=== PATIENT | female | born 1940 | race Caucasian/White ===

== ENCOUNTER → 2016-04-28 | Outpatient (CLI) | payer MEDICARE, OTHER ==
[~2016-04-28] MED LIST: ALBU17IN INH; FISH1000 PO; MECL-86 PO; OMEP20CA3 PO; PRESCAP PO; SIMV40TA2 PO; VITA100037 PO
[2016-04-28 11:41] LABS: MEAN CORPUSCULAR HEMOGLOBIN 30.2 pg (27.0-33.0); MEAN CORPUSCULAR HGB CONC 32.3 g/dl (32.0-36.5); MEAN CORPUSCULAR VOLUME 93.5 fl (80.0-96.0); RED CELL DISTRIBUTION WIDTH 12.8 % (11.5-14.5); WHITE BLOOD COUNT 6.6 K/mm3 (4.0-10.0)
[2016-04-28 11:44] LABS: INR 0.89
[2016-04-28 12:19] LABS: ALBUMIN/GLOBULIN RATIO 0.93 (1.00-1.93); BILIRUBIN,TOTAL 0.8 MG/DL (0.2-1.0); CALCIUM LEVEL 9.7 MG/DL (8.8-10.2); CREATININE FOR GFR 1.02 MG/DL (0.55-1.02); GLOMERULAR FILTRATION RATE 56.6 (>39); TOTAL PROTEIN 8.3 GM/DL (6.4-8.2)
--- NOTE | 2016-04-28 12:24 | REP ---
Chest two views HISTORY: COPD Comparison: 09/29/2011 The lungs are clear. The heart is normal in size. The pulmonary vasculature is normal in appearance. A large hiatal hernia is present. The bony structure is intact. IMPRESSION: No acute disease. Signed by Freddie Ramsey MD 04/28/2016 12:16 P
--- NOTE | 2016-04-28 12:47 | ECGEPIP ---
Stationary ECG Study [facility] Test Date: 2016-04-28 Pat Name: LOLIS LEON Department: Room: - Gender: F Incident Coordinator: NIKOLAY : 1940 Requested By: Andrew Green Order Number: [id number] Reading MD: Sandra Mares Measurements Intervals [place] Rate: 68 P: 64 HI: 176 QRS: -46 QRSD: 93 T: 34 QT: 392 QTc: 418 Interpretive Statements SINUS RHYTHM LEFT ANTERIOR FASCICULAR BLOCK MILD ST DEPRESSION NO PRIOR Electronically Signed On 04-28-2016 12:47:38 EST by Sandra Mares
== END ==
LOC: M ADMPAT 09:57
PROVIDERS: ATTEND Orthopaedic Surgery
DX: M17.12 Unilateral primary osteoarthritis, left knee (principal); Z79.01 Long term (current) use of anticoagulants

== ENCOUNTER 2016-06-13 09:04 | Inpatient (IN) | payer MEDICARE, OTHER ==
--- NOTE | 2016-06-08 14:21 | HPE ---
DATE OF ADMISSION: 06/13/2016 CHIEF COMPLAINT: Left knee pain. HISTORY OF PRESENT ILLNESS: This is a pleasant 75-year-old female who was supposed to have surgery last month but unfortunately had some issues with cardiac clearance. She ended up having an echo and an EKG and has been cleared now and is ready to go ahead and progress with her surgery. She has progressively worsening left knee pain and stiffness. She has failed to improve with conservative treatment. She has elected for surgery for her continued symptoms. She has pain with weightbearing activities and her activities of daily living. X-rays of her knee are notable for advanced osteoarthritis of the left knee joint. She has consented for a left total knee arthroplasty by Dr. Peter Hall. Medical optimization was performed by Violeta Cotter. ALLERGIES: None. CURRENT MEDICATIONS: Simvastatin, fish oil and vitamin D. PAST MEDICAL HISTORY: Includes COPD, macular degeneration, high cholesterol. PAST SURGICAL HISTORY: Includes tubal ligation and D C and colonoscopy. SOCIAL HISTORY: This patient is retired. She quit smoking 10 years ago. She does not drink alcohol. FAMILY HISTORY: Noncontributory. REVIEW OF SYSTEMS: This patient denies chest pain, heart palpitations, cough, wheezing, difficulty breathing or shortness of breath. She denies abdominal pain, nausea, vomiting, diarrhea or constipation. She does complain of persistent pain in her left knee and pain with weightbearing activities in her left knee. She denies recent upper respiratory infection or urinary tract infection symptoms. PHYSICAL EXAMINATION: GENERAL: She is well-nourished, well-developed in no acute distress, adult female. She walks with a moderate limp favoring the left lower extremity. She is not using assistive devices. VITAL SIGNS: She is 63 inches tall, weighs 184 pounds with a temperature of 97.4, blood pressure 119/83, pulse 71, respirations 16. HEENT: Neck was supple without adenopathy or jugular venous distension. There were no carotid bruits appreciated upon auscultation. LUNGS: Lungs were clear to auscultation without rales or wheeze. HEART: Regular rate and rhythm. ABDOMEN: Bowel sounds were present. EXTREMITIES: Examination of the knee revealed intact skin without erythema, edema or ecchymosis. She had decreased range of motion secondary to pain and stiffness. The leg is neurovascularly intact. LABORATORY DATA: Chest x-ray showed a large hiatal hernia but otherwise no acute cardiopulmonary disease processes. EKG showed sinus rhythm at 68 beats per minute. UA showed 3+ leukocyte esterase, otherwise within normal limits with a specific gravity of 1.024. ProTime 12.2, INR 0.89 glucose 87, BUN 18, creatinine 1.02 for a GFR 56.6, sodium 144, potassium 5.0. CBC was within normal limits. Sed rate was 35. Urine culture showed no growth. Nasal and sinus culture showed normal paulette. IMPRESSION: Symptomatic osteoarthritis of the left knee joint. PLAN: Consented for a left total knee arthroplasty by Dr. Peter Hall.
[~2016-06-13] VITALS: Ht 162.6 cm; Wt 85.0 kg
[~2016-06-13 09:04] MED LIST changes: +BUPIVACAINE HCL 0.5% 10 ML VIAL As Ordered ONE; +EPINEPHrine INJ 1 MG/ML 1ML VIAL/AMP As Ordered ONE; +ROPIvacaine 0.5% 30 ML INJECTION (J2795) As Ordered ONE; +SIMVASTATIN 20 MG TAB PO SCH; +TRANEXAMIC ACID 100 MG/ML 10ML VIAL As Ordered ONE; +ceFAZolin 1GM INJ (J0690) As Ordered ONE
[2016-06-13] MEDS ORDERED: ACETAMINOPHEN 500 MG TAB PO ONE (09:15)
[2016-06-13] MEDS ORDERED: LR 1,000 ML IV SCH ×3 (09:15→13:15)
[2016-06-13] MEDS ORDERED: COUM1TAB17 PO (09:27)
[2016-06-13] MEDS ORDERED: LIDOCAINE 2% INJ 100 MG/5 ML SDV (FOR ANES.) As Ordered ONE (10:00)
[2016-06-13] MEDS ORDERED: MIDAZOLAM INJ 2 MG/2 ML VIAL (J2250) As Ordered ONE ×2 (10:00→10:23)
[2016-06-13] MEDS ORDERED: PROPOFOL 200 MG/20 ML VIAL As Ordered ONE (10:00)
[2016-06-13] MEDS ORDERED: fentaNYL 100 MCG/2 ML INJECTION (J3010) As Ordered ONE ×3 (10:00→11:33)
[2016-06-13] MEDS ORDERED: fentaNYL 100 MCG/2 ML INJECTION (J3010) IV ONE (11:15)
[2016-06-13] MEDS ORDERED: MIDAZOLAM INJ 2 MG/2 ML VIAL (J2250) IV ONE (11:15)
[2016-06-13] MEDS ORDERED: ONDANSETRON 4MG/2ML VIAL (J2405) As Ordered ONE (11:47)
[2016-06-13] MEDS ORDERED: dexameTHASONE 10 MG/1 ML VIAL PRES.FREE (J1100) ONE (11:52)
[2016-06-13] MEDS ORDERED: LIDOCAINE 1% MDV 20ML VIAL ONE (11:52)
[2016-06-13] MEDS ORDERED: ROPIvacaine 0.5% 30 ML INJECTION (J2795) ONE (11:52)
[2016-06-13] MEDS ORDERED: PHENYLephrine HCL 500 MCG/5 ML (100MCG/ML) SYRINGE (J2370) As Ordered ONE (11:56)
[2016-06-13] MEDS ORDERED: ePHEDrine SULFATE 25 MG/5 ML(5MG/ML) SYRINGE As Ordered ONE (11:56)
[2016-06-13] MEDS ORDERED: MORPHINE PCA 1MG/ML 100ML CADD As Ordered ONE (12:41)
[2016-06-13] MEDS ORDERED: NALOXONE INJ 0.4 MG/1 ML VIAL (J2310) IV PRN (13:15)
[2016-06-13] MEDS ORDERED: fentaNYL 100 MCG/2 ML INJECTION (J3010) IV PRN (13:15)
[2016-06-13] MEDS ORDERED: MEPERIDINE INJ 25 MG/ML VIAL (J2175) IV PRN (13:15)
[2016-06-13] MEDS ORDERED: PERCOCET 5MG/325MG TAB PO PRN (13:15)
[2016-06-13] MEDS ORDERED: diphenhydrAMINE INJ 50MG/ML VIAL (J1200) IV PRN (13:15)
[2016-06-13] MEDS ORDERED: EPIDURAL/PCA KEYS XX PRN (13:15)
[2016-06-13] MEDS ORDERED: FLEET ENEMA PR PRN (13:15)
[2016-06-13] MEDS ORDERED: NALBUPHINE HCL 10 MG/ML AMP (J2300) IV PRN (13:15)
[2016-06-13] MEDS ORDERED: METOCLOPRAMIDE INJ 10MG/2ML VIAL (J2765) IV PRN (13:15)
[2016-06-13] MEDS ORDERED: ACETAMINOPHEN TAB 650MG DOSE (2X325MG) PO PRN (13:15)
[2016-06-13] MEDS ORDERED: PATIENT IS CURRENTLY ON AN ON-Q PAIN BUSTER PAIN RELIEF SYSTEM XX SCH (13:15)
[2016-06-13] MEDS ORDERED: ONDANSETRON 4MG/2ML VIAL (J2405) IV PRN ×2 (13:15)
[2016-06-13] MEDS ORDERED: MORPHINE PCA 1MG/ML 100ML CADD IV PRN (13:15)
--- NOTE | 2016-06-13 15:33 | RO ---
DATE OF PROCEDURE: 06/13/2016 PREPROCEDURE DIAGNOSIS: Left knee degenerative arthritis. POSTPROCEDURE DIAGNOSIS: Left knee degenerative arthritis. OPERATIVE PROCEDURE: Left total knee arthroplasty using a size 4 narrow cruciate retaining femoral component with a size 3 tibial tray and a 10 mm rotating platform polyethylene insert and a 35 mm polyethylene button. All components were cemented. Prosthesis made by [employer], a PFC knee. SURGEON: Andrew Hall MD SUPERVISOR [employer]: Benja Zavala ANESTHESIA: Left spinal nerve block with spinal. COMPLICATIONS: None. SPECIMENS: Joint surface. ESTIMATED BLOOD LOSS: Less than 30 mL. DESCRIPTION OF PROCEDURE: Antibiotics were given intravenously preoperatively and a successful left femoral nerve block and spinal anesthetic was placed. A tourniquet was placed in the left upper thigh and not inflated. The left lower extremity was prepped and draped in the usual sterile fashion. Leg elevated and after an appropriate time out, the tourniquet was inflated and then longitudinal incision was made for a medial parapatellar approach to the knee. Bovie cautery was used to coagulate crossing vessels. Subperiosteal dissection of the proximal medial portion of the tibia was performed as well as proximally and laterally and then we everted the patella and flexed the knee. Anterior cruciate ligament (ACL ) was debrided. Drill placed down the center of the femoral canal followed by an intramedullary oziel and a distal femoral cutting jig set at 5 degrees valgus cut for a left knee at 10 mm resection level. A distal femoral block was pinned into position. Distal femoral cut performed. AP sizing jig measures for a size 4 prosthesis and then the 3 degree external rotation block was placed, followed by the four-in-one block and anterior-posterior chamfer cuts performed taking great care to protect the surrounding soft tissues. We then performed the anterior posterior chamfer cuts. We then exposed the proximal tibia and then the extramedullary oziel was used to make sure we were parallel to the mechanical axis of the tibia referencing off the medial tibial condyle measuring 4 mm from that position, then we placed the cutting jig and then secondary check with extramedullary oziel confirmed that we appeared to be parallel to the mechanical axis. The proximal tibial osteotomy was then performed. We then placed the laminar dry clipper tender laterally and performed a completion medial meniscectomy with debridement of posterior medial osteophytes, then placed the laminar dry clipper tender medially and performed a completion lateral meniscectomy with debridement of the posterior lateral osteophytes. The spacer blocks were then used and the 10 mm insert felt the best. She had just about full extension with a 10 mm, thus I did not think a bigger one was needed. She has good stability at varus valgus stress test both in flexion and extension. We then exposed the proximal tibia, sized for a #3 tray and then it was pinned in positioned followed by the reamer and broach and then the trial polyethylene placed, followed by the trial femoral component, brought the knee to extension, everted the patella and performed patellar osteotomy and then the lug holes were drilled sizing for a 35 button. The trial polyethylene was placed and flexion and extension showed that patellofemoral tracking was anatomic. We then drilled the lug holes for the femur, removed the trial components and my sales and marketing assistant Mr. Benja Zavala mixed the cement on the back table as I prepared the bony surfaces for cementing with a copious amount of pulsatile lavage irrigant solution. Once all the surface were thoroughly dried, I cemented the tibial tray , removed excess cement, placed the polyethylene then cemented the femoral component, removed exam excess cement, brought the knee to extension, then cemented the patellar button, and removed cement. Held this in position until the cement had hardened and then copiously pulsatile lavage irrigated out the knee joint as we were waiting for the cement to harden. Tranexamic acid was placed in the knee and then we closed the apex of the wound with two interrupted #1 PDS sutures, the parapatellar areas was closed with #1 PDS suture, then a running #1 Stratafix was used, double armed to close the capsule. At this point the tourniquet was released. The PainBuster placed. Then we irrigated the subdermal tissues with pulsatile lavage irrigant solution and closed the subdermal sutures with interrupted #2-0 PDS sutures and the skin was closed with ladonna, covered by Adaptic dry sterile bulky dressing. She was then transferred to the recovery room in stable condition. There were no intraoperative complications. PEDRO PABLO
[2016-06-13] MEDS ORDERED: WARFARIN SOD 5 MG TAB PO SCH (17:00)
[2016-06-13 20:00] VITALS: BP 113/54
[2016-06-13 21:00] VITALS: BP 118/51
[2016-06-13 22:00] VITALS: BP 112/50
--- NOTE | 2016-06-13 22:11 | CR ---
DATE OF CONSULTATION: 06/13/2016 PRIMARY CARE PROVIDER: Violeta Cotter, [facility]. REQUESTING PHYSICIAN: Dr. Hall REASON FOR CONSULTATION: Assistance with medical management. HISTORY OF PRESENT ILLNESS: Ms. Briscoe is a pleasant 75-year-old female with past medical history of gastroesophageal reflux disease (GERD), hyperlipidemia, chronic obstructive pulmonary disease (COPD), who presented today for an elective left total knee arthroplasty with Dr. Hall secondary to left knee arthritis. Patient himself reports that she has had a problem with arthritis ongoing for at least 7 to 8 years. Her symptoms have progressively worsened to the point that she intermittently had to use a walker. Previously, her treatment was pursued conservatively; however, despite her medical management, her pain worsened. Therefore, the decision was for the patient to electively pursue surgery. There is also plan for right knee surgery in the future. Patient is now seen in the postoperatively in the postanesthesia care unit (PACU ). Feels well after surgery. Denies any chest pain, shortness of breath, palpitations, nausea, vomiting, fevers, chills. Underwent surgery well without complications. She has very good appetite. PAST MEDICAL HISTORY: 1. Hyperlipidemia. 2. Chronic obstructive pulmonary disease (COPD), but has not been on medications for years; reportedly is very well controlled. 3. Vitamin D deficiency. 4. Gastroesophageal reflux disease (GERD). 5. Vertigo. 6. Macular degeneration. 7. Bilateral knee degenerative arthritis. 8. Diverticulosis. PAST SURGICAL HISTORY: 1. Left total knee arthroplasty, 06/13/2016. 2. Tubal ligation. 3. Dilatation and curettage (D C). 4. Colonoscopy. 5. Tonsillectomy. 6. Appendectomy. ALLERGIES: None. HOME MEDICATIONS: - fish oil 1000 mg by mouth daily - meclizine 25 mg by mouth daily as needed - omeprazole 20 mg by mouth daily as needed - PreserVision 1 capsule by mouth daily - Zocor 40 mg by mouth daily - vitamin D 1000 units by mouth daily SOCIAL HISTORY: The patient is an ex-smoker of 10 years, used to smoke for greater than 40 years, up to two packs a day. No alcohol or drug use. Lifetime travel includes [employer]. 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 Currently lives at home with her and five dogs. No history of asbestos, tuberculosis. FAMILY HISTORY: Noncontributory due to advanced age. REVIEW OF SYSTEMS: CONSTITUTIONAL: Denies fevers, chills, rigors, weight changes. HEENT: Denies headaches, lightheadedness, dizziness, difficulty with speech and swallow. EYES: Positive for macular degeneration. CARDIOVASCULAR: Denies chest pain, paroxysmal nocturnal dyspnea, pillow orthopnea, lower extremity edema. PULMONARY: Denies shortness of breath, productive cough, hemoptysis. GASTROINTESTINAL: Denies hematochezia, melena, or hematemesis, nausea, vomiting , diarrhea, constipation. GENITOURINARY: No dysuria, frequency or hematuria. MUSCULOSKELETAL: Positive for arthritis bilateral knees. NEUROLOGICAL: No paralysis, paresthesia, headaches. ENDOCRINE: Negative for diabetes, or thyroid disease. LYMPHATICS: No lumps, bumps, or swelling anywhere in neck, axilla, or groin. HEMATOLOGY: No abnormal bleeding or bruising. PSYCHIATRIC: No anxiety or depression. PHYSICAL EXAMINATION: VITAL SIGNS: Blood pressure 137/65, heart rate 75, respiration rate 18, pulse oximetry 97% on 2 liters nasal cannula. GENERAL: Patient is lying in bed in the postanesthesia care unit (PACU), comfortable, no acute distress. Appears stated age. Alert, awake, oriented times three. Pleasant, cooperative. HEENT: Normocephalic, atraumatic. Moist oral mucosa. Good dentition. No thrush or lesions appreciated. NECK: Supple. Trachea midline. No jugular venous distention (JVD). CHEST: Symmetric chest rise. No accessory muscle use. Breath sounds were clear to auscultation bilaterally. HEART: Regular rate and rhythm. Normal S1, S2. ABDOMEN: Obese, but nontender, nondistended. Bowel sounds present. No guarding. No rebound. No peritoneal signs. EXTREMITIES: No pedal edema. Pedal pulses present bilaterally. Left lower extremity is currently being wrapped with PainBuster in place. NEUROLOGIC: She is able to move all her extremities. Sensory intact. No focal deficits appreciated. PSYCHIATRIC: Normal affect. Pleasant. SKIN: No obvious rashes or lesions. LABORATORY DATA: None currently. IMPRESSION AND PLAN: Ms. Briscoe is a pleasant 75-year-old female with past medical history of left knee arthritis status post left total knee arthroplasty postoperative day zero. Medical consult is requested to help assist with her other medical conditions. 1. Left knee arthritis status post surgery. Pain management and anticoagulation is per primary team. Physical therapy per primary team. 2. Hyperlipidemia. Continue home dose of Zocor. 3. Vitamin D deficiency. Continue vitamin D supplementation. 4. Gastroesophageal reflux disease (GERD). She only needs omeprazole as needed. Not an active concern at this time. 5. Chronic obstructive pulmonary disease (COPD). Reportedly, does not require nebulizer treatment outpatient. Symptoms have been under control for many years despite not being on treatment. 6. Deep venous thrombosis (DVT) prophylaxis. Sequential compression devices (SCDs), thromboembolitic deterrents (TEDs), pharmacological intervention per primary team. Thank you for allowing us to participate in Ms. Briscoe's care. We will continue to follow her with you. My preceptor for this patient encounter was Dr. Demond Bae. The preceptor was physically present in the building during the encounter and was fully available as needed. All aspects of the patient interview, examination, medical decision-making process, and medical care plan development were reviewed and approved by the preceptor. The preceptor is aware and concurs with the plan as stated in the body of this note and will attest to such by his/her co-signature. PEDRO PABLO
[2016-06-13 23:00] VITALS: BP 122/63
[2016-06-14 02:00] VITALS: BP 131/70
[2016-06-14 06:00] VITALS: BP 127/67
[2016-06-14] MEDS ORDERED: PERCOCET 5MG/325MG TAB PO PRN (06:30)
[2016-06-14 07:15] LABS: MEAN CORPUSCULAR HEMOGLOBIN 29.9 pg (27.0-33.0); MEAN CORPUSCULAR HGB CONC 31.6 g/dl (32.0-36.5); MEAN CORPUSCULAR VOLUME 94.9 fl (80.0-96.0); RED CELL DISTRIBUTION WIDTH 12.6 % (11.5-14.5); WHITE BLOOD COUNT 13.1 K/mm3 (4.0-10.0)
[2016-06-14 07:27] LABS: CALCIUM LEVEL 8.4 MG/DL (8.8-10.2); CREATININE FOR GFR 1.11 MG/DL (0.55-1.02); GLOMERULAR FILTRATION RATE 51.3 (>39); POTASSIUM SERUM 4.9 MEQ/L (3.5-5.1)
[2016-06-14] MEDS: MIRALAX *UNIT DOSE* 17GM PACKET PO SCH (09:02)
[2016-06-14] MEDS: MOM 30ML SUSPENSION UDC PO SCH (09:02)
[2016-06-14] MEDS: VITAMIN D 1,000 INTERNATIONAL UNITS TABLET PO SCH (09:03)
[2016-06-14] MEDS: PERCOCET 5MG/325MG TAB PO PRN ×3 (09:03→23:33)
[2016-06-14] MEDS: SENOKOT S TAB PO SCH ×2 (09:03→20:18)
[2016-06-14] MEDS: ONDANSETRON 4 MG TAB (S0181) PO PRN ×2 (09:03→15:05)
[2016-06-14] MEDS: SIMVASTATIN 40 MG TAB PO SCH (09:03)
[2016-06-14 09:05] LABS: INR 1.56
--- NOTE | 2016-06-14 12:44 | REP ---
Left knee two views postoperative study: There is a total knee arthroplasty. The components are tightly applied and in satisfactory positions alignment on both views. Skin ladonna are incidentally noted. Signed by Vin Reardon MD 06/14/2016 12:36 P
[2016-06-14 14:00] VITALS: BP 123/56
[2016-06-14] MEDS ORDERED: MECLIZINE 25 MG TABLET PO PRN (15:30)
[2016-06-14] MEDS ORDERED: WARFARIN SOD 5 MG TAB PO ONE (17:00)
[2016-06-14 22:00] VITALS: BP 117/60
[2016-06-15 06:00] VITALS: BP 140/83
[2016-06-15] MEDS: PERCOCET 5MG/325MG TAB PO PRN ×4 (06:04→23:13)
[2016-06-15 06:45] LABS: MEAN CORPUSCULAR HEMOGLOBIN 30.3 pg (27.0-33.0); MEAN CORPUSCULAR HGB CONC 31.7 g/dl (32.0-36.5); MEAN CORPUSCULAR VOLUME 95.4 fl (80.0-96.0); RED CELL DISTRIBUTION WIDTH 12.8 % (11.5-14.5); WHITE BLOOD COUNT 12.2 K/mm3 (4.0-10.0)
[2016-06-15 06:51] LABS: INR 2.56
[2016-06-15 07:04] LABS: ANION GAP 7 MEQ/L (8-16); BLOOD UREA NITROGEN 16 MG/DL (7-18); CALCIUM LEVEL 8.6 MG/DL (8.8-10.2); CARBON DIOXIDE LEVEL 31 MEQ/L (21-32); CHLORIDE LEVEL 103 MEQ/L (98-107); GLOMERULAR FILTRATION RATE > 60.0 (>39); GLUCOSE, FASTING 109 MG/DL (83-110); POTASSIUM SERUM 4.4 MEQ/L (3.5-5.1); SODIUM LEVEL 141 MEQ/L (136-145)
[2016-06-15] MEDS: SENOKOT S TAB PO SCH ×2 (10:03→21:00)
[2016-06-15] MEDS: MOM 30ML SUSPENSION UDC PO SCH (10:03)
[2016-06-15] MEDS: PANTOPRAZOLE 20 MG TAB PO SCH (10:03)
[2016-06-15] MEDS: MIRALAX *UNIT DOSE* 17GM PACKET PO SCH (10:03)
[2016-06-15] MEDS: OMEGA-3 1050MG CAPSULE PO SCH (10:03)
[2016-06-15] MEDS: SIMVASTATIN 40 MG TAB PO SCH (10:03)
[2016-06-15] MEDS: VITAMIN D 1,000 INTERNATIONAL UNITS TABLET PO SCH (10:03)
[2016-06-15] MEDS: ONDANSETRON 4 MG TAB (S0181) PO PRN ×3 (10:04→23:15)
[2016-06-15 22:00] VITALS: BP 130/73
[2016-06-16] MEDS: ONDANSETRON 4 MG TAB (S0181) PO PRN ×2 (05:58→10:07)
[2016-06-16] MEDS: PERCOCET 5MG/325MG TAB PO PRN (05:58)
[2016-06-16 06:00] VITALS: BP 121/63
[2016-06-16 06:38] LABS: MEAN CORPUSCULAR HEMOGLOBIN 30.3 pg (27.0-33.0); MEAN CORPUSCULAR HGB CONC 32.3 g/dl (32.0-36.5); MEAN CORPUSCULAR VOLUME 93.9 fl (80.0-96.0); RED CELL DISTRIBUTION WIDTH 12.5 % (11.5-14.5); WHITE BLOOD COUNT 10.4 K/mm3 (4.0-10.0)
[2016-06-16 06:44] LABS: INR 2.18
[2016-06-16 06:57] LABS: ANION GAP 8 MEQ/L (8-16); BLOOD UREA NITROGEN 13 MG/DL (7-18); CARBON DIOXIDE LEVEL 28 MEQ/L (21-32); CHLORIDE LEVEL 103 MEQ/L (98-107); CREATININE FOR GFR 0.81 MG/DL (0.55-1.02); GLOMERULAR FILTRATION RATE > 60.0 (>39); GLUCOSE, FASTING 99 MG/DL (83-110); POTASSIUM SERUM 4.3 MEQ/L (3.5-5.1); SODIUM LEVEL 139 MEQ/L (136-145)
--- NOTE | 2016-06-16 07:44 | IPNPDOC ---
Subjective Date Seen The patient was seen on 06/16/16. Subjective Chief Complaint/HPI The patient is a 75-year-old female admitted with a reason for visit of Arthritis Left Knee. Events since last encounter pt seen and examined, doing well, walked with physical therapy yesterday, pain is controlled Objective Physical Examination General Exam: Positive: No Acute Distress Eye Exam: Positive: PERRLA, Conjunctiva & lids normal Neck Exam: Positive: Supple Heart Exam: Positive: Rate Normal, Regular Rhythm, Normal S1, Normal S2, Negative: Murmurs, Rubs Abdomen Exam: Positive: Normal bowel sounds, Soft, Negative: Tenderness, Hepatospenomegaly Extremity Exam: Positive: Normal pulses, Negative: Clubbing, Cyanosis, Edema Assessment /Plan Problems (1) Arthritis of left knee Problem Text: * s/p left knee arthroplasty POD #3 * pain in controlled, continues to work with PT * INR therapeutic (2) Vertigo Status: Chronic Response to Treatment: Stable Problem Text: * meclizine as needed (3) Gastric reflux Status: Chronic Response to Treatment: Stable Problem Text: Protonix daily (4) Hyperlipidemia Status: Chronic Response to Treatment: Stable Problem Text: simvastatin daily Plan/VTE VTE Prophylaxis Ordered?: Yes VS, I&O, 24H, Fishbone Vital Signs/I&O Vital Signs Date Time Temp Pulse Resp B/P (MAP) Pulse Ox O2 Delivery O2 Flow Rate FiO2 06/16/16 06:28 18 06/16/16 06:00 98.4 77 121/63 (82) 92 Room Air 06/14/16 06:00 2.0 I&O- Last 24 Hours up to 6 AM 06/16/16 06:00 Intake Total 260 ml Output Total 200 ml Balance 60 ml Laboratory Data 24H LABS Laboratory Tests 2 06/16/16 06:24: Prothrombin Time 24.3H, Prothromb Time International Ratio 2.18, Anion Gap 8, Glomerular Filtration Rate > 60.0, Blood Urea Nitrogen 13, Creatinine 0.81, Sodium Level 139, Potassium Level 4.3, Chloride Level 103, Carbon Dioxide Level 28, Calcium Level 8.0L CBC/BMP Laboratory Tests 06/16/16 06:24 Red Blood Count 4.05, Mean Corpuscular Volume 93.9, Mean Corpuscular Hemoglobin 30.3, Mean Corpuscular Hemoglobin Concent 32.3, Red Cell Distribution Width 12.5 , Calcium Level 8.0 L YVETTE MOON DO Jun 16, 2016 07:44
[2016-06-16] MEDS ORDERED: COUM2.5T11 PO (08:32)
[2016-06-16] MEDS ORDERED: PERC5TAB6 PO (08:32)
[2016-06-16] MEDS: MOM 30ML SUSPENSION UDC PO SCH (08:51)
[2016-06-16] MEDS: MIRALAX *UNIT DOSE* 17GM PACKET PO SCH (08:51)
[2016-06-16] MEDS: VITAMIN D 1,000 INTERNATIONAL UNITS TABLET PO SCH (08:51)
[2016-06-16] MEDS: SIMVASTATIN 40 MG TAB PO SCH (08:51)
[2016-06-16] MEDS: SENOKOT S TAB PO SCH (08:51)
[2016-06-16] MEDS: PANTOPRAZOLE 20 MG TAB PO SCH (08:51)
[2016-06-16] MEDS: OMEGA-3 1050MG CAPSULE PO SCH (08:51)
[2016-06-16] MEDS ORDERED: ZOFR20TA PO (14:15)
[2016-06-16] MEDS ORDERED: MAGNESIUM CITRATE 300 ML BTL PO ONE (14:30)
== END 2016-06-16 14:55 | disposition home health service (06) | DRG 470 ==
LOC: M OR 09:04 → M MS5PR 19:00
PROVIDERS: ADMIT Orthopaedic Surgery; ATTEND Orthopaedic Surgery
PROC: 0SRD0J9 Replacement of Left Knee Joint with Synthetic Substitute, Cemented, Open Approach (ICD-10-PCS; principal; 2016-06-13 12:40)
DX: M17.12 Unilateral primary osteoarthritis, left knee (principal); E55.9 Vitamin D deficiency, unspecified; J44.9 Chronic obstructive pulmonary disease, unspecified; H35.30 Unspecified macular degeneration; K21.9 Gastro-esophageal reflux disease without esophagitis; R42 Dizziness and giddiness; E78.5 Hyperlipidemia, unspecified; Z79.899 Other long term (current) drug therapy; Z87.891 Personal history of nicotine dependence; Z98.51 Tubal ligation status

== ENCOUNTER → 2016-06-22 | Outpatient (REF) | payer MEDICARE, OTHER ==
[~2016-06-22] MED LIST changes: -BUPIVACAINE HCL 0.5% 10 ML VIAL As Ordered ONE; +COUM1TAB17 PO; +COUM2.5T11 PO; -EPINEPHrine INJ 1 MG/ML 1ML VIAL/AMP As Ordered ONE; +PERC5TAB6 PO; -ROPIvacaine 0.5% 30 ML INJECTION (J2795) As Ordered ONE; -SIMVASTATIN 20 MG TAB PO SCH; -TRANEXAMIC ACID 100 MG/ML 10ML VIAL As Ordered ONE; +ZOFR20TA PO; -ceFAZolin 1GM INJ (J0690) As Ordered ONE
[2016-06-22 11:19] LABS: INR 4.19
== END ==
LOC: M SHH 10:33
PROVIDERS: ATTEND Nurse Practitioner Family
DX: Z51.81 Encounter for therapeutic drug level monitoring (principal); Z79.01 Long term (current) use of anticoagulants

== ENCOUNTER → 2016-06-23 | Outpatient (REF) | payer MEDICARE, OTHER ==
[2016-06-23 12:42] LABS: INR 3.73
== END ==
LOC: M SHH 12:02
PROVIDERS: ATTEND Nurse Practitioner Family
DX: Z51.81 Encounter for therapeutic drug level monitoring (principal); Z79.01 Long term (current) use of anticoagulants

== ENCOUNTER → 2016-06-27 | Outpatient (REF) | payer MEDICARE, OTHER ==
[2016-06-27 14:44] LABS: INR 1.53
== END ==
LOC: M SHH 14:18
PROVIDERS: ATTEND Nurse Practitioner Family
DX: Z51.81 Encounter for therapeutic drug level monitoring (principal); Z79.01 Long term (current) use of anticoagulants

== ENCOUNTER → 2016-06-30 | Outpatient (REF) | payer MEDICARE, OTHER ==
[2016-06-30 13:46] LABS: INR 1.53
== END ==
LOC: M SHH 12:35
PROVIDERS: ATTEND Nurse Practitioner Family
DX: Z51.81 Encounter for therapeutic drug level monitoring (principal); Z79.01 Long term (current) use of anticoagulants

== ENCOUNTER → 2016-07-04 | Outpatient (REF) | payer MEDICARE, OTHER ==
[2016-07-04 12:26] LABS: INR 2.68
== END ==
LOC: M SHH 11:35
PROVIDERS: ATTEND Nurse Practitioner Family
DX: Z51.81 Encounter for therapeutic drug level monitoring (principal); Z79.01 Long term (current) use of anticoagulants

== ENCOUNTER → 2016-07-07 | Outpatient (REF) | payer MEDICARE, OTHER ==
[2016-07-07 15:59] LABS: INR 1.68
== END ==
LOC: M SHH 14:47
PROVIDERS: ATTEND Nurse Practitioner Family
DX: Z51.81 Encounter for therapeutic drug level monitoring (principal); Z79.01 Long term (current) use of anticoagulants

== ENCOUNTER → 2016-07-11 | Outpatient (REF) | payer MEDICARE, OTHER ==
[2016-07-11 13:35] LABS: INR 1.4
== END ==
LOC: M SHH 13:20
PROVIDERS: ATTEND Nurse Practitioner Family
DX: Z51.81 Encounter for therapeutic drug level monitoring (principal); Z79.01 Long term (current) use of anticoagulants

== ENCOUNTER 2016-12-27 11:22 | Inpatient (IN) | payer MEDICARE, OTHER ==
[2016-12-15 10:53] VITALS: BP 124/70
--- NOTE | 2016-12-23 14:38 | HPE ---
DATE OF ADMISSION: 12/27/2016 ATTENDING PHYSICIAN: Andrew Hall MD CHIEF COMPLAINT: Right knee pain and stiffness. HISTORY: Patient is a 76-year-old female with progressively worsening right knee pain and stiffness. She has failed to improve with conservative measures. She continues to have pain with weightbearing activities and activities of daily living. Patient has consented for an elective right total knee arthroplasty with Dr. Hall. Medical optimization received from her primary care, Violeta Cotter PA-C and also her acid polymerization operator, Dr. Benja Garland at the [facility]. CURRENT MEDICATIONS: - meclizine 25 mg 1/2 to 1 tablet three times daily - omeprazole 20 mg daily - PreserVision/lutein oral capsule once daily - simvastatin 40 mg daily - albuterol 2 puffs every 4-6 hours as needed for wheeze/cough - vitamin D3 1000 units daily ALLERGIES: No known drug allergies. PAST MEDICAL HISTORY: Hyperlipidemia. Type 2 diabetes. Gastroesophageal reflux. Macular degeneration. Reactive airway disease. Urinary incontinence with use of pessary. Vaginitis. Currently using triamcinolone cream as needed. Vertigo. Vitamin D deficiency. PAST SURGICAL HISTORY: Left total knee arthroplasty. Tubal ligation. SOCIAL HISTORY: Patient is a former smoker and does not consume alcohol. No recreational drug use. REVIEW OF SYSTEMS: Patient denies fevers, chills, nausea, vomiting, or diarrhea. She denies chest pain or shortness of breath, lightheadedness, headaches, coughs or abdominal pain. She continues to have right knee pain with weightbearing activities and activities of daily living (ADL). PHYSICAL EXAMINATION: VITAL SIGNS: Blood pressure 126/72, heart rate 72, respirations 18, height 5 feet 4-1/4 inches, weight 179 pounds, temperature 98.7. HEAD: Normocephalic. NECK: Supple without lymphadenopathy. HEART: Regular rate and rhythm. LUNGS: Clear to auscultation bilaterally. ABDOMEN: Soft, nontender to palpation. MUSCULOSKELETAL: Inspection of the right knee revealed no gross abnormalities. Patient's skin is intact. She is walking with a limp favoring the right lower extremity. Patient can extend knee to 0 degrees and flex to 100 degrees. Right lower extremity strength is normal. No hip irritability was elicited with range of motion. Her calf is soft, nontender to palpation with no palpable cords noted. Distally, she is neurovascularly intact. LABORATORY DATA: EKG sinus rhythm with a left anterior fascicular block. Poor R wave progression related to conduction disturbance. Marginal ST/T wave abnormalities. Chest x-ray large fixed hiatal hernia, otherwise negative chest. No interval change. Comprehensive metabolic profile fasting glucose 92, blood urea nitrogen 14, creatinine for GFR 0.75, glomerular filtration rate greater than 60, sodium 141, potassium 4.7, chloride 104, carbon dioxide 31, anion gap decreased at 6, calcium 9.4, AST 14, ALT 19, alkaline phosphatase 98, total bilirubin 0.5, total protein 8.0, albumin 3.8, albumin globulin ratio decreased at 0.90, prothrombin time 13.6, INR 1.03. Urinalysis revealed positive leukocyte esterase and WBCs. Urine culture reveals no growth. Nasal and sinus cultures normal paulette present. Complete blood count WBC 6.5, RBC 4.81, hemoglobin 14.5, hematocrit 44.7, platelets 360, erythrocyte sedimentation rate elevated at 33. IMPRESSION: Right knee osteoarthritis (OA) with x-rays notable for end stage degenerative changes. PLAN: Patient has consented for an elective right total knee arthroplasty with Dr. Hall. Medical optimization received from her primary pediatric acute care unit nurse DAMASO Cotter and her acid polymerization operator Dr. Benja Garland. [facility]ITAL[facility]
[~2016-12-27] VITALS: Ht 165.1 cm; Wt 90.4 kg
[~2016-12-27 11:22] MED LIST changes: -COUM2.5T11 PO; +COUM2.5T17 PO; +PERC5TAB12 PO; -PERC5TAB6 PO; -VITA100037 PO; +VITA100067 PO
[2016-12-27] MEDS ORDERED: ACETAMINOPHEN 500 MG TAB PO ONE (11:30)
[2016-12-27] MEDS ORDERED: LR 1,000 ML IV ONE (11:30)
[2016-12-27] MEDS ORDERED: COUM1TAB17 PO (12:38)
[2016-12-27] MEDS ORDERED: fentaNYL 100 MCG/2 ML INJECTION (J3010) As Ordered ONE ×2 (13:35→13:59)
[2016-12-27] MEDS ORDERED: MIDAZOLAM INJ 2 MG/2 ML VIAL (J2250) As Ordered ONE ×2 (13:35→13:59)
[2016-12-27] MEDS ORDERED: ceFAZolin 1GM INJ (J0690) As Ordered ONE (13:49)
[2016-12-27] MEDS ORDERED: TRANEXAMIC ACID 100 MG/ML 10ML VIAL As Ordered ONE (13:49)
[2016-12-27] MEDS ORDERED: EPINEPHrine INJ 1 MG/ML 1ML AMP As Ordered ONE (13:49)
[2016-12-27] MEDS: MIDAZOLAM INJ 2 MG/2 ML VIAL (J2250) IV SCH ×2 (13:57→14:00)
[2016-12-27] MEDS ORDERED: BUPIVACAINE HCL 0.25% 30 ML VIAL As Ordered ONE (14:21)
[2016-12-27] MEDS: BUPIVACAINE LIPOSOME/PF 1.3% 20 ML VIAL (13.3MG/ML)(EXPAREL) INJ ONE ×2 (14:22→15:50)
[2016-12-27] MEDS ORDERED: fentaNYL 100 MCG/2 ML INJECTION (J3010) IV SCH (14:30)
[2016-12-27] MEDS ORDERED: KETAMINE HCL 200 MG/20 ML VIAL As Ordered ONE (14:45)
[2016-12-27] MEDS ORDERED: dexameTHASONE 4 MG/ML 1ML VIAL (J1100) As Ordered ONE (15:34)
[2016-12-27] MEDS ORDERED: LIDOCAINE 2% INJ 100 MG/5 ML SDV (FOR ANES.) As Ordered ONE (15:34)
[2016-12-27] MEDS ORDERED: ONDANSETRON 4MG/2ML VIAL (J2405) As Ordered ONE (15:34)
[2016-12-27] MEDS ORDERED: PROPOFOL 200 MG/20 ML VIAL As Ordered ONE (15:34)
[2016-12-27] MEDS ORDERED: HYDROmorphone HCL 2 MG/ML 1ML VIAL (J1170) As Ordered ONE (15:40)
[2016-12-27] MEDS ORDERED: ePHEDrine SULFATE 25 MG/5 ML(5MG/ML) SYRINGE As Ordered ONE (15:50)
[2016-12-27] MEDS ORDERED: MEPERIDINE INJ 25 MG/ML VIAL (J2175) IV PRN (17:00)
[2016-12-27] MEDS ORDERED: NALBUPHINE HCL 10 MG/ML AMP (J2300) IV PRN (17:00)
[2016-12-27] MEDS ORDERED: FLEET ENEMA PR PRN (17:00)
[2016-12-27] MEDS ORDERED: PERCOCET 5MG/325MG TAB PO PRN (17:00)
[2016-12-27] MEDS ORDERED: fentaNYL 100 MCG/2 ML INJECTION (J3010) IV PRN (17:00)
[2016-12-27] MEDS ORDERED: EPIDURAL/PCA KEYS XX PRN (17:00)
[2016-12-27] MEDS ORDERED: METOCLOPRAMIDE INJ 10MG/2ML VIAL (J2765) IV PRN (17:00)
[2016-12-27] MEDS ORDERED: diphenhydrAMINE INJ 50MG/ML VIAL (J1200) IV PRN (17:00)
[2016-12-27] MEDS ORDERED: MORPHINE 1MG/ML IN 0.9% NACL 100ML IV BAG IV PRN (17:00)
[2016-12-27] MEDS ORDERED: ONDANSETRON 4MG/2ML VIAL (J2405) IV PRN ×2 (17:00)
[2016-12-27] MEDS ORDERED: NALOXONE INJ 0.4 MG/1 ML VIAL (J2310) IV PRN (17:00)
[2016-12-27] MEDS ORDERED: LR 1,000 ML IV SCH (17:00)
[2016-12-27] MEDS ORDERED: ACETAMINOPHEN TAB 650MG DOSE (2X325MG) PO PRN (17:00)
[2016-12-27] MEDS: LR 1,000 ML IV SCH (17:32)
[2016-12-27 18:30] VITALS: BP 173/88
[2016-12-27 19:00] VITALS: BP 130/75
[2016-12-27 20:00] VITALS: BP 142/60
[2016-12-27 21:00] VITALS: BP 157/78; O2SAT 98
[2016-12-27] MEDS ORDERED: WARFARIN SOD 5 MG TAB PO ONE (21:00)
--- NOTE | 2016-12-27 21:34 | IPN ---
DATE: 12/27/2016 Ms. Briscoe is seen in the immediate postoperative period. She is still recovering from a relatively uneventful procedure, although she did require general anesthesia as pain control was inadequate in spinal. Temperature 96.2, pulse 75, respiratory rate 16, blood pressure 175/79, 96% on 2 liters nasal cannula. She is localizing to pain. Breathing is symmetrical, rested. I:E ratio is 1:3. Heart: Regular rate and rhythm and is not tachycardic. Abdomen: Soft, hypoactive bowel sounds. There are no recent labs for me to review from today. ASSESSMENT: This is a 76-year-old postoperative from right knee arthroplasty. PLAN: 1. Orthopedic. Pain management, deep vein thrombosis (DVT) prophylaxis, gastrointestinal (GI) regimen, activity and discharge per Dr. Hall. 2. Patient has an abnormal EKG, was seen in preoperative evaluation at the [facility], Dr. Garland. Echocardiogram shows preserved LV function. EKG continues to show left anterior fascicular block. The patient does have hyperlipidemia. Will continue on a statin in the postoperative setting. 3. Will review home medications and reconcile.
[2016-12-27 22:00] VITALS: BP 138/74
[2016-12-28 02:00] VITALS: BP 142/65
[2016-12-28] MEDS: LR 1,000 ML IV SCH (05:20)
[2016-12-28 06:00] VITALS: BP 120/56
[2016-12-28] MEDS ORDERED: ONDANSETRON 4 MG TAB (S0181) PO SCH (06:00)
[2016-12-28] MEDS ORDERED: PERCOCET 5MG/325MG TAB PO PRN (06:30)
[2016-12-28 06:42] LABS: MEAN CORPUSCULAR HGB CONC 32.6 g/dl (32.0-36.5); MEAN CORPUSCULAR VOLUME 92.1 fl (80.0-96.0); PLATELET COUNT, AUTOMATED 292 10^3/uL (150-450); RED CELL DISTRIBUTION WIDTH 13.8 % (11.5-14.5); WHITE BLOOD COUNT 10.4 10^3/uL (4.0-10.0)
[2016-12-28 06:53] LABS: INR 1.2
[2016-12-28] MEDS ORDERED: ACETAMINOPHEN TAB 650MG DOSE (2X325MG) PO PRN (07:00)
[2016-12-28 07:05] LABS: ANION GAP 8 MEQ/L (8-16); BLOOD UREA NITROGEN 11 MG/DL (7-18); CARBON DIOXIDE LEVEL 27 MEQ/L (21-32); CHLORIDE LEVEL 104 MEQ/L (98-107); CREATININE FOR GFR 0.96 MG/DL (0.55-1.02); GLOMERULAR FILTRATION RATE > 60.0 (>39); GLUCOSE, FASTING 124 MG/DL (83-110); POTASSIUM SERUM 4.1 MEQ/L (3.5-5.1); SODIUM LEVEL 139 MEQ/L (136-145)
[2016-12-28] MEDS ORDERED: ROPIvacaine 0.5% 30 ML INJECTION (J2795) ONE (07:33)
[2016-12-28] MEDS: MOM 30ML SUSPENSION UDC PO SCH (08:16)
[2016-12-28] MEDS: SENOKOT S TAB PO SCH ×2 (08:16→21:26)
[2016-12-28] MEDS: MIRALAX *UNIT DOSE* 17GM PACKET PO SCH (08:17)
[2016-12-28] MEDS: PERCOCET 5MG/325MG TAB PO PRN ×4 (08:17→21:26)
[2016-12-28 10:00] VITALS: BP 120/57
[2016-12-28] MEDS: ONDANSETRON 4 MG TAB (S0181) PO PRN ×3 (11:37→18:34)
--- NOTE | 2016-12-28 12:43 | REP ---
Right hip two views: There is a total hip arthroplasty with the components tightly applied and in satisfactory positions alignment. There are skin ladonna. Signed by Vin Reardon MD 12/28/2016 12:35 P
[2016-12-28 14:00] VITALS: BP 117/60
--- NOTE | 2016-12-28 14:29 | RO ---
DATE OF PROCEDURE: 12/27/2016 PREPROCEDURE DIAGNOSIS: Right knee varus degenerative arthritis. POSTPROCEDURE DIAGNOSIS: Right knee varus degenerative arthritis. PROCEDURE: Right total knee arthroplasty using a size 4 narrow cemented femoral component, cruciate retaining with a size 3 tibial tray and a 15 mm rotating platform polyethylene insert and a 35 mm polyethylene button. Prosthesis was made by [employer], it was a PFC knee. SURGEON: Dr. Andrew Hall SEARCH MARKETING COORDINATOR: DAMASO Fuentes ANESTHESIA: Spinal with right femoral nerve block and then general laryngeal mask anesthetic. COMPLICATIONS: None. SPECIMENS: Joint surface. ESTIMATED BLOOD LOSS: Less than 20 mL. DESCRIPTION OF PROCEDURE: Antibiotics were given intravenously, preoperatively successfully, then a right femoral nerve block and then a spinal anesthetic was induced successfully. Tourniquet was placed on the right upper thigh and not inflated. Right lower extremity was then carefully prepped and draped in the usual sterile fashion. The leg was elevated. Then, after appropriate time-out, the tourniquet was inflated. A longitudinal incision was made for a medial parapatellar approach to the knee. The spinal was a bit slow to set up and so anesthesiologist did laryngeal mask anesthetic. Bovie cautery was used to coagulate crossing vessels. Arthrotomy was then performed. Subperiosteal dissection was performed along the proximal, medial, and lateral tibial plateaus performed. The patella was everted. The knee was flexed. Anterior cruciate ligament (ACL) was debrided. Drill was placed down the center of the femoral canal, followed by the intramedullary oziel, the distal femoral cutting jig set at 5 degree valgus cut for a right knee at 10 mm resection level. The jig was pinned into position. Distal femoral cut performed. AP sizing jig measured between a 3 and a 4. Difficult decision made. She had a 4 narrow on the other side and if I went to a 3 I would be taking too much off posteriorly. Thus, I set the block at the 3.5 zac and then used the 3 degree external rotation jig to pin it in position and then used the 4-in-1 block. I tried the size 3 and size 4, the size 3 appeared to be taking excessive posterior bone, thus I used the size 4 and moved it up 2 mm. It was pinned in position. The anterior and posterior chamfer cuts were then performed. I then exposed the proximal tibia, used the extramedullary tibial guide to estimate being parallel to the mechanical axis of the tibia, referencing off the medial tibial condyle at 4 mm resection level. The block was pinned in that position, secondary check with the extramedullary oziel confirmed that we appeared to be parallel to the mechanical axis. Proximal tibial osteotomy was then performed. Lamina medical supervisor was placed medially and we performed a completion medial meniscectomy, debridement of the posteromedial osteophytes. Spacer block showed that up to a size 15 actually fit the best with, because otherwise I went to a 12.5 and she hyperextended significantly and had a bit of varus valgus and laxity in extension. The flexion and extension spaces appeared relatively symmetric otherwise. We then exposed the proximal tibia, sized for a #3 tray, pinned into position, followed by the reamer and broach. Then the trial polyethylene then the trial femoral component, which fit actually quite well but she was a bit springy and tight in flexion. I did ensure that there was a posterior cruciate ligament (PCL) release and then I did feel that it was a bit snug in flexion, but this was a fairly extreme flexion, but I elected to go back and place the 4-in-1 block and put it back into the standard box hole, so I took 2 more millimeters off posteriorly by replacing the 4-in-1 block and then sliding it 2 mm and then performed posterior chamfer cuts. Trial was then placed once again and her stability was good, both in flexion and extension. Thus, I drilled the lug holes for the femur and then removed the trial components and placed the Exparel in the periosteum of the femur and the tibia and the arthrotomy edges and handle on the posterior capsule. It was noteworthy that when the trial components were in, I did have the knee into extension, everted the patella and did a patellar osteotomy and sized for a 35 button. The lug holes were drilled, and patellofemoral tracking was anatomic. At this point, Julianne Summers mixed the cement on the back table, as I prepared the bony surfaces for cementing with a copious amount of pulsatile lavage irrigant solution. She was also critical to the success of the operation by helping to manipulate the knee, help with appropriate soft tissue retraction, helped to close the wound and prepare the patient, otherwise allowing me to perform the operation smoothly and efficiently. We then cemented the tibial trial, removed excess cement, placed the polyethylene, then cemented the femoral component, removed all the excess cement, then brought the knee into extension, everted the patella, cemented the patellar button and removed excess cement, held the knee into extension with the patellar clamp until the cement had hardened. As we were awaiting, we copiously pulsatile lavage irrigated out the knee joint . I then applied tranexamic acid into the joint and then began closing the arthrotomy apex with two #1 PDS sutures, one medially, and then we closed the capsule with a running #1 double arm Stratafix. The tourniquet was then released at this point. We copiously irrigated and closed the deep subdermal tissues with interrupted #2-0 PDS sutures, skin was closed with ladonna, covered by Adaptic dry sterile bulky dressing. She was then transferred to the recovery room in stable condition. There were no intraoperative complications.
[2016-12-28] MEDS ORDERED: ALBUTEROL SULFATE 2.5 MG/0.5 ML INH NEB SOLN NEB PRN (16:15)
--- NOTE | 2016-12-28 16:20 | IPN ---
DATE: 12/28/2016 SUBJECTIVE: Patient seen and examined in the room today. Patient is still experiencing some discomfort at the surgical site, but the pain is tolerable. Patient has been doing physical therapy without any complaints. Denied any overnight events reported. OBJECTIVE: VITAL SIGNS: Temperature is 98.8, pulse 80, respirations 14, blood pressure 120/56, pulse oximetry is 97% with 2 liters nasal cannula. Later, patient's oxygen is able to wean to room air. GENERAL: No sign of acute distress, alert and oriented times three. HEENT: Normocephalic, atraumatic. Extraocular motor grossly intact. CARDIOVASCULAR: Positive S1, S2, regular rate. LUNGS: Clear to auscultation bilaterally. ABDOMEN: Soft, nontender, nondistended. Bowel sounds present. EXTREMITIES: Compression stockings in place. No extremity edema. LABORATORY DATA: WBC 10.4, hemoglobin 12.9, hematocrit 39.6, platelet count 292. Sodium is 139, potassium 4.1, chloride 104, carbon dioxide 27, BUN 11, creatinine 0.96, GFR greater than 60, fasting glucose 124, calcium is 9, PT is 15.4, INR is 1.2. ASSESSMENT AND PLAN: 1. Right total knee arthroplasty. Refer activity level, diet, pain control, and anticoagulation to the orthopedic team. 2. Hyperlipidemia. 3. Chronic obstructive pulmonary disease (COPD). 4. Vitamin D deficiency. 5. Gastroesophageal reflux disease. 6. History of diverticulosis. 7. Deep vein thrombosis (DVT) prophylaxis per orthopedic team recommendations.
[2016-12-28] MEDS ORDERED: WARFARIN SOD 5 MG TAB PO ONE (17:00)
[2016-12-28] MEDS: SIMVASTATIN 40 MG TAB PO SCH (21:26)
[2016-12-28 22:00] VITALS: BP 117/61
[2016-12-29] MEDS: PERCOCET 5MG/325MG TAB PO PRN ×4 (05:28→21:49)
[2016-12-29] MEDS: ONDANSETRON 4 MG TAB (S0181) PO PRN (05:31)
[2016-12-29 06:00] VITALS: BP 129/61
[2016-12-29 07:02] LABS: MEAN CORPUSCULAR HEMOGLOBIN 30.2 pg (27.0-33.0); MEAN CORPUSCULAR HGB CONC 32.4 g/dl (32.0-36.5); MEAN CORPUSCULAR VOLUME 93.3 fl (80.0-96.0); PLATELET COUNT, AUTOMATED 259 10^3/uL (150-450); RED CELL DISTRIBUTION WIDTH 14.1 % (11.5-14.5)
[2016-12-29 07:14] LABS: INR 2.69
[2016-12-29 07:31] LABS: CALCIUM LEVEL 8.5 MG/DL (8.8-10.2); CREATININE FOR GFR 1.1 MG/DL (0.55-1.02); GLOMERULAR FILTRATION RATE 51.7 (>39); POTASSIUM SERUM 4.2 MEQ/L (3.5-5.1)
[2016-12-29] MEDS ORDERED: COUM2.5T17 PO (08:23)
[2016-12-29] MEDS ORDERED: PERC5TAB12 PO (08:23)
[2016-12-29] MEDS: MIRALAX *UNIT DOSE* 17GM PACKET PO SCH (08:42)
[2016-12-29] MEDS: SENOKOT S TAB PO SCH ×2 (08:42→21:00)
[2016-12-29] MEDS: MOM 30ML SUSPENSION UDC PO SCH (08:42)
[2016-12-29 12:00] VITALS: O2SAT 96
[2016-12-29 14:00] VITALS: BP 116/63
--- NOTE | 2016-12-29 18:00 | IPNPDOC ---
Text Note Date of Service The patient was seen on 12/29/16. NOTE SUBJECTIVE: Patient seen and examined in the room today. Patient states she is feeling fatigue. Patient has been doing physical therapy without any complaints. OBJECTIVE: VITAL SIGNS: Listed below GENERAL: No sign of acute distress, alert and oriented times three. HEENT: Normocephalic, atraumatic. Extraocular motor grossly intact. CARDIOVASCULAR: Positive S1, S2, regular rate. LUNGS: Clear to auscultation bilaterally. ABDOMEN: Soft, nontender, nondistended. Bowel sounds present. EXTREMITIES: Compression stockings in place. No extremity edema. LABORATORY DATA: Listed below ASSESSMENT AND PLAN: 1. Hypoxia: Today in the afternoon. Patient has multiple episodes of O2 sat dropping to low 80s during rest. No significant lung finding during the physical exam. Patient has history of COPD and not on home O2. Encourage frequent use of spirometry. Will continue monitoring vitals on tele. 2. Right total knee arthroplasty. Refer activity level, diet, pain control, and anticoagulation to the orthopedic team. 3. Hyperlipidemia. 4. Chronic obstructive pulmonary disease (COPD). 5. Vitamin D deficiency. 6. Gastroesophageal reflux disease. 7. History of diverticulosis. 8. Deep vein thrombosis (DVT) prophylaxis per orthopedic team recommendations. VS,Fishbone, I+O VS, Fishbone, I+O Laboratory Tests 12/29/16 06:15 Red Blood Count 4.04, Mean Corpuscular Volume 93.3, Mean Corpuscular Hemoglobin 30.2, Mean Corpuscular Hemoglobin Concent 32.4, Red Cell Distribution Width 14.1 , Calcium Level 8.5 L Vital Signs Date Time Temp Pulse Resp B/P (MAP) Pulse Ox O2 Delivery O2 Flow Rate FiO2 12/29/16 17:40 18 12/29/16 14:00 98.8 81 116/63 (80) 89 Room Air 12/29/16 06:00 2.0 I&O- Last 24 Hours up to 6 AM 12/30/16 06:00 Intake Total 840 ml Output Total 250 ml Balance 590 ml ROHIT RODRÍGUEZ DO Dec 29, 2016 18:00
[2016-12-29] MEDS: SIMVASTATIN 40 MG TAB PO SCH (21:48)
[2016-12-29 22:00] VITALS: BP 120/70
[2016-12-30 06:00] VITALS: BP 124/69
[2016-12-30] MEDS: PERCOCET 5MG/325MG TAB PO PRN (06:57)
[2016-12-30 07:21] LABS: MEAN CORPUSCULAR HEMOGLOBIN 30.3 pg (27.0-33.0); MEAN CORPUSCULAR HGB CONC 32.3 g/dl (32.0-36.5); PLATELET COUNT, AUTOMATED 257 10^3/uL (150-450); WHITE BLOOD COUNT 11.3 10^3/uL (4.0-10.0)
[2016-12-30 07:31] LABS: INR 2.44
[2016-12-30 07:56] LABS: ANION GAP 6 MEQ/L (8-16); BLOOD UREA NITROGEN 15 MG/DL (7-18); CALCIUM LEVEL 8.1 MG/DL (8.8-10.2); CARBON DIOXIDE LEVEL 30 MEQ/L (21-32); CHLORIDE LEVEL 101 MEQ/L (98-107); CREATININE FOR GFR 0.85 MG/DL (0.55-1.02); GLOMERULAR FILTRATION RATE > 60.0 (>39); GLUCOSE, FASTING 104 MG/DL (83-110); POTASSIUM SERUM 4.3 MEQ/L (3.5-5.1); SODIUM LEVEL 137 MEQ/L (136-145)
[2016-12-30] MEDS: MOM 30ML SUSPENSION UDC PO SCH (09:00)
[2016-12-30] MEDS: MIRALAX *UNIT DOSE* 17GM PACKET PO SCH (09:00)
[2016-12-30] MEDS: ONDANSETRON 4 MG TAB (S0181) PO PRN (09:18)
[2016-12-30] MEDS: SENOKOT S TAB PO SCH (09:19)
--- NOTE | 2016-12-30 17:02 | IPNPDOC ---
Text Note Date of Service The patient was seen on 12/30/16. NOTE SUBJECTIVE: Patient is seen and examined in the room today. Patient states she is feeling fatigue. No more O2 desaturation is detected on telemetry. OBJECTIVE: VITAL SIGNS: Listed below GENERAL: No sign of acute distress, alert and oriented times three. HEENT: Normocephalic, atraumatic. Extraocular motor grossly intact. CARDIOVASCULAR: Positive S1, S2, regular rate. LUNGS: Clear to auscultation bilaterally. ABDOMEN: Soft, nontender, nondistended. Bowel sounds present. EXTREMITIES: Compression stockings in place. No extremity edema. LABORATORY DATA: Listed below ASSESSMENT AND PLAN: 1. Hypoxia: Yesterday afternoon patient had multiple episodes of O2 sat dropping to low 80s during rest. No significant lung finding during the physical exam. Patient has history of COPD and not on home O2. Encouraged frequent use of spirometry. No more acute desaturation has been noted since. Patient is being discharged. 2. Right total knee arthroplasty. Refer activity level, diet, pain control, and anticoagulation to the orthopedic team. 3. Hyperlipidemia. 4. Chronic obstructive pulmonary disease (COPD). 5. Vitamin D deficiency. 6. Gastroesophageal reflux disease. 7. History of diverticulosis. 8. Deep vein thrombosis (DVT) prophylaxis per orthopedic team recommendations. VS,Fishbone, I+O VS, Fishbone, I+O Laboratory Tests 12/30/16 07:12 Red Blood Count 4.02, Mean Corpuscular Volume 94.0, Mean Corpuscular Hemoglobin 30.3, Mean Corpuscular Hemoglobin Concent 32.3, Red Cell Distribution Width 14.0 , Calcium Level 8.1 L Vital Signs Date Time Temp Pulse Resp B/P (MAP) Pulse Ox O2 Delivery O2 Flow Rate FiO2 12/30/16 07:54 Room Air 12/30/16 07:27 17 12/30/16 06:00 97.2 79 124/69 (87) 94 12/29/16 21:00 2.0 I&O- Last 24 Hours up to 6 AM 12/31/16 06:00 Intake Total 420 ml Output Total 0 ml Balance 420 ml ROHIT RODRÍGUEZ DO Dec 30, 2016 17:02
--- NOTE | 2017-01-03 10:15 | DSES ---
DATE OF ADMISSION: 12/27/2016 DATE OF DISCHARGE: 12/30/2016 ATTENDING PHYSICIAN: Dr. Andrew Hall ADMISSION DIAGNOSIS: Osteoarthritis right knee. OTHER DIAGNOSES: Hyperlipidemia, type 2 diabetes, gastric reflux disease, macular degeneration, reactive airways disease, chronic urinary incontinence, vaginitis, vertigo, vitamin D deficiency. DISCHARGE DIAGNOSIS: Osteoarthritis right knee, status post right total knee arthroplasty. OPERATION PERFORMED: Right total knee arthroplasty. HISTORY: This is a pleasant 76-year-old female patient with progressively worsening right knee pain and stiffness. She failed to improve with conservative management. She was admitted for elective knee replacement on the right side. HOSPITAL COURSE: The patient was admitted on day of surgery underwent a right total knee arthroplasty, which was uneventful. She did well in the postoperative period and hospital course was without complication. She was up with physical therapy per their protocol, and her pain was controlled. On the day of discharge, she was doing well. Weightbearing as tolerated on her right lower extremity. She will move her right knee to prevent stiffness. She will use adjusted dose Coumadin and LAUREN stockings for 30 days postoperative for deep vein thrombosis (DVT) prophylaxis. She will resume her preoperative medications and diet. She was given instructions to include, but not limited to wound monitoring and activity limitations. Please refer the medical record for further detail. She will use oral pain medications for pain control. She will follow up in our office in 10-14 days.
== END 2016-12-30 12:20 | disposition home health service (06) | DRG 470 ==
LOC: M OR 11:22 → M MS5PR 18:00
PROVIDERS: ADMIT Orthopaedic Surgery; ATTEND Orthopaedic Surgery
PROC: 0SRC0J9 Replacement of Right Knee Joint with Synthetic Substitute, Cemented, Open Approach (ICD-10-PCS; principal; 2016-12-27 14:45)
DX: M17.11 Unilateral primary osteoarthritis, right knee (principal); R09.02 Hypoxemia; E78.5 Hyperlipidemia, unspecified; K21.9 Gastro-esophageal reflux disease without esophagitis; J44.9 Chronic obstructive pulmonary disease, unspecified; I44.4 Left anterior fascicular block; R42 Dizziness and giddiness; Z98.51 Tubal ligation status; Z87.891 Personal history of nicotine dependence; Z79.899 Other long term (current) drug therapy

== ENCOUNTER → 2017-01-03 | Outpatient (REF) | payer MEDICARE, OTHER ==
[2017-01-03 12:33] LABS: INR 3.57
== END ==
LOC: M LAB REF 12:17
PROVIDERS: ATTEND Nurse Practitioner Family
DX: Z51.81 Encounter for therapeutic drug level monitoring (principal); Z79.01 Long term (current) use of anticoagulants

== ENCOUNTER → 2017-01-11 | Outpatient (CLI) | payer MEDICARE, OTHER ==
[2017-01-11 11:46] LABS: INR 1.38
== END ==
LOC: M LABDRAW1 10:56
PROVIDERS: ATTEND Nurse Practitioner Family
DX: Z79.01 Long term (current) use of anticoagulants (principal)

== ENCOUNTER → 2017-01-23 | Outpatient (REF) | payer MEDICARE, OTHER ==
[2017-01-23 15:29] LABS: INR 1.44
== END ==
LOC: M SHH 15:07
PROVIDERS: ATTEND Nurse Practitioner Family
DX: Z51.81 Encounter for therapeutic drug level monitoring (principal); Z79.01 Long term (current) use of anticoagulants

== ENCOUNTER → 2018-01-24 | Outpatient (CLI) | payer MEDICARE, OTHER | LOC: M EKG 13:03 | DX: J44.9 Chronic obstructive pulmonary disease, unspecified (principal) | CPT/HCPCS: 93005 ==

== ENCOUNTER 2018-02-01 09:38 | Day surgery (SDC) | payer MEDICARE, OTHER ==
[~2018-02-01 09:38] MED LIST changes: -ALBU17IN INH; -COUM1TAB17 PO; -COUM2.5T17 PO; -FISH1000 PO; +GLYCOPYRROLATE INJ 0.2 MG/ML 2 ML VIAL As Ordered; +LIDOCAINE 2% INJ 100 MG/5 ML SDV (FOR ANES.) As Ordered; -MECL-86 PO; +MIDAZOLAM INJ 2 MG/2 ML VIAL (J2250) As Ordered; +NEOSTIGMINE 10 MG/10 ML VIAL (J2710) As Ordered; -OMEP20CA3 PO; +ONDANSETRON 4MG/2ML VIAL (J2405) As Ordered; -PERC5TAB12 PO; -PRESCAP PO; +PROPOFOL 200 MG/20 ML VIAL As Ordered; +ROCURONIUM BROMIDE 50 MG/5 ML VIAL As Ordered; -SIMV40TA2 PO; -VITA100067 PO; -ZOFR20TA PO; +dexameTHASONE 4 MG/ML 1ML VIAL (J1100) As Ordered; +fentaNYL 100 MCG/2 ML INJECTION (J3010) As Ordered
[2018-02-01] MEDS ORDERED: LR 1,000 ML IV ×3 (10:00→14:00)
[2018-02-01] MEDS: VASOPRESSIN INJ 20 UNITS/ML VIAL As Ordered ×2 (11:57→13:10)
[2018-02-01] MEDS ORDERED: fentaNYL 100 MCG/2 ML INJECTION (J3010) As Ordered (12:42)
[2018-02-01] MEDS ORDERED: ONDANSETRON 4MG/2ML VIAL (J2405) IV (14:00)
[2018-02-01] MEDS ORDERED: fentaNYL 100 MCG/2 ML INJECTION (J3010) IV (14:00)
[2018-02-01] MEDS ORDERED: NORCO, ANEXSIA 5/325MG TABLET (HYDROcodone/ACETAMINOPHEN) PO ×2 (14:00)
[2018-02-01] MEDS ORDERED: IBUPROFEN 600 MG TAB PO (14:00)
== END 2018-02-01 16:40 | disposition home or self-care (01) ==
LOC: M SDC 09:38
DX: N81.9 Female genital prolapse, unspecified (principal); R32 Unspecified urinary incontinence; E78.5 Hyperlipidemia, unspecified; K21.9 Gastro-esophageal reflux disease without esophagitis; J44.9 Chronic obstructive pulmonary disease, unspecified; Z87.891 Personal history of nicotine dependence; Z79.899 Other long term (current) drug therapy
CPT/HCPCS: 57120

== ENCOUNTER 2019-07-17 16:18 | Emergency (ER) | payer MEDICARE, OTHER ==
[~2019-07-17] VITALS: Ht 165.1 cm; Wt 84.1 kg
[~2019-07-17 16:18] MED LIST changes: +ALBU17IN INH; +COUM1TAB17 PO; +COUM2.5T17 PO; +FISH1000 PO; +FISH7.5C PO; -GLYCOPYRROLATE INJ 0.2 MG/ML 2 ML VIAL As Ordered; -LIDOCAINE 2% INJ 100 MG/5 ML SDV (FOR ANES.) As Ordered; +MECL-86 PO; -MIDAZOLAM INJ 2 MG/2 ML VIAL (J2250) As Ordered; -NEOSTIGMINE 10 MG/10 ML VIAL (J2710) As Ordered; +OMEP1CAP73 PO; -ONDANSETRON 4MG/2ML VIAL (J2405) As Ordered; +PERC5TAB12 PO; +PRESCAP PO; -PROPOFOL 200 MG/20 ML VIAL As Ordered; -ROCURONIUM BROMIDE 50 MG/5 ML VIAL As Ordered; +SIMV40TA20 PO; +VITA100067 PO; +ZOFR4TAB16 PO; -dexameTHASONE 4 MG/ML 1ML VIAL (J1100) As Ordered; -fentaNYL 100 MCG/2 ML INJECTION (J3010) As Ordered
[2019-07-17 17:26] LABS: BASO % 0.4 % (0.0-1.0); HEMATOCRIT 47.1 % (36.0-47.0); HEMOGLOBIN 15.3 g/dl (12.0-15.5); LYMPH # 0.6 10^3/uL (1.5-5.0); LYMPH % 11.8 % (24.0-44.0); MEAN CORPUSCULAR HEMOGLOBIN 29.9 pg (27.0-33.0); MEAN CORPUSCULAR HGB CONC 32.5 g/dl (32.0-36.5); MONO # 0.3 10^3/uL (0.0-0.8); MONO % 6.4 % (0.0-5.0); NEUTROPHILS # 3.8 10^3/uL (1.5-8.5); PLATELET COUNT, AUTOMATED 124 10^3/uL (150-450); RED BLOOD COUNT 5.12 10^6/uL (4.00-5.40); WHITE BLOOD COUNT 4.7 10^3/uL (4.0-10.0)
[2019-07-17 17:47] LABS: ALBUMIN 3.6 GM/DL (3.2-5.2); BILIRUBIN,DIRECT 0.3 MG/DL (0.0-0.2); BILIRUBIN,TOTAL 0.9 MG/DL (0.2-1.0); CALCIUM LEVEL 8.6 MG/DL (8.8-10.2); CREATININE FOR GFR 1.31 MG/DL (0.55-1.30); POTASSIUM SERUM 3.5 MEQ/L (3.5-5.1); TOTAL PROTEIN 7.6 GM/DL (6.4-8.2)
--- NOTE | 2019-07-17 19:29 | REPVR ---
PROCEDURE INFORMATION: Exam: CT Chest Without Contrast Exam date and time: 07/17/2019 7:17 PM Age: 78 years old Clinical indication: Cough TECHNIQUE: Imaging protocol: Computed tomography of the chest without contrast. 3D rendering: MIP and/or 3D reconstructed images were created by the technologist. Radiation optimization: All CT scans at this facility use at least one of these dose optimization techniques: automated exposure control; mA and/or kV adjustment per patient size (includes targeted exams where dose is matched to clinical indication); or iterative reconstruction. COMPARISON: CR PORTABLE CHEST X-RAY 07/17/2019 5:58 PM FINDINGS: Lungs: Atelectasis at both lung bases, left greater than right. Small calcified granulomas right upper lobe. Pleural space: Unremarkable. No pneumothorax. No pleural effusion. Heart: Unremarkable. No cardiomegaly. No pericardial effusion. Aorta: There is fusiform dilatation of the ascending thoracic aorta which measures 3.7 cm. maximally. There is no saccular component. The aorta demonstrates mild atherosclerotic calcification. Lymph nodes: Numerous small mediastinal lymph nodes likely postinflammatory. Calcified left hilar lymph nodes. Stomach and bowel: A large hiatal hernia is present with essentially most of the stomach located in the thorax. Bones/joints: Unremarkable for age. No acute fracture. Soft tissues: Unremarkable. IMPRESSION: 1. A large hiatal hernia is present with essentially most of the stomach located in the thorax. 2. There is fusiform dilatation of the ascending thoracic aorta which measures 3.7 cm. maximally. There is no saccular component. 3. No acute pulmonary parenchymal infiltrates. 4. Findings consistent with remote intrathoracic granulomatous infection. Electronically signed by: Alec Colón On 07/17/2019 19:29:26 PM
[2019-07-17 20:30] VITALS: BP 188/82
--- NOTE | 2019-07-17 22:47 | REP ---
REASON: Fever. COMPARISON: 12/15/2016 The technique utilized in obtaining the radiograph has magnified the cardiac silhouette and accentuated the interstitial markings. There is cardiomegaly accentuated by technique. The interstitial markings are increased, consistent with fibrotic change status quo accentuated by technique. There is a patchy opacity in the left lower lobe. The pleural angles are sharp. The osseous structures are unchanged. IMPRESSION: 1. Patchy opacity in the left lower lobe. Pneumonia versus subsegmental atelectatic change. 2. There is an unchanged hiatal hernia. Electronically Signed by Hugo Rogers DO 07/18/2019 11:57 A
== END 2019-07-17 21:38 | disposition home or self-care (01) ==
LOC: M ED 16:18
DX: B34.9 Viral infection, unspecified (principal); K44.9 Diaphragmatic hernia without obstruction or gangrene; E11.9 Type 2 diabetes mellitus without complications; R42 Dizziness and giddiness; E78.5 Hyperlipidemia, unspecified; K21.9 Gastro-esophageal reflux disease without esophagitis; J45.909 Unspecified asthma, uncomplicated; Z87.891 Personal history of nicotine dependence; Z96.653 Presence of artificial knee joint, bilateral
CPT/HCPCS: 36415; 71045; 71250; 80048; 80076; 83690; 85025; 87486; 87581; 87633; 87798; 99284; U0003

== ENCOUNTER 2019-07-22 12:37 | Inpatient (IN) | payer MEDICARE, OTHER ==
[~2019-07-22] VITALS: Ht 165.1 cm; Wt 87.5 kg
[2019-07-22] VITALS (10 sets, daily range): BP systolic 98–120; BP diastolic 52–73
[2019-07-22] MEDS ORDERED: NS 2,780 ML in IV 1 EA IV ONE (13:15)
[2019-07-22] MEDS ORDERED: cefTRIAXone SOD 2 GM in D5W MINI-BAG PLUS 50 ML IV ONE (13:15)
[2019-07-22 13:16] LABS: HEMATOCRIT 42.8 % (36.0-47.0); HEMOGLOBIN 15.5 g/dl (12.0-15.5); MEAN CORPUSCULAR HEMOGLOBIN 29.8 pg (27.0-33.0); MEAN CORPUSCULAR HGB CONC 36.2 g/dl (32.0-36.5); MEAN CORPUSCULAR VOLUME 82.3 fl (80.0-96.0); WHITE BLOOD COUNT 3.3 10^3/uL (4.0-10.0)
--- NOTE | 2019-07-22 13:24 | REPVR ---
PROCEDURE INFORMATION: Exam: CT Head Without Contrast Exam date and time: 07/22/2019 1:13 PM Age: 78 years old Clinical indication: Altered mental status/memory loss; Additional info: Altreed TECHNIQUE: Imaging protocol: Computed tomography of the head without contrast. Radiation optimization: All CT scans at this facility use at least one of these dose optimization techniques: automated exposure control; mA and/or kV adjustment per patient size (includes targeted exams where dose is matched to clinical indication); or iterative reconstruction. COMPARISON: No relevant prior studies available. FINDINGS: Brain: There is low attenuation abnormality in the periventricular white matter, likely reflecting chronic microvascular ischemic disease. There are chronic lacunar infarcts. Ventricles: Normal. No ventriculomegaly. Bones/joints: Unremarkable. No acute fracture. Sinuses: There is an air-fluid level in the sphenoid sinus. Mastoid air cells: Visualized mastoid air cells are well aerated. Soft tissues: Unremarkable. IMPRESSION: 1. There is low attenuation abnormality in the periventricular white matter, likely reflecting chronic microvascular ischemic disease. If an acute infarct is clinically suspected, consider MRI with diffusion imaging. 2. There are chronic lacunar infarcts. 3. There is an air-fluid level in the sphenoid sinus. Electronically signed by: Garrett Claire On 07/22/2019 13:24:35 PM
[2019-07-22 13:26] LABS: INR 1.19; PROTHROMBIN TIME 14.8 SECONDS (11.8-14.0)
[2019-07-22 13:27] LABS: PARTIAL THROMBOPLASTIN TIME 41.7 SECONDS (25.0-38.4)
[2019-07-22 13:36] LABS: PLATELET COUNT, AUTOMATED 22 10^3/uL (150-450)
[2019-07-22 13:39] LABS: MAGNESIUM LEVEL 2.8 MG/DL (1.8-2.4); PHOSPHORUS LEVEL 1.2 MG/DL (2.5-4.9)
[2019-07-22 13:44] LABS: APPEARANCE, URINE TURBID (CLEAR); BACTERIA, URINE AUTO 3+ (NEGATIVE); BILIRUBIN, URINE AUTO NEGATIVE (NEGATIVE); BLOOD, URINE BLOOD 3+ (NEGATIVE); COLOR, URINE AMBER (YELLOW); GLUCOSE, URINE (UA) AUTO NEGATIVE (NEGATIVE); KETONE, URINE AUTO NEGATIVE (NEGATIVE); LEUKOCYTE ESTERASE, URINE AUTO 2+ (NEGATIVE); MUCUS, URINE MODERATE (NEGATIVE); NITRITE, URINE AUTO NEGATIVE (NEGATIVE); PROTEIN, URINE AUTO 2+ mg/dL (NEGATIVE); RBC, URINE AUTO 49 /HPF (0-3); SPECIFIC GRAVITY URINE AUTO 1.014 (1.002-1.035); SQUAMOUS EPITHELIAL CELL UR AU 7 /HPF (0-6); UROBILINOGEN, URINE AUTO 0.2 mg/dL (0.0-2.0); WBC, URINE AUTO TNTC /HPF (0-3)
[2019-07-22 13:45] LABS: LYMPHOCYTES 30 % (16-44); NEUTROPHILS 61 % (28-66)
[2019-07-22 13:46] LABS: PLATELET ESTIMATE MARKED DECREASE (NORMAL); TOXIC VACUOLATION 2+
[2019-07-22 14:16] LABS: ALBUMIN 2.6 GM/DL (3.2-5.2); ALT/SGPT 74 U/L (12-78); AMYLASE 53 U/L (25-115); BILIRUBIN,DIRECT 0.6 MG/DL (0.0-0.2); BILIRUBIN,TOTAL 1.5 MG/DL (0.2-1.0); BLOOD UREA NITROGEN 89 MG/DL (7-18); CALCIUM LEVEL 8.2 MG/DL (8.8-10.2); CARBON DIOXIDE LEVEL 16 MEQ/L (21-32); CHLORIDE LEVEL 105 MEQ/L (98-107); CK-MB VALUE MASS 1.5 NG/ML (<3.6); CPK CREATINE PHOSPHOKINASE 1374 U/L (26-192); GLOMERULAR FILTRATION RATE 9.6 (>39); GLUCOSE, FASTING 111 MG/DL (70-100); MB/CK RELATIVE INDEX 0.11 (< OR =4); POTASSIUM SERUM 3.8 MEQ/L (3.5-5.1); SALICYLATE LEVEL < 1.7 MG/DL (5.0-30.0); SODIUM LEVEL 136 MEQ/L (136-145); TOTAL PROTEIN 7.1 GM/DL (6.4-8.2); TROPONIN I 0.41 NG/ML (< 0.10)
[2019-07-22] MEDS ORDERED: ACETAMINOPHEN 650 MG SUPP As Ordered ONE (14:16)
[2019-07-22] MEDS ORDERED: ACETAMINOPHEN 650 MG SUPP PR ONE (14:30)
[2019-07-22] MEDS ORDERED: VITAD1000T PO (14:42)
[2019-07-22] MEDS ORDERED: IBUP-1022 PO (14:42)
[2019-07-22] MEDS ORDERED: FLUTISP (14:42)
[2019-07-22] MEDS ORDERED: NS 1,000 ML IV SCH (14:45)
[2019-07-22 14:55] LABS: POTASSIUM RANDOM URINE 36.8 MEQ/L; TOTAL PROTEIN,RANDOM URINE 264.9 MG/DL (0.0-12.0)
[2019-07-22] MEDS ORDERED: GLUCAGON INJ 1MG VIAL SC PRN (15:00)
[2019-07-22] MEDS ORDERED: DEXTROSE 50% 50 ML SYRINGE IV PRN (15:00)
[2019-07-22] MEDS ORDERED: GLUCOSE 4GM CHEW TABLET PO PRN (15:00)
--- NOTE | 2019-07-22 15:01 | REP ---
REASON FOR EXAM: Septic shock. COMPARISON: Multiple, the latest 07/17/2019. The technique utilized in obtaining the radiograph has magnified the cardiac silhouette and accentuated the interstitial markings. There is cardiomegaly accentuated by technique status quo. There is a discoid opacity in the left lung field, status quo. There are no new abnormal opacities. The interstitial markings are chronically increased accentuated by technique. This is likely secondary to chronic fibrotic changes. There are no new abnormal opacities. There is no change in the osseous structures. IMPRESSION: Relatively stable chronic appearing changes as described above, however, correlate clinically to rule out the possibility of acute disease superimposed on chronic change. Electronically Signed by Hugo Rogers DO 07/22/2019 05:13 P
--- NOTE | 2019-07-22 15:07 | REP ---
CT ABDOMEN AND PELVIS WITHOUT CONTRAST: CT abdomen and pelvis performed without oral or IV contrast. Sagittal and coronal reconstruction images are performed. Infiltrate is seen in the visualized left lower lobe. There is a large hiatal hernia. The liver is grossly unremarkable. There appear to be tiny gallstones in the dependent portion of the gallbladder. The spleen, adrenals and pancreas are grossly unremarkable. No renal calculus is seen and there is no evidence of hydroureteronephrosis. There is moderate atherosclerotic calcification of the abdominal aorta without aneurysm. I see no adenopathy. I see no free air or free fluid. There is no bowel wall thickening. The urinary bladder appears unremarkable. There is a small calcified fibroid in the uterus. No pelvic mass is seen. There are degenerative changes of the spine. IMPRESSION: Left lower lobe infiltrate. Large hiatal hernia. Small gallstones are seen in the dependent portion of the gallbladder. No free air or free fluid. Small calcified fibroid in the uterus. Electronically Signed by Vin Dodd MD 07/23/2019 01:16 P
--- NOTE | 2019-07-22 15:54 | HPEPDOC ---
[facility] Medical History & Physical Date of Admission Jul 22, 2019 Date of Service: Jul 22, 2019 History and Physical CHIEF COMPLAINT: altered mental status HISTORY OF PRESENT ILLNESS: 78 yo female presents to ED for altered mental status. Patient was seen in ED few days ago for upper respiratory complaints. Workup revealed no acute findings and patient was discharged home. She returns brought in by family for acute changes in mental status. On discussion with ED staff on presentation she was responsive only to painful stimuli, with a GCS around 9. Workup revealed UTI, REINA and pneumonia. She was started on IV fluids and Ceftriaxone. Her mentation did improve, with her GCS rising to 13. She was also noted to be in respiratory distress, originally on a non-rebreather, and weaned to 4L . On evaluation she is able to respond to simple commands including wiggling fingers, open/close eyes. PAST MEDICAL HISTORY (from review of available records): #COPD #DLP #GERD ALLERGIES: Please see below. REVIEW OF SYSTEMS: Unable to obtain HOME MEDICATIONS: Please see below. PHYSICAL EXAMINATION: VITAL SIGNS: See below General: chronically ill appearing, lying comfortably in bed, elderly HEENT: NC/AT, nasal cannula in place Lungs: scattered rhonchi Abd: obese, +BS, soft LABORATORY DATA: See below. MICROBIOLOGY: Please see below. ASSESSMENT: 78 yo female brought in to ED for AMS, admitted to ICU for sepsis/UTI/PNA/REINA/respiratory distress #UTI/sepsis - fever, leukopenia, tachycardia - continue zosyn - renal dosing, IV fluids - UCx pending #PNA - sputum culture gram stain pending - respiratory panel pending - zosyn as above #lactic acidosis - as per sepsis - IV fluids/IV antibiotics #respiratory distress - supplemental O2 - secondary to PNA #REINA - secondary to UTI/hypovolemia - IV fluids - UTI as above - nephrology c/s pending - no obstruction on CT A/P #troponinemia - continue to trend - likely demand ischemia - no acute ECG changes #thrombocytopenia - peripheral smear pending - avoid heparin products - likely reactive #DVT prophylaxis - mechanical #GI prophylaxis - protonix Vital Signs Vital Signs Date Time Temp Pulse Resp B/P (MAP) Pulse Ox O2 Delivery O2 Flow Rate FiO2 07/22/19 15:30 93 20 116/55 (75) 92 07/22/19 14:13 103.3 07/22/19 14:00 Nasal Cannula 4.0 07/22/19 12:59 100 Laboratory Data Labs 24H Laboratory Tests 2 07/22/19 12:54: POC Glucose (Misc Panel) 118H, POC Sodium (Misc Panel) 138, POC Potassium (Misc Panel) 3.8, POC Chloride (Misc Panel) 107, POC Total CO2 (Misc Panel) 14.0L, POC Blood Urea Nitrogen (Misc Panel 71H, POC Ionized Calcium (Misc Panel) 4.1L, POC Lactate (Misc Panel) 3.76*H, POC Creatinine (Misc Panel) 5.0H, POC Hematocrit (Misc Panel) 49.0 07/22/19 12:55: Neutrophils (%) (Auto) , Nucleated Red Blood Cells % (auto) 0.0, Neutrophils 61, Band Neutrophils 9, Lymphocytes (Manual) 30, Toxic Vacuolation 2+, Platelet Estimate MARKED DECREASE, Immature Platelet Fraction 21.8H, Prothrombin Time 14.8H, Prothromb Time International Ratio 1.19, Activated Partial Thromboplast Time 41.7H, Fibrinogen 601H, Anion Gap 15, Glomerular Filtration Rate 9.6L, Lactic Acid Level 3.9*H, Uric Acid 11.0H, Calcium Level 8.2L, Total Bilirubin 1.5H, Direct Bilirubin 0.6H, Aspartate Amino Transf (AST/SGOT) 296H, Alanine Am inotransferase (ALT/SGPT) 74, Alkaline Phosphatase 120H, Total Creatine Kinase 1374H, Creatine Kinase MB 1.5, Creatine Kinase MB Relative Index 0.11, Troponin I 0.41H, C-Reactive Protein, Quantitative 42.50H, Total Protein 7.1, Albumin 2.6L, Albumin/Globulin Ratio 0.6L, Amylase Level 53, Salicylates Level < 1.7L 07/22/19 12:58: Phosphorus Level 1.2L, Magnesium Level 2.8H 07/22/19 13:01: POC Total CO2 (Misc Panel) 13.0L, POC pH (Misc Panel) 7.502H, POC Base Excess (Misc Panel) -11.0L, POC Saturated Percent O2 (Misc) 100H, POC pO2 (Misc Panel) 153.0H, POC pCO2 (Misc Panel) 15.8*L, POC HCO3 (Misc Panel) 12.4L 07/22/19 13:30: Urine Random Creatinine 184.0, Urine Random Total Protein 264.9H, Urine Random Sodium 44, Urine Random Potassium 36.8 07/22/19 13:31: Urine Color TERENCE, Urine Appearance TURBIDH, Urine pH 5.0, Urine Specific [place] 1.014, Urine Protein 2+H, Urine Glucose (Auto)(UA) NEGATIVE, Urine Ketones (Auto) NEGATIVE, Urine Blood 3+H, Urine Nitrite NEGATIVE, Urine Bilirubin NEGATIVE, Urine Urobilinogen 0.2, Urine Leukocyte Esterase (Auto) 2+H, Urine WBC (Auto) TNTCH, Urine RBC (Auto) 49H, Urine Hyaline Casts (Auto) 0, Urine Bacteria (Auto) 3+H, Urine Squamous Epithelial Cells 7, Urine Mucus (Auto) MODERATE, Urine Sperm (Auto) 07/22/19 14:49: Whole Blood Ionized Calcium 4.0L CBC/BMP Laboratory Tests 07/22/19 12:55 Microbiology Microbiology 07/22/19 Respiratory Virus Panel (PCR) ([facility]), Received Pending 07/22/19 Blood Culture, Received Pending 07/22/19 Urine Culture, Received Pending 07/22/19 Blood Culture, Received Pending Home Medications Scheduled Cholecalciferol (Vitamin D3) (Vitamin D3) 1,000 Unit Tablet, 1,000 UNITS PO DAILY [place]-3/Dha/Epa/Fish Oil (Fish Oil EC 1,000 mg Softgel) 1 Cap Cap, 1,000 MG PO DAILY Omeprazole (Omeprazole) 20 Mg Cap, 20 MG PO DAILY Simvastatin (Simvastatin) 40 Mg Tab, 40 MG PO DAILY Vit A/Vit C/Vit E/Zinc/Copper (Preservision Areds Softgel) 1 Cap Cap, 1 CAP PO DAILY Scheduled PRN Fluticasone Propionate (Fluticasone Propionate) 16 Gm [place].susp, 2 SPRAY NA DAILY PRN for ALLERGIES Ibuprofen (Ibuprofen) 600 Mg Tablet, 600 MG PO BID PRN for PAIN Meclizine HCl (Meclizine HCl) 25 Mg Tab, 25 MG PO BID PRN for VERTIGO/DIZZINESS Allergies Coded Allergies: No Known Allergies (Unverified , 07/22/19) A-FIB/CHADSVASC A-FIB History Current/History of A-Fib/PAF?: No CHARLEY PADGETT MD Jul 22, 2019 15:54
[2019-07-22] MEDS ORDERED: ACETAMINOPHEN 650 MG SUPP PR PRN (16:30)
[2019-07-22] MEDS: HumaLOG INSULIN (NovoLOG) PER UNIT SC SCH (17:30)
[2019-07-22 20:32] LABS: CK-MB VALUE MASS 3.2 NG/ML (<3.6); MB/CK RELATIVE INDEX 0.23 (< OR =4); TROPONIN I 0.33 NG/ML (< 0.10)
--- NOTE | 2019-07-22 20:43 | ECGEPIP ---
[facility] - ED Test Date: 2019-07-22 Pat Name: LOLIS LEON Department: Room: [place] [address] Gender: Female [employer] L[employer]: liz : 1940 Requested By: Jessie Inman Order Number: [id number] Reading MD: Jordan Espino Measurements Intervals [place] Rate: 107 P: 59 [place]: 145 QRS: -50 QRSD: 94 T: 89 QT: 348 QTc: 466 Interpretive Statements SINUS TACHYCARDIA WITH FREQUENT SUPRAVENTRICULAR PREMATURE COMPLEXES Left anterior fascicular block LEFT VENTRICULAR HYPERTROPHY AND ST-T CHANGE PATTERN CONSISTENT WITH PULMONARY DISEASE new from tracing done 01-24-18 Electronically Signed on 07-22-2019 20:43:34 EDT by Jordan Espino
[2019-07-22] MEDS ORDERED: HEPARIN SOD (PORCINE) 5000UNITS/ML VIAL (J1644 PER 1000UNITS) SC SCH (21:00)
[2019-07-22] MEDS ORDERED: HumaLOG INSULIN (NovoLOG) PER UNIT SC SCH (21:00)
--- NOTE | 2019-07-22 21:44 | REPVR ---
PROCEDURE INFORMATION: Exam: MR Head Without Contrast Exam date and time: 07/22/2019 9:32 PM Age: 78 years old Clinical indication: Altered mental status/memory loss and speech disturbance; Other: Not acting herself; Unspecified; Additional info: AMS TECHNIQUE: Imaging protocol: MR of the head without contrast. COMPARISON: CT Head without contrast 07/22/2019 1:00 PM FINDINGS: Limitations: The exam is degraded by patient motion artifact. Brain: A few small T2 hyperintense white matter foci typical of chronic white matter microvascular disease. Mild cerebral volume loss. No evidence of a recent infarction. No mass or midline shift. Ventricles: Normal. No ventriculomegaly. Bones/joints: Unremarkable. Sinuses: Mild mucosal thickening in the sinuses. No layering sinus fluid. Mastoid air cells: Normal as visualized. No mastoid effusion. Orbits: Unremarkable. Soft tissues: Unremarkable. IMPRESSION: 1. Motion limited exam. 2. No acute findings. 3. Mild age related changes. Electronically signed by: Michael Silver On 07/22/2019 21:44:15 PM
--- NOTE | 2019-07-22 21:48 | REPVR ---
PROCEDURE INFORMATION: Exam: MR Angiogram Head Without Contrast, Arteries Exam date and time: 07/22/2019 9:32 PM Age: 78 years old Clinical indication: Cognitive deficit and speech disturbance; Altered mental status; Type not specified; Additional info: AMS TECHNIQUE: Imaging protocol: MR angiogram head without contrast. Exam focused on the arteries. 3D rendering: MIP and/or 3D reconstructed images were created by the technologist. COMPARISON: CT Head without contrast 07/22/2019 1:00 PM FINDINGS: Anterior cerebral arteries: Intracranial segment is patent with no significant stenosis. No aneurysm. Right internal carotid artery: Intracranial segment is patent with no significant stenosis. No aneurysm. Right middle cerebral artery: No occlusion or significant stenosis. No aneurysm. Right posterior cerebral artery: origin of the right WAXER TENDER without significant stenosis or occlusion. Right vertebral artery: No occlusion or significant stenosis. No aneurysm. Left internal carotid artery: Intracranial segment is patent with no significant stenosis. No aneurysm. Left middle cerebral artery: No occlusion or significant stenosis. No aneurysm. Left posterior cerebral artery: No occlusion or significant stenosis. No aneurysm. Left vertebral artery: No occlusion or significant stenosis. No aneurysm. Basilar artery: No occlusion or significant stenosis. No aneurysm. Other findings: The exam is degraded by patient motion artifact. IMPRESSION: 1. Motion limited exam. 2. Unremarkable MRA. No significant stenosis, aneurysm, or vascular occlusion. Electronically signed by: Michael Silver On 07/22/2019 21:48:40 PM
[2019-07-22 21:49] LABS: VENOUS BASE EXCESS -7.8 (-2.0-2.0); VENOUS O2 SATURATION 91.2 % (60.0-80.0); VENOUS PARTIAL PRESSURE CO2 24.9 mmHg (38.0-50.0); VENOUS PH 7.399 UNITS (7.330-7.430); VENOUS STANDARD HCO3 18.1 MEQ/L; VENOUS TOTAL CO2 15.8 MEQ/L (24.0-28.0)
[2019-07-22] MEDS: PIPERACILLIN/TAZOBACTAM SOD 4.5 GM in D5W MINI-BAG PLUS 100 ML IV SCH (22:03)
[2019-07-22 22:12] LABS: ALBUMIN 2.1 GM/DL (3.2-5.2); CALCIUM LEVEL 7.5 MG/DL (8.8-10.2); CREATININE FOR GFR 4.72 MG/DL (0.55-1.30); GLOMERULAR FILTRATION RATE 9.6 (>39); PHOSPHORUS LEVEL 2.8 MG/DL (2.5-4.9); POTASSIUM SERUM 3.5 MEQ/L (3.5-5.1)
[2019-07-22] MEDS ORDERED: SODIUM BICARBONATE 75 MEQ in NS 0.45% 1,000 ML IV SCH (22:30)
[2019-07-22] MEDS ORDERED: KCL 10MEQ/100ML SWI (KRUN) 10 MEQ in IV 1 EA IV ONE (23:15)
[2019-07-23] VITALS (42 sets, daily range): BP systolic 92–136; BP diastolic 51–73
[2019-07-23 04:44] LABS: HEMATOCRIT 36.5 % (36.0-47.0); MEAN CORPUSCULAR HEMOGLOBIN 29.7 pg (27.0-33.0); MEAN CORPUSCULAR HGB CONC 35.9 g/dl (32.0-36.5); MEAN CORPUSCULAR VOLUME 82.8 fl (80.0-96.0); RED BLOOD COUNT 4.41 10^6/uL (4.00-5.40); WHITE BLOOD COUNT 2.8 10^3/uL (4.0-10.0)
[2019-07-23 04:47] LABS: HEMOGLOBIN 13.1 g/dl (12.0-15.5); PLATELET COUNT, AUTOMATED 25 10^3/uL (150-450)
[2019-07-23 05:14] LABS: ATYPICAL LYMPH 5 % (0-5); LYMPHOCYTES 22 % (16-44); METAMYELOCYTES 1 % (0-0); MONOCYTES 3 % (0-5); NEUTROPHILS 65 % (28-66)
[2019-07-23 05:15] LABS: PLATELET ESTIMATE MARKED DECREASE (NORMAL); TOXIC VACUOLATION 1+
[2019-07-23 05:21] LABS: BILIRUBIN,TOTAL 0.8 MG/DL (0.2-1.0); CALCIUM LEVEL 7.2 MG/DL (8.8-10.2); CK-MB VALUE MASS 3.5 NG/ML (<3.6); CREATININE FOR GFR 4.72 MG/DL (0.55-1.30); FREE THYROXINE INDEX 2.9 % (1.3-4.8); GLOMERULAR FILTRATION RATE 9.6 (>39); MAGNESIUM LEVEL 2.6 MG/DL (1.8-2.4); MB/CK RELATIVE INDEX 0.29 (< OR =4); PHOSPHORUS LEVEL 2.2 MG/DL (2.5-4.9); POTASSIUM SERUM 3.5 MEQ/L (3.5-5.1); THYROID STIMULATING HORMONE 0.27 uIU/ML (0.358-3.740); TOTAL PROTEIN 5.9 GM/DL (6.4-8.2); TROPONIN I 0.22 NG/ML (< 0.10)
[2019-07-23] MEDS ORDERED: IPRATROPIUM 0.5MG/ALBUTEROL 2.5MG INH SOL UD 3ML (DUONEB) NEB PRN (06:45)
[2019-07-23] MEDS: HumaLOG INSULIN (NovoLOG) PER UNIT SC SCH ×3 (07:30→17:30)
[2019-07-23] MEDS ORDERED: VANCOMYCIN INTERMITTENT/PULSE DOSING BY CLINICAL PHARMACIST PER DOSING PROTOCOL XX SCH (08:00)
[2019-07-23] MEDS ORDERED: FUROSEMIDE 40MG/4ML VIAL (J1940) IV ONE (08:30)
--- NOTE | 2019-07-23 08:31 | REP ---
REASON: Dyspnea. COMPARISON: Multiple the latest 07/22/2019 at 1:31 pm. The technique utilized in obtaining the radiograph has magnified the cardiac silhouette and accentuated the interstitial markings. The discoid opacity seen in the left lung field is unchanged. Increased left basilar opacity has developed with complete silhouetting out of the left hemidiaphragm. Once again, interstitial markings are diffusely increased status quo. There is no significant change in the appearance of the osseous structures. The heart is enlarged accentuated by technique. IMPRESSION: New developing left lower lobe opacity as described above suspicious for pneumonia/atelectasis correlate clinically with appropriate followup. Chronically increased interstitial markings. Electronically Signed by Hugo Rogers DO 07/23/2019 09:45 A
[2019-07-23] MEDS ORDERED: KCL 10MEQ/100ML SWI (KRUN) 10 MEQ in IV 1 EA IV ONE (08:45)
[2019-07-23] MEDS ORDERED: VANCOMYCIN HCL 1,000 MG, VIAL MATE ADAPTER 1 EACH in D5W 250 ML IV ONE (09:00)
[2019-07-23] MEDS: PANTOPRAZOLE 40MG VIAL (C9113 PER 1) IV SCH (09:25)
[2019-07-23] MEDS: PIPERACILLIN/TAZOBACTAM SOD 4.5 GM in D5W MINI-BAG PLUS 100 ML IV SCH ×2 (09:26→20:13)
[2019-07-23] MEDS: SODIUM BICARBONATE 150 MEQ in STERILE WATER LITER BAG 1,000 ML IV SCH (10:01)
--- NOTE | 2019-07-23 10:22 | IPNPDOC ---
Text Note Date of Service The patient was seen on 07/23/19. NOTE Subjective: Patient seen and examined at bedside. No acute overnight events reported. Possibly some improvement with her mentation. Patient voices no medical complaints, but still with poor mentation during examination this morning. She was able to nod her head yes or no to questioning. Objective: VITAL SIGNS: See below General: NAD, lying comfortably in bed, elderly HEENT: NC/AT, nasal cannula in place Lungs: scattered rhonchi Abd: obese, +BS, soft CHIEF COMPLAINT: altered mental status A/P: 78 yo female presents to ED for altered mental status. Patient was seen in ED few days ago for upper respiratory complaints. Workup revealed no acute findings and patient was discharged home. She returns brought in by family for acute changes in mental status. On discussion with ED staff on presentation she was responsive only to painful stimuli, with a GCS around 9. Workup revealed UTI, REINA and pneumonia. She was started on IV fluids and Ceftriaxone. Her mentation did improve, with her GCS rising to 13. She was also noted to be in respiratory distress, originally on a non-rebreather, and weaned to 4L. On evaluation she was able to respond to simple commands including wiggling fingers, open/close eyes. Hospitalist service called, admitted for AMS secondary to sepsis/UTI/REINA possibly PNA. #pyelo?/UTI/sepsis - fever, leukopenia, tachycardia - continue zosyn - renal dosing, IV fluids - UCx pending #bacteremia - added renal dosing of vancomycin - repeat cultures pending #PNA - sputum culture gram stain pending - respiratory panel pending - vanc/zosyn as above #AMS - likely metabolic encephalopathy - brain imaging with no acute findings #lactic acidosis - as per sepsis - IV fluids/IV antibiotics #respiratory distress - supplemental O2 - secondary to PNA #REINA - secondary to UTI/hypovolemia - IV fluids - UTI as above - nephrology c/s pending - no obstruction on CT A/P - perhaps some perinephric stranding #troponinemia - trending down - likely demand ischemia - no acute ECG changes #thrombocytopenia - peripheral smear pending - avoid heparin products - likely reactive #DM #DLP #DVT prophylaxis - mechanical #GI prophylaxis - protonix ADDENDUM: Later in day patient went into afib/rvr, no response to diltiazem. Discussed with cardiology, trial of digoxin IV x 1 dose, pending consultation. Also d/w breaker oiler regarding her pessary, consultation is pending. VS,Fishbone, I+O VS, Fishbone, I+O Laboratory Tests 07/22/19 12:55 07/22/19 21:42 07/23/19 04:20 Vital Signs Date Time Temp Pulse Resp B/P (MAP) Pulse Ox O2 Delivery O2 Flow Rate FiO2 07/23/19 08:00 97.8 104 38 135/66 (89) 94 Nasal Cannula 4.0 07/22/19 12:59 100 I&O- Last 24 Hours up to 6 AM 07/23/19 06:00 Intake Total 4210 ml Output Total 709 ml Balance 3501 ml CHARLEY PADGETT MD Jul 23, 2019 10:22
--- NOTE | 2019-07-23 14:05 | CR ---
DATE OF CONSULTATION: 07/22/2019 NEPHROLOGY CONSULTATION FOR: Freddie Donovan MD REASON FOR CONSULTATION: Acute renal failure and sepsis in this lady with multiple chronic medical problems. HISTORY OF PRESENT ILLNESS: Mrs. Briscoe is a 78-year-old female who is admitted to [facility] intensive care unit today due to altered mentation and hypotension. She is felt to be septic. She has known history of hyperlipidemia, type 2 diabetes, gastroesophageal reflux disease and chronic obstructive pulmonary disease (COPD). She was in the emergency room on 07/17/2019 and was discharged to home with possible diagnosis of viral illness. Her blood pressure was 160s to 180s at that time. On that day her creatinine was 1.3 and blood urea nitrogen (BUN) was 16. A chest x-ray was done on 07/17/2019, which showed patchy opacity in the left lower lobe. The patient was discharged to home and was brought back to the emergency room today. It is important to note that the chest CT scan was also done on 07/17/2019, which showed a large hiatal hernia and fusiform dilatation of the ascending aorta up to 3.7 cm maximally. No acute pulmonary parenchymal infiltrate. Today, patient is found to have pyuria and severe thrombocytopenia with platelet count 22,000. Her BUN is 89 and creatinine is 4.7 today. Carbon dioxide 16 and potassium 3.6. A lactic acid level was 3.9. Troponin was slightly elevated at 0.41 and creatinine phosphokinase (CPK) 1374. A nephrology consultation was requested due to acute renal failure and patient is seen this evening in intensive care unit. PAST MEDICAL AND SURGICAL HISTORY: Significant for: 1. Type 2 diabetes. 2. Reactive airways disease. 3. Gastroesophageal reflux disease. 4. History of chronic kidney disease. 5. History of hyperlipidemia. 6. Vitamin D deficiency. MEDICATIONS: Her home medications include: - vitamin D 1000 units daily - fish oil capsule 1000 mg daily - omeprazole 20 mg daily - simvastatin 40 mg daily - PreserVision AREDS capsule one daily - ibuprofen 600 mg twice a day as needed for pain - meclizine 25 mg as needed for vertigo - Flonase nasal spray as needed ALLERGIES: She has NO KNOWN DRUG ALLERGIES. PERSONAL AND SOCIAL HISTORY: Patient herself is not able to provide much information at present as she is minimally communicative. FAMILY HISTORY: Noncontributory. REVIEW OF SYSTEMS: Patient is in significant discomfort. She is complaining of pain in her abdomen. Apparently, she was quite altered when she was brought to the emergency room and did improve after getting IV fluids and antibiotics. She has been diagnosed with pneumonia and sepsis with urinary tract infection. She is quite short of breath and restless in the bed. No high-grade fever reported at home. At present, there is no other pertinent information available and patient is not able to provide any useful information herself. Her family is not present at this time. PHYSICAL EXAMINATION: Elderly lady restless in the bed. Temperature is 98.8 degrees Fahrenheit, heart rate 88 per minute and respiratory rate 32 per minute. Blood pressure 110/60 mmHg and oxygen saturation 93% on 4 liters of oxygen via nasal cannula. Her head is atraumatic. Neck is supple and jugular venous distention (JVD) difficult to be assessed. She is quite tachypneic. Oral mucosa is dry. Heart sounds are regular and without a pericardial friction rub. Lungs with slightly diminished breath sounds and basilar rales. Abdomen is quite tender both flanks. Bowel sounds are hypoactive. Extremities have no cyanosis or clubbing. Neurologically, she is moving all limbs and able to answer simple questions. Skin has no rash or ulcers. LABORATORY DATA: Her sodium is 136 and potassium 3.8. CO2 16, BUN 89 and creatinine 4.7. Glucose 111 and lactic acid 3.9 on admission. Uric acid 11.0 and calcium 8.2. Total bilirubin 1.5, AST 296, ALT 74, alkaline phosphatase 120, total CPK 1374, total protein 7.1 and albumin 2.6. Amylase was 53. Urinalysis showed too numerous to count WBCs and 49 RBCs with 3+ bacteria and moderate mucus. She had a chest x-ray done, which showed no evidence of effusion or a significant consolidation. She had a CAT scan of abdomen and pelvis in the emergency room, which showed left lower lobe infiltrate, large hiatal hernia, small gallstones and no free air or fluid. There was no hydronephrosis noticed. PROBLEMS: 1. Sepsis. Most likely she has urosepsis as she has bilateral flank area tenderness and pyuria with 3+ bacteria in the urine. Urine culture and blood cultures are pending. She has been started on broad-spectrum antibiotics with Zosyn and also received one dose of ceftriaxone in the emergency room. She has received about 3 liters of IV fluid so far since admission. We will determine what kind of IV fluids she needs after her repeat labs come back. I have ordered a renal profile and a venous blood gas as she has significant evidence for metabolic acidosis and she also has mild lactic acidosis. 2. Acute renal failure most likely related to sepsis. I am concerned about the possibility of pyelonephritis. Her urine looks very cloudy and she has tenderness in her flank area bilaterally. Urine culture is pending and we will continue with IV fluids and antibiotics. Depending upon her repeat labs, we will adjust her IV fluids. There is likelihood that she might require acute dialysis if her kidney function does not improve. At present, she has only minimal urine output. Thank you for involving me in the care of Mrs. Briscoe. I will follow her along with you.
[2019-07-23] MEDS ORDERED: DIGOXIN INJ 0.5 MG/2 ML AMP (J1160) IV STA (15:01)
[2019-07-23] MEDS ORDERED: AMIODARONE HCL 150 MG in IV 1 EA IV ONE (16:45)
[2019-07-23] MEDS ORDERED: AMIODARONE HCL 360 MG in IV 1 EA IV SCH (16:45)
--- NOTE | 2019-07-23 21:52 | ECHO ---
DATE OF PROCEDURE: 07/23/2019 REFERRING PHYSICIAN: Dr. Donovan INDICATION: Atrial fibrillation with rapid ventricular response. Height 165 cm, weight 90 kg. DIMENSIONS: IVS: 1.4 LV: 1.9 LVPW: 1.4 LA: 3.4 Aorta: 3.1 IVC: 1.3 FINDINGS: The study is of rather limited technical quality due to underlying body habitus and difficulty positioning. The patient is in atrial fibrillation with ventricular rate ranging from about 130-155 beats per minute. Left ventricle has normal size. There is moderate left ventricular hypertrophy and overall hyperdynamic left ventricular LV) systolic function. I estimate left ventricular ejection fraction (LVEF) around 65-70%. Right ventricle does not appear grossly dilated but it was poorly seen. Both atria appear grossly normal. Aortic valve appears sclerotic, but it has three cusps and overall preserved mobility. Mitral, tricuspid and pulmonic valves appear grossly normal. Prominent pericardial fat pad is noted but no visualized effusion. Inferior vena cava is relatively small caliber and almost completely collapses with inspiration indicative of likely low central venous pressure. Aortic root is normal. Aortic arch and abdominal aorta were not seen. Doppler interrogation reveals no significant aortic insufficiency. There is trivial stenosis with mean gradient around 10 mmHg. There is a functionally competent mitral valve. Trace tricuspid insufficiency is noted. Calculated pulmonary artery pressure is around 40 mmHg corresponding to moderate pulmonary hypertension. Pulmonic valve is functionally competent. Evaluation of diastolic function is inconclusive due to underlying atrial fibrillation. CONCLUSIONS: 1. Study is of fair technical quality, the patient is a atrial fibrillation with rapid ventricular response. 2. Normal LV size with mild LVH, hyperdynamic LV systolic function. 3. Aortic sclerosis with trivial stenosis and no insufficiency. 4. No additional significant valvular disease. 5. Suggestive of low central venous pressure and probably mild or moderate pulmonary hypertension. 6. Prominent pericardial fat pad. COMMENT: Subacute bacterial endocarditis (SBE) prophylaxis is not recommended.
--- NOTE | 2019-07-23 22:22 | CR ---
DATE OF CONSULTATION: 07/23/2019 REFERRING PHYSICIAN: Dr. Donovan I was asked by Dr. Donovan to see the patient because of atrial fibrillation with rapid ventricular response. Mrs. Briscoe is previously unknown to me. She is a 78-year-old female who was admitted to [facility] on July 22, 2019 with altered mental status. Apparently she was seen in our emergency room June for principally respiratory complaints and after evaluation was discharged home but then family brought her back a few days later because she was soporous. The working diagnosis at this point is urosepsis. She received numerous IV doses of antibiotics as well as IV hydration. Her mental status has slightly improved apparently since yesterday to today, but earlier today, she developed atrial fibrillation with rapid ventricular response. She received several doses of Cardizem, which had virtually no affect on her heart rate that was consistently around 150 beats per minute. She subsequently received single dose of 0.25 mg of digoxin and eventually was started on IV amiodarone with initial bolus 150 mg and continuous IV load according to standard protocol. At the time of my evaluation, her heart rate is between 120 and 130 beats per minute so she is starting to slow down. Unfortunately, the patient is not oriented and her mental status is marginal, so she cannot provide any reasonable history. PAST MEDICAL HISTORY: 1. Macular degeneration. 2. Chronic obstructive pulmonary disease (COPD). 3. Gastroesophageal reflux disease (GERD). 4. Obesity. 5. Dyslipidemia. 6. Type 2 diabetes. 7. Chronic renal insufficiency. SURGICAL HISTORY: Positive for bilateral knee replacement and tubal ligation. She also has a pessary for urinary incontinence. SOCIAL HISTORY: Unfortunately unable to obtain due to the patient's condition. FAMILY HISTORY: Also unable to obtain REVIEW OF SYSTEMS: As per history of the present illness, otherwise negative. The admission note does not state whether she was febrile prior to the admission or not. She has been febrile since she has been here. Unable to obtain due to her condition. PHYSICAL EXAMINATION: The patient is an elderly obese female who lays in intensive care unit (ICU) bed. She does not appear to be in distress but her mental status is certainly altered. She is able to nod that she feels that she is in the hospital and denies any chest pain, but I was not able to get more than that. The last set of vital signs revealed blood pressure 105/51, heart rate around 125. She is afebrile currently. Saturation 93% on 4 liters of oxygen. Her urine output today was already about 1900 mL, weight is recorded as 89.6 kg. Her fluid balance today is about 600 positive. She was about 3 liters positive yesterday. Her jugular venous pressure (JVP) is low. Lungs are diminished over both bases, occasional crackle and wheeze above. Heart Exam: Reveals somewhat muffled heart sounds, but she has irregular tachycardia. I do not appreciate distinct murmur, gallop or rub by physical exam. Abdomen is soft. There seemed to be some grimacing on firmer palpation rather diffusely, but I do not appreciate any distinct guarding. Extremities: Have trace edema. Peripheral pulses are detectable. I do not appreciate any trophic defects. Neurologic status: As per history of the present illness. Her neck is supple. She opens her eyes, and she moves all four extremities. LABORATORY DATA: Basic metabolic panel reveals sodium 145, potassium 3.5, BUN 96, creatinine 4.7 and glucose 109. CBC: WBC count 2.8, hemoglobin 13.1, hematocrit 36, and platelet count 25,000. Her SUSAN and anticardiolipin antibodies are pending. Urinalysis was 2+ protein, 3+ blood and too numerous to count white blood cells. INR was 1.1. Chest x-ray Is consistent with possibly mild congestive heart failure and opacity over left base, somewhat under penetrated film. She had MRI and MRA of her brain today that was relatively normal for her age. Admission ECG reveals sinus rhythm with frequent premature atrial contractions (PACs), left anterior fascicular hemiblock and nonspecific repolarization abnormalities, and was suggestive of left ventricular hypertrophy (LVH). An echocardiogram that I interpreted revealed preserved left ventricular systolic function, mild LVH and no hemodynamically significant valvular disease. Inferior vena cava (IVC) was small in caliber suggestive of probably low central venous pressure, approximately moderate pulmonary hypertension is noted. ASSESSMENT/PLAN: Mrs. Briscoe is a 78-year-old female who is likely having urosepsis with significantly altered mental status, acute renal failure and severe thrombocytopenia. She went into atrial fibrillation with RVR, which is probably not overly surprising in her current condition. I do believe that the amiodarone is the appropriate action. She did not respond to Cardizem and administration of digoxin would be associated with increased risk due to her renal failure. I am hoping that with additional amiodarone dosing her heart rate will slow gradually slow down and eventually she will convert. Her prognosis is certainly determined principally due to underlying sepsis and is at best guarded. Management of that issue remains with primary team and nephrology. As far as anticoagulation is concerned, it is certainly not an option in the setting of severe thrombocytopenia. MTDD
[2019-07-24] VITALS (15 sets, daily range): BP systolic 105–136; BP diastolic 52–86
[2019-07-24] MEDS: SODIUM BICARBONATE 150 MEQ in STERILE WATER LITER BAG 1,000 ML IV SCH (02:03)
[2019-07-24] MEDS: HumaLOG INSULIN (NovoLOG) PER UNIT SC SCH ×4 (02:08→18:00)
--- NOTE | 2019-07-24 02:53 | IPN ---
DATE: 07/23/2019 Mrs. Briscoe is seen this morning on her bedside in intensive care unit. She was seen last evening for initial consultation. She is felt to have urosepsis and has been on antibiotics. She also had acute renal failure and has received intravenous (IV) fluid. She seems to be hemodynamically improved this morning. She is still very weak but able to answer simple questions. She was able to tell her name. On physical exam, temperature 99.4 degrees Fahrenheit, heart rate 104 per minute, and respiratory rate 34 per minute. Blood pressure 135/66 mmHg and oxygen saturation 94% on 4 liters oxygen. Her face is slightly flushed. Neck veins are quite prominent. Oral mucosa is somewhat dry. Heart sounds are tachycardiac, and lungs with basilar rales and slightly diminished breath sounds. Abdomen is soft, and tenderness in right flank area is still present. Bowel sounds are present. Extremities have no cyanosis or clubbing. Neurologically, she is awake and able to answer simple questions. She is moving all four limbs. Today's labs show WBC count 2.8, hemoglobin 13.1, and hematocrit 36.5. Platelets 25,000. This morning, chemistry showed sodium 145, potassium 3.5, chloride 113, CO2 of 18, BUN 96, and creatinine 4.72. Glucose 109 and calcium 7.2. AST is 259, ALT 62, and CPK is 1210. Blood and urine cultures are still pending. PROBLEMS: 1. Acute renal failure, most likely related to urosepsis. She has been hydrated aggressively with IV fluids, and her volume status seems to be much improved. She does have some urine output, which is very encouraging. We will hold off on any plans for dialysis as her kidney function is likely to improve if she remains hemodynamically stable. 2. Sepsis. Most likely she has urosepsis. Broad spectrum antibiotics are already being used, and cultures are still pending. At this point, we will also continue with IV fluid and monitor her urine output closely. 3. Metabolic acidosis. She has mild metabolic acidosis related to her acute renal failure and sepsis. Sodium bicarbonate drip was started last evening, and I am going to change it to 150 mEq of sodium bicarbonate in each liter at 70 mL/h. 4. Hypokalemia. Potassium level is 3.5, and patient was given one run of potassium chloride intravenously. Another run will be given this afternoon. 5. Respiratory insufficiency. She is quite tachypneic related to sepsis and metabolic acidosis. She is also getting positive in fluid balance with more than 3 liters given so far since admission. One dose of Lasix 40 mg intravenously is being ordered.
[2019-07-24 05:00] LABS: HEMATOCRIT 37.9 % (36.0-47.0); HEMOGLOBIN 13.7 g/dl (12.0-15.5); MEAN CORPUSCULAR HEMOGLOBIN 29.5 pg (27.0-33.0); MEAN CORPUSCULAR HGB CONC 36.1 g/dl (32.0-36.5); MEAN CORPUSCULAR VOLUME 81.5 fl (80.0-96.0); RED BLOOD COUNT 4.65 10^6/uL (4.00-5.40); WHITE BLOOD COUNT 4.1 10^3/uL (4.0-10.0)
[2019-07-24 05:02] LABS: PLATELET COUNT, AUTOMATED 18 10^3/uL (150-450)
[2019-07-24 05:30] LABS: ALBUMIN 1.9 GM/DL (3.2-5.2); BILIRUBIN,TOTAL 0.9 MG/DL (0.2-1.0); CREATININE FOR GFR 4.43 MG/DL (0.55-1.30); GLOMERULAR FILTRATION RATE 10.3 (>39); MAGNESIUM LEVEL 2.6 MG/DL (1.8-2.4); POTASSIUM SERUM 2.8 MEQ/L (3.5-5.1); VANCOMYCIN RANDOM 12.9 UG/ML
[2019-07-24] MEDS ORDERED: VANCOMYCIN HCL 1,000 MG, VIAL MATE ADAPTER 1 EACH in D5W 250 ML IV ONE (06:00)
[2019-07-24] MEDS: KCL 10MEQ/100ML SWI (KRUN) 10 MEQ in IV 1 EA IV SCH ×2 (06:23→07:33)
--- NOTE | 2019-07-24 07:04 | CR ---
DATE OF CONSULTATION: 07/23/2019 REASON FOR CONSULT: Atrial fibrillation with rapid ventricular rate. HISTORY OF PRESENT ILLNESS: Mira Briscoe is a 78-year-old female with past medical history of chronic obstructive pulmonary disease (unknown stage and whether on home oxygen), hyperlipidemia, and gastroesophageal reflux disease (GERD) who presented first to the emergency room on 07/17/2019 presenting with a viral upper respiratory illness. Full work up on that emergency department (ED) visit was found to be negative and she was told to followup in the outpatient setting. She did undergo a chest CT at that time which found a large hiatal hernia and fusiform dilatation of the ascending thoracic aorta which measured maximally at 3.7 cm. The full history is obtained through the chart as the patient is currently nonresponsive. The patient then reported to the ED on 07/22/2019, brought in by family as she was found to be nonresponsive at home. She was brought in by her who reports this is very much different than her baseline. At that time, she was only responsive to painful stimuli with a Jordy Coma Scale (GCS) score of about 9. She was found to have a urinary tract infection and acute kidney injury (REINA) with questionable pneumonia. She was started on IV fluids and given a one time of ceftriaxone by the emergency room and her mental status acutely worsened. She was then admitted to the intensive care unit (ICU) with respiratory distress, originally requiring a nonrebreather mask, but now weaned down to 4 liters of oxygen. Today, the patient only grunts when asked any questions. She denies any chest pain or shortness of breath. Cardiology consult was called as the patient around noon was being turned in her bed and went into atrial fibrillation with rapid ventricular rate. Her blood pressure remained stable around the 120s over 80s, but her heart rate sustained in the 140s to 150s. Her hospitalist physician gave her two doses of Cardizem 15 mg IV and 10 mg IV with no reversion back to normal sinus rhythm. Dr. Richard was called and recommended digoxin for which she was given 0.25 mg around 3:00 p.m. this afternoon and she is still in the 150s in atrial fibrillation. Of note, she did have some short bursts of atrial fibrillation overnight. In addition, on admission the patient's troponins were checked and were found to be slightly elevated at 0.4, which trended down to 0.33 and then to 0.22. Of note, the patient also had an REINA with current creatinine of 4.72. Nephrology was consulted for this reason. PAST MEDICAL HISTORY: Per chart review, the patient has chronic obstructive pulmonary disease (COPD), hyperlipidemia, GERD, type 2 diabetes, history of chronic kidney disease unknown stage, and she has a history of vitamin D deficiency. MEDICATIONS (home medications include): - vitamin D 1000 units daily - fish oil capsule 1000 mg daily - omeprazole 20 mg daily - simvastatin 40 mg daily - ibuprofen 600 mg twice a day as needed for pain - meclizine 25 mg as needed for vertigo - Flonase nasal spray as needed for congestion ALLERGIES: The patient has no known drug allergies. SOCIAL HISTORY: The patient lives alone with her at home. She is a former smoker. No other history can be ascertained at this time. FAMILY HISTORY: Noncontributory. REVIEW OF SYSTEMS: Unable to be performed as the patient is somewhat nonresponsive. She only grunts when asked questions. PHYSICAL EXAMINATION: Her temperature is currently 99.4, pulse 148, respiratory rate 42, blood pressure 92/51, pulse oximetry 93% on 4 liters nasal cannula. The patient is laying flat in bed. She is very tachypneic. She is unresponsive, but she appears alert. HEENT: Her extraocular movements are intact. She tracks light and follows light. Her pupils are equally round and reactive to light. Her mucous membranes are moist. She has no lymphadenopathy in her neck nor any thyromegaly. Respiratory: She has crackles appreciated at the bases bilaterally. No other adventitious breath sounds are appreciated. Cardiovascular: She is very irregularly irregular, tachycardic. Unable to determine whether there are any murmurs, rubs or gallops. Abdomen: Soft. Nontender to palpation. The patient does not grimace with deep palpation of her abdomen. Lower Extremities: Have no cyanosis or clubbing and no edema. Neurologically, she is moving all her upper and lower extremities without any issue. She does answer simple questions and grunts as response to questions. Skin: She has no rashes or ulcers. Lymphatics: She has no lymphadenopathy appreciated anywhere. LABS: Currently, her white blood cell count is 2.8, her hemoglobin is 13.1, hematocrit is 36.5 and her platelet count is 25. Her chemistries demonstrate a sodium of 145, potassium of 3.5, chloride 113, carbon dioxide 18, BUN 96, and creatinine of 4.72 with a GFR estimated at 9%. Her calcium is 7.2. Her phosphorus is low at 2.2 and her magnesium is high at 2.6. Her liver enzymes were last measured at 259 for AST and 62 for ALT. Her CK was found to be 1210. Her last troponin was 0.22, which trended down from 0.33. Her TSH was found to be low at 0.270. Her PT was 14.8 and PTT 41.7. Fibrinogen found to be 601. Her urine study demonstrated too many white blood cells to count, 2+ leukocyte esterase, and 49 red blood cells. She has 2+ protein and 3+ blood. Methicillin-resistant Staphylococcus aureus (MRSA) screen was negative. On microbiology, she has no positive testing here. Her urine culture is pending. Blood culture is pending. IMAGING: She had a brain MRI when she came in which demonstrated no acute findings and mild age related changes. She also underwent an abdomen and pelvis CT which demonstrated left lower lobe infiltrate, large hiatal hernia, small gallstones seen in the dependent portion of the gallbladder. No free air or free fluid. Small calcified fibroid in the uterus. Her chest x-ray that was done this morning was reviewed by myself and demonstrates a new developing left lower lobe opacity suspicious for pneumonia versus atelectasis and chronically increased interstitial markings. ASSESSMENT: 1. This is a 78-year-old female with history of COPD and GERD who presented with altered mental status found to have fever and urinary tract infection concerning for pyelonephritis as well as acute kidney injury. At this time, the patient was also found to be in atrial fibrillation with rapid ventricular rate, most likely etiology is her current infection. 2. Sepsis secondary to possible pyelonephritis with acute kidney injury. PLAN: For now, I have written for the patient to have amiodarone 150 mg given slowly over the next hour. In addition, after that, the step two protocol for amiodarone, I will have her on IV drip of amiodarone. Hopefully, by then the patient will possibly revert back to sinus rhythm. I have also ordered an EKG at this time. It has come to my attention that the patient also just had a bloody stool, so stool was sent for occult testing to the lab. Therefore, I will hold off on anticoagulation at this time. The patient also had an echocardiogram performed today and this will be interpreted to further delineate her atrial fibrillation. I presume with treatment of her infection and her REINA, given that she has no known history of atrial fibrillation, she will most likely revert to normal sinus rhythm. Agree with the current antibiotic choice of Zosyn as broad spectrum for treatment of her infection. We will continue to follow along with this patient with you. Feel free to contact the cardiology service with any questions. PEDRO PABLO
[2019-07-24] MEDS: PIPERACILLIN/TAZOBACTAM SOD 4.5 GM in D5W MINI-BAG PLUS 100 ML IV SCH (07:33)
[2019-07-24] MEDS: KCL 20MEQ IN 0.45NS 1000ML 1,000 ML IV SCH ×2 (07:33→21:40)
--- NOTE | 2019-07-24 07:54 | ECGEPIP ---
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
--- NOTE | 2019-07-24 08:12 | IPNPDOC ---
Text Note Date of Service The patient was seen on 07/24/19. NOTE Subjective: Patient seen and examined at bedside. No acute overnight events reported. Yesterday she had issues with afib/rvr. This morning her mentation does seem improved, but still far from baseline. She does not indicate she has any pain anywhere. Denies headaches, neck pain, chest pain, abdominal pain. Objective: VITAL SIGNS: See below General: NAD, lying comfortably in bed, elderly HEENT: NC/AT, nasal cannula in place Lungs: CTA B/L Heart: +S1S2, RRR Abd: obese, +BS, soft, NT A/P: 78 yo female presents to ED for altered mental status. Patient was seen in ED few days ago for upper respiratory complaints. Workup revealed no acute findings and patient was discharged home. She returns brought in by family for acute changes in mental status. On discussion with ED staff on presentation she was responsive only to painful stimuli, with a GCS around 9. Workup revealed UTI, REINA and pneumonia. She was started on IV fluids and Ceftriaxone. Her mentation did improve, with her GCS rising to 13. She was also noted to be in respiratory distress, originally on a non-rebreather, and weaned to 4L. On evaluation she was able to respond to simple commands including wiggling fingers, open/close eyes. Hospitalist service called, admitted for AMS secondary to sepsis/UTI/REINA possibly PNA. #pyelo?/UTI/sepsis - fever, leukopenia, tachycardia on admission - UA prelim +ESBL - continue zosyn - renal dosing, IV fluids - UCx sensitivities pending #Afib/RVR - cardiology c/s appreciated - rate controlled s/p diltiazem,dig, amiodarone #thrombocytopenia - peripheral smear pending - avoid heparin products - likely secondary to sepsis - further w/u in progress #leukopenia - likely secondary to sepsis - resolved #bacteremia - added renal dosing of vancomycin - suspect contaminant - repeat cultures pending #PNA - sputum culture gram stain pending - respiratory panel pending - vanc/zosyn as above #AMS - likely metabolic encephalopathy - brain imaging with no acute findings - ?HUS - treating underlying infection #lactic acidosis - as per sepsis - IV fluids/IV antibiotics #respiratory distress - supplemental O2 - secondary to PNA #REINA - secondary to UTI/hypovolemia - IV fluids - UTI as above - nephrology c/s appreciated - no obstruction on CT A/P - perhaps some perinephric stranding #troponinemia - trending down - likely demand ischemia - no acute ECG changes #DM #DLP #DVT prophylaxis - mechanical #GI prophylaxis - protonix Dispo: UA returns +ESBL - transitioned to meropenem; to d/w hematology regarding acute thrombocytopenia VS,Fishbone, I+O VS, Fishbone, I+O Laboratory Tests 07/24/19 04:39 Vital Signs Date Time Temp Pulse Resp B/P (MAP) Pulse Ox O2 Delivery O2 Flow Rate FiO2 07/24/19 06:00 80 30 117/59 (78) 92 Nasal Cannula 4.0 07/24/19 04:00 97.6 07/22/19 12:59 100 I&O- Last 24 Hours up to 6 AM 07/24/19 06:00 Intake Total 2750 ml Output Total 2250 ml Balance 500 ml CHARLEY PADGETT MD Jul 24, 2019 08:12
[2019-07-24] MEDS ORDERED: MEROPENEM INJ 1 GM in IV 1 EA IV SCH (08:30)
[2019-07-24] MEDS ORDERED: KCL 10MEQ/100ML SWI (KRUN) 10 MEQ in IV 1 EA IV ONE ×2 (09:00→17:00)
--- NOTE | 2019-07-24 09:23 | CR ---
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 HISTORY OF PRESENT ILLNESS: 78-year-old female with multiple medical problems, hospital day #3, who presents to the emergency room (ER) with mental status changes. She was confused and responds only to painful stimuli. She had been in the emergency room several days before with upper respiratory complaints and had normal mental status at that time. Workup reveals urinary tract infection with possible urosepsis as well as pneumonia and renal failure. She was noted in the past to use a pessary for pelvic organ prolapse. It is unclear whether the pessary was still in place, or if the pessary had been changed recently. There was some concern whether the pessary could be contributing to her urosepsis. MEDICAL HISTORY: 1. Chronic obstructive pulmonary disease (COPD). 2. Type 2 diabetes. 3. Gastroesophageal reflux. 4. Osteoarthritis. 5. Hiatal hernia. 6. Pelvic organ prolapse. 7. History of diverticulosis. SURGICAL HISTORY: 1. Bilateral knee replacements. 2. 2007 colonoscopy. 3. 02/01/2018, she had a colpocleisis with sling procedure by Dr. Trejo. MEDICATIONS: - vitamin D3 - omega 3 - omeprazole - simvastatin - vitamins ALLERGIES: No known drug allergies. SOCIAL HISTORY: Noncontributory. FAMILY HISTORY: Noncontributory. PHYSICAL EXAMINATION: Blood pressure 116/55, pulse 93, temperature 103.3 on admission. She is in no apparent distress. She is able to respond to simple commands. Lungs: There are scattered rhonchi. Heart: Regular rate and rhythm. Abdomen: Soft. Nontender. Sterile Vaginal Exam: Reveals no pessary in place. She has evidence of prior colpocleisis procedure with post surgical change in the vagina. No prolapse present. No fistula appreciated. ASSESSMENT: 78-year-old female with multiple medical problems who presents with urosepsis, pneumonia and kidney failure. She has no pessary in place currently. She has no pelvic prolapse problems after vaginal surgery and repair of this in 2018. 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 No further action needed from our standpoint. Will continue to follow during hospitalization.
[2019-07-24] MEDS: MEROPENEM INJ 500 MG in IV 1 EA IV SCH ×2 (09:35→21:40)
[2019-07-24] MEDS: PANTOPRAZOLE 40MG VIAL (C9113 PER 1) IV SCH (09:35)
--- NOTE | 2019-07-24 11:53 | REP ---
PORTABLE CHEST: AP portable view of the chest is performed and compared to a prior study of 07/23/2019. Left lower lung consolidation has mildly increased. No infiltrate is seen on the right. Cardiomegaly is noted with pulmonary venous hypertension. Mediastinal silhouette is unchanged. IMPRESSION: Mild increase in left lower lung consolidation. Electronically Signed by Vin Dodd MD 07/24/2019 12:59 P
[2019-07-24 13:17] LABS: ABG BASE EXCESS 3.1 (-2.0-2.0); ABG HCO3 24.5 MEQ/L (22.0-26.0); ABG O2 SATURATION 92.5 % (95.0-99.0); ABG PARTIAL PRESSURE CO2 28.8 mmHg (35.0-45.0); ABG PARTIAL PRESSURE O2 64.6 mmHg (75.0-100.0); ABG STANDARD HCO3 27.1 MEQ/L (22.0-26.0); ABG TOTAL CO2 25.3 MEQ/L (23.0-31.0); ABG pH (ARTERIAL) 7.547 UNITS (7.350-7.450)
[2019-07-24] MEDS: SALIVA SUBSTITUTE(MOUTHKOTE) BTL MT PRN ×2 (15:58→18:07)
[2019-07-24 16:33] LABS: CALCIUM LEVEL 7.1 MG/DL (8.8-10.2); CREATININE FOR GFR 4.07 MG/DL (0.55-1.30); GLOMERULAR FILTRATION RATE 11.4 (>39); MAGNESIUM LEVEL 2.7 MG/DL (1.8-2.4); POTASSIUM SERUM 3.1 MEQ/L (3.5-5.1)
--- NOTE | 2019-07-24 17:14 | IPN ---
DATE: 07/24/2019 SUBJECTIVE: The patient seems to be doing better this morning. She is more responsive to questions and can answer and knows where she is, who she is, and roughly the year. I witnessed as she spoke on the phone with her [id number] this morning. She only speaks in slurred speech and grumbles but she seems to understand what is going on. According to nursing, she reverted back to sinus rhythm around 1800 yesterday evening. Since then, she has had short bursts of atrial fibrillation but has not had rapid ventricular response. She did complete the amiodarone step one and step two drip yesterday evening. In addition, she was seen by obstetrics and gynecology ([employer]) as we were told that she had a pessary in but it turns out she did not have a pessary in. This morning, her urine culture shows the growth of extended-spectrum beta-lactamase (ESBL) Escherichia (E) coli in her urine, so her antibiotics were changed. OBJECTIVE: Her vital signs are temperature 97.5, pulse of 80, respiratory rate of 32, blood pressure of 127/86. She is saturating 93% on four liters nasal cannula. PHYSICAL EXAMINATION: GENERAL: She is laying flat in bed. She is calm and cooperative. She does not appear in any acute distress and she is minimally conversive and answers questions. HEENT: Her extraocular movements are intact. Her pupils are equally round and reactive to light. Her mucous membranes are moist. She has no scleral icterus. NECK: Soft, supple. No lymphadenopathy. No thyromegaly. RESPIRATORY: She is clear to auscultation bilaterally with no adventitious breath sounds appreciated. CARDIOVASCULAR: She appears to be regular rate and rhythm with a 3/6 systolic ejection murmur best appreciated in the right upper sternal border, radiating to the apex. ABDOMEN: Soft and nontender to palpation. Positive bowel sounds. No masses or organomegaly. No lymphadenopathy. EXTREMITIES: She still has trace pitting edema in the lower extremities bilaterally. She is wearing decompression socks and the sequential devices. SKIN: She has no new rashes. LYMPHATIC: She has no enlarged lymph nodes. LABORATORY DATA: This morning, her CBC demonstrates a white blood cell count of 4.1, a platelet count of 18 which is lower from 25 yesterday, hemoglobin of 13.7, and a hematocrit of 37.9. On chemistries, she has a sodium of 144, potassium of 2.8, chloride of 106, carbon dioxide 26, a BUN of 107 which is up from 96 yesterday and a creatinine of 4.43 with a GFR estimated at 10%. Her calcium today is 7.0, magnesium is 2.6. Her AST went down from 259-208 and I have ordered an [id number] laboratory which is pending and compliment laboratories are normal. C3 is 129, C4 is 33. Her random vancomycin trough today was 12.9. On microbiology, she was found to have two negative stool occult tests and a urine culture that was drawn on 07/22/2019 at 1331 has grown ESBL E. coli that is sensitive to meropenem. Otherwise, she has not had any new imaging done. ASSESSMENT AND PLAN: This is a 78-year-old female who presented with altered mental status, likely secondary to urosepsis, now growing extended-spectrum beta-lactamase (ESBL) in her urine with acute renal failure and severe thrombocytopenia. At this point in time, her heart rate is back in normal sinus rhythm which responded to the amiodarone. Her blood pressure is within normal limits. I suspect that with the treatment of her urosepsis that these bursts of atrial fibrillation with rapid ventricular response (RVR) should not recur. On the other hand, her thrombocytopenia is worsening. I have discussed with Dr. Donovan today regarding her diagnosis and the possibility for hemolytic uremic syndrome given her neurologic deficits and her decreased renal function. I have ordered a compliment C3 and C4 which were found to be normal but an [id number] laboratory is still pending. In addition, I have ordered a peripheral smear at this time. In regards to her anticoagulation, this will still be held due to her thrombocytopenia. We will continue to monitor this patient and we are happy to answer any questions should they arise.
[2019-07-24 20:00] LABS: CLOSTRIDIUM DIFFICILE PCR NEGATIVE (NEGATIVE)
[2019-07-25] VITALS (16 sets, daily range): BP systolic 112–162; BP diastolic 56–89; O2SAT 88–91
[2019-07-25] MEDS: HumaLOG INSULIN (NovoLOG) PER UNIT SC SCH ×5 (05:47→23:44)
[2019-07-25 06:14] LABS: HEMATOCRIT 39.8 % (36.0-47.0); HEMOGLOBIN 14.2 g/dl (12.0-15.5); MEAN CORPUSCULAR HEMOGLOBIN 29.7 pg (27.0-33.0); MEAN CORPUSCULAR HGB CONC 35.7 g/dl (32.0-36.5); MEAN CORPUSCULAR VOLUME 83.3 fl (80.0-96.0); RED BLOOD COUNT 4.78 10^6/uL (4.00-5.40); WHITE BLOOD COUNT 4.8 10^3/uL (4.0-10.0)
[2019-07-25 06:16] LABS: PLATELET COUNT, AUTOMATED 31 10^3/uL (150-450)
[2019-07-25 06:35] LABS: ALBUMIN 1.8 GM/DL (3.2-5.2); CREATININE FOR GFR 3.58 MG/DL (0.55-1.30); GLOMERULAR FILTRATION RATE 13.2 (>39); POTASSIUM SERUM 3.4 MEQ/L (3.5-5.1); TOTAL PROTEIN 6.1 GM/DL (6.4-8.2); VANCOMYCIN RANDOM 8.1 UG/ML
[2019-07-25] MEDS ORDERED: VANCOMYCIN HCL 1,000 MG, VIAL MATE ADAPTER 1 EACH in D5W 250 ML IV ONE (06:45)
[2019-07-25 06:47] LABS: ATYPICAL LYMPH 2 % (0-5); LYMPHOCYTES 22 % (16-44); MONOCYTES 1 % (0-5); NEUTROPHILS 75 % (28-66)
[2019-07-25 06:48] LABS: PLATELET ESTIMATE MARKED DECREASE (NORMAL)
[2019-07-25] MEDS: PANTOPRAZOLE 40MG VIAL (C9113 PER 1) IV SCH (08:12)
[2019-07-25] MEDS ORDERED: KCL 10MEQ/100ML SWI (KRUN) 10 MEQ in IV 1 EA IV ONE (09:15)
--- NOTE | 2019-07-25 09:29 | IPN ---
DATE: 07/24/2019 Ms. Briscoe is seen this morning on her bedside. Yesterday she had rapid atrial fibrillation and was treated with intravenous Cardizem, digoxin and beta gavi but no effect due to which she was finally given amiodarone. Her heart rate is now back in 70s and 80s and in fact she has converted into sinus rhythm. She is still very weak and slightly confused but able to answer simple questions. She remains quite tachypneic. She did have decent urine output and has been afebrile. PHYSICAL EXAMINATION: Temperature 97.6 degrees Fahrenheit, heart rate 80 per minute and respiratory rate 32 per minute. Blood pressure 117/59 mmHg and oxygen saturation 94% on 4 liters oxygen. Her face is slightly flushed. Neck veins are slightly prominent but oral mucosa is dry. Heart sounds are regular and lungs with slightly diminished breath sounds at bases. Abdomen soft and nontender and bowel sounds are present. Extremities: Without any cyanosis or clubbing. Neurologically she is moving all her limbs and has no focal deficit. She is quite weak and somewhat confused at times. Today's labs show WBC count 4.1, hemoglobin 13.7 and hematocrit 37.9. Platelets 18,000. Blood gas showed a pH of 7.54, pCO2 of 28.8 and pO2 64.6. Bicarbonate is 27. This morning sodium 144, potassium 2.8, CO2 26, BUN 107 and creatinine 4.43. Glucose 121 and calcium 7.0. AST 208, ALT 53 and alkaline phosphatase 108. Total protein 6.0 and albumin 1.9. Urine culture has come back positive for E. coli with ESBL. PROBLEMS: 1. Acute renal failure. The patient is nonoliguric and remains hemodynamically stable. She has slight decrease in serum creatinine today which is very encouraging. At this point, I do not see any emergent indication for dialysis and I am very optimistic that her kidney function is likely to improve over the next 48-72 hours. 2. Hypokalemia. This is related to correction of metabolic acidosis and improving urine output. She has no oral intake. Potassium will be replaced with intravenous potassium runs and will also add 20 mEq potassium chloride in the IV fluid. Electrolytes should be repeated again. 3. Urosepsis. Urine culture has come back positive for E. coli with ESBL. She is receiving high-dose Zosyn and I would recommend to cut down the doses of Zosyn or switch her antibiotic. 4. Metabolic acidosis. Her acidosis has corrected and sodium bicarbonate infusion is being stopped. Switching her IV fluid to half-normal saline with potassium chloride 20 mEq in each liter.
[2019-07-25] MEDS: KCL 20MEQ IN D5W 1000ML 1,000 ML IV SCH ×2 (09:44→17:34)
[2019-07-25] MEDS: MEROPENEM INJ 500 MG in IV 1 EA IV SCH ×2 (09:44→22:16)
--- NOTE | 2019-07-25 09:44 | IPNPDOC ---
Text Note Date of Service The patient was seen on 07/25/19. NOTE Subjective: Patient seen and examined at bedside. No acute overnight events reported. Patient marginallly improved from yesterday, but still with gross changes in her mentation compared to baseline. Discussed at length with her yesterday who stated she was active, mobile and conversive prior to hospital admission. She denies any medical complaints this morning. Objective: VITAL SIGNS: See below General: NAD, lying comfortably in bed, elderly HEENT: NC/AT, nasal cannula in place Lungs: CTA B/L Heart: +S1S2, RRR Abd: obese, +BS, soft, NT Neuro: no obvious gross focal deficits A/P: 78 yo female presents to ED for altered mental status. Patient was seen in ED few days prior to this admission for upper respiratory complaints. Workup revealed no acute findings and patient was discharged home. She returned, brought in by family for acute changes in mental status. On discussion with ED staff on presentation she was responsive only to painful stimuli, with a GCS around 9. Workup revealed UTI, REINA and pneumonia. She was started on IV fluids and Ceftriaxone. Her mentation did improve, with her GCS rising to 13. She was also noted to be in respiratory distress, originally on a non-rebreather, and weaned to 4L. On evaluation she was able to respond to simple commands including wiggling fingers, open/close eyes. Hospitalist service called, admitted for AMS secondary to sepsis/UTI/REINA possibly PNA. #pyelo?/UTI/sepsis - fever, leukopenia, tachycardia on admission - UA +ESBL - continue meropenem - renal dosing, IV fluids #Afib/RVR - cardiology c/s appreciated - rate controlled s/p diltiazem,dig, amiodarone #thrombocytopenia - peripheral smear pending - avoid heparin products - likely secondary to sepsis - further w/u in progress #leukopenia - likely secondary to sepsis - resolved #bacteremia - contaminant - dc vanco #PNA - sputum culture gram stain pending - respiratory panel pending - meropenem as above #AMS - likely metabolic encephalopathy - brain imaging with no acute findings #lactic acidosis - as per sepsis - IV fluids/IV antibiotics - metabolic acidosis - resolved #respiratory distress - supplemental O2 - secondary to PNA #REINA - secondary to UTI/hypovolemia - IV fluids - UTI as above - nephrology c/s appreciated - no obstruction on CT A/P - perhaps some perinephric stranding #troponinemia - trending down - likely demand ischemia - no acute ECG changes #DM #DLP #DVT prophylaxis - mechanical #GI prophylaxis - protonix Dispo: continue meropenem, transfer to pcu, swallow eval/PT/OT VS,Fishbone, I+O VS, Fishbone, I+O Laboratory Tests 07/24/19 15:53 07/25/19 05:57 Vital Signs Date Time Temp Pulse Resp B/P (MAP) Pulse Ox O2 Delivery O2 Flow Rate FiO2 07/25/19 08:30 87 91 Nasal Cannula 2.0 07/25/19 08:00 97.3 28 162/69 (100) 07/22/19 12:59 100 I&O- Last 24 Hours up to 6 AM 07/25/19 06:00 Intake Total 2270 ml Output Total 1645 ml Balance 625 ml CHARLEY PADGETT MD Jul 25, 2019 09:44
[2019-07-25] MEDS ORDERED: VARIBAR PUDDING 40% w/v 230ML TUBE As Ordered ONE (13:20)
[2019-07-25] MEDS ORDERED: BARIUM SULFATE 700 MG TABLET (E-Z-DISK) As Ordered ONE (13:21)
[2019-07-25] MEDS ORDERED: E-Z-PAQUE 96% w/w SUSP 176GM BTL As Ordered ONE (13:21)
[2019-07-25] MEDS ORDERED: VARIBAR NECTAR 40% w/v 240ML SUSP BTL As Ordered ONE (13:21)
--- NOTE | 2019-07-25 16:35 | IPN ---
DATE: Ms. Briscoe was seen and examined at the bedside this morning. Her mental status seems to have improved somewhat, but she is still difficult to understand as she is grunting and having trouble pronouncing her words. Her fluids have been changed to D5 with potassium, and she is still not eating. Speech therapy saw her yesterday and reported that her mouth is so dry that she is unable to properly swallow. She is no longer tachypneic and her rate is better controlled this morning. She denies any chest pain or shortness of breath. She is currently being treated for extended-spectrum beta-lactamase (ESBL) in her urine and Bacillus species in her blood culture that grew out of one blood culture only. Otherwise no changes reported from nursing overnight. The patient has remained stable. Blood pressure has been stable. Objectively, her vital signs are as follows: Temperature 97.0, pulse 84, respiratory rate of 30, blood pressure 132/62, pulse oximetry is 91% on 3 liters nasal cannula. Generally she is lying flat in bed. She is calm and cooperative. She does not appear in any acute distress. She is minimally conversive and answers questions, although difficult to understand. HEENT: Her extraocular movements are intact. Her pupils are equally round and reactive to light. Her mucous membranes are dry. She has no scleral icterus. Neck: Soft, supple. No lymphadenopathy. No thyromegaly. Difficult to determine her jugular venous distention (JVD). Respiratory: She is clear to auscultation bilaterally with some decreased breath sounds in the left lower lobe, possibly demonstrating atelectasis. Cardiovascular: She appears to be regular rate and rhythm with a 3/6 systolic ejection murmur best appreciated in the right upper sternal border radiating to the apex. Abdomen: Soft and nontender to palpation. Positive bowel sounds. No masses or organomegaly and no lymphadenopathy. Extremities: She has some trace pitting edema in the lower extremities bilaterally. Skin: She has no new rashes. Lymphatics: She has no enlarged lymph nodes. Labs today: Her white blood cell count is 4.8, hemoglobin is 14.2, hematocrit is 39.8, platelet count of 31. Her chemistries demonstrate a sodium of 150, potassium 3.4, chloride 113, BUN of 99 and her creatinine is 3.58, down from 4.07 yesterday with an estimated GFR of 13%. Her AST has come down to 172 from 208. She had a blood gas drawn yesterday - pH 7.547, pCO2 of 28, pO2 of 64. Her complement levels were drawn yesterday: C3 of 129, C4 of 33. Clostridium difficile (C diff) test was performed and is presumptive negative. She is methicillin-resistant Staphylococcus aureus (MRSA) PCR negative. Microbiology: She has grown ESBL, Escherichia (E) coli in her urine and Bacillus species not Anthracis in one of her blood cultures. She did have a chest x-ray drawn yesterday, which showed mild increase in left lower lobe consolidation. ASSESSMENT: This is a 78-year-old female who presented with altered mental status, likely secondary to urosepsis, now growing E coli, ESBL in her urine with acute renal failure and severe thrombocytopenia. At this point in time, her heart rate is back to normal sinus rhythm. Her rates have been anywhere between the 80s to 90s, which is acceptable at this time. Her renal function seems to be improving and her thrombocytopenia has also improved. We will continue to monitor from here on out, but at this time, we still do not recommend any sort of anticoagulation until her thrombocytopenia improves.
--- NOTE | 2019-07-25 16:46 | IPN ---
DATE: 07/25/2019 Mrs. Briscoe is seen this morning in intensive care unit on her bedside. She remains confused and very weak. She is trying to talk but it is incomprehensible. She has been short of breath and is still nothing by mouth. She there is no vomiting or diarrhea reported. PHYSICAL EXAMINATION: Temperature 97.3 degrees Fahrenheit, heart rate 92 per minute and respiratory rate 28 per minute. Blood pressure 162/70 mmHg and oxygen saturation 92%. She is still on 3-4 liters of oxygen. Intake and output records from yesterday showed total intake 2270 and output 1600 mL. The patient is not able to provide much reliable information and she remains hemodynamically stable. PHYSICAL EXAMINATION: She is awake, somewhat confused but moving all her limbs. Her head is atraumatic. Neck supple and JVD does not seem to be abnormally elevated. Heart sounds are regular and lungs with slightly diminished breath sounds at bases. Abdomen soft and nontender and bowel sounds are normal. Extremities without any cyanosis or clubbing. There is no peripheral edema. Neurologically she does not have a focal deficit but seems to be confused and disoriented. Today's labs show WBC count 4.8, hemoglobin 14.2 and hematocrit 39.8. Platelets 31,000. Sodium 150, potassium 3.4, CO2 24, BUN 99 and creatinine 3.58. Glucose 110 and calcium 7.0. Albumin is 1.8. PROBLEMS: 1. Acute kidney injury superimposed on chronic kidney disease. She is nonoliguric and kidney function has started to improve, which is very encouraging. No emergent need for dialysis at present and we will continue with IV fluid hydration and monitoring of kidney function on a daily basis. 2. Hypernatremia. Sodium level increased to 150 today despite changing the IV fluid to half-normal saline yesterday. She is nothing by mouth and also received some diuretic. I am going to change her IV fluid to D5W with potassium chloride. Electrolytes will be checked again tomorrow morning. 3. Hypokalemia. Potassium level is improving with intravenous supplement. We will continue adding 20 mEq of potassium chloride in each liter of IV fluid and in addition will also give her a potassium run for 10 mEq. 4. Sepsis. Urosepsis is gradually improving and she is hemodynamically stable. 5. Thrombocytopenia. Most likely related to sepsis and has started to gradually improve. There is no evidence of acute bleeding.
--- NOTE | 2019-07-25 19:11 | REP ---
COOKIE SWALLOW The procedure was performed under the direct supervision of Dr. Dodd. Procedure was performed with Ayah Goodwin from speech pathology present. 5 ml aliquots of honey, nectar, thin and pudding consistency barium was administered. With honey and thin consistency barium there is laryngeal penetration. A detailed report of this examination will be provided by speech pathology. 1.8 minutes of fluoroscopy time was utilized for this procedure. Electronically Signed by STEPHANI Sequeira 07/25/2019 04:22 P Electronically Signed by Vin Dodd MD 07/25/2019 07:02 P
[2019-07-26] VITALS (22 sets, daily range): BP systolic 112–154; BP diastolic 59–80; O2SAT 89–97
[2019-07-26] MEDS: HumaLOG INSULIN (NovoLOG) PER UNIT SC SCH ×3 (05:06→17:17)
[2019-07-26] MEDS: KCL 20MEQ IN D5W 1000ML 1,000 ML IV SCH ×3 (05:06→17:19)
[2019-07-26 05:58] LABS: HEMATOCRIT 36.4 % (36.0-47.0); HEMOGLOBIN 13.3 g/dl (12.0-15.5); MEAN CORPUSCULAR HEMOGLOBIN 30.3 pg (27.0-33.0); MEAN CORPUSCULAR HGB CONC 36.5 g/dl (32.0-36.5); MEAN CORPUSCULAR VOLUME 82.9 fl (80.0-96.0); RED BLOOD COUNT 4.39 10^6/uL (4.00-5.40)
[2019-07-26 06:01] LABS: PLATELET COUNT, AUTOMATED 41 10^3/uL (150-450)
[2019-07-26 06:34] LABS: ALBUMIN 1.8 GM/DL (3.2-5.2); BILIRUBIN,TOTAL 0.8 MG/DL (0.2-1.0); CALCIUM LEVEL 6.9 MG/DL (8.8-10.2); CREATININE FOR GFR 2.79 MG/DL (0.55-1.30); GLOMERULAR FILTRATION RATE 17.6 (>39); MAGNESIUM LEVEL 2.7 MG/DL (1.8-2.4); POTASSIUM SERUM 3.5 MEQ/L (3.5-5.1); TOTAL PROTEIN 6.1 GM/DL (6.4-8.2); VANCOMYCIN RANDOM 14.1 UG/ML
[2019-07-26] MEDS ORDERED: VANCOMYCIN HCL 1,000 MG, VIAL MATE ADAPTER 1 EACH in D5W 250 ML IV ONE (07:00)
[2019-07-26] MEDS: PANTOPRAZOLE 40MG VIAL (C9113 PER 1) IV SCH (09:15)
[2019-07-26] MEDS: MEROPENEM INJ 500 MG in IV 1 EA IV SCH ×2 (09:15→21:47)
[2019-07-26] MEDS ORDERED: FUROSEMIDE 40MG/4ML VIAL (J1940) IV ONE (09:30)
--- NOTE | 2019-07-26 10:55 | IPN ---
DATE OF SERVICE: 07/26/2019 Ms. Briscoe was seen and examined this morning at the bedside while she was performing a speech evaluation. Speech therapy is reporting that they are trying different methods for her swallowing and thus far they have not observed her coughing or seeming to choke on any of her food, but will address dietary needs as necessary. The patient continues to improve with her mental status and her heart rate has been regular and within normal limits overnight. Overall, she seems to be improving quite well and there are no reports of any adverse events since she was transferred out of the intensive care unit (ICU). PHYSICAL EXAMINATION: Vital are temperature 97.3, pulse 94 and regular, respiratory rate 22, blood pressure 154/76, pulse oximetry 92% on 2 liters nasal cannula. The patient is seated upright in bed undergoing speech therapy evaluation. She is calm, cooperative, and in no acute distress. HEENT: Her pupils are equally round and reactive to light. Extraocular movements are intact. She has moist mucous membranes. Neck is supple with no thyromegaly. No lymphadenopathy. Chest: She has some fine basilar crackles at the bases bilaterally with no other adventitious breath sounds appreciated. Cardiovascular: Regular rate and rhythm. She has a 3/6 systolic ejection murmur at the right upper sternal border. Jugular venous distention (JVD) difficult to determine at this time. Abdomen: Soft. Nontender to palpation. Positive bowel sounds. No masses or organomegaly. No lymphadenopathy. Extremities: No clubbing, cyanosis or edema. Skin: She has no new rashes. Lymphatics: She has no enlarged lymph nodes. LABS: Today, white blood cell count improved to 5.0, hemoglobin improved to 13.3, hematocrit 36.4, and platelet count is up to 41 from 31 yesterday. Chemistries: Sodium 149, potassium 3.5, chloride 115, BUN 87, creatinine 2.79 down from 3.58 yesterday. She has a magnesium of 2.7. AST is down to 123. Total protein is 6.1. Albumin is 1.8. No new growth on any of her microbiology. ASSESSMENT: This is a 78-year-old female who presented with altered mental status likely secondary to urosepsis, now growing E. Coli ESBL in her urine with acute renal failure that is improving, thrombocytopenia also improving. At this point in time, her heart rate has been acceptable in the 80s to 90s and she has been in normal sinus rhythm. Her atrial fibrillation was most likely secondary to her infection which is now being treated. We have no further concerns about this patient and we are very pleased with the fact that she has improved.
--- NOTE | 2019-07-26 13:40 | IPNPDOC ---
Text Note Date of Service The patient was seen on 07/26/19. NOTE Subjective: Patient seen and examined at bedside. No acute overnight events reported. Patient improved from yesterday, but still with difficulty with speech. She voices no clear medical complaints, but is anxious to drink some Jocelyne angela. Objective: VITAL SIGNS: See below General: NAD, lying comfortably in bed, elderly HEENT: NC/AT, nasal cannula in place Lungs: CTA B/L Heart: +S1S2, RRR Abd: obese, +BS, soft, NT Neuro: no obvious gross focal deficits A/P: 78 yo female presents to ED for altered mental status. Patient was seen in ED few days prior to this admission for upper respiratory complaints. Workup revealed no acute findings and patient was discharged home. She returned, brought in by family for acute changes in mental status. On discussion with ED staff on presentation she was responsive only to painful stimuli, with a GCS around 9. Workup revealed UTI, REINA and pneumonia. She was started on IV fluids and Ceftriaxone. Her mentation did improve, with her GCS rising to 13. She was also noted to be in respiratory distress, originally on a non-rebreather, and weaned to 4L. On evaluation she was able to respond to simple commands including wiggling fingers, open/close eyes. Hospitalist service called, admitted for AMS secondary to sepsis/UTI/REINA possib ly PNA. #pyelo?/UTI/sepsis - fever, leukopenia, tachycardia on admission - UA +ESBL EColie - continue meropenem - renal dosing #Afib/RVR - cardiology c/s appreciated - rate controlled - s/p diltiazem,dig, amiodarone - echo shows hyperdynamic LV systolic function - no a/c given thrombocytopenia #thrombocytopenia - peripheral smear noted - avoid heparin products - likely secondary to sepsis - improving #leukopenia - likely secondary to sepsis - resolved #bacteremia - contaminant - dc vanco - repeat cultures NTD #PNA - sputum culture gram stain pending - respiratory panel negative - meropenem as above #AMS - likely metabolic encephalopathy - brain imaging with no acute findings #lactic acidosis - resolved - as per sepsis - s/p IV fluids, continue IV antibiotics - metabolic acidosis - resolved #dysphagia - repeat swallow eval pending - perhaps will improve given improved mentation #respiratory distress - supplemental O2 - secondary to PNA #REINA - secondary to sepsis/UTI/hypovolemia - continues to improve - nephrology c/s appreciated - no obstruction on CT A/P - perhaps some perinephric stranding #troponinemia - trending down - likely demand ischemia - no acute ECG changes #DM #DLP #DVT prophylaxis - mechanical #GI prophylaxis - protonix Dispo: continue meropenem, repeat swallow eval, pending clinical improvement, PT/OT/ST VS,Fishbone, I+O VS, Fishbone, I+O Laboratory Tests 07/26/19 05:47 Vital Signs Date Time Temp Pulse Resp B/P (MAP) Pulse Ox O2 Delivery O2 Flow Rate FiO2 07/26/19 12:09 2.0 07/26/19 12:00 97.4 87 21 112/80 (91) 94 Nasal Cannula 07/22/19 12:59 100 I&O- Last 24 Hours up to 6 AM 07/26/19 06:00 Intake Total 2470 ml Output Total 1775 ml Balance 695 ml CHARLEY PADGETT MD Jul 26, 2019 13:40
--- NOTE | 2019-07-26 15:38 | IPN ---
DATE: 07/26/2019 Ms. Briscoe was seen and examined this morning during rounds. She was resting comfortably in the progressive care unit (PCU). She was downgraded yesterday. Her urine cultures came back positive for extended-spectrum beta lactamase (ESBL), and one blood culture came back contaminant, possible Bacillus species but not Anthrax. The remaining repeat blood cultures after that for 72 hours times two were negative for growth. She was started on meropenem on July 23, which she is tolerating very well. She continues to be on vancomycin as well for antibiotic coverage. No other overnight events were reported by nursing. Mentation has slightly improved. Has not worsened. She continues to slow her speech a little bit but is able to tell me slightly that she is in the "house of good," and that is it. Cannot complete the sentence. She believes it is 2002, but at least she is coming toward 1999. Mentation is slowly slight improving, but I do not know her baseline so will continue to monitor . PHYSICAL EXAMINATION: VITAL SIGNS: Temperature 97.3, pulse 94, respirations 22, blood pressure 154/76 (102), pulse oximetry 92% on 2 liters nasal cannula. Intake total 2293 mL, output total 1445 mL with a balance of 848 mL. Weight this morning was 86.1 kg. GENERAL: This is a 78-year-old female who still is somewhat confused, but mentation is slightly improving. HEENT: Atraumatic. [place], flushed face. Neck is supple with no jugular venous distention (JVD). HEART: Regular rate and rhythm. No audible murmurs, rubs, or gallops. LUNGS: Clear to auscultate in the right lung. Left lung, can hear faint expiratory wheezing, especially at the bases. No audible crackles can be heard. ABDOMEN: Soft, nontender, possibly slightly some fluid in the abdomen but very trace, I believe. LOWER EXTREMITIES: Faint lower extremity edema. NEUROLOGIC: There is no obvious focal deficit, but she continues to be disoriented and confused. Disorientation is slightly improving but still present. PSYCHIATRIC: Not appropriate. Does not understand the gravity of her situation at this current time. LABORATORY DATA: Hematology: WBC 5.0, hemoglobin 13.3, hematocrit 36.4, platelets 41. Chemistry: Sodium 149, potassium 3.5, chloride 115, carbon dioxide 27, anion gap 7, BUN 87, creatinine 2.79, fasting glucose 142, calcium 6.9, magnesium 2.7. AST 123, ALT 40, alkaline phosphatase 95. Cookie swallow, modified barium swallow: Report currently pending. ASSESSMENT AND PLAN: 1. Acute kidney injury on chronic kidney disease. Oliguric, and kidney function has continued to improve, so this indicates that no urgent need for dialysis. Her electrolytes and BUN and creatinine are stable and improving, respectively, so we will continue to monitor. We will continue with her potassium chloride, D5W fluid, for she does not have good oral intake. Because she is slightly fluid overloaded, we will just give her a slight dose of furosemide 40 mg intravenous (IV) times one right now and monitor. 2. Hypernatremia. Sodium level continues to be elevated, so we will continue with the potassium chloride, D5 at 100 mL an hour and monitor her electrolytes to make sure improvement of the hypernatremia. 3. Hypokalemia, resolved with the intravenous supplementation with D5. We will continue to monitor. 4. Sepsis secondary to urinary tract infection (UTI). Urine culture grew for extended-spectrum beta lactamase (ESBL). She is currently on meropenem. Will continue such. 5. Thrombocytopenia. Continues to improve. She has no active bleeding, possibly secondary to her sepsis, so no urgent platelets needed unless she is under 10 or under 25 and actively bleeding.
[2019-07-26] MEDS: ACETAMINOPHEN TAB 650MG DOSE (2X325MG) PO PRN (21:48)
[2019-07-27] VITALS: BP 130/67; O2SAT 91
[2019-07-27] MEDS: HumaLOG INSULIN (NovoLOG) PER UNIT SC SCH ×4 (00:38→18:44)
[2019-07-27 04:00] VITALS: BP 140/74; O2SAT 91
[2019-07-27] MEDS: KCL 20MEQ IN D5W 1000ML 1,000 ML IV SCH ×2 (04:12→15:04)
[2019-07-27] MEDS: ACETAMINOPHEN TAB 650MG DOSE (2X325MG) PO PRN (07:04)
--- NOTE | 2019-07-27 07:12 | IPNPDOC ---
Text Note Date of Service The patient was seen on 07/27/19. NOTE TIME OF SERVICE: 815AM Subjective: No acute overnight events. The patient denied having any pain. Objective: GEN: NAD HEENT: NCAT CVS: RRR/NMRG LUNGS: CTAB PSYCH: initially asleep but arousable w verbal stimuli Vitals and labs: see below Assessment: Ms. Briscoe is a 78 yr old F w a PMH of COPD, Dyslipidemia & GERD who presented with AMS, was admitted for management of Sepsis 2/2 UTI, PNA and REINA; her course was complicated by new Afib w RVR, and thrombocytopenia. Plan: 1. Sepsis 2/2 ESBL UTI and PNA with Bacillus bacteremia improving. Lactic acidosis has resolved. She initially received zosyn and was switched to meropenum on the - c/w meropenum day #3 / f/u final blood cx results 2. Metabolic Encephalopathy. Resolving. CT & MRI/MRA of head are negative - continue to monitor / f/u ammonia 3. New onset Afib w RVR likely 2/2 sepsis. Resolved. EF 65%. Not currently on meds for this. - Despite her CHADSVASC2 Score of atleast 4 I suspect she is not AC bc of thrombocytopenia 4. Thrombocytopenia 2/ 2 sepsis. Resolving- f/u CBC 5. Dysphagia.- on puree diet /f/u repeat swallow eval on Monday 6. REINA likely prerenal on CKD . Resolving. Baseline Cr 1.31. - c/w IVF / f/u Nephrology 7. Hypernatremia likely 2/2 infection and poor PO intake - c/w D5W 8. Elevated trops 2/2 demand ischemia and reduced renal clearance of troponins. 9. Pre-DM/DM ? f/u FSBS & A1C / SSI w hypoglycemia protocol DVT prophylaxis w SCDs VS,Fishbone, I+O VS, Fishbone, I+O Vital Signs Date Time Temp Pulse Resp B/P (MAP) Pulse Ox O2 Delivery O2 Flow Rate FiO2 07/27/19 04:00 91 Nasal Cannula 2.0 07/27/19 04:00 96.2 76 20 140/74 (96) 07/22/19 12:59 100 I&O- Last 24 Hours up to 6 AM 07/27/19 06:00 Intake Total 1835 ml Output Total 2725 ml Balance -890 ml LAURA HUMPHRIES MD Jul 27, 2019 07:12
[2019-07-27 08:00] VITALS: BP 150/72
[2019-07-27 09:19] LABS: HEMATOCRIT 37.3 % (36.0-47.0); HEMOGLOBIN 12.9 g/dl (12.0-15.5); MEAN CORPUSCULAR HEMOGLOBIN 29.7 pg (27.0-33.0); MEAN CORPUSCULAR HGB CONC 34.6 g/dl (32.0-36.5); MEAN CORPUSCULAR VOLUME 85.9 fl (80.0-96.0); RED BLOOD COUNT 4.34 10^6/uL (4.00-5.40); WHITE BLOOD COUNT 7.3 10^3/uL (4.0-10.0)
[2019-07-27 09:22] LABS: PLATELET COUNT, AUTOMATED 59 10^3/uL (150-450)
[2019-07-27] MEDS: MEROPENEM INJ 500 MG in IV 1 EA IV SCH ×2 (09:34→22:00)
[2019-07-27] MEDS: PANTOPRAZOLE 40MG VIAL (C9113 PER 1) IV SCH (09:34)
[2019-07-27 09:46] LABS: ALBUMIN 1.9 GM/DL (3.2-5.2); CALCIUM LEVEL 7.2 MG/DL (8.8-10.2); CREATININE FOR GFR 2.28 MG/DL (0.55-1.30); GLOMERULAR FILTRATION RATE 22.2 (>39); PHOSPHORUS LEVEL 2.9 MG/DL (2.5-4.9); POTASSIUM SERUM 3.9 MEQ/L (3.5-5.1)
[2019-07-27 12:00] VITALS: BP 140/82
--- NOTE | 2019-07-27 13:42 | IPN ---
DATE OF VISIT: 07/27/2019 Mrs. Briscoe is seen this morning on her bedside. She remains very weak and somewhat confused. She is still not talking very well. She is resting comfortably at present and no distress noted. On physical exam, temperature 97.2 degrees Fahrenheit, heart rate 76 per minute and respiratory rate 18 per minute. Blood pressure 150/72 mmHg and oxygen saturation of 92% on 2 liters oxygen. Intake and output records from last 24 hours showed total intake 1835 and output 2825. Her head is atraumatic. Neck is supple and jugular venous distention (JVD) is not abnormally elevated. Heart sounds are regular and lungs have diminished breath sounds with poor inspiratory effort. Abdomen soft and bowel sounds are normal. Extremities without any cyanosis or clubbing. Today's labs show WBC count 7.3, hemoglobin 12.9 and hematocrit 37.3. Platelets are up to 59,000. Sodium 148, potassium 3.9, CO2 28, chloride 114, BUN down to 67 and creatinine 2.28. PROBLEMS: 1. Acute kidney injury. Kidney function is improving nicely. No emergent need for dialysis. At this point, we will continue to monitor her closely. 2. Hypernatremia. Sodium level is also improving with current IV fluids. Her oral intake is poor and we will continue with D5W for now. 3. Hypokalemia. Potassium level is improving nicely with current potassium supplement and IV fluid. 4. Sepsis. She is currently afebrile and hemodynamically she is stable. Her urine culture did grow Escherichia (E) coli with extended spectrum beta-lactamase (ESBL). Most of her other cultures are negative so far. She is currently on meropenem. 5. Altered mentation. No significant change noticed in her mentation over last 72 hours. She did have CAT scan and MRI which did not show any acute infarct. This is probably related to sepsis.
[2019-07-27 15:01] LABS: HEMOGLOBIN A1c 6.7 %
[2019-07-27 16:00] VITALS: BP 140/78
[2019-07-27 20:00] VITALS: BP 147/70
[2019-07-28] VITALS (11 sets, daily range): BP systolic 135–178; BP diastolic 72–90; O2SAT 89–94
[2019-07-28] MEDS: HumaLOG INSULIN (NovoLOG) PER UNIT SC SCH ×4 (00:09→18:41)
[2019-07-28] MEDS: KCL 20MEQ IN D5W 1000ML 1,000 ML IV SCH ×2 (02:17→15:04)
[2019-07-28 04:53] LABS: HEMATOCRIT 37.1 % (36.0-47.0); HEMOGLOBIN 12.6 g/dl (12.0-15.5); MEAN CORPUSCULAR HEMOGLOBIN 29.5 pg (27.0-33.0); MEAN CORPUSCULAR VOLUME 86.9 fl (80.0-96.0); RED BLOOD COUNT 4.27 10^6/uL (4.00-5.40)
[2019-07-28 04:54] LABS: PLATELET COUNT, AUTOMATED 82 10^3/uL (150-450)
[2019-07-28 05:13] LABS: CALCIUM LEVEL 7.4 MG/DL (8.8-10.2); CREATININE FOR GFR 1.83 MG/DL (0.55-1.30); GLOMERULAR FILTRATION RATE 28.6 (>39); POTASSIUM SERUM 4.1 MEQ/L (3.5-5.1)
[2019-07-28 05:26] LABS: EOSINOPHILS 2 % (0-3); LYMPHOCYTES 40 % (16-44); MONOCYTES 3 % (0-5); NEUTROPHILS 53 % (28-66)
[2019-07-28 05:27] LABS: PLATELET ESTIMATE DECREASED (NORMAL)
[2019-07-28 05:30] LABS: TARGET CELLS 1+
[2019-07-28] MEDS: SALIVA SUBSTITUTE(MOUTHKOTE) BTL MT PRN (08:03)
[2019-07-28] MEDS: MEROPENEM INJ 500 MG in IV 1 EA IV SCH ×2 (09:53→21:17)
[2019-07-28] MEDS: PANTOPRAZOLE 40MG VIAL (C9113 PER 1) IV SCH (09:53)
[2019-07-28] MEDS: LACTULOSE 20 GM/30 ML SYRUP UD PO SCH ×3 (09:55→21:18)
--- NOTE | 2019-07-28 11:32 | IPNPDOC ---
Text Note Date of Service The patient was seen on 07/28/19. NOTE TIME OF SERVICE: 815AM Subjective: Per discussion with the patient's RN, she was more alert yesterday as the day went on and had 2 bowel movements yesterday. On my assessment this morning the patient is more alert compared to yesterday. She denied having pain or any acute complaints and requested help with eating. Objective: GEN: NAD HEENT: NCAT CVS: RRR/NMRG LUNGS: CTAB NEURO: Speech dysarthric PSYCH: Alert and oriented Vitals and labs: see below Assessment: Ms. Briscoe is a 78 yr old F w a PMH of COPD, Dyslipidemia & GERD who presented with AMS, was admitted for management of Sepsis 2/2 UTI, PNA and REINA; her course was complicated by new onset Afib, and thrombocytopenia. Plan: 1. ESBL UTI. She initially received zosyn and was switched to meropenem on the 4th - meropenem antibiotic day #4 2. Left lower lobe PNA. Respiratory panel negative - meropenem antibiotic day #4 3. Metabolic Encephalopathy. Possibly secondary to hyperammonemia is resolving. CT & MRI/MRA of head are negative - start lactulose 4. REINA likely prerenal on CKD . Resolving. - Management per Dr. Lopez 5. Hypernatremia likely 2/2 infection and poor PO intake - c/w D5W per Dr. Lopez 6. Thrombocytopenia 2/2 sepsis. Resolving- f/u CBC 7. Dysphagia - on puree diet /f/u repeat swallow eval on Monday 8. Uncontrolled HTN - start amlodipine 2.5mg daily 9. New onset Afib. Was likely 2/2 sepsis has resolved. EF was 65%. She is not currently on meds for this. 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 Elevated trops 2/2 demand ischemia and reduced renal clearance of troponins. 11. Sepsis and lactic acidosis have resolved. 12. Benign Bacillus bacteremia. Based on final blood culture report to the majority of bacillus have little or no pathogenic potential and a really associated with disease in humans 13 NIDDM (A1C of 6.7%) - f/u FSBS / SSI w hypoglycemia protocol DVT prophylaxis w SCDs DISPO: will f/u w PT to see if she needs placement on tomorrow VS,Fishbone, I+O VS, Fishbone, I+O Laboratory Tests 07/28/19 04:15 Vital Signs Date Time Temp Pulse Resp B/P (MAP) Pulse Ox O2 Delivery O2 Flow Rate FiO2 07/28/19 09:54 88 178/88 07/28/19 08:00 97.8 95 Nasal Cannula 2.0 07/28/19 04:00 20 07/22/19 12:59 100 I&O- Last 24 Hours up to 6 AM 07/28/19 05:59 Intake Total 1620 ml Output Total 1250 ml Balance 370 ml LAURA HUMPHRIES MD Jul 28, 2019 11:32
--- NOTE | 2019-07-28 13:52 | IPN ---
DATE OF VISIT: 07/28/2019 Mrs. Briscoe is seen this afternoon on her bedside. She remains confused though she is able to follow command. She is moving all limbs. She is able to talk and answers simple questions but her speech is still garbled. On physical exam, temperature 97.4 degrees Fahrenheit, heart rate 80 per minute and respiratory rate 18 per minute. Blood pressure 168/90 mmHg and oxygen saturation 97% on 2 liters oxygen. Intake and output records from yesterday showed total intake 1620 and output 1175. Her head is atraumatic. Neck is supple and jugular venous distention (JVD) is not elevated. Oral mucosa is dry. Heart sounds are regular and lungs sound clear to auscultation. Abdomen soft and nontender and bowel sounds are present. Extremities without any cyanosis or clubbing. She does not have any peripheral edema. Today's labs show WBC count 7.0, hemoglobin 12.6 and hematocrit 37.1. Platelets are up to 82,000. Sodium 148, potassium 4.1, CO2 29, chloride 113, BUN 51 and creatinine 1.83. PROBLEMS: 1. Acute renal failure. Kidney function is improving nicely and will continue with IV fluid. She does not have any oral intake at present. 2. Hypernatremia. Sodium level remains unchanged. She should continue with intravenous fluid of D5W and monitor her electrolytes on daily basis. 3. Nutrition. Patient is not eating much. She has been on IV fluids since admission. At some point, we will have to make a decision about total parenteral nutrition (TPN) or tube feeding. 4. Sepsis. She remains afebrile. Her leukocytosis has improved. Thrombocytopenia is also improving and she remains on antibiotics. Most recent blood cultures have been negative.
[2019-07-29] VITALS: BP 125/51; O2SAT 95
[2019-07-29] MEDS: KCL 20MEQ IN D5W 1000ML 1,000 ML IV SCH ×3 (00:57→14:02)
[2019-07-29 04:00] VITALS: BP 140/71; O2SAT 94
[2019-07-29 05:26] LABS: HEMATOCRIT 36.4 % (36.0-47.0); HEMOGLOBIN 12.3 g/dl (12.0-15.5); MEAN CORPUSCULAR HEMOGLOBIN 29.4 pg (27.0-33.0); MEAN CORPUSCULAR HGB CONC 33.8 g/dl (32.0-36.5); MEAN CORPUSCULAR VOLUME 87.1 fl (80.0-96.0); PLATELET COUNT, AUTOMATED 105 10^3/uL (150-450); RED BLOOD COUNT 4.18 10^6/uL (4.00-5.40); WHITE BLOOD COUNT 6.7 10^3/uL (4.0-10.0)
[2019-07-29 05:43] LABS: CALCIUM LEVEL 7.7 MG/DL (8.8-10.2); CREATININE FOR GFR 1.54 MG/DL (0.55-1.30); GLOMERULAR FILTRATION RATE 34.9 (>39); POTASSIUM SERUM 4.7 MEQ/L (3.5-5.1)
[2019-07-29 05:48] LABS: ATYPICAL LYMPH 5 % (0-5); EOSINOPHILS 2 % (0-3); LYMPHOCYTES 30 % (16-44); MONOCYTES 3 % (0-5); NEUTROPHILS 59 % (28-66)
[2019-07-29 05:49] LABS: ANISOCYTOSIS 1+; PLATELET ESTIMATE NORMAL (NORMAL); TARGET CELLS 1+
[2019-07-29] MEDS: HumaLOG INSULIN (NovoLOG) PER UNIT SC SCH ×5 (06:00→20:54)
[2019-07-29 08:00] VITALS: BP 168/70
[2019-07-29] MEDS: LACTULOSE 20 GM/30 ML SYRUP UD PO SCH ×3 (08:20→20:53)
[2019-07-29] MEDS: PANTOPRAZOLE 40MG VIAL (C9113 PER 1) IV SCH (08:21)
[2019-07-29] MEDS: MEROPENEM INJ 500 MG in IV 1 EA IV SCH ×2 (10:24→21:25)
[2019-07-29] MEDS ORDERED: GLUCOSE 4GM CHEW TABLET PO PRN (10:30)
[2019-07-29] MEDS ORDERED: DEXTROSE 50% 50 ML SYRINGE IV PRN (10:30)
[2019-07-29] MEDS ORDERED: GLUCAGON INJ 1MG VIAL SC PRN (10:30)
[2019-07-29 12:00] VITALS: BP 126/88
--- NOTE | 2019-07-29 13:20 | IPNPDOC ---
Text Note Date of Service The patient was seen on 07/29/19. NOTE TIME OF SERVICE: 10:40 AM Subjective: The patient denied having any acute pain or complaints today. During case management rounds it was s noted that the patient is fairly weak and will likely need temporary placement. Objective: GEN: NAD HEENT: NCAT CVS: RRR/NMRG LUNGS: CTAB NEURO: Speech dysarthric PSYCH: Asleep but arousable with vocal stimuli Vitals and labs: see below Assessment: Ms. Briscoe is a 78 yr old F w a PMH of COPD, Dyslipidemia & GERD who presented with encephalopathy was admitted for management of Sepsis 2/2 UTI, PNA and REINA all of which are resolving. Plan: 1. ESBL UTI. She initially received zosyn and was switched to meropenem on July 24 - meropenem antibiotic day #5 2. Left lower lobe PNA. Respiratory panel negative - meropenem antibiotic day #5 3. Sepsis and lactic acidosis have resolved. 4. Benign Bacillus bacteremia. Based on final blood culture report to the majority of bacillus have little or no pathogenic potential and a really as sociated with disease in humans 5. REINA likely prerenal on CKD. Resolving. - Management per Dr. Lopez 6. Hypernatremia likely 2/2 infection and poor PO intake has resolved - Management per Dr. Lopez 7. Metabolic Encephalopathy. Possibly secondary to hyperammonemia is resolving. CT & MRI/MRA of head are negative. She has been having about 2 bowel movements per day - continue with lactulose 15ml 3 times a day 8. Dysphagia. The cause is currently unclear. - c/w puree diet /f/u results of repeat swallow evaluation scheduled for today 9. Newly diagnosed HTN - c/w amlodipine 2.5mg daily 10. New onset A fib. It was likely 2/2 sepsis & has resolved. EF was 65%. She is not currently on meds for this. 11. Elevated trops 2/2 demand ischemia and possibly reduced renal clearance of troponins. 12. Thrombocytopenia likely 2/2 reduced thrombopoetin production due to shock liver / sepsis is resolving - f/u CBC and repeat LFTs 13. NIDDM (A1C of 6.7%) - f/u FSBS / SSI w hypoglycemia protocol 14. Debility/Deconditioning - PT 15. Obesity with BMI of 32.1 kg complicates care. DVT prophylaxis w SCDs DISPO: anticipate she will likely need to be transferred to a SNF for temporary placement. I attempted to call the patient's to give him an update and discuss SNF placement but he didn't turkey picker the phone VSHubert, I+O VSHubert, I+O Laboratory Tests 07/29/19 04:47 Vital Signs Date Time Temp Pulse Resp B/P (MAP) Pulse Ox O2 Delivery O2 Flow Rate FiO2 07/29/19 12:00 97.1 85 18 126/88 (101) 95 Nasal Cannula 2.0 I&O- Last 24 Hours up to 6 AM 07/29/19 06:00 Intake Total 1800 ml Output Total 1100 ml Balance 700 ml LAURA HUMPHRIES MD Jul 29, 2019 13:20
[2019-07-29 15:55] VITALS: BP 121/79
[2019-07-29] MEDS ORDERED: PERCOCET 5MG/325MG TAB PO PRN (16:15)
--- NOTE | 2019-07-29 18:59 | IPN ---
DATE: 07/29/2019 Mrs. Briscoe is seen this morning on her bedside. She is currently in the recliner chair. She is very weak, and physical therapy had to use an assistive device to get her out of bed. She is still with garbled speech, however, able to follow command. She is also able to answer questions though sometimes difficult to understand what is she is saying. She has no fever, chills, nausea, or vomiting. She is not eating much. PHYSICAL EXAMINATION: Temperature 97.7 degrees Fahrenheit, heart rate 108 per minute, respiratory rate 17 per minute, blood pressure 168/70 mm of mercury, and oxygen saturation 97% on 2 liters oxygen. Head is atraumatic. Neck supple and without jugular venous distention (JVD) or thyroid enlargement. Heart sounds are somewhat tachycardiac. Lungs with diminished breath sounds are poor inspiratory effort. Abdomen soft, and bowel sounds are normal. Extremities without any cyanosis or clubbing. She has no peripheral edema. Neurologically, she is moving all limbs and able to follow commands. Her speech is still somewhat difficult to understand. Today's labs show WBC count 6.7, hemoglobin 12.3, and hematocrit 36.4. Sodium 143, potassium 4.3, chloride 112, CO2 of 25, BUN 40, and creatinine 1.54. Glucose 116 and calcium 7.7. PROBLEMS: 1. Acute renal failure superimposed on chronic kidney disease. Kidney function is improving nicely, and she remains on intravenous (IV) fluid at 100 mL per hour. Now she is taking some fluids by mouth also, and I am going to cut down her IV fluid to 60 mL per hour. 2. Hypernatremia. Sodium level has also improved, and she remains on D5W. Nursing staff is being advised to continue encouraging oral intake. 3. Nutrition. The patient has not been eating well; however, she has started to get some nutrition by mouth. Will continue with the same and try to cut down and wean off her intravenous (IV) fluid. 4. Sepsis. The patient remains on antibiotic and has been afebrile. She is still on meropenem 500 mg every 12 hours. 5. Generalized weakness and deconditioning. The patient is very weak and unable to get up. She is going to require rehabilitation.
--- NOTE | 2019-07-29 19:06 | IPN ---
DATE: 07/29/2019 SUBJECTIVE: The patient was seen and examined at the bedside this morning. She seems to still be somewhat confused and difficult to understand. Her pronunciation is off. She is still requiring 2 liters of oxygen, but she is working well with physical therapy and speech therapy and nursing reports that she is doing somewhat better in terms of her mental status. When asked how she is feeling, she says "I would like to go home." She was encouraged to keep trying to work with physical therapy and I told her it was very good that all of her numbness seem to be improving at this time. OBJECTIVE: Her vitals are temperature 97.7, pulse of 108, respiratory rate of 17, blood pressure of 168/70, pulse oximetry is 97% on 2 liters nasal canula. She is normal sinus rhythm. Input and output: She is a net positive 400. Yesterday, she urinated almost 1200 mL. General: She is sitting up in the chair, she is calm, cooperative, in no acute distress, very pleasant. HEENT EXAM: Her pupils are equally round and reactive to light. Extraocular movements are intact. She has moist mucous membranes. Neck is supple with no thyromegaly. No lymphadenopathy. Chest is clear to auscultation bilaterally with no adventitious breath sounds appreciated. Cardiovascular: She is regular rate and rhythm, 3/6 systolic ejection murmur at the right upper sternal border. Jugular venous distension is difficult to determine at this time. Abdomen is soft and nontender to palpation. Positive bowel sounds. No masses or organomegaly. No lymphadenopathy. Extremities: No clubbing, cyanosis or edema. Skin: She has no new rashes. Lymphatics: She has no enlarged lymph nodes. LABORATORY DATA: Today, her white blood cell count is 6.7, hematocrit is 12.3, hematocrit is 36.4, platelet count is up to 105 from 82 yesterday. On chemistry, her sodium is 143, potassium is 4.7, chloride is 112, BUN is 40 and creatinine is 1.54. Her calcium is measured at 7.7. There is no new imaging or microbiology at this time. ASSESSMENT: This is a 78-year-old female who presented with altered mental status likely secondary to urosepsis now growing Escherichia coli ESBL in her urine with acute renal failure that is improving. Thrombocytopenia also improving. At this point, she has been normal sinus rhythm for several days at an acceptable rate. Her atrial fibrillation was most likely secondary to her infection that is now being treated. At this point in time, we will sign off on this patient, as we have no further concerns about her. Should you have any questions, please feel free to call us.
[2019-07-29 22:00] VITALS: BP 124/86
[2019-07-30 06:00] VITALS: BP 135/82
[2019-07-30] MEDS: HumaLOG INSULIN (NovoLOG) PER UNIT SC SCH ×4 (07:30→20:47)
[2019-07-30 07:35] LABS: HEMATOCRIT 34.6 % (36.0-47.0); HEMOGLOBIN 11.5 g/dl (12.0-15.5); MEAN CORPUSCULAR HEMOGLOBIN 29.1 pg (27.0-33.0); MEAN CORPUSCULAR HGB CONC 33.2 g/dl (32.0-36.5); MEAN CORPUSCULAR VOLUME 87.6 fl (80.0-96.0); PLATELET COUNT, AUTOMATED 133 10^3/uL (150-450); RED BLOOD COUNT 3.95 10^6/uL (4.00-5.40); WHITE BLOOD COUNT 6.3 10^3/uL (4.0-10.0)
[2019-07-30 07:54] LABS: ALBUMIN 1.9 GM/DL (3.2-5.2); BILIRUBIN,TOTAL 1.1 MG/DL (0.2-1.0); CALCIUM LEVEL 7.7 MG/DL (8.8-10.2); CREATININE FOR GFR 1.37 MG/DL (0.55-1.30); GLOMERULAR FILTRATION RATE 39.9 (>39); TOTAL PROTEIN 6.5 GM/DL (6.4-8.2)
[2019-07-30 08:08] LABS: LYMPHOCYTES 36 % (16-44); MONOCYTES 1 % (0-5); NEUTROPHILS 63 % (28-66); PLATELET ESTIMATE NORMAL (NORMAL)
[2019-07-30] MEDS ORDERED: APIXABAN 5 MG TAB (ELIQUIS) PO SCH (09:00)
[2019-07-30] MEDS: LACTULOSE 20 GM/30 ML SYRUP UD PO SCH ×3 (09:26→20:42)
[2019-07-30] MEDS: PANTOPRAZOLE 40MG VIAL (C9113 PER 1) IV SCH (09:26)
[2019-07-30] MEDS: MEROPENEM INJ 500 MG in IV 1 EA IV SCH ×2 (10:35→21:07)
--- NOTE | 2019-07-30 12:47 | REP ---
CT BRAIN: 07/30/2019 INDICATION: Aphagia, stroke. TECHNIQUE: Unenhanced axial CT images of the brain were obtained from the skull base to the vertex with coronal reconstructions provided. COMPARISON: 07/22/2019 FINDINGS: There is no acute intracranial hemorrhage, acute cortical infarction, mass effect or hydrocephalus. Diffuse volume loss is present. Patchy areas of white matter hypo attenuation are noted most consistent with sequelae of chronic microangiopathic ischemic disease. The visualized paranasal sinuses and mastoid air cells are essentially clear. Venous ley is noted within the occipital calvarium. IMPRESSION: No acute intracranial process. Volume loss and sequelae of microangiopathic ischemic disease. MTDD
[2019-07-30 14:00] VITALS: BP 168/89
--- NOTE | 2019-07-30 17:01 | IPN ---
DATE OF VISIT: 07/30/2019 Mrs. Briscoe is seen this morning on her bedside. She is sitting in the chair at the time of my visit. She is still very weak. She does have some oral intake. She is able to answer simple questions but her speech is still not very clear. On physical exam, temperature 98.7 degrees Fahrenheit, heart rate 100 per minute and respiratory rate 16 per minute. Blood pressure 124/79 mmHg and oxygen saturation 95% on 1 liter oxygen. Head is atraumatic. Neck is supple and jugular venous distention (JVD) not abnormally elevated. Lungs have few basilar rales. Heart sounds are tachycardiac. Abdomen soft, nontender and bowel sounds are normal. Extremities without any cyanosis or clubbing. She has no peripheral edema. Today's labs show WBC count 6.3, hemoglobin 11.5 and hematocrit 34.6. Platelets 133. Sodium 141, potassium 5.0, CO2 25, BUN 34 and creatinine 1.37. Glucose 96 and calcium 7.7. PROBLEMS: 1. Acute kidney injury superimposed on chronic kidney disease. Kidney function continues to improve nicely and seems to be doing well now. Her oral intake is improving and we can stop the IV fluid now and see how she does. 2. Urinary tract infection (UTI) with sepsis. She is currently afebrile and has been doing well on meropenem. I feel that we should complete 2 weeks of antibiotic therapy. 3. Anemia. At present, her anemia is stable and does not need any intervention. 4. Hyperkalemia. She has been receiving potassium chloride in the IV fluid and her potassium is gradually increasing. I am going to stop the IV fluid with potassium chloride. 5. Nutrition. Nursing staff needs to assist and help the patient with oral intake. I think we can push more fluids and she can tolerate it orally.
--- NOTE | 2019-07-30 17:23 | IPNPDOC ---
Date Seen The patient was seen on 07/30/19. Progress Note Acute Encephalopathy due to UTI, acute renal failure, elevated ammonia level -with dysphagia and delayed speech. -CT head negative -awaiting repeat MRI brain. -abx x 14 day course, bacid achs to prevent cdiff. -called at [phone] -no answer VS, I&O, 24H, Fishbone Vital Signs/I&O Vital Signs Date Time Temp Pulse Resp B/P (MAP) Pulse Ox O2 Delivery O2 Flow Rate FiO2 07/30/19 14:00 98.4 88 17 168/89 (115) 94 Room Air 07/30/19 06:00 1.0 I&O- Last 24 Hours up to 6 AM 07/30/19 05:59 Intake Total 1910 ml Output Total 950 ml Balance 960 ml Laboratory Data 24H LABS Laboratory Tests 2 07/29/19 20:44: Bedside Glucose (Misc Panel) 102 07/30/19 06:40: Neutrophils (%) (Auto) , Nucleated Red Blood Cells % (auto) 0.0, Neutrophils 63, Lymphocytes (Manual) 36, Monocytes (Manual) 1, Red Blood Cell Morphology NORMAL, Platelet Estimate NORMAL, Anion Gap 5L, Glomerular Filtration Rate 39.9, Calcium Level 7.7L, Total Bilirubin 1.1H, Aspartate Amino Transf (AST/SGOT) 45H, Alanine Aminotransferase (ALT/SGPT) 29, Alkaline Phosphatase 86, Total Protein 6.5, Albumin 1.9L, Albumin/Globulin Ratio 0.4L 07/30/19 11:19: Bedside Glucose (Misc Panel) 99 07/30/19 11:57: Ammonia 42H 07/30/19 16:42: Bedside Glucose (Misc Panel) 108 CBC/BMP Laboratory Tests 07/30/19 06:40 Microbiology Microbiology 07/24/19 Stool Lactoferrin - Final, Complete 07/23/19 Stool Occult Blood ([facility]) - Final, Complete 07/23/19 Stool Occult Blood ([facility]) - Final, Complete 07/23/19 Blood Culture - Final, Complete NO GROWTH AFTER 5 DAYS 07/23/19 Blood Culture - Final, Complete NO GROWTH AFTER 5 DAYS 07/22/19 Respiratory Virus Panel (PCR) ([facility]) - Final, Complete 07/22/19 Blood Culture - Final, Complete Bacillus Sp., Not Anthracis 07/22/19 Urine Culture - Final, Complete E.coli Esbl 07/22/19 Blood Culture - Final, Complete NO GROWTH AFTER 5 DAYS FESTUS ALVA MD Jul 30, 2019 17:23
[2019-07-30] MEDS: LACTOBACILLUS ACIDOPHILUS CAP (BACID) PO SCH ×3 (17:39→20:54)
--- NOTE | 2019-07-30 18:42 | REPVR ---
PROCEDURE INFORMATION: Exam: MR Head Without Contrast Exam date and time: 07/30/2019 6:34 PM Age: 78 years old Clinical indication: Condition or disease; Other: Expressive aphasia paroxysmal afib not on ac TECHNIQUE: Imaging protocol: MR of the head without contrast. COMPARISON: MRI-Brain without Contrast 07/22/2019 8:30 PM FINDINGS: Brain: Multiple foci of T2 lengthening are demonstrated in the subcortical and centrum semiovale white matter consistent with mild age-related small vessel gliosis. Mild age related diffuse global hemispheric parenchymal atrophy. Ventricles: The degree of ventricular dilatation is normal for age and/or degree of atrophy present. Bones/joints: Unremarkable. Sinuses: Normal as visualized. No acute sinusitis. Mastoid air cells: Normal as visualized. No mastoid effusion. Orbits: Unremarkable. Soft tissues: Unremarkable. IMPRESSION: 1. Multiple foci of T2 lengthening are demonstrated in the subcortical and centrum semiovale white matter consistent with mild age-related small vessel gliosis. 2. Mild age related diffuse global hemispheric parenchymal atrophy. 3. The degree of ventricular dilatation is normal for age and/or degree of atrophy present. Electronically signed by: Alec Colón On 07/30/2019 18:42:21 PM
--- NOTE | 2019-07-30 19:21 | IPN ---
DATE: 07/30/2019 Patient has no new complaints. Denies dysuria, urgency, frequency. She is very slow to speak but face is symmetric, tongue is midline. Patient has had some dysphagia and is currently on a puree diet. MRI of the brain on 07/22/2019 shows no acute CVA. Per nursing, patient is unchanged from yesterday but remains with some very slow speech. Temperature 98.7, pulse 79, respiratory rate 16, blood pressure 135/82, 95% on one liter nasal cannula. Generally, patient is awake, alert, oriented to herself. No conversational dyspnea. No jugular venous distention (JVD) or thyromegaly. Lungs are clear to auscultation. No wheezing, rales or rhonchi. Heart: S1, S2, sinus rhythm. Abdomen is soft, nontender, nondistended. Positive bowel sounds. Extremities: No cyanosis or clubbing. Positive trace edema. LABORATORY DATA: White count 6.3, hemoglobin 11, hematocrit 34, platelet count 133. Sodium 141, potassium 5, chloride 111, bicarbonate 25, BUN 35, creatinine 1.37, glucose of 96. Admission creatinine was 4.7. Escherichia (E) coli with extended-spectrum beta-lactamase (ESBL) positive, currently on IV meropenem. ASSESSMENT AND PLAN: This is a 78-year-old female admitted on 07/22/2019, history of chronic obstructive pulmonary disease (COPD), dyslipidemia, and reflux, had GCS of 9, workup revealed a urinary tract infection, positive for ESBL. Patient had acute kidney injury with a presenting creatinine of 4 and pneumonia. She was started on IV fluids and ceftriaxone with GCS rising to 13. Ammonia level was slightly elevated at 47, was given lactulose. With IV fluids, the patient's creatinine improved to 1.37 from admission creatinine of 4.7 with nephrology consulted for help in management. The patient has been afebrile with no increased white count. CURRENT ISSUES: Left lower lobe pneumonia, on meropenem, day #7. Per pharmacy, second dose of meropenem today would complete a 7-day course. The patient is afebrile. No fever. She is currently on puree diet due to risk of aspiration and dysphagia. ESBL urinary tract infection (UTI), currently on meropenem, 7th day of meropenem today after the second dose in the evening. She was initially given Zosyn. She is afebrile. No white count. Altered mental status. CT of the head remains negative. MRI of the brain - had no acute stroke. She was on lactulose for elevated ammonia level. New onset of atrial fibrillation, most likely due to sepsis. Ejection fraction (EF) on echo was 65%. Patient has dysphagia. Will obtain a repeat MRI of the brain. Patient will benefit from anticoagulation, renal dosing. Acute renal failure, which is non-oliguric. She remains hemodynamically stable. Patient has improved with IV fluid hydration. Nephrology has signed off. ESBL UTI. Had been on high-dose Zosyn, which was cut back due to renal function. Currently on Merrem. Metabolic acidosis. Corrected with sodium bicarbonate. Currently resolved. Acute metabolic encephalopathy due to renal failure, elevated ammonia and urinary tract infection with ESBL. Due to underlying atrial fibrillation noted on EKG, will obtain MRI of the brain. Dysphagia. Currently on a puree diet. DISPOSITION: Currently medically stable after completion of 7 days of IV meropenem. However, the patient is still requiring maximum assistance of one person. Will need placement. MTDD
[2019-07-30] MEDS: APIXABAN 5 MG TAB (ELIQUIS) PO SCH (20:55)
[2019-07-30 22:00] VITALS: BP 133/69
[2019-07-31 06:00] VITALS: BP 138/72
[2019-07-31] MEDS: HumaLOG INSULIN (NovoLOG) PER UNIT SC SCH ×4 (07:30→21:00)
[2019-07-31] MEDS: LACTOBACILLUS ACIDOPHILUS CAP (BACID) PO SCH ×4 (09:51→21:40)
[2019-07-31] MEDS: PANTOPRAZOLE 40MG VIAL (C9113 PER 1) IV SCH (09:51)
[2019-07-31] MEDS: APIXABAN 5 MG TAB (ELIQUIS) PO SCH ×2 (09:51→21:40)
[2019-07-31] MEDS: MEROPENEM INJ 500 MG in IV 1 EA IV SCH (09:51)
[2019-07-31] MEDS ORDERED: LevoFLOXacin IV 500 MG in IV 1 EA IV ONE (12:00)
[2019-07-31] MEDS: LACTULOSE 20 GM/30 ML SYRUP UD PO SCH ×2 (12:43→18:00)
[2019-07-31 14:00] VITALS: BP 122/77
--- NOTE | 2019-07-31 14:49 | IPN ---
DATE: 07/31/2019 Mrs. Briscoe is seen this morning on her bedside. She is lying in the bed without any acute distress. She is feeling about the same but talking slightly better today. Her intravenous (IV) fluid was stopped yesterday, and oral intake is improving. PHYSICAL EXAMINATION: Temperature 98.4 degrees Fahrenheit, heart rate 80 per minute, respiratory rate 18 per minute, blood pressure 138/72 mm of mercury, and oxygen saturation 91% on room air. Head is atraumatic. Neck supple and without jugular venous distention (JVD) or thyroid enlargement. Heart sounds are regular, and lungs sound clear to auscultation. Abdomen soft and nontender. Bowel sounds are normal. Extremities without any cyanosis or clubbing. Neurologically, she has no focal deficit. She did not have any new labs done today. PROBLEMS: 1. Acute kidney injury superimposed on chronic kidney disease. Kidney function has been improving nicely. Her IV fluid has been stopped, and her oral intake is improving. I would recommend nursing staff assist her and help her with oral intake, particularly of liquids. Her electrolytes have been stable. 2. Urinary tract infection (UTI) with sepsis. The patient has been treated with levofloxacin and is still on 500 mg every 24 hours. I would suggest to consider cutting down the dose now in view of her age and duration of treatment. DISPOSITION: From a renal standpoint, the patient has been doing well, and I am signing off her case. Please do not hesitate to call me should you need any further assistance. MTDD
--- NOTE | 2019-07-31 18:17 | REPVR ---
PROCEDURE INFORMATION: Exam: MR Lumbar Spine Without Contrast. Exam date and time: 07/31/2019 6:10 PM Age: 78 years old Clinical indication: Weakness; Additional info: Le weakness S/P fall TECHNIQUE: Imaging protocol: Multiplanar magnetic resonance images of the lumbar spine without intravenous contrast. COMPARISON: No relevant prior studies available. FINDINGS: Vertebrae: T1 weighted images demonstrate mottled decreased signal throughout the vertebrae, findings which can be seen in association with chronic anemia or other myeloproliferative abnormality. This should be correlated with clinical evaluation. Foci of increased signal demonstrated at the endplates of T12, L3 and L4 likely degenerative. Spinal cord: Normal signal. No cord compression. L1-L2: No significant disc disease. No significant spinal canal stenosis. No neural foraminal stenosis. L2-L3: No significant disc disease. No significant spinal canal stenosis. No neural foraminal stenosis. L3-L4: There is a moderate central spinal stenosis at L3-L4 secondary to diffuse annular bulging, thickened ligamentum flavum with facet joint arthropathy. There is moderate to severe foraminal narrowing on the left and mild to moderate foraminal narrowing on the right. No lateral recess stenosis. L4-L5: There is a mild central spinal stenosis at L4-L5 secondary to diffuse annular bulging, thickened ligamentum flavum with facet joint arthropathy. Moderate foraminal narrowing on the right. L5-S1: No significant disc disease. No significant spinal canal stenosis. No neural foraminal stenosis. Soft tissues: Unremarkable. IMPRESSION: 1. T1 weighted images demonstrate mottled decreased signal throughout the vertebrae, findings which can be seen in association with chronic anemia or other myeloproliferative abnormality. This should be correlated with clinical evaluation. 2. Moderate central spinal stenosis at L3-L4 and mild central spinal stenosis at L4-L5. Electronically signed by: Alec Colón On 07/31/2019 18:16:53 PM
[2019-07-31 22:00] VITALS: BP 141/69
[2019-08-01] MEDS: LACTULOSE 20 GM/30 ML SYRUP UD PO SCH ×5 (00:21→23:05)
[2019-08-01] MEDS: NYSTATIN 500,000 U/5 ML SUSP UDC SS SCH ×5 (00:21→23:05)
[2019-08-01 01:45] VITALS: O2SAT 93
[2019-08-01 06:00] VITALS: BP 126/66
[2019-08-01] MEDS: HumaLOG INSULIN (NovoLOG) PER UNIT SC SCH ×4 (07:12→20:43)
--- NOTE | 2019-08-01 08:04 | REP ---
REASON: Back pain. There are no priors for comparison. There are minimal degenerative changes seen with slightly anterior lipping at every level and slight anterior disc space narrowing. Vertebral body height and alignment is within normal limits. The pedicles are intact bilaterally. IMPRESSION: Minimal degenerative changes. Electronically Signed by Hugo Rogers DO 08/01/2019 08:06 A
--- NOTE | 2019-08-01 08:06 | REP ---
REASON: Back pain. There is a slight dextroconvex curve. Vertebral body height is within normal limits. There is moderate disc space narrowing at every level, particularly at L3-4 to L5-S1. The remainder of the disc spaces are narrowed posteriorly. Degenerative facet joint changes are seen at every level particularly L4-5 and L5-S1. The vertebral body alignment is within normal limits. IMPRESSION: Degenerative changes. The pedicles are intact bilaterally. Electronically Signed by Hugo Rogers DO 08/01/2019 08:07 A
[2019-08-01] MEDS: PANTOPRAZOLE 40MG VIAL (C9113 PER 1) IV SCH (09:48)
[2019-08-01] MEDS: LACTOBACILLUS ACIDOPHILUS CAP (BACID) PO SCH ×4 (09:48→20:56)
[2019-08-01] MEDS: APIXABAN 5 MG TAB (ELIQUIS) PO SCH ×2 (09:49→20:55)
--- NOTE | 2019-08-01 10:08 | IPNPDOC ---
Date Seen The patient was seen on 08/01/19. Progress Note Acute Encephalopathy Acute Delirium Cognitive Impairment Dysphagia Plan: -per Dr. Garcia, Neurologist newspaper correspondent, after review of MRI Brain, LS spine, reasonable to obtain EEG, check acetylcholine esterase AB to rule out MG, but unlikely presentation, and may start on abilify 2mg qhs. - requests transfer to [place]. VS, I&O, 24H, Fishbone Vital Signs/I&O Vital Signs Date Time Temp Pulse Resp B/P (MAP) Pulse Ox O2 Delivery O2 Flow Rate FiO2 08/01/19 09:51 99 149/87 08/01/19 06:00 97.9 21 94 Room Air 07/30/19 17:15 2.0 I&O- Last 24 Hours up to 6 AM 08/01/19 06:00 Intake Total 1090 ml Output Total 1225 ml Balance -135 ml Laboratory Data 24H LABS Laboratory Tests 2 07/31/19 11:51: Bedside Glucose (Misc Panel) 86 07/31/19 16:41: Bedside Glucose (Misc Panel) 102 07/31/19 20:05: Bedside Glucose (Misc Panel) 103 08/01/19 06:36: Bedside Glucose (Misc Panel) 99 Microbiology Microbiology 07/24/19 Stool Lactoferrin - Final, Complete 07/23/19 Stool Occult Blood (VALENTE) - Final, Complete 07/23/19 Stool Occult Blood (VALENTE) - Final, Complete 07/23/19 Blood Culture - Final, Complete NO GROWTH AFTER 5 DAYS 07/23/19 Blood Culture - Final, Complete NO GROWTH AFTER 5 DAYS 07/22/19 Respiratory Virus Panel (PCR) (VALENTE) - Final, Complete 07/22/19 Blood Culture - Final, Complete Bacillus Sp., Not Anthracis 07/22/19 Urine Culture - Final, Complete E.coli Esbl 07/22/19 Blood Culture - Final, Complete NO GROWTH AFTER 5 DAYS FESTUS ALVA MD Aug 01, 2019 10:08
[2019-08-01] MEDS ORDERED: LEVA1TAB2 PO (11:06)
[2019-08-01] MEDS ORDERED: RISATAB3 PO (11:06)
[2019-08-01] MEDS ORDERED: ELIQ5TAB PO (11:06)
[2019-08-01] MEDS ORDERED: LevoFLOXacin IV 250 MG in IV 1 EA IV SCH (12:00)
--- NOTE | 2019-08-01 13:26 | IPN ---
DATE OF SERVICE: 07/31/2019 Patient remains debilitated with slow speech and continued on pureed diet. Despite MRI of the brain being negative this was reviewed again with the radiologist later in the morning today with no cerebellar infarct. Patient is on anticoagulation for underlying atrial fibrillation. Electroencephalogram (EEG) planned for tomorrow. Due to lower extremity weakness will obtain an MRI of the lumbar spine today. Patient has no nausea or vomiting per nursing. Patient was found to have some cyanosis in the lower back while she was supine and turned but returned back to normal pink skin tone upon returning. Temperature 97.3, pulse 97, respiratory rate 24, blood pressure 122/77, 93% on room air. Generally, awake, alert, oriented to person and place. Answering questions appropriately. Slow to speak but speech is fluent. There is slight delay in her speech. Her face is symmetric. Tongue is midline. Following commands. Has spontaneous movements. Lungs are clear to auscultation. No wheezing, rales, or rhonchi. Heart: S1, S2, irregularly irregular. Abdomen is soft, nontender, nondistended. Positive bowel sounds. Extremities: No cyanosis or clubbing. Trace edema bilaterally. Laboratory data, imaging studies have been reviewed. ASSESSMENT AND PLAN: 78-year-old admitted on 07/22/2019 with history of chronic obstructive pulmonary disease (COPD), dyslipidemia, and reflux, had Jordy coma scale (GCS) of 9, workup included urine culture positive for extended spectrum beta-lactamase (ESBL), acute kidney injury presenting with creatinine of 4 and a pneumonia. Started on IV fluids, ceftriaxone. GCS rising to 13. Ammonia level elevated at 47, treated with lactulose. The patient's creatinine has improved to 1.37 from admission creatinine of 4.7 with nephrology's management. MRI of the brain was negative for acute CVA. Due to complaints of dysphagia and concerns for aspiration, the patient was placed on a pureed diet and thickened liquids. IMPRESSION: 1. Acute encephalopathy secondary to pneumonia, urinary tract infection (UTI) and renal failure, as well as atrial fibrillation (AFib). MRI of the brain had no acute CVA. No signs of multiple sclerosis, amyotrophic lateral sclerosis (ALS) or any other degenerative brain disease. Sitter at the bedside stated that sometimes she stares into space, therefore, will obtain EEG and due to lower extremity weakness per physical therapy when they try to ambulate her will also obtain MRI of the lumbar spine due to history of falls at home to rule out spinal stenosis or cord compression. 2. Left lower lobe pneumonia. Completed meropenem for seven days. 3. ESBL urinary tract infection (UTI). Completed seven days of meropenem. Initially on Zosyn, currently on Levaquin to complete a total of 10-14 days. 4. New onset of atrial fibrillation. Ejection fraction (EF) is 65%. Currently on anticoagulation. MRI of the brain on admission and on 07/30/2019 were both negative for CVA. 5. Metabolic acidosis, resolved. 6. Dysphagia. On thickened liquids. Acute rehabilitation unit (ARU) consult done. Once medically stable will transfer to ARU if possible or residential.
[2019-08-01 14:00] VITALS: BP 109/76
--- NOTE | 2019-08-01 14:52 | IPNPDOC ---
Date Seen The patient was seen on 08/01/19. Progress Note SUBJECTIVE: remains slow to speak, and generally weak. still on pureed diet. n o fever or chills. cooperative w physical therapy. still disoriented to time and place. OBJECTIVE: PE: VS: see below Generally, patient is awake, alert, oriented to herself. No conversational dyspnea. face is symmetric. slow to speak. no receptive aphasia. no nystagmus No jugular venous distention (JVD) or thyromegaly. Lungs are clear to auscultation. No wheezing, rales or rhonchi. Heart: S1, S2, sinus rhythm. Abdomen is soft, nontender, nondistended. Positive bowel sounds. Extremities: No cyanosis or clubbing. Positive trace edema. LABORATORY DATA/IMAGING STUDIES: . ASSESSMENT AND PLAN: This is a 78-year-old female admitted on 07/22/2019, history of chronic obstructive pulmonary disease (COPD), dyslipidemia, and reflux, had GCS of 9, workup revealed a urinary tract infection, positive for ESBL. Patient had acute kidney injury with a presenting creatinine of 4 and pneumonia. She was started on IV fluids and ceftriaxone with GCS rising to 13. Ammonia level was slightly elevated at 47, was given lactulose. With IV fluids, the patient's creatinine improved to 1.37 from admission creatinine of 4.7 with nephrology consulted for help in management. The patient has been afebrile with no increased white count. Left lower lobe pneumonia, S/P meropenem . Per pharmacy,completed a 7-day course. The patient is afebrile. swallow eval -due to risk of aspiration and dysphagia, she is currently on pureed diet ESBL urinary tract infection (UTI), s/p meropenem x7days. She was initially given Zosyn. She is afebrile. No white count. due to concerns of ams, nephrology recommended extending course of abx. on po levaquin for total of 10- 14 days. Acute encephalopathy with cognitive impairment due to elevated ammonia, sepsis from CAP, UTI, renal failure, improving. will need rehab. CT of the head remains negative. MRI of the brain - had no acute stroke. She was on lactulose for elevated ammonia level. per Dr. Garcia, no need for lp. ok to check EEG, r/o myasthenia due to dysphagia. Dr. Garcia recommended abilify 2mg po qhs. New onset of atrial fibrillation, started on eliquis. Ejection fraction (EF) on echo was 65%.MRI brain no cva. Acute renal failure, which is non-oliguric. She remains hemodynamically stable. Patient has improved with IV fluid hydration. Nephrology has signed off. ESBL UTI. Had been on high-dose Zosyn, which was cut back due to renal function. s/p 7days merem. on levaquin for 10-14day course Metabolic acidosis. Corrected with sodium bicarbonate. Currently resolved. Dysphagia. Currently on a pureed diet. disposition: 1 person max assist, will need rehab vs snf. awaiting EEG. Pt's demanded transfer to [facility]. [facility]-refused transfer after utilization review. lateral transfer [facility]-sent case to utilization review. no acceptance. no beds [facility]-accepted, bed available. accepting diagnosis: weakness. Per accepting physician, Dr. Cantu, "we wouldn't do anything different, but we can take her." Pt's after speaking with pt's sister decided to keep pt at [facility]. transfer to [facility] discontinued. VS, I&O, 24H, Fishbone Vital Signs/I&O Vital Signs Date Time Temp Pulse Resp B/P (MAP) Pulse Ox O2 Delivery O2 Flow Rate FiO2 08/01/19 14:00 96.4 115 25 109/76 (87) 95 Room Air 07/30/19 17:15 2.0 I&O- Last 24 Hours up to 6 AM 08/01/19 06:00 Intake Total 1090 ml Output Total 1225 ml Balance -135 ml Laboratory Data 24H LABS Laboratory Tests 2 07/31/19 16:41: Bedside Glucose (Misc Panel) 102 07/31/19 20:05: Bedside Glucose (Misc Panel) 103 08/01/19 06:36: Bedside Glucose (Misc Panel) 99 08/01/19 10:21: 08/01/19 11:24: Bedside Glucose (Misc Panel) 95 Microbiology Microbiology 07/24/19 Stool Lactoferrin - Final, Complete 07/23/19 Stool Occult Blood (VALENTE) - Final, Complete 07/23/19 Stool Occult Blood (VALENTE) - Final, Complete 07/23/19 Blood Culture - Final, Complete NO GROWTH AFTER 5 DAYS 07/23/19 Blood Culture - Final, Complete NO GROWTH AFTER 5 DAYS 07/22/19 Respiratory Virus Panel (PCR) (VALENTE) - Final, Complete 07/22/19 Blood Culture - Final, Complete Bacillus Sp., Not Anthracis 07/22/19 Urine Culture - Final, Complete E.coli Esbl 07/22/19 Blood Culture - Final, Complete NO GROWTH AFTER 5 DAYS FESTUS ALVA MD Aug 01, 2019 14:49
[2019-08-01 15:24] VITALS: O2SAT 95
[2019-08-01] MEDS: PANTOPRAZOLE 40MG TAB (PROTONIX) PO SCH (20:55)
[2019-08-01 22:00] VITALS: BP 117/67
[2019-08-02] MEDS: LevoFLOXacin 250 MG TABLET PO SCH (05:31)
[2019-08-02] MEDS: LACTULOSE 20 GM/30 ML SYRUP UD PO SCH ×3 (05:31→12:49)
[2019-08-02] MEDS: NYSTATIN 500,000 U/5 ML SUSP UDC SS SCH ×3 (05:31→17:55)
[2019-08-02 06:00] VITALS: BP 134/82
[2019-08-02] MEDS: HumaLOG INSULIN (NovoLOG) PER UNIT SC SCH ×4 (07:10→21:00)
[2019-08-02] MEDS: APIXABAN 5 MG TAB (ELIQUIS) PO SCH ×2 (09:25→21:46)
[2019-08-02] MEDS: LACTOBACILLUS ACIDOPHILUS CAP (BACID) PO SCH ×4 (09:25→21:46)
[2019-08-02 09:26] VITALS: BP 138/88
[2019-08-02] MEDS: PANTOPRAZOLE 40MG TAB (PROTONIX) PO SCH (09:26)
[2019-08-02 14:00] VITALS: BP 145/95
[2019-08-02] MEDS: VITAMIN A & D OINTMENT 60GM TOP SCH ×2 (17:55→21:46)
[2019-08-02 18:08] LABS: ANTINUCLEAR ANTIBODIES DIRECT Negative (Negative)
--- NOTE | 2019-08-02 18:47 | IPN ---
DATE: 08/02/2019 Patient according to nursing is improving. She is now able to speak and converse more appropriately but still with slurring of speech and still difficult to understand. Patient is cooperative with physical therapy but is requiring 2-person assistance when getting up out of bed. Afebrile overnight. Temperature 97.6, pulse 99-111, irregularly irregular, respiratory rate 21, blood pressure 145/95, 95% on room air. GENERAL: Patient's face is symmetric. Awake, alert, oriented to herself only. She does answer but with some expressive aphasia. There is no facial asymmetry. No nystagmus. No jugular venous distention (JVD). LUNGS: Clear to auscultation. No wheezes, rales, or rhonchi. HEART: S1, S2, sinus rhythm. ABDOMEN: Soft, nontender, nondistended. Positive bowel sounds. EXTREMITIES: No cyanosis or clubbing. There is trace edema. LABORATORY DATA: Reviewed. Electroencephalogram (EEG) is pending. ASSESSMENT AND PLAN: This is a 78-year-old female admitted on 07/22/2019 with history of chronic obstructive pulmonary disease (COPD), dyslipidemia, and reflux, Jordy coma score (GCS) of 9, when she was brought in unresponsive. Workup included urinary tract infection (UTI), positive for extended-spectrum beta lactamase (ESBL). Had been on intravenous (IV) meropenem, currently on Levaquin. Acute kidney injury with presenting creatinine of 4, now currently at 1.3, managed by nephrology with IV fluid hydration. Patient was found to have elevated ammonia levels and had been given lactulose. Despite full supportive care, patient was not back to her baseline mentation. MRI of the brain was done due to new onset of atrial fibrillation, for which she was treated with Eliquis. MRI was negative for cerebrovascular accident (CVA), multiple sclerosis, encephalitis. Repeat MRI again done on July 29 was also negative. CURRENT ISSUES: 1. Left lower lobe pneumonia. 2. ESBL UTI. 3. Acute encephalopathy with cognitive impairment, gait imbalance. 4. New-onset atrial fibrillation. 5. Acute nonoliguric renal failure. 6. Metabolic acidosis. 7. Dysphagia. Patient this morning refused a fiberoptic swallow evaluation. She is currently on a pureed diet and thickened liquids. She is continued on full supportive care, currently on Levaquin. Per Dr. Garcia, neurologist phone operator, patient may be tried on Abilify 2 mg at bedtime. Her Protonix has been changed to lansoprazole 30 mg twice a day due to inability to swallow tablets. She is maintained on Eliquis for cerebrovascular accident (CVA) prophylaxis due to underlying atrial fibrillation. [facility]
[2019-08-02] MEDS: LANSOPRAZOLE SUSPENSION 30 MG/10 ML ORAL SYRINGE (FIRST-LANSOPRAZOLE) PO SCH (21:45)
[2019-08-02] MEDS: ARIPiprazole 2 MG TAB PO SCH (21:46)
[2019-08-02 22:00] VITALS: BP 133/69
--- NOTE | 2019-08-02 23:19 | EEG ---
DATE OF PROCEDURE: 08/01/2019 REFERRING PHYSICIAN: Dr. Freddie Donovan DIAGNOSIS: Altered mental status. EEG NUMBER: [id number] HISTORY: The patient is a 78-year-old woman who was admitted at [facility] due to altered mental status. This EEG was done to rule out epileptic potential. She is currently taking levofloxacin, meropenem, amlodipine, Eliquis, etc. TECHNICAL DESCRIPTION: This digital EEG was recorded by 21 scalp, ear and two EKG electrodes and was reviewed in bipolar and referential montages following reformatting in 10-20 international electrode placement system. INTERPRETATION: The patient was noted to be in awake and drowsy states during this EEG. Background rhythm consisted of 6-7 Hz theta activity measuring 15-40 microvolts in amplitude, which was symmetric bilaterally. The patient remained drowsy and confused throughout the study. No sleep was achieved. Hyperventilation could not be performed. Photic stimulation remained unremarkable. EKG revealed normal sinus rhythm. No focal, lateralizing or epileptiform abnormalities were seen. No relevant clinical activity was noted. CONCLUSION: This EEG in awake and drowsy states is abnormal due to presence of mild generalized slowing and disorganization of background consistent with mild diffuse cerebral dysfunction suggesting an encephalopathy due to multiple potential causes including toxic, metabolic, infectious, autoimmune, or multifocal structural brain abnormalities. No epileptiform abnormalities were seen. Clinical correlation is recommended.
[2019-08-02 23:34] VITALS: O2SAT 97
[2019-08-03] MEDS: NYSTATIN 500,000 U/5 ML SUSP UDC SS SCH ×5 (00:33→23:37)
[2019-08-03] MEDS: LACTULOSE 20 GM/30 ML SYRUP UD PO SCH ×5 (00:33→23:37)
[2019-08-03 06:00] VITALS: BP 130/69
[2019-08-03] MEDS: LevoFLOXacin 250 MG TABLET PO SCH (06:33)
[2019-08-03] MEDS: HumaLOG INSULIN (NovoLOG) PER UNIT SC SCH ×4 (07:30→21:00)
[2019-08-03] MEDS: APIXABAN 5 MG TAB (ELIQUIS) PO SCH (08:29)
[2019-08-03] MEDS: LACTOBACILLUS ACIDOPHILUS CAP (BACID) PO SCH ×4 (08:29→21:39)
[2019-08-03] MEDS: VITAMIN A & D OINTMENT 60GM TOP SCH ×3 (08:30→21:41)
[2019-08-03] MEDS: LANSOPRAZOLE SUSPENSION 30 MG/10 ML ORAL SYRINGE (FIRST-LANSOPRAZOLE) PO SCH ×2 (08:30→21:39)
[2019-08-03 09:32] LABS: HEMATOCRIT 40.5 % (36.0-47.0); HEMOGLOBIN 12.8 g/dl (12.0-15.5); MEAN CORPUSCULAR HEMOGLOBIN 29.4 pg (27.0-33.0); MEAN CORPUSCULAR HGB CONC 31.6 g/dl (32.0-36.5); MEAN CORPUSCULAR VOLUME 92.9 fl (80.0-96.0); PLATELET COUNT, AUTOMATED 218 10^3/uL (150-450); RED BLOOD COUNT 4.36 10^6/uL (4.00-5.40)
[2019-08-03 09:48] LABS: CALCIUM LEVEL 9.1 MG/DL (8.8-10.2); CREATININE FOR GFR 1.41 MG/DL (0.55-1.30); GLOMERULAR FILTRATION RATE 38.6 (>39); POTASSIUM SERUM 4.2 MEQ/L (3.5-5.1)
--- NOTE | 2019-08-03 11:54 | IPNPDOC ---
Date Seen The patient was seen on 08/03/19. Progress Note PER DR. LONG, DDX: GUILLAINE BARRE, B1,B12 DEFICIENCY PLAN-MRI CSPINE, CHECK B1 B12, LUMBAR PUNCTURE IF FAMILY WILL PERMIT. VS, I&O, 24H, Fishbone Vital Signs/I&O Vital Signs Date Time Temp Pulse Resp B/P (MAP) Pulse Ox O2 Delivery O2 Flow Rate FiO2 08/03/19 06:00 97.5 78 18 130/69 (89) 100 Room Air 07/30/19 17:15 2.0 I&O- Last 24 Hours up to 6 AM 08/03/19 06:00 Intake Total 1090 ml Output Total 1500 ml Balance -410 ml Laboratory Data 24H LABS Laboratory Tests 2 08/02/19 13:10: 08/02/19 16:29: Bedside Glucose (Misc Panel) 90 08/02/19 19:59: Bedside Glucose (Misc Panel) 96 08/03/19 06:25: Bedside Glucose (Misc Panel) 91 08/03/19 09:06: Nucleated Red Blood Cells % (auto) 0.0, Anion Gap 7L, Glomerular Filtration Rate 38.6L, Calcium Level 9.1 CBC/BMP Laboratory Tests 08/03/19 09:06 Microbiology Microbiology 07/24/19 Stool Lactoferrin - Final, Complete FESTUS ALVA MD Aug 03, 2019 11:54
[2019-08-03] MEDS: NS 0.45% 1,000 ML IV SCH (12:27)
[2019-08-03 14:00] VITALS: BP 127/69
--- NOTE | 2019-08-03 15:52 | IPN ---
DATE: 08/03/2019 Patient is slightly improving but still with significant slowed speech and slurring. MRI of the brain had been negative on 07/30/2019 as well as on 07/22/2019. Lumbar spine MRI was also showing no acute cord compression with moderate central canal spinal stenosis. Acetylcholinesterase receptor antibodies are still pending. Dr. Garcia recommended trial of Abilify 2 mg nightly. Electroencephalogram remained negative. Serology for Lyme disease is still pending. Temperature 97.5, pulse 78, respiratory rate 18, blood pressure 130/69, 100% on room air. In general, patient's face is symmetric. She has some expressive aphasia and dysmetria. No fever or chills. Tongue is midline. Still with slow speech. Some dysmetria on [id number] testing. No jugular venous distention (JVD) or thyromegaly. Lungs are diminished. Heart: S1, S2, irregularly irregular. Abdomen is soft, nontender, and nondistended. Positive bowel sounds. Extremities: No cyanosis or clubbing. Positive pitting edema. LABORATORY DATA: CBC, metabolic panel have been reviewed, notable for a sodium of 148. IMAGING STUDY: Lumbar spine: Moderate central canal stenosis. MRI of the brain: Negative for acute CVA. ASSESSMENT AND PLAN: 78-year-old female admitted on 07/22/2019 with history of chronic obstructive pulmonary disease (COPD), dyslipidemia, and reflux, [place] Coma Scale (GCS) of 9, when she was brought in unresponsive. Patient was found to be extended-spectrum beta-lactamase (ESBL) urinary tract infection (UTI). MRI of the brain was negative for acute stroke. Was treated with 7 days of meropenem. Currently, on Levaquin for ESBL. Pneumonia was treated with meropenem and Levaquin. Acute kidney injury with a creatinine of 4, currently 1.3 to 1.4. Had been managed by nephrology, who have now signed off. She is back to her baseline creatinine but remains with confusion and persistent dysphagia, requiring pureed diet. Patient refused a fiberoptic swallow study yesterday. MRI of the brain both on 07/22/2019 and 07/30/2019 were negative for encephalitis, multiple sclerosis. EEG was also negative for seizure activity. IMPRESSION: 1. Left lower lobe pneumonia. 2. Urinary tract infection with extended-spectrum beta-lactamase. 3. Acute encephalopathy with cognitive impairment. 4. New onset atrial fibrillation. 5. Acute nonoliguric renal failure. 6. Dysphagia. PLAN: Per Dr. Garcia, we are working her up for possible myasthenia gravis. Acetylcholinesterase antibodies have been sent, the results of which are not back. Currently, on Abilify 2 mg nightly. She is continued on supportive care, including continued treatment with Levaquin for her pneumonia and urinary tract infection. On lactulose every 6 hourly due to elevated ammonia level with ammonia improving to 42. Hypernatremia trial of intravenous (IV) fluids. Currently, on pureed diet. Refused a fiberoptic swallow evaluation. MTDD
[2019-08-03] MEDS: ARIPiprazole 2 MG TAB PO SCH (21:39)
[2019-08-03 22:00] VITALS: BP 130/71
[2019-08-04] MEDS: NS 0.45% 1,000 ML IV SCH (05:05)
[2019-08-04] MEDS: NYSTATIN 500,000 U/5 ML SUSP UDC SS SCH ×3 (05:14→17:13)
[2019-08-04] MEDS: LevoFLOXacin 250 MG TABLET PO SCH (05:14)
[2019-08-04] MEDS: LACTULOSE 20 GM/30 ML SYRUP UD PO SCH ×3 (05:15→17:13)
[2019-08-04 06:00] VITALS: BP 102/71
[2019-08-04] MEDS: HumaLOG INSULIN (NovoLOG) PER UNIT SC SCH ×4 (07:30→21:00)
[2019-08-04 07:40] LABS: C REACTIVE PROTEIN QUANTITATIV 1.13 MG/DL (0.00-0.30); CALCIUM LEVEL 8.9 MG/DL (8.8-10.2); CREATININE FOR GFR 1.29 MG/DL (0.55-1.30); GLOMERULAR FILTRATION RATE 42.8 (>39); MAGNESIUM LEVEL 2.1 MG/DL (1.8-2.4); POTASSIUM SERUM 4.1 MEQ/L (3.5-5.1)
[2019-08-04 07:45] LABS: BASO % 0.4 % (0.0-1.0); EOS % 0.6 % (0.0-3.0); HEMATOCRIT 37.5 % (36.0-47.0); HEMOGLOBIN 11.8 g/dl (12.0-15.5); LYMPH # 1.4 10^3/uL (1.5-5.0); LYMPH % 29.2 % (24.0-44.0); MEAN CORPUSCULAR HEMOGLOBIN 29.3 pg (27.0-33.0); MEAN CORPUSCULAR HGB CONC 31.5 g/dl (32.0-36.5); MEAN CORPUSCULAR VOLUME 93.1 fl (80.0-96.0); MONO # 0.6 10^3/uL (0.0-0.8); MONO % 12.2 % (0.0-5.0); NEUTROPHILS # 2.8 10^3/uL (1.5-8.5); NEUTROPHILS % 57.2 % (36.0-66.0); PLATELET COUNT, AUTOMATED 228 10^3/uL (150-450); RED BLOOD COUNT 4.03 10^6/uL (4.00-5.40); WHITE BLOOD COUNT 4.9 10^3/uL (4.0-10.0)
[2019-08-04 08:12] LABS: ERYTHROCYTE SEDIMENTATION RATE 63 mm/hr (0-30)
[2019-08-04] MEDS: LANSOPRAZOLE SUSPENSION 30 MG/10 ML ORAL SYRINGE (FIRST-LANSOPRAZOLE) PO SCH ×2 (08:46→21:04)
[2019-08-04] MEDS: VITAMIN A & D OINTMENT 60GM TOP SCH ×3 (08:46→21:05)
[2019-08-04] MEDS: LACTOBACILLUS ACIDOPHILUS CAP (BACID) PO SCH ×4 (08:46→21:04)
--- NOTE | 2019-08-04 12:19 | IPN ---
DATE OF SERVICE: 08/04/2019 The patient continues to say no to lumbar puncture and does not want a needle in her back to evaluate her dysphagia to rule out Guillain-Hermiston syndrome. Dr. Herbert Garcia, neurologist, said the patient's MRI had been negative, the only thing that has not been done was the lumbar puncture. The patient does not recall any signs of upper respiratory infection (URI) or gastrointestinal (GI) symptoms prior to presenting to the hospital. She is currently on Abilify 2 mg nightly with some improvement, and she continues to have dysphagia and had also refused a fiberoptic swallow evaluation that was recommended by speech therapy. I have discussed this with the patient's daughter and the patient's , that the patient does not want any further invasive testing and says that she is getting better. She is continued on pureed diet. She has no shortness of breath. She is working with physical therapy. Differential diagnosis incudes myasthenia gravis, Guillain-Hermiston syndrome. The patient, however, has normal reflexes, bilateral upper and lower extremities, which would make Guillain-Hermiston unlikely. She has remained afebrile. Levaquin has been discontinued, as she has completed meropenem and Levaquin. White count is normal with no fever. She has been treated for pneumonia, as well as urinary tract infection with extended-spectrum beta-lactamase (ESBL). Vital signs: Temperature 97.8, pulse 80, respiratory rate 21, blood pressure 102/71, 96% on room air. Generally, the patient is awake, alert, oriented to herself, answering questions appropriately but slow to speak with some slurring. There is no nystagmus noted. No ptosis of the eyes. DTRs are intact 2+ bilateral upper and lower extremities, ankle, knee, biceps, and triceps. Lungs are diminished. Clear to auscultation. Heart: S1, S2, irregularly irregular. Abdomen is obese, soft, nontender, nondistended. Motor function is 4/5 bilateral upper and lower extremities. DTRs are intact, bilateral biceps, triceps, ankle, and knee reflexes. LABORATORY DATA: Sodium 143, potassium 4, chloride 112, bicarbonate 27, BUN 32, creatinine 1.29, glucose of 95. Complete blood count (CBC) has been reviewed. Sedimentation rate elevated at 63, C-reactive protein 11.13. Electroencephalogram (EEG) is negative. No epileptiform activity. ASSESSMENT AND PLAN: This is a 78-year-old female admitted on 07/22/2019 with history of chronic obstructive pulmonary disease (COPD), dyslipidemia, reflux. Was found unresponsive at home with presenting [place] Coma Scale (GCS) of 9. CT and MRI of the brain were negative for acute cerebrovascular accident (CVA). She was found to have an underlying atrial fibrillation on presenting electrocardiogram (EKG) and was started on anticoagulation. The patient was found to have a left lower lobe pneumonia, along with ESBL urinary tract infection (UTI), treated with 7 days of meropenem and Levaquin for another 4 days for a total of 11 days of antibiotics. The patient had acute kidney injury on presentation with creatinine of 4 and with intravenous (IV) fluids hydration, managed by nephrology, had returned back to a creatinine of 1.3. The patient remains with significant dysphagia but refused a lumbar puncture. MRI repeated on 07/30/2019 was negative for a CVA. She is on a pureed diet with recommendations for speech therapy to obtain a fiberoptic swallow evaluation, which the patient has refused. At this time, current issues are as follows: 1. Left lower lobe pneumonia. 2. Urinary tract infection with extended-spectrum beta-lactamase. 3. Acute encephalopathy with cognitive impairment and dysphagia. 4. New onset atrial fibrillation. Rate controlled. 5. Acute nonoliguric renal failure. Has resolved. 6. Dysphagia. Rule out myasthenia gravis verus Guillain-Hermiston versus Eaton-Lambert syndrome. 7. Hypernatremia due to dysphagia, inability to take adequate oral intake. PLAN: Per Dr. Garcia, neurologist molded goods controls operator, has been involved in this case. EEG was negative. Two MRIs of the brain were negative for acute CVA. MRI done on the spine has no acute abnormalities but with chronic central canal stenosis. He is recommending MRI of the cervical spine to rule out cervical myelopathy, as well as a lumbar puncture and ruling out myasthenia gravis by checking acetylcholinesterase antibodies. At this time, the patient is refusing to move with further invasive evaluation with fiberoptic swallow evaluation recommended by speech therapy and refusing any invasive testing with lumbar puncture. This has been discussed with the patient's daughter and the patient's . Clinically speaking, the patient has normal reflexes in the bilateral upper extremities, biceps, triceps, and bilateral lower extremities in the knee and ankle, making Guillain-Hermiston less likely. However, the patient is not giving consent to obtain a lumbar puncture. She is continued on atrial fibrillation prophylaxis for CVA with Eliquis twice a day and will need to be discontinued prior to lumbar puncture. Due to severe hypernatremia, the patient was placed on IV fluids with some improvement. Creatinine is back to normal. The patient's ammonia level was elevated. She is currently on lactulose. DISPOSITION: She will need rehabilitation placement. MTDD
--- NOTE | 2019-08-04 12:48 | REP ---
MRI cervical spine: 08/04/2019. Indication: Hand weakness. Technique: Multiplanar short long tier sequences of the cervical spine were performed without IV Gadolinium. Findings: Image quality is degraded by patient motion. There is mild straightening of the cervical lordosis. Disc dessication and disc space narrowing are present throughout. No abnormal marrow or cord signal is present with the exception of a inferior T2 vertebral body interosseous hemangioma. There is no evidence of acute ligamentous injury. The vertebral flow voids are present with left-sided dominant. Multilevel spondylosis is present most pronounced at C3/C4 with mild narrowing of the spinal canal and bilateral neural foramina. Impression: There is severe narrowing of the spinal canal. No focal disc herniations detected. Electronically Signed by Reddy Polacno DO 08/04/2019 12:40 P
[2019-08-04 14:00] VITALS: BP 147/69; O2SAT 96
[2019-08-04] MEDS: ARIPiprazole 2 MG TAB PO SCH (21:04)
[2019-08-04 22:00] VITALS: BP 147/71
[2019-08-05] MEDS: LACTULOSE 20 GM/30 ML SYRUP UD PO SCH ×3 (00:29→13:04)
[2019-08-05] MEDS: NYSTATIN 500,000 U/5 ML SUSP UDC SS SCH ×3 (00:29→12:57)
[2019-08-05 06:00] VITALS: BP 145/63
[2019-08-05 06:25] LABS: BASO % 0.4 % (0.0-1.0); EOS # 0.1 10^3/uL (0.0-0.5); EOS % 1.3 % (0.0-3.0); HEMATOCRIT 33.3 % (36.0-47.0); HEMOGLOBIN 10.7 g/dl (12.0-15.5); LYMPH # 1.3 10^3/uL (1.5-5.0); LYMPH % 28.9 % (24.0-44.0); MEAN CORPUSCULAR HEMOGLOBIN 29.5 pg (27.0-33.0); MEAN CORPUSCULAR HGB CONC 32.1 g/dl (32.0-36.5); MEAN CORPUSCULAR VOLUME 91.7 fl (80.0-96.0); MONO # 0.6 10^3/uL (0.0-0.8); MONO % 13.2 % (0.0-5.0); NEUTROPHILS # 2.5 10^3/uL (1.5-8.5); NEUTROPHILS % 55.8 % (36.0-66.0); PLATELET COUNT, AUTOMATED 175 10^3/uL (150-450); RED BLOOD COUNT 3.63 10^6/uL (4.00-5.40); WHITE BLOOD COUNT 4.5 10^3/uL (4.0-10.0)
[2019-08-05 06:43] LABS: CALCIUM LEVEL 8.2 MG/DL (8.8-10.2); CREATININE FOR GFR 1.27 MG/DL (0.55-1.30); GLOMERULAR FILTRATION RATE 43.6 (>39); POTASSIUM SERUM 3.5 MEQ/L (3.5-5.1)
[2019-08-05] MEDS: HumaLOG INSULIN (NovoLOG) PER UNIT SC SCH ×2 (07:30→11:37)
[2019-08-05] MEDS: LANSOPRAZOLE SUSPENSION 30 MG/10 ML ORAL SYRINGE (FIRST-LANSOPRAZOLE) PO SCH (09:56)
[2019-08-05] MEDS: LACTOBACILLUS ACIDOPHILUS CAP (BACID) PO SCH ×2 (09:56→12:57)
[2019-08-05] MEDS: VITAMIN A & D OINTMENT 60GM TOP SCH (09:57)
[2019-08-05 14:00] VITALS: BP 126/62
[2019-08-05 18:07] LABS: Lyme Disease IgG Ab 18 kDa Ban Present (.); Lyme Disease IgG Ab 23 kDa Ban Present (.); Lyme Disease IgG Ab 28 kDa Ban Present (.); Lyme Disease IgG Ab 30 kDa Ban Absent (.); Lyme Disease IgG Ab 39 kDa Ban Present (.); Lyme Disease IgG Ab 41 kDa Ban Present (.); Lyme Disease IgG Ab 45 kDa Ban Present (.); Lyme Disease IgG Ab 58 kDa Ban Absent (.); Lyme Disease IgG Ab 66 kDa Ban Absent (.); Lyme Disease IgG Ab 93 kDa Ban Present (.); Lyme Disease IgG West Blot Int Positive (.); Lyme Disease IgG/IgM Antibodie 1.02 ISR (0.00-0.90); Lyme Disease IgM Ab 23 kDa Ban Present (.); Lyme Disease IgM Ab 39 kDa Ban Present (.); Lyme Disease IgM Ab 41 kDa Ban Absent (.); Lyme Disease IgM Ab Quantitati 1.44 index (0.00-0.79); Lyme Disease IgM West Blot Int Positive (.)
--- NOTE | 2019-08-07 08:21 | DS.PDOC ---
Discharge Summary General Date of Admission Jul 22, 2019 at 15:53 Date of Discharge August 05, 2019 to acute rehab unit Discharge Summary DISCHARGE DIAGNOSES: SEPSIS COMMUNITY ACQUIRED PNEUMONIA ECOLI UTI-ESBL THROMBOCYTOPENIA NEW ONSET PAROXYSMAL ATRIAL FIBRILLATION ACUTE RENAL FAILURE DYSPHAGIA ACUTE ENCEPHALOPATHY OBESITY COPDY DYSLIPIDEMIA GERD HYPERNATREMIA DEHYDRATION ELEVATED AMMONIA LEVEL T2 HEMANGIOMA L3-L4 MODERATE SPINAL STENOSIS L4-L5 MILD SPINAL STENOSIS C3-C4 SPONYDLOSIS WITH SPINAL CANNAL NARROWING ?LYME DISEASE DISCHARGE MEDICATIONS: PLS SEE BELOW DISCHARGE INSTRUCTIONS: F/U LYME SEROLOGY, ID CONSULT IF NEEDED. LUMBAR PUNCTURE IF PT AND FAMILY CONSENT. CONSULTANTS: CARDIOLOGY DR GONZALEZ NEPHROLOGY DR HAGER NEUROLOGY DR GARCIA PROCEDURES: SWALLOW EVALUATION DIAGNOSTIC TESTS: ECHO EEG MRI BRAIN 07/22/19, 07/30/19 MRI LUMBAR, CERVICAL SPINE HOSPITAL COURSE: This is a 78-year-old female admitted on 07/22/2019 with history of chronic obstructive pulmonary disease (COPD), dyslipidemia, reflux. Was found unresponsive at home with presenting [place] Coma Scale (GCS) of 9. CT and MRI of the brain were negative for acute cerebrovascular accident (CVA). She was found to have an underlying atrial fibrillation on presenting electrocardiogram (EKG) and was started on anticoagulation. The patient was found to have a left lower lobe pneumonia, along with ESBL urinary tract infection (UTI), treated with 7 days of meropenem and Levaquin for another 4 days for a total of 11 days of antibiotics. The patient had acute kidney injury on presentation with creatinine of 4 and with intravenous (IV) fluids hydration, managed by nephrology, had returned back to a creatinine of 1.3. The patient remains with significant dysphagia but refused a lumbar puncture. MRI repeated on 07/30/2019 was negative for a CVA. She is on a pureed diet with recommendations for speech therapy to obtain a fiberoptic swallow evaluation, which the patient has refused. Per Dr. Garcia, neurologist salon leader, has been involved in this case. EEG was negative. Two MRIs of the brain were negative for acute CVA. MRI done on the spine has no acute abnormalities but with chronic central canal stenosis. He is recommending MRI of the cervical spine to rule out cervical myelopathy, as well as a lumbar puncture and ruling out myasthenia gravis by checking acetylcholinesterase antibodies. At this time, the patient is refusing to move with further invasive evaluation with fiberoptic swallow evaluation recommended by speech therapy and refusing any invasive testing with lumbar puncture. This has been discussed with the patient's daughter and the patient's . Clinically speaking, the patient has normal reflexes in the bilateral upper extremities, biceps, triceps, and bilateral lower extremities in the knee and ankle, making Guillain-Paton less likely. However, the patient is not giving consent to obtain a lumbar puncture. She is continued on atrial fibrillation prophylaxis for CVA with Eliquis twice a day and will need to be discontinued prior to lumbar puncture. Due to severe hypernatremia, the patient was placed on IV fluids with some improvement. Creatinine is back to normal. The patient's ammonia level was elevated. She is currently on lactulose. Lyme serology was sent, but report was pending on discharge. The patient continues to say no to lumbar puncture and does not want a needle in her back to evaluate her dysphagia to rule out Guillain-Paton syndrome. Dr. Herbert Garcia, neurologist, said the patient's MRI had been negative, the only thing that has not been done was the lumbar puncture. The patient does not recall any signs of upper respiratory infection (URI) or gastrointestinal (GI) symptoms prior to presenting to the hospital. She is currently on Abilify 2 mg nightly with some improvement, and she continues to have dysphagia and had also refused a fiberoptic swallow evaluation that was recommended by speech therapy. I have discussed this with the patient's daughter and the patient's , that the patient does not want any further invasive testing and says that she is getting better. She is continued on pureed diet. She has no shortness of breath. She is working with physical therapy. Differential diagnosis incudes myasthenia gravis, Guillain-Paton syndrome. The patient, however, has normal reflexes, bilateral upper and lower extremities, which would make Guillain-Paton unlikely. She has remained afebrile. Levaquin has been discontinued, as she has completed meropenem and Levaquin. White count is normal with no fever. She has been treated for pneumonia, as well as urinary tract infection with extended-spectrum beta-lactamase (ESBL). DISCHARGE PHYSICAL EXAMINATION: Vital signs: Temperature 97.8, pulse 80, respiratory rate 21, blood pressure 102/71, 96% on room air. Generally, the patient is awake, alert, oriented to herself, answering questions appropriately but slow to speak with some slurring. There is no nystagmus noted. No ptosis of the eyes. DTRs are intact 2+ bilateral upper and lower extremities, ankle, knee, biceps, and triceps. Lungs are diminished. Clear to auscultation. Heart: S1, S2, irregularly irregular. Abdomen is obese, soft, nontender, nondistended. Motor function is 4/5 bilateral upper and lower extremities. DTRs are intact, bilateral biceps, triceps, ankle, and knee reflexes. DISCHARGE LABORATORY DATA: Sodium 143, potassium 4, chloride 112, bicarbonate 27, BUN 32, creatinine 1.29, glucose of 95. Complete blood count (CBC) has been reviewed. Sedimentation rate elevated at 63, C-reactive protein 11.13. Electroencephalogram (EEG) is negative. No epileptiform activity. DATE OF PROCEDURE: 07/23/2019 REFERRING PHYSICIAN: Dr. Donovan INDICATION: Atrial fibrillation with rapid ventricular response. Height 165 cm, weight 90 kg. DIMENSIONS: IVS: 1.4 LV: 1.9 LVPW: 1.4 LA: 3.4 Aorta: 3.1 IVC: 1.3 FINDINGS: The study is of rather limited technical quality due to underlying body habitus and difficulty positioning. The patient is in atrial fibrillation with ventricular rate ranging from about 130-155 beats per minute. Left ventricle has normal size. There is moderate left ventricular hypertrophy and overall hyperdynamic left ventricular LV) systolic function. I estimate left ventricular ejection fraction (LVEF) around 65-70%. Right ventricle does not appear grossly dilated but it was poorly seen. Both atria appear grossly normal. Aortic valve appears sclerotic, but it has three cusps and overall preserved mobility. Mitral, tricuspid and pulmonic valves appear grossly normal. Prominent pericardial fat pad is noted but no visualized effusion. Inferior vena cava is relatively small caliber and almost completely collapses with inspiration indicative of likely low central venous pressure. Aortic root is normal. Aortic arch and abdominal aorta were not seen. Doppler interrogation reveals no significant aortic insufficiency. There is trivial stenosis with mean gradient around 10 mmHg. There is a functionally competent mitral valve. Trace tricuspid insufficiency is noted. Calculated pulmonary artery pressure is around 40 mmHg corresponding to moderate pulmonary hypertension. Pulmonic valve is functionally competent. Evaluation of diastolic function is inconclusive due to underlying atrial fibrillation. CONCLUSIONS: 1. Study is of fair technical quality, the patient is a atrial fibrillation with rapid ventricular response. 2. Normal LV size with mild LVH, hyperdynamic LV systolic function. 3. Aortic sclerosis with trivial stenosis and no insufficiency. 4. No additional significant valvular disease. 5. Suggestive of low central venous pressure and probably mild or moderate pulmonary hypertension. 6. Prominent pericardial fat pad. DATE OF PROCEDURE: 08/01/2019 REFERRING PHYSICIAN: Dr. Freddie Donovan DIAGNOSIS: Altered mental status. EEG NUMBER: [id number] HISTORY: The patient is a 78-year-old woman who was admitted at [facility] due to altered mental status. This EEG was done to rule out epileptic potential. She is currently taking levofloxacin, meropenem, amlodipine, Eliquis, etc. TECHNICAL DESCRIPTION: This digital EEG was recorded by 21 scalp, ear and two EKG electrodes and was reviewed in bipolar and referential montages following reformatting in 10-20 international electrode placement system. INTERPRETATION: The patient was noted to be in awake and drowsy states during this EEG. Background rhythm consisted of 6-7 Hz theta activity measuring 15-40 microvolts in amplitude, which was symmetric bilaterally. The patient remained drowsy and confused throughout the study. No sleep was achieved. Hyperventilation could not be performed. Photic stimulation remained unremarkable. EKG revealed normal sinus rhythm. No focal, lateralizing or epileptiform abnormalities were seen. No relevant clinical activity was noted. CONCLUSION: This EEG in awake and drowsy states is abnormal due to presence of mild generalized slowing and disorganization of background consistent with mild diffuse cerebral dysfunction suggesting an encephalopathy due to multiple potential causes including toxic, metabolic, infectious, autoimmune, or multifocal structural brain abnormalities. No epileptiform abnormalities were seen. Clinical correlation is recommended. PROCEDURE INFORMATION: Exam: MR Angiogram Head Without Contrast, Arteries Exam date and time: 07/22/2019 9:32 PM Age: 78 years old Clinical indication: Cognitive deficit and speech disturbance; Altered mental status; Type not specified; Additional info: AMS TECHNIQUE: Imaging protocol: MR angiogram head without contrast. Exam focused on the arteries. 3D rendering: MIP and/or 3D reconstructed images were created by the technologist. COMPARISON: CT Head without contrast 07/22/2019 1:00 PM FINDINGS: Anterior cerebral arteries: Intracranial segment is patent with no significant stenosis. No aneurysm. Right internal carotid artery: Intracranial segment is patent with no significant stenosis. No aneurysm. Right middle cerebral artery: No occlusion or significant stenosis. No aneurysm. Right posterior cerebral artery: origin of the right [employer] without significant stenosis or occlusion. Right vertebral artery: No occlusion or significant stenosis. No aneurysm. Left internal carotid artery: Intracranial segment is patent with no significant stenosis. No aneurysm. Left middle cerebral artery: No occlusion or significant stenosis. No aneurysm. Left posterior cerebral artery: No occlusion or significant stenosis. No aneurysm. Left vertebral artery: No occlusion or significant stenosis. No aneurysm. Basilar artery: No occlusion or significant stenosis. No aneurysm. Other findings: The exam is degraded by patient motion artifact. IMPRESSION: 1. Motion limited exam. 2. Unremarkable MRA. No significant stenosis, aneurysm, or vascular occlusion. Electronically signed by: Michael Dneney On 07/22/2019 21:48:40 PM PROCEDURE INFORMATION: Exam: MR Head Without Contrast Exam date and time: 07/22/2019 9:32 PM Age: 78 years old Clinical indication: Altered mental status/memory loss and speech disturbance; Other: Not acting herself; Unspecified; Additional info: AMS TECHNIQUE: Imaging protocol: MR of the head without contrast. COMPARISON: CT Head without contrast 07/22/2019 1:00 PM FINDINGS: Limitations: The exam is degraded by patient motion artifact. Brain: A few small T2 hyperintense white matter foci typical of chronic white matter microvascular disease. Mild cerebral volume loss. No evidence of a recent infarction. No mass or midline shift. Ventricles: Normal. No ventriculomegaly. Bones/joints: Unremarkable. Sinuses: Mild mucosal thickening in the sinuses. No layering sinus fluid. Mastoid air cells: Normal as visualized. No mastoid effusion. Orbits: Unremarkable. Soft tissues: Unremarkable. IMPRESSION: 1. Motion limited exam. 2. No acute findings. 3. Mild age related changes. Electronically signed by: Michael Denney On 07/22/2019 21:44:15 PM DD: MICHAEL DENNEY MD 07/22/192131 DT: NAS 07/22/192143 DS: AKLI 07/22/192143 CT ABDOMEN AND PELVIS WITHOUT CONTRAST: CT abdomen and pelvis performed without oral or IV contrast. Sagittal and coronal reconstruction images are performed. Infiltrate is seen in the visualized left lower lobe. There is a large hiatal hernia. The liver is grossly unremarkable. There appear to be tiny gallstones in the dependent portion of the gallbladder. The spleen, adrenals and pancreas are grossly unremarkable. No renal calculus is seen and there is no evidence of hydroureteronephrosis. There is moderate atherosclerotic calcification of the abdominal aorta without aneurysm. I see no adenopathy. I see no free air or free fluid. There is no bowel wall thickening. The urinary bladder appears unremarkable. There is a small calcified fibroid in the uterus. No pelvic mass is seen. There are degenerative changes of the spine. IMPRESSION: Left lower lobe infiltrate. Large hiatal hernia. Small gallstones are seen in the dependent portion of the gallbladder. No free air or free fluid. Small calcified fibroid in the uterus. Electronically Signed by Vin Dodd MD 07/23/2019 01:16 P DD: Vin Dodd MD, MD 07/22/19 1322 DT: YANICK 07/22/19 1506 DS: CRISTY 07/23/19 1316 COOKIE SWALLOW The procedure was performed under the direct supervision of Dr. Dodd. Procedure was performed with Ayah Goodwin from speech pathology present. 5 ml aliquots of honey, nectar, thin and pudding consistency barium was administered. With honey and thin consistency barium there is laryngeal penetration. A detailed report of this examination will be provided by speech pathology. 1.8 minutes of fluoroscopy time was utilized for this procedure. Electronically Signed by STEPHANI Sequeira 07/25/2019 04:22 P Electronically Signed by Vin Dodd MD 07/25/2019 07:02 P DD: [facility] 07/25/19 1621 DT: Joaquina 07/25/19 1902 DS: JUAN 07/25/19 1902 07/25/19 1902 07/25/19 1911 PROCEDURE INFORMATION: Exam: MR Head Without Contrast Exam date and time: 07/30/2019 6:34 PM Age: 78 years old Clinical indication: Condition or disease; Other: Expressive aphasia paroxysmal afib not on ac TECHNIQUE: Imaging protocol: MR of the head without contrast. COMPARISON: MRI-Brain without Contrast 07/22/2019 8:30 PM FINDINGS: Brain: Multiple foci of T2 lengthening are demonstrated in the subcortical and centrum semiovale white matter consistent with mild age-related small vessel gliosis. Mild age related diffuse global hemispheric parenchymal atrophy. Ventricles: The degree of ventricular dilatation is normal for age and/or degree of atrophy present. Bones/joints: Unremarkable. Sinuses: Normal as visualized. No acute sinusitis. Mastoid air cells: Normal as visualized. No mastoid effusion. Orbits: Unremarkable. Soft tissues: Unremarkable. IMPRESSION: 1. Multiple foci of T2 lengthening are demonstrated in the subcortical and centrum semiovale white matter consistent with mild age-related small vessel gliosis. 2. Mild age related diffuse global hemispheric parenchymal atrophy. 3. The degree of ventricular dilatation is normal for age and/or degree of atrophy present. Electronically signed by: Alec Tam On 07/30/2019 18:42:21 PM DD: ALEC TAM MD 07/30/19 1834 DT: NAS 07/30/19 1842 DS: MARIO 07/30/191841 MRI cervical spine: 08/04/2019. Indication: Hand weakness. Technique: Multiplanar short long tier sequences of the cervical spine were performed without IV Gadolinium. Findings: Image quality is degraded by patient motion. There is mild straightening of the cervical lordosis. Disc dessication and disc space narrowing are present throughout. No abnormal marrow or cord signal is present with the exception of a inferior T2 vertebral body interosseous hemangioma. There is no evidence of acute ligamentous injury. The vertebral flow voids are present with left-sided dominant. Multilevel spondylosis is present most pronounced at C3/C4 with mild narrowing of the spinal canal and bilateral neural foramina. Impression: There is severe narrowing of the spinal canal. No focal disc herniations detected. Electronically Signed by Reddy Bolton DO 08/04/2019 12:40 P DD: REDDY BOLTON DO 08/04/19 1214 1240 DS: KATHRYN 08/04/19 1240 08/04/19 1240 PROCEDURE INFORMATION: Exam: MR Lumbar Spine Without Contrast. Exam date and time: 07/31/2019 6:10 PM Age: 78 years old Clinical indication: Weakness; Additional info: Le weakness S/P fall TECHNIQUE: Imaging protocol: Multiplanar magnetic resonance images of the lumbar spine without intravenous contrast. COMPARISON: No relevant prior studies available. FINDINGS: Vertebrae: T1 weighted images demonstrate mottled decreased signal throughout the vertebrae, findings which can be seen in association with chronic anemia or other myeloproliferative abnormality. This should be correlated with clinical evaluation. Foci of increased signal demonstrated at the endplates of T12, L3 and L4 likely degenerative. Spinal cord: Normal signal. No cord compression. L1-L2: No significant disc disease. No significant spinal canal stenosis. No neural foraminal stenosis. L2-L3: No significant disc disease. No significant spinal canal stenosis. No neural foraminal stenosis. L3-L4: There is a moderate central spinal stenosis at L3-L4 secondary to diffuse annular bulging, thickened ligamentum flavum with facet joint arthropathy. There is moderate to severe foraminal narrowing on the left and mild to moderate foraminal narrowing on the right. No lateral recess stenosis. L4-L5: There is a mild central spinal stenosis at L4-L5 secondary to diffuse annular bulging, thickened ligamentum flavum with facet joint arthropathy. Moderate foraminal narrowing on the right. L5-S1: No significant disc disease. No significant spinal canal stenosis. No neural foraminal stenosis. Soft tissues: Unremarkable. IMPRESSION: 1. T1 weighted images demonstrate mottled decreased signal throughout the vertebrae, findings which can be seen in association with chronic anemia or other myeloproliferative abnormality. This should be correlated with clinical evaluation. 2. Moderate central spinal stenosis at L3-L4 and mild central spinal stenosis at L4-L5. Electronically signed by: Alec Tam On 07/31/2019 18:16:53 PM Vital Signs/I&Os Vital Signs Date Time Temp Pulse Resp B/P (MAP) Pulse Ox O2 Delivery O2 Flow Rate FiO2 08/05/19 14:00 97.9 80 18 126/62 (83) 97 Room Air Discharge Medications Scheduled Apixaban (Eliquis) 5 Mg Tablet, 5 MG PO BID Cholecalciferol (Vitamin D3) (Vitamin D3) 1,000 Unit Tablet, 1,000 UNITS PO DAILY, (Reported) L.acidoph/L.bulg/B.bif/S.therm (Jewels-Bid Caplet) 1 Each Tablet, 1 EA PO [facility] [place]-3/Dha/Epa/Fish Oil (Fish Oil EC 1,000 mg Softgel) 1 Cap Cap, 1,000 MG PO DAILY, (Reported) Omeprazole (Omeprazole) 20 Mg Cap, 20 MG PO DAILY, (Reported) Simvastatin (Simvastatin) 40 Mg Tab, 40 MG PO DAILY, (Reported) Vit A/Vit C/Vit E/Zinc/Copper (Preservision Areds Softgel) 1 Cap Cap, 1 CAP PO DAILY, (Reported) Scheduled PRN Fluticasone Propionate (Fluticasone Propionate) 16 Gm [place].susp, 2 SPRAY NA DAILY PRN for ALLERGIES, (Reported) Meclizine HCl (Meclizine HCl) 25 Mg Tab, 25 MG PO BID PRN for VERTIGO/DIZZINESS, (Reported) Allergies Coded Allergies: No Known Allergies (Unverified , 07/22/19) FESTUS ALVA MD Aug 07, 2019 07:55
== END 2019-08-05 16:30 | DRG 871 ==
LOC: EDBD 12:37 → M ED 12:37 → ENRESERV 15:15 → M ED 15:40 → M ICU 15:53 → EEVIPCON 15:53 → M PCU 07-25 10:23 → M MSPAV 07-29 15:39
PROVIDERS: ADMIT Internal Medicine; ATTEND General Practice
DX: A41.9 Sepsis, unspecified organism (principal); J18.9 Pneumonia, unspecified organism; G93.41 Metabolic encephalopathy; N39.0 Urinary tract infection, site not specified; E87.2 Acidosis; I24.8 Other forms of acute ischemic heart disease; J44.0 Chronic obstructive pulmonary disease with (acute) lower respiratory infection; N17.9 Acute kidney failure, unspecified; E87.0 Hyperosmolality and hypernatremia; D69.6 Thrombocytopenia, unspecified; R65.20 Severe sepsis without septic shock; E78.5 Hyperlipidemia, unspecified; E66.9 Obesity, unspecified; K21.9 Gastro-esophageal reflux disease without esophagitis; B96.29 Other Escherichia coli [E. coli] as the cause of diseases classified elsewhere; E86.0 Dehydration; I48.0 Paroxysmal atrial fibrillation; M47.892 Other spondylosis, cervical region; Z79.899 Other long term (current) drug therapy; E11.9 Type 2 diabetes mellitus without complications; E55.9 Vitamin D deficiency, unspecified; N18.9 Chronic kidney disease, unspecified; E87.6 Hypokalemia; K44.9 Diaphragmatic hernia without obstruction or gangrene; M19.90 Unspecified osteoarthritis, unspecified site; K57.30 Diverticulosis of large intestine without perforation or abscess without bleeding; R13.10 Dysphagia, unspecified

== ENCOUNTER 2019-08-05 16:11 | Inpatient (IN) | payer MEDICARE, OTHER ==
[~2019-08-05] VITALS: Ht 165.1 cm; Wt 79.9 kg
[~2019-08-05 16:11] MED LIST changes: +D31000TA2 PO; +ELIQ5TAB PO; +FLUTISP; +IBUP-1022 PO; +LEVA1TAB2 PO; +RISATAB3 PO
[2019-08-05] MEDS ORDERED: DEXTROSE 50% 50 ML SYRINGE IV PRN (16:30)
[2019-08-05] MEDS ORDERED: GLUCAGON INJ 1MG VIAL SC PRN (16:30)
[2019-08-05] MEDS ORDERED: MECLIZINE 25 MG TABLET PO PRN (16:30)
[2019-08-05] MEDS ORDERED: GLUCOSE 4GM CHEW TABLET PO PRN (16:30)
[2019-08-05 16:35] VITALS: BP 147/74
[2019-08-05] MEDS: HumaLOG INSULIN (NovoLOG) PER UNIT SC SCH ×2 (17:25→20:22)
[2019-08-05] MEDS: LACTOBACILLUS ACIDOPHILUS CAP (BACID) PO SCH ×2 (17:28→20:34)
[2019-08-05] MEDS: MAGIC MOUTHWASH SUSPENSION BTL SSP SCH (17:30)
[2019-08-05] MEDS: IPRATROPIUM 0.5MG/ALBUTEROL 2.5MG INH SOL UD 3ML (DUONEB) NEB SCH (19:50)
[2019-08-05 20:00] VITALS: BP 148/77
--- NOTE | 2019-08-05 20:14 | IPN ---
DATE: 08/05/2019 The patient continues to have some slurred speech, but much more understandable. She is appropriate with her answers. She has no receptive aphasia. Complains of difficulty getting up requiring 2 person assistance with getting up, still refusing lumbar puncture this morning despite recommendation from neurology for completeness. Magnetic Resonance Imaging (MRI) of the lumbosacral spine negative for acute issues. Cervical spine shows severe narrowing of the spinal canal. No evidence of ligamentous injury. No abnormal marrow or cord signal is present with exception of a 2T hemangioma. The patient continues to be cooperative with physical therapy, still on a dysphagia diet, still with dysphagia to solids, refused fiberoptic swallow evaluation, being worked up for myasthenia gravis, still refusing lumbar puncture. Electroencephalogram (EEG) negative, Magnetic Resonance Imaging (MRI) of the brain negative times two. Vital signs: Temperature 97.2, pulse 87, respiratory rate 17, blood pressure 145/63, 93% on room air. General: Awake, alert, and oriented to person and place. Answering questions, but with slowed speech and slurred. The patient had no receptive aphasia. No jugular venous distension (JVD) or thyromegaly. No cervical lymphadenopathy. Lungs are diminished, but clear to auscultation. NO wheezing or rales. Heart: S1, S2, regular. Abdomen: Obese, soft, nontender. Extremities: No cyanosis or clubbing. LABORATORY DATA: Reviewed. ASSESSMENT AND PLAN: This is a 78-year-old female admitted due to altered mental status being found unresponsive on 07/22/2019, was found to have a [place] coma scale of 9. CT of head, Magnetic Resonance Imaging (MRI) of the brain were negative for acute cerebrovascular accident (CVA). Electrocardiogram (EKG) showed underlying atrial fibrillation. She was started on Eliquis and treated for left lower lobe along with extended spectrum beta-lactamase (ESBL) urinary tract infection with intravenous meropenem; and after 7 days transitioned to Levaquin. The patient had completed antibiotics, no fever, no white count. She had a presenting creatinine of 4 with acute kidney injury, which responded to IV fluid hydration. Managed by nephrology. Both cardiology and nephrology have since signed off. The patient continued to have dysphagia and gait abnormality. Evaluated with repeat Magnetic Resonance Imaging (MRI) on 07/30/2019, which was negative for cerebrovascular accident (CVA). Magnetic Resonance Imaging (MRI) of the lumbar shows central canal stenosis, but without acute pathology. Magnetic Resonance Imaging (MRI) of the cervical spine has no cord edema. The patient continues on a puree diet, refusing a lumbar puncture. This was discussed with the patient's and the patient's daughter. Speech therapy recommended fiberoptic swallow evaluation, which the patient again refused. CURRENT ISSUES: 1. Left lower lobe pneumonia. 2 Urinary tract infection with extended spectrum beta-lactamase (ESBL). 3. Acute encephalopathy with cognitive impairment dysphagia and ataxia being worked up for myasthenia gravis refusing lumbar puncture. Magnetic Resonance Imaging (MRI) of the cervical lumbar spine and brain have no acute abnormalities. 4. New onset atrial fibrillation, started on Eliquis. 5. Acute nonoliguric renal failure has resolved on IV fluid. 6 Dysphagia, rule out myasthenia gravis versus Guillain-[place] versus Eaton-Lambert syndrome. The patient refused lumbar puncture. 7. Hypernatremia due to dysphagia, resolved, due to inadequate oral intake. PLAN: Per Dr. Garcia, neurologist resource conservation manager, has been involved on this case. Two Magnetic Resonance Imagings (MRIs) of the brain were negative for acute cerebrovascular accident (CVA), multiple sclerosis or signs of encephalitis. Electroencephalogram (EEG) was negative. Magnetic Resonance Imaging (MRI) of the lumbar and cervical spine showed no myelopathy or cord compression. The patient has refused lumbar puncture to rule out myasthenia gravis and Guillain syndrome. She continues to work with physical therapy, but does not want any further invasive evaluation including fiberoptic swallow evaluation, which was recommended by speech therapy or lumbar puncture. This has been discussed with the patient's daughter and the patient's . Clinically speaking, the patient does have bilateral normal reflexes, bilateral upper extremity biceps, triceps, bilateral lower extremity in the knees making Guillain-[place] less likely. However, the patient still does not have a diagnosis for the severe weakness and dysphagia. Differential diagnosis includes Guillian-[place], myasthenia, questionable Eaton-Lambert or ELS. The patient is continued on Eliquis twice a day for atrial fibrillation due to severe hypernatremia, the patient did receive some IV fluids with corrected sodium level today.
[2019-08-05] MEDS: SENNA 8.6 MG TAB (SENOKOT) PO SCH (20:34)
[2019-08-05] MEDS: APIXABAN 5 MG TAB (ELIQUIS) PO SCH (20:34)
[2019-08-05] MEDS: LANSOPRAZOLE SUSPENSION 30 MG/10 ML ORAL SYRINGE (FIRST-LANSOPRAZOLE) PO SCH (20:34)
[2019-08-05] MEDS: ARIPiprazole 2 MG TAB PO SCH (20:35)
[2019-08-05] MEDS: REMEDY PHYTOPLEX Z-GUARD PASTE 113GM TUBE (FROM STOREROOM PRODUCT) TOP SCH (20:35)
[2019-08-05] MEDS: DOCUSATE SODIUM 100 MG CAP PO SCH (20:35)
[2019-08-05] MEDS: ACETAMINOPHEN TAB 650MG DOSE (2X325MG) PO PRN (20:35)
[2019-08-05] MEDS: FLUTICASONE PROP 0.05% NASAL SPRAY 16 GM (FLONASE) NARES SCH (20:35)
[2019-08-06 06:00] VITALS: BP 163/81
[2019-08-06 07:18] LABS: BASO % 0.4 % (0.0-1.0); EOS # 0.1 10^3/uL (0.0-0.5); HEMOGLOBIN 11.7 g/dl (12.0-15.5); LYMPH # 1.4 10^3/uL (1.5-5.0); LYMPH % 29.2 % (24.0-44.0); MEAN CORPUSCULAR HEMOGLOBIN 29.7 pg (27.0-33.0); MEAN CORPUSCULAR HGB CONC 32.5 g/dl (32.0-36.5); MEAN CORPUSCULAR VOLUME 91.4 fl (80.0-96.0); MONO # 0.7 10^3/uL (0.0-0.8); MONO % 13.8 % (0.0-5.0); NEUTROPHILS # 2.7 10^3/uL (1.5-8.5); NEUTROPHILS % 55.2 % (36.0-66.0); PLATELET COUNT, AUTOMATED 168 10^3/uL (150-450); RED BLOOD COUNT 3.94 10^6/uL (4.00-5.40); WHITE BLOOD COUNT 4.9 10^3/uL (4.0-10.0)
[2019-08-06] MEDS: IPRATROPIUM 0.5MG/ALBUTEROL 2.5MG INH SOL UD 3ML (DUONEB) NEB SCH ×3 (07:24→20:00)
[2019-08-06] MEDS: HumaLOG INSULIN (NovoLOG) PER UNIT SC SCH ×4 (07:30→21:00)
[2019-08-06 07:52] LABS: ALBUMIN 2.3 GM/DL (3.2-5.2); BILIRUBIN,TOTAL 1.1 MG/DL (0.2-1.0); CALCIUM LEVEL 8.4 MG/DL (8.8-10.2); CREATININE FOR GFR 1.25 MG/DL (0.55-1.30); GLOMERULAR FILTRATION RATE 44.4 (>39); POTASSIUM SERUM 3.8 MEQ/L (3.5-5.1); TOTAL PROTEIN 7.3 GM/DL (6.4-8.2)
[2019-08-06] MEDS: LANSOPRAZOLE SUSPENSION 30 MG/10 ML ORAL SYRINGE (FIRST-LANSOPRAZOLE) PO SCH ×2 (08:13→22:18)
[2019-08-06] MEDS: APIXABAN 5 MG TAB (ELIQUIS) PO SCH ×2 (08:13→22:19)
[2019-08-06] MEDS: VITAMIN D 1,000 INTERNATIONAL UNITS TABLET PO SCH (08:13)
[2019-08-06] MEDS: DOCUSATE SODIUM 100 MG CAP PO SCH ×2 (08:13→22:19)
[2019-08-06] MEDS: LACTOBACILLUS ACIDOPHILUS CAP (BACID) PO SCH ×4 (08:13→22:19)
[2019-08-06] MEDS: SIMVASTATIN 40 MG TAB PO SCH (08:13)
[2019-08-06] MEDS: MAGIC MOUTHWASH SUSPENSION BTL SSP SCH ×3 (08:14→18:32)
[2019-08-06] MEDS: FLUTICASONE PROP 0.05% NASAL SPRAY 16 GM (FLONASE) NARES SCH ×2 (08:14→22:19)
[2019-08-06] MEDS: REMEDY PHYTOPLEX Z-GUARD PASTE 113GM TUBE (FROM STOREROOM PRODUCT) TOP SCH ×3 (08:14→21:00)
[2019-08-06 14:00] VITALS: BP 152/74
--- NOTE | 2019-08-06 14:16 | HPEPDOC ---
User Support Analyst Note DATE OF ADMISSION: 08-05-19 DATE OF SERVICE: 08-06-19 TIME OF ADMISSION: Please refer to physician's admission order. SOURCE OF ADMISSION INFORMATION: [facility] record and patient CHIEF COMPLAINT: encephalopathy with functional tetraplegia HISTORY OF PRESENT ILLNESS: 78F pmh COPD, HLD, GERD who presented to [facility] ED on 07-22-19 with encephalopathy and found to have a sepsis due to pneumonia with CT showing, Left lower lobe infiltrate. She was started on IV antibiotics and also found to have ESBL E.coli urinary tract infection for which she was started on Meropenem. She developed REINA and was followed by renal with overall improvement and developed Afib with RVR for which she was given medications for rate control, but not started on anticoagulation due to her thrombocytopenia, but eventually discharged on Eliquis. She had profound generalized weakness with ataxia for which CTH which did not show acute infarct, but was positive for chronic lacunar infarcts with follow-up MRI and MRA negative. She developed dysphagia thought to be due to her metabolic encephalopathy since brain imaging did not seem to reveal any new infarcts. There was concern for possible GBS vs myasthenia gravis with MRI showing severe narrowing at the cervical level and moderate lumbar spinal stenosis. Her Lyme titers were found to be positive both for IgG and IgM. She was evaluated by therapy found to have significant impairments in mobility and ADLs and deemed medically appropriate for discharge to ARU on 08-05-19. REVIEW OF SYSTEMS: The following is a completed review of systems and has been reviewed. Review of systems otherwise unremarkable. PAIN: Patient self reports no pain EYES: No recent vision changes EARS, NOSE, & THROAT: +dysphagia, +dysarthria CARDIOVASCULAR: Denies chest pain or palpitations PULMONARY: Denies shortness of breath GASTROINTESTINAL: Denies constipation/diarrhea GENITOURINARY: denies dysuria MUSCULOSKELETAL: generalized weakness NEUROLOGICAL:+ generalized weakness HEMATOLOGICAL: denies easy bruising SKIN: no rash PSYCHIATRIC: Unremarkable All other review of systems found to be negative. PAST MEDICAL HISTORY: as per HPI PAST SURGICAL HISTORY: Bilat TKR, colpocleisis with sling ALLERGIES: Please see below. MEDICATIONS: Please see below. SOCIAL HISTORY: no smoking/etoh/illicit drugs DIET: puree and honey PHYSICAL EXAMINATION: VITAL SIGNS: Please see below. GENERAL: Pleasant and cooperative. No acute distress. HEENT: PERRL. Extraocular movements intact. Clear conjunctiva CARDIOVASCULAR: Regular rate and rhythm. No murmurs, rubs, or gallops LUNGS: Clear to auscultation bilaterally. No wheezes. No rhonchi ABDOMEN: Soft, nontender, nondistended. Positive bowel sounds. Normal active bowel sounds NEUROLOGICAL: Alert and oriented times three. Cranial nerves II through XII grossly intact. Sensation grossly intact +ataxia (-) babinksi bilat (+) dysarthria EXTREMITIES: 5\5 strength bilateral upper extremities. 4-\5 strength right lower extremity. 4-/5 strength in left lower extremity. SKIN: intact LABORATORY DATA: Please see below. 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 Rehab- PT/OT- advance gait and ADLs, stretch/strengthen/maintain ROM all 4 limbs -[employer]GL[employer] TE[employer]ER- swallow eval, c/u puree and honey 2. 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 Resp- s/p treatment for PNA, Duonebs, encourage incentive spirometry 5. Endo- on ISS for hx of DM? 6. GI ppx- lanzaprazole 7. DVT ppx- on eliquis, teds 8. Pain- tylenol prn 9. Dispo- tbd POST ADMISSION PHYSICIAN EVALUATION: Medical and functional status: Description of medical status, medical assessment: As above. Rehabilitation diagnosis and current and prior cold morbid medical conditions as above. Risk of complications and plans to mitigate them as above. Description of functional status current status is as above. Prior status as above. Status compared to preadmission: There are no clinically significant differences between the patient's current status and the information described on the preadm ission screening document. Treatment plan anticipated: Treatment plan is as described above. Required disciplines including physical therapy, occupational therapy, others as noted above. Intensity of services: 3 hours a day, 6 days a week. Special considerations: There are no specific special or safety considerations that would likely preclude immediate implementation of an intensive rehabilitation program or subsequently influence the plan of care. ATTESTATION: Considering all the information above, it is my best judgment that this patient requires intensive rehabilitation therapy as described above and an inpatient hospital environment due to the complexity of nursing, medical, and rehabilitation needs required by the patient. Furthermore, this patient can reasonably be expected to participate in an benefit from an inpatient rehabilitation stay with an interdisciplinary team approach to the delivery of rehabilitation care under the direction and supervision of rehabilitation physician. PROGNOSIS: good ESTIMATED LENGTH OF STAY: 18-21 days. PROJECTED DISCHARGE DESTINATION: Home with family support and any durable medical equipment required to increase functional safety and mobility. TIME SPENT COUNSELING AND COORDINATING INITIAL CARE: Greater than 70 minutes. Vital Signs Vital Sign - Last 24 Hours 08/05/19 08/05/19 08/06/19 16:35 20:00 06:00 Temp 97.8 97.7 96.5 Pulse 82 81 88 Resp 18 18 18 B/P (MAP) 147/74 (98) 148/77 (100) 163/81 (108) Pulse Ox 98 98 98 O2 Delivery Room Air Room Air Room Air Laboratory Data CBC/BMP Laboratory Tests 08/06/19 07:02 Labs 24H Laboratory Tests 2 08/05/19 17:21: Bedside Glucose (Misc Panel) 86 08/05/19 19:43: Bedside Glucose (Misc Panel) 96 08/06/19 06:20: Bedside Glucose (Misc Panel) 86 08/06/19 07:02: Immature Granulocyte % (Auto) 0.4, Neutrophils (%) (Auto) 55.2, Lymphocytes (%) (Auto) 29.2, Monocytes (%) (Auto) 13.8H, Eosinophils (%) (Auto) 1.0, Basophils (%) (Auto) 0.4, Neutrophils # (Auto) 2.7, Lymphocytes # (Auto) 1.4L, Monocytes # (Auto) 0.7, Eosinophils # (Auto) 0.1, Basophils # (Auto) 0.0, Nucleated Red Blood Cells % (auto) 0.0, Anion Gap 5L, Glomerular Filtration Rate 44.4, Calcium Level 8.4L, Total Bilirubin 1.1H, Aspartate Amino Transf (AST/SGOT) 24, Alanine Aminotransferase (ALT/SGPT) 21, Alkaline Phosphatase 100, Total Protein 7.3, Albumin 2.3L, Albumin/Globulin Ratio 0.5L 08/06/19 11:50: Bedside Glucose (Misc Panel) 76L FSBS Laboratory Tests Test 08/05/19 17:21 08/05/19 19:43 08/06/19 06:20 08/06/19 11:50 Range/Units Bedside Glucose (Misc Panel) 86 96 86 76 83-110 MG/DL Home Medications Scheduled Apixaban (Eliquis) 5 Mg Tablet, 5 MG PO BID Cholecalciferol (Vitamin D3) (Vitamin D3) 1,000 Unit Tablet, 1,000 UNITS PO DAILY, (Reported) L.acidoph/L.bulg/B.bif/S.therm (Jewels-Bid Caplet) 1 Each Tablet, 1 EA PO [facility] [place]-3/Dha/Epa/Fish Oil (Fish Oil EC 1,000 mg Softgel) 1 Cap Cap, 1,000 MG PO DAILY, (Reported) Omeprazole (Omeprazole) 20 Mg Cap, 20 MG PO DAILY, (Reported) Simvastatin (Simvastatin) 40 Mg Tab, 40 MG PO DAILY, (Reported) Vit A/Vit C/Vit E/Zinc/Copper (Preservision Areds Softgel) 1 Cap Cap, 1 CAP PO DAILY, (Reported) Scheduled PRN Fluticasone Propionate (Fluticasone Propionate) 16 Gm [place].susp, 2 SPRAY NA DAILY PRN for ALLERGIES, (Reported) Meclizine HCl (Meclizine HCl) 25 Mg Tab, 25 MG PO BID PRN for VERTIGO/DIZZINESS, (Reported) Allergies Coded Allergies: No Known Allergies (Unverified , 07/22/19) A-FIB/CHADSVASC A-FIB History Current/History of A-Fib/PAF?: Yes Current PO Anticoag Therapy: Yes JEOVANNY STOREY MD Aug 06, 2019 14:16
--- NOTE | 2019-08-06 14:46 | IPNPDOC ---
Text Note Date of Service The patient was seen on 08/06/19. NOTE The patient continues to have some slurred speech, but much more understandable. She is appropriate with her answers. She has no receptive aphasia. Complains of difficulty getting up requiring 2 person assistance with getting up, still refusing lumbar puncture this morning despite recommendation from neurology for completeness. Magnetic Resonance Imaging (MRI) of the lumbosacral spine negative for acute issues. Cervical spine shows severe narrowing of the spinal canal. No evidence of ligamentous injury. No abnormal marrow or cord signal is present with exception of a 2T hemangioma. The patient continues to be cooperative with physical therapy, still on a dysphagia diet, still with dysphagia to solids, fiberoptic swallow evaluation, being worked up for myasthen ia gravis, still refusing lumbar puncture. Electroencephalogram (EEG) negative, Magnetic Resonance Imaging (MRI) of the brain negative times two. General: Awake, alert, and oriented to person and place. Answering questions, but with slowed speech and slurred. No jugular venous distension (JVD) or thyromegaly. No cervical lymphadenopathy. Lungs are diminished, but clear to auscultation. No wheezing or rales. Heart: S1, S2, regular. Abdomen: Obese, soft, nontender. Extremities: No cyanosis or clubbing. LABORATORY DATA: Reviewed. ASSESSMENT AND PLAN: This is a 78-year-old female admitted due to altered mental status being found unresponsive on 07/22/2019, was found to have a [place] coma scale of 9. CT of head, Magnetic Resonance Imaging (MRI) of the brain were negative for acute cerebrovascular accident (CVA). Electrocardiogram (EKG)showed underlying atrial fibrillation. She was started on Eliquis and treated for left lower lobe along with extended spectrum beta-lactamase (ESBL) urinary Levaquin. The patient had completed antibiotics, no fever, no white count. She had a presenting creatinine of 4 with acute kidney injury, which responded to IV fluid hydration. Managed by nephrology. Both cardiology and nephrology have since signed off. The patient continued to have dysphagia and gait abnormality. Evaluated with repeat Magnetic Resonance Imaging (MRI) on 07/30/2019, which was negative for cerebrovascular accident (CVA). Magnetic Resonance Imaging (MRI) of Resonance Imaging (MRI) of the cervical spine has no cord edema. The patient is refusing lumbar puncture. CURRENT ISSUES: 1. Left lower lobe pneumonia.: Completed, then divided course 2 Urinary tract infection with extended spectrum beta-lactamase (ESBL).: Completed secondary course 3. Acute encephalopathy with cognitive impairment dysphagia and ataxia being worked up for myasthenia gravis refusing lumbar puncture. Magnetic Resonance Imaging (MRI) of the cervical lumbar spine and brain have no acute abnormalities. Refusing LP. Currently working with PT, OT. 4. New onset atrial fibrillation, started on Eliquis. Rate controlled. 5. Acute nonoliguric renal failure has resolved. We'll continue monitoring his renal function 6 Dysphagia, rule out myasthenia gravis versus Guillain-Desmet versus Eaton- Lambert syndrome. The patient refused lumbar puncture. Outpatient neurology. We'll follow up in PT, OT at this time. Neurology has already seen the patient. 7. Hypernatremia due to dysphagia, resolved, due to inadequate oral intake. Continue monitoring . Continue PT, OT VS,Fishbone, I+O VS, Fishbone, I+O Laboratory Tests 08/06/19 07:02 Vital Signs Date Time Temp Pulse Resp B/P (MAP) Pulse Ox O2 Delivery O2 Flow Rate FiO2 08/06/19 14:00 96.7 83 19 152/74 (100) 99 Room Air I&O- Last 24 Hours up to 6 AM 08/06/19 06:00 Intake Total 240 ml Balance 240 ml GME ATTESTATION GME ATTESTATION My faculty preceptor for this patient encounter was physically present during the encounter and was fully available. All aspects of the patient interview, examination, medical decision making process, and medical care plan development were reviewed and approved by the faculty preceptor. The faculty preceptor is aware and concurs with the plan as stated in the body of this note and will attest to such by his/her cosignature. ATTENDING NOTE PT WAS SEEN AND EXAMINED BY ME, AGREE WITH THE ABOVE ASSESSMENT AND PLAN. SEAN VALDEZ MD Aug 06, 2019 14:46
[2019-08-06] MEDS: cefTRIAXone SOD 2 GM in D5W MINI-BAG PLUS 50 ML IV SCH (18:32)
--- NOTE | 2019-08-06 19:29 | CR ---
DATE OF CONSULTATION: 08/06/2019 INFECTIOUS DISEASE CONSULTATION Asked to consult by Dr. Post for evaluation of positive Lyme serology with encephalitis. HISTORY OF PRESENT ILLNESS: Mrs. Briscoe is a 78-year-old female who is usually pretty healthy, presented to the emergency room on July 16 with what was reported to be a viral illness. The patient was discharged home and was readmitted on 07/22/2019 with mental status changes, acute kidney injury and was diagnosed with an extended-spectrum beta-lactamase (ESBL) Escherichia (E) coli urinary tract infection and possibility of pneumonia. The patient was noted to be in acute renal failure with a creatinine of 4.7 on 07/22/2019. She was febrile up to 103, and her white count was 3.3 to 2.8. The patient also was noted to be thrombocytopenic with a platelet count of 22,000. She had a Lyme serology done on 08/02/2019, which did not come back until today and Lyme serology was found to be positive by Western blot. She had 7 out of 10 IgG bands and 2 out of 3 IgM bands. SUSAN anticardiolipin antibodies, complement levels were all within normal. She was given intravenous (IV) fluid and was treated with broad-spectrum antibiotic. Initially she received one dose of IV Rocephin on 07/23/2019 followed by meropenem on 07/24/2019 to 07/31/2019 to treat for E-coli ESBL in the urine and pneumonia. She also received two days of levofloxacin. She has been off antibiotics since 08/01/2019. Her kidney function has improved. The patient is alert, oriented, but has difficulty with speech due to dysarthria and dysphagia and has been on thickened liquids. PAST MEDICAL HISTORY: Significant for gastroesophageal reflux disease, hyperlipidemia, chronic obstructive pulmonary disease (COPD), osteoarthritis. PAST SURGICAL HISTORY: Bilateral total knee replacement, colpocleisis with sling for bladder prolapse. DIET: Puree and honey. SOCIAL HISTORY: She does not smoke, drink or use illicit drugs. She lives with her . She has been bit by multiple ticks; she is outdoors. PHYSICAL EXAMINATION: On physical exam, she is a healthy looking female in no acute distress, but seems frustrated due to difficulty with speech, wants ice. HEENT: Pupils equal and reactive. Extraocular muscles intact. Cranial nerves seem to be intact. She opens her eyes. She sticks her tongue midline. Cardiovascular: Normal S1, S2. No murmurs, rubs or gallops. Lungs are clear. No wheezes, rales or rhonchi. Abdomen: Obese, soft, nontender. No hepatosplenomegaly. Extremities: No clubbing, cyanosis or edema. Cranial nerves seem to be intact except for dysarthria and dysphagia. She is ataxic according to Dr. Clark. Negative bilateral Babinski. Extremities: Upper extremity 5/5 bilaterally and lower extremity 5- bilaterally. Musculoskeletal Exam: No costovertebral angle (CVA) or lumbosacral tenderness. Normal range of motion of both knees with bilateral total knee replacement scars. LABORATORY DATA: White count 4.9, hemoglobin 11.7, hematocrit 36, platelets 168, 55% neutrophils, 29% lymphocytes, 13% monocytes. Sodium 144, potassium 3.8, chloride 111, bicarbonate 22, BUN 24, creatinine 1.25, glucose 83, calcium 8.4, bilirubin 1.1, AST 24, ALT 21, alkaline phosphatase 100, CRP 1.13, total protein 7.3, albumin 2.3. CRP was 42.5 on 07/22/2019. Urine culture on 07/22/2019 had E-coli ESBL. Blood culture one out of two had Bacillus not Anthracis. COVID-19 was negative. Respiratory panel was negative. Blood cultures on 07/23/2019, two sets, were negative. Stool hemoccult blood was negative times two and stool lactoferrin was positive. IMAGING: Cervical and lumbar MRI shows narrowing of the spinal canal with no focal disc herniations cervical spine. Lumbar MRI shows mottled decrease signal throughout the vertebrae consistent with chronic anemia or myeloproliferative disease, moderate spinal canal stenosis at L3, L4, L5. Brain MRI done on 07/30/2019 shows multiple foci of T2 lengthening in the subcortical and centrum semiovale consistent with age related gliosis, age related parenchymal atrophy. This was done without contrast due to acute kidney injury. Esophageal x-ray: There was noted to be laryngeal penetration with honey and barium. CT abdomen and pelvis done on 07/22/2019 shows left lower lobe infiltrate with large hiatus hernia and small gallstones in the gallbladder, and a fibroid in the uterus. IMPRESSION: This is a 78-year-old female who was admitted with acute kidney injury, creatinine of 4.7, dehydration, probably related to dysphagia and dysarthria. The patient was treated for an ESBL E-coli urinary tract infection and pneumonia with a combination of one dose of Rocephin, 7 days of meropenem, and 1 day of levofloxacin with some improvement. The patient is transferred to acute rehab for further rehabilitation regarding her ataxia and dysarthria. 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 She still has positive Lyme IgM, as well as IgG bands. She will be receiving IV ceftriaxone for a total of 4 weeks. PLAN: Start IV Rocephin 2 grams every 24 hours daily for a total of 4 weeks. If the patient has difficulty with IV access, a midline could be placed. Lumbar puncture has been offered prior to rule out Guillain-Ulysses syndrome, but family had refused. I do not think that this will make a difference in terms of her management at this time. Start probiotics to decrease the risk of Clostridium difficile. Thank you for the consultation.
[2019-08-06 20:00] VITALS: BP 159/87
[2019-08-06] MEDS: ARIPiprazole 2 MG TAB PO SCH (21:00)
[2019-08-06] MEDS: SENNA 8.6 MG TAB (SENOKOT) PO SCH (22:19)
[2019-08-06] MEDS: ACETAMINOPHEN TAB 650MG DOSE (2X325MG) PO PRN (22:19)
[2019-08-07] MEDS ORDERED: SLF 3 ML SYR IV PRN (00:45)
[2019-08-07 06:00] VITALS: BP 136/65
[2019-08-07] MEDS: SLF 3 ML SYR IV SCH ×3 (06:26→21:24)
[2019-08-07 06:43] LABS: BASO % 0.5 % (0.0-1.0); EOS # 0.1 10^3/uL (0.0-0.5); EOS % 1.8 % (0.0-3.0); HEMATOCRIT 33.8 % (36.0-47.0); HEMOGLOBIN 11.1 g/dl (12.0-15.5); LYMPH # 1.7 10^3/uL (1.5-5.0); LYMPH % 38.7 % (24.0-44.0); MEAN CORPUSCULAR HEMOGLOBIN 29.6 pg (27.0-33.0); MEAN CORPUSCULAR HGB CONC 32.8 g/dl (32.0-36.5); MEAN CORPUSCULAR VOLUME 90.1 fl (80.0-96.0); MONO # 0.6 10^3/uL (0.0-0.8); MONO % 14.4 % (0.0-5.0); NEUTROPHILS % 44.4 % (36.0-66.0); PLATELET COUNT, AUTOMATED 152 10^3/uL (150-450); RED BLOOD COUNT 3.75 10^6/uL (4.00-5.40); WHITE BLOOD COUNT 4.4 10^3/uL (4.0-10.0)
[2019-08-07 07:13] LABS: CALCIUM LEVEL 8.5 MG/DL (8.8-10.2); CREATININE FOR GFR 1.2 MG/DL (0.55-1.30); GLOMERULAR FILTRATION RATE 46.5 (>39); POTASSIUM SERUM 3.6 MEQ/L (3.5-5.1)
[2019-08-07] MEDS: HumaLOG INSULIN (NovoLOG) PER UNIT SC SCH (07:30)
[2019-08-07] MEDS: IPRATROPIUM 0.5MG/ALBUTEROL 2.5MG INH SOL UD 3ML (DUONEB) NEB SCH ×3 (07:34→19:17)
[2019-08-07] MEDS: FLUTICASONE PROP 0.05% NASAL SPRAY 16 GM (FLONASE) NARES SCH ×2 (09:21→21:23)
[2019-08-07] MEDS: FLUoxetine 20 MG CAP PO SCH (09:21)
[2019-08-07] MEDS: VITAMIN D 1,000 INTERNATIONAL UNITS TABLET PO SCH (09:21)
[2019-08-07] MEDS: APIXABAN 5 MG TAB (ELIQUIS) PO SCH ×2 (09:21→21:22)
[2019-08-07] MEDS: LACTOBACILLUS ACIDOPHILUS CAP (BACID) PO SCH ×4 (09:21→21:23)
[2019-08-07] MEDS: SIMVASTATIN 40 MG TAB PO SCH (09:21)
[2019-08-07] MEDS: LANSOPRAZOLE SUSPENSION 30 MG/10 ML ORAL SYRINGE (FIRST-LANSOPRAZOLE) PO SCH ×2 (09:21→21:23)
[2019-08-07] MEDS: DOCUSATE SODIUM 100 MG CAP PO SCH ×2 (09:21→21:22)
[2019-08-07] MEDS: MAGIC MOUTHWASH SUSPENSION BTL SSP SCH ×3 (09:22→16:44)
[2019-08-07] MEDS: REMEDY PHYTOPLEX Z-GUARD PASTE 113GM TUBE (FROM STOREROOM PRODUCT) TOP SCH ×3 (09:22→21:23)
--- NOTE | 2019-08-07 13:53 | IPNPDOC ---
PM&R Progress Note DATE OF SERVICE: Aug 07, 2019 Multi Media Specialist Progress Note Subjective: Patient reprots she is tired but does not want a sleep aid and states her tongue is less dry since starting ice chips. REVIEW OF SYSTEMS: The following is a completed review of systems and has been reviewed. Review of systems otherwise unremarkable. PAIN: Patient self reports no pain EYES: No recent vision changes EARS, NOSE, & THROAT: +dysphagia, +dysarthria CARDIOVASCULAR: Denies chest pain or palpitations PULMONARY: Denies shortness of breath GASTROINTESTINAL: Denies constipation/diarrhea GENITOURINARY: denies dysuria MUSCULOSKELETAL: generalized weakness NEUROLOGICAL:+ generalized weakness HEMATOLOGICAL: denies easy bruising SKIN: no rash PSYCHIATRIC: Unremarkable All other review of systems found to be negative. PHYSICAL EXAMINATION: VITAL SIGNS: Please see below. GENERAL: Pleasant and cooperative. No acute distress. HEENT: PERRL. Extraocular movements intact. Clear conjunctiva CARDIOVASCULAR: Regular rate and rhythm. No murmurs, rubs, or gallops LUNGS: Clear to auscultation bilaterally. No wheezes. No rhonchi ABDOMEN: Soft, nontender, nondistended. Positive bowel sounds. Normal active bowel sounds NEUROLOGICAL: Alert and oriented times three. Cranial nerves II through XII grossly intact. Sensation grossly intact +ataxia (-) babinksi bilat (+) dysarthria EXTREMITIES: 5\5 strength bilateral upper extremities. 4-\5 strength right lower extremity. 4-/5 strength in left lower extremity. SKIN: intact LABORATORY DATA: Please see below. 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 Resp- s/p treatment for PNA, Duonebs, encourage incentive spirometry 5. Endo- FS well controlled, not clear she has DM, will d/c ISS 6. GI ppx- lanzaprazole 7. DVT ppx- on eliquis, teds 8. Pain- tylenol prn 9. Psych- patient tearful, will start prozac to help with possible motor recovery with her new neuro deficits 10. Dispo- tbd Allergies Coded Allergies: No Known Allergies (Unverified , 07/22/19) Vital Signs Vital Signs Date Time Temp Pulse Resp B/P (MAP) Pulse Ox O2 Delivery O2 Flow Rate FiO2 08/07/19 06:00 96.6 74 18 136/65 (88) 95 Room Air Laboratory Data CBC/BMP Laboratory Tests 08/07/19 06:21 Labs 24H Laboratory Tests 2 08/06/19 16:52: Bedside Glucose (Misc Panel) 88 08/06/19 22:06: Bedside Glucose (Misc Panel) 92 08/07/19 06:21: Immature Granulocyte % (Auto) 0.2, Neutrophils (%) (Auto) 44.4, Lymphocytes (%) (Auto) 38.7, Monocytes (%) (Auto) 14.4H, Eosinophils (%) (Auto) 1.8, Basophils (%) (Auto) 0.5, Neutrophils # (Auto) 2.0, Lymphocytes # (Auto) 1.7, Monocytes # (Auto) 0.6, Eosinophils # (Auto) 0.1, Basophils # (Auto) 0.0, Nucleated Red Blood Cells % (auto) 0.0, Anion Gap 7L, Glomerular Filtration Rate 46.5, Calcium Level 8.5L 08/07/19 06:32: Bedside Glucose (Misc Panel) 83 Current Medications Current Medications Current Medications Medications (Trade) Dose Ordered Sig/Jovanna Route PRN Reason Start Time Stop Time Status Last Admin Dose Admin Acetaminophen (Tylenol Tab) 650 mg Q4HP PRN PO fever/MILD PAIN (PS 1-4) 08/05/19 16:30 08/06/19 22:19 Albuterol/ Ipratropium (Duoneb (Ipr 0.5mg/Alb 2.5mg)) 3 ml RTID NEB 08/05/19 20:00 08/07/19 07:34 Apixaban (Eliquis) 5 mg BID PO 08/05/19 21:00 08/07/19 09:21 Aripiprazole (AbiLIFY) 2 mg QHS PO 08/05/19 21:00 08/06/19 21:00 Ceftriaxone Sodium 2 gm/ Dextrose 50 ml @ 100 mls/hr Q24H IV 08/06/19 16:00 08/06/19 18:32 Dextrose (Dextrose 50%) 25 ml ASDIRECTED PRN IV SEE LABEL COMMENTS 08/05/19 16:30 08/07/19 10:25 DC Docusate Sodium (Colace) 100 mg BID PO 08/05/19 21:00 08/07/19 09:21 Fluoxetine HCl (PROzac) 20 mg DAILY PO 08/07/19 09:00 08/07/19 09:21 Fluticasone Propionate (Flonase 0.05% Nasal [place]) 1 spray BID NARES 08/05/19 21:00 08/07/19 09:21 Glucagon (Glucagon) 1 mg ASDIRECTED PRN SC SEE LABEL COMMENTS 08/05/19 16:30 08/07/19 10:25 DC Glucose (Glucose) 16 GM ASDIRECTED PRN PO SEE LABEL COMMENTS 08/05/19 16:30 08/07/19 10:25 DC Insulin Human Lispro (HumaLOG INSULIN) SEE PROTOCOL TABLE AC SC 08/05/19 17:30 08/07/19 10:25 DC Insulin Human Lispro (HumaLOG INSULIN) SEE PROTOCOL TABLE QHS SC 08/05/19 21:00 08/07/19 10:25 DC Lactobacillus Acidophilus (Bacid) 1 ea WMHS PO 08/05/19 18:00 08/07/19 12:28 Lansoprazole (First-Lansoprazole Oral Suspension) 30 mg BID PO 08/05/19 21:00 08/07/19 09:21 Lidocaine/ Diphenhydr/Alum/ Mg/Simeth (Magic Mouthwash) 5ML, ok to give ice chips O... AC SSP 08/05/19 17:30 08/07/19 12:28 Meclizine HCl (Antivert) 25 mg Q8HP PRN PO DIZZINESS 08/05/19 16:30 Senna (Senokot) 1 tab QHS PO 08/05/19 21:00 08/06/19 22:19 Simvastatin (Zocor) 40 mg DAILY PO 08/06/19 09:00 08/07/19 09:21 Sodium Chloride (Saline Lock Flush) 2 ml ASDIRECTED PRN IV SEE LABEL COMMENTS 08/07/19 00:45 Sodium Chloride (Saline Lock Flush) 2 ml SLF IV 08/07/19 06:00 08/07/19 06:26 Vitamin D (Vitamin D) 1,000 units DAILY PO 08/06/19 09:00 08/07/19 09:21 JEOVANNY STOREY MD Aug 07, 2019 13:53
[2019-08-07 14:00] VITALS: BP 142/69
[2019-08-07] MEDS: cefTRIAXone SOD 2 GM in D5W MINI-BAG PLUS 50 ML IV SCH (15:04)
[2019-08-07 20:00] VITALS: BP 107/54
[2019-08-07] MEDS: ARIPiprazole 2 MG TAB PO SCH (21:22)
[2019-08-07] MEDS: SENNA 8.6 MG TAB (SENOKOT) PO SCH (21:23)
[2019-08-08 05:59] VITALS: BP 109/61
[2019-08-08] MEDS: SLF 3 ML SYR IV SCH ×3 (06:07→22:51)
[2019-08-08] MEDS: IPRATROPIUM 0.5MG/ALBUTEROL 2.5MG INH SOL UD 3ML (DUONEB) NEB SCH ×3 (07:43→19:37)
[2019-08-08] MEDS: DOCUSATE SODIUM 100 MG CAP PO SCH ×2 (08:27→22:49)
[2019-08-08] MEDS: MAGIC MOUTHWASH SUSPENSION BTL SSP SCH ×3 (08:27→16:55)
[2019-08-08] MEDS: APIXABAN 5 MG TAB (ELIQUIS) PO SCH ×2 (08:27→22:50)
[2019-08-08] MEDS: LACTOBACILLUS ACIDOPHILUS CAP (BACID) PO SCH ×4 (08:28→22:49)
[2019-08-08] MEDS: REMEDY PHYTOPLEX Z-GUARD PASTE 113GM TUBE (FROM STOREROOM PRODUCT) TOP SCH ×3 (08:28→22:50)
[2019-08-08] MEDS: SIMVASTATIN 40 MG TAB PO SCH (08:28)
[2019-08-08] MEDS: VITAMIN D 1,000 INTERNATIONAL UNITS TABLET PO SCH (08:28)
[2019-08-08] MEDS: FLUoxetine 20 MG CAP PO SCH (08:28)
[2019-08-08] MEDS: LANSOPRAZOLE SUSPENSION 30 MG/10 ML ORAL SYRINGE (FIRST-LANSOPRAZOLE) PO SCH ×2 (08:28→22:50)
[2019-08-08] MEDS: FLUTICASONE PROP 0.05% NASAL SPRAY 16 GM (FLONASE) NARES SCH ×2 (08:28→22:51)
--- NOTE | 2019-08-08 10:55 | IPNPDOC ---
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 She denies pain, fevers, or chills. REVIEW OF SYSTEMS: The following is a completed review of systems and has been reviewed. Review of systems otherwise unremarkable. PAIN: Patient self reports no pain EYES: No recent vision changes EARS, NOSE, & THROAT: +dysphagia, +dysarthria CARDIOVASCULAR: Denies chest pain or palpitations PULMONARY: Denies shortness of breath GASTROINTESTINAL: Denies constipation/diarrhea GENITOURINARY: denies dysuria MUSCULOSKELETAL: generalized weakness NEUROLOGICAL:+ generalized weakness HEMATOLOGICAL: denies easy bruising SKIN: no rash PSYCHIATRIC: Unremarkable All other review of systems found to be negative. PHYSICAL EXAMINATION: VITAL SIGNS: Please see below. GENERAL: Pleasant and cooperative. No acute distress. HEENT: PERRL. Extraocular movements intact. Clear conjunctiva CARDIOVASCULAR: Regular rate and rhythm. No murmurs, rubs, or gallops LUNGS: Clear to auscultation bilaterally. No wheezes. No rhonchi ABDOMEN: Soft, nontender, nondistended. Positive bowel sounds. Normal active bowel sounds NEUROLOGICAL: Alert and oriented times three. Cranial nerves II through XII grossly intact. Sensation grossly intact +ataxia (-) babinksi bilat (+) dysarthria EXTREMITIES: 5\5 strength bilateral upper extremities. 4-\5 strength right lower extremity. 4-/5 strength in left lower extremity. 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 Cardiac- new onset Afib likely due to lyme, c/u eliquis, consider beta-bl ocker if needed -HLD c/u statin 4. Resp- s/p treatment for PNA, Duonebs, encourage incentive spirometry 5. Endo- FS well controlled, not clear she has DM, d/c'd ISS 6. GI ppx- lanzaprazole 7. DVT ppx- on eliquis, teds 8. Pain- tylenol prn 9. Psych- c/u prozac to help with possible motor recovery with her new neuro deficits 10. Dispo- tbd Allergies Coded Allergies: No Known Allergies (Unverified , 07/22/19) Vital Signs Vital Signs Date Time Temp Pulse Resp B/P (MAP) Pulse Ox O2 Delivery O2 Flow Rate FiO2 08/08/19 05:59 97.4 78 17 109/61 (77) 93 Room Air Current Medications Current Medications Current Medications Medications (Trade) Dose Ordered Sig/Jovanna Route PRN Reason Start Time Stop Time Status Last Admin Dose Admin Acetaminophen (Tylenol Tab) 650 mg Q4HP PRN PO fever/MILD PAIN (PS 1-4) 08/05/19 16:30 08/06/19 22:19 Albuterol/ Ipratropium (Duoneb (Ipr 0.5mg/Alb 2.5mg)) 3 ml RTID NEB 08/05/19 20:00 08/08/19 07:43 Apixaban (Eliquis) 5 mg BID PO 08/05/19 21:00 08/08/19 08:27 Aripiprazole (AbiLIFY) 2 mg QHS PO 08/05/19 21:00 08/07/19 21:22 Ceftriaxone Sodium 2 gm/ Dextrose 50 ml @ 100 mls/hr Q24H IV 08/06/19 16:00 08/07/19 15:04 Dextrose (Dextrose 50%) 25 ml ASDIRECTED PRN IV SEE LABEL COMMENTS 08/05/19 16:30 08/07/19 10:25 DC Docusate Sodium (Colace) 100 mg BID PO 08/05/19 21:00 08/08/19 08:27 Fluoxetine HCl (PROzac) 20 mg DAILY PO 08/07/19 09:00 08/08/19 08:28 Fluticasone Propionate (Flonase 0.05% Nasal [place]) 1 spray BID NARES 08/05/19 21:00 08/08/19 08:28 Glucagon (Glucagon) 1 mg ASDIRECTED PRN SC SEE LABEL COMMENTS 08/05/19 16:30 08/07/19 10:25 DC Glucose (Glucose) 16 GM ASDIRECTED PRN PO SEE LABEL COMMENTS 08/05/19 16:30 08/07/19 10:25 DC Insulin Human Lispro (HumaLOG INSULIN) SEE PROTOCOL TABLE AC SC 08/05/19 17:30 08/07/19 10:25 DC Insulin Human Lispro (HumaLOG INSULIN) SEE PROTOCOL TABLE QHS SC 08/05/19 21:00 08/07/19 10:25 DC Lactobacillus Acidophilus (Bacid) 1 ea WMHS PO 08/05/19 18:00 08/08/19 08:28 Lansoprazole (First-Lansoprazole Oral Suspension) 30 mg BID PO 08/05/19 21:00 08/08/19 08:28 Lidocaine/ Diphenhydr/Alum/ Mg/Simeth (Magic Mouthwash) 5ML, ok to give ice chips O... AC SSP 08/05/19 17:30 08/08/19 08:27 Meclizine HCl (Antivert) 25 mg Q8HP PRN PO DIZZINESS 08/05/19 16:30 Senna (Senokot) 1 tab QHS PO 08/05/19 21:00 08/07/19 21:23 Simvastatin (Zocor) 40 mg DAILY PO 08/06/19 09:00 08/08/19 08:28 Sodium Chloride (Saline Lock Flush) 2 ml ASDIRECTED PRN IV SEE LABEL COMMENTS 08/07/19 00:45 Sodium Chloride (Saline Lock Flush) 2 ml SLF IV 08/07/19 06:00 08/08/19 06:07 Vitamin D (Vitamin D) 1,000 units DAILY PO 08/06/19 09:00 08/08/19 08:28 JEOVANNY STOREY MD Aug 08, 2019 10:55
[2019-08-08] MEDS ORDERED: VARIBAR NECTAR 40% w/v 240ML SUSP BTL As Ordered ONE (11:31)
[2019-08-08] MEDS ORDERED: VARIBAR PUDDING 40% w/v 230ML TUBE As Ordered ONE (11:31)
[2019-08-08] MEDS ORDERED: E-Z-PAQUE 96% w/w SUSP 176GM BTL As Ordered ONE (11:31)
[2019-08-08 14:00] VITALS: BP 138/67
[2019-08-08] MEDS: cefTRIAXone SOD 2 GM in D5W MINI-BAG PLUS 50 ML IV SCH (15:38)
--- NOTE | 2019-08-08 17:15 | REP ---
COOKIE SWALLOW The procedure was performed under the direct supervision of Dr. Olmedo. The procedure was performed with Ayah Kilpatrick from speech pathology present. 5 ml aliquots of honey, nectar, pudding, thin, soft and mixed fruit consistency barium was administered. With honey and thin consistency barium there is laryngeal penetration. With nectar consistency barium there is aspiration. A detailed report of this examination will be provided by speech pathology. 2.6 minutes of fluoroscopy time was utilized for this procedure. Electronically Signed by STEPHANI Sequeira 08/08/2019 03:33 P Electronically Signed by Facundo Olmedo MD 08/08/2019 05:07 P
[2019-08-08 17:32] LABS: C REACTIVE PROTEIN QUANTITATIV 5.06 MG/DL (0.00-0.30)
[2019-08-08 20:00] VITALS: BP 119/71
[2019-08-08] MEDS: SENNA 8.6 MG TAB (SENOKOT) PO SCH (21:00)
[2019-08-08] MEDS: ARIPiprazole 2 MG TAB PO SCH (22:49)
[2019-08-09] MEDS: SLF 3 ML SYR IV SCH ×3 (05:52→22:25)
[2019-08-09 06:00] VITALS: BP 126/52
[2019-08-09] MEDS: IPRATROPIUM 0.5MG/ALBUTEROL 2.5MG INH SOL UD 3ML (DUONEB) NEB SCH ×3 (07:18→19:14)
[2019-08-09] MEDS: MAGIC MOUTHWASH SUSPENSION BTL SSP SCH ×3 (07:30→16:57)
[2019-08-09 08:26] LABS: BASO % 0.7 % (0.0-1.0); EOS # 0.1 10^3/uL (0.0-0.5); HEMATOCRIT 38.7 % (36.0-47.0); HEMOGLOBIN 12.5 g/dl (12.0-15.5); LYMPH # 1.3 10^3/uL (1.5-5.0); LYMPH % 32.6 % (24.0-44.0); MEAN CORPUSCULAR HEMOGLOBIN 29.8 pg (27.0-33.0); MEAN CORPUSCULAR HGB CONC 32.3 g/dl (32.0-36.5); MEAN CORPUSCULAR VOLUME 92.1 fl (80.0-96.0); MONO # 0.5 10^3/uL (0.0-0.8); MONO % 11.8 % (0.0-5.0); NEUTROPHILS # 2.1 10^3/uL (1.5-8.5); NEUTROPHILS % 52.4 % (36.0-66.0); PLATELET COUNT, AUTOMATED 177 10^3/uL (150-450); WHITE BLOOD COUNT 4.1 10^3/uL (4.0-10.0)
[2019-08-09 08:44] LABS: CALCIUM LEVEL 8.9 MG/DL (8.8-10.2); CREATININE FOR GFR 1.35 MG/DL (0.55-1.30); GLOMERULAR FILTRATION RATE 40.6 (>39); POTASSIUM SERUM 4.2 MEQ/L (3.5-5.1)
[2019-08-09] MEDS: DOCUSATE SODIUM 100 MG CAP PO SCH ×2 (09:00→21:00)
[2019-08-09] MEDS: REMEDY PHYTOPLEX Z-GUARD PASTE 113GM TUBE (FROM STOREROOM PRODUCT) TOP SCH ×3 (09:00→22:24)
[2019-08-09] MEDS: FLUTICASONE PROP 0.05% NASAL SPRAY 16 GM (FLONASE) NARES SCH ×2 (09:05→22:24)
[2019-08-09] MEDS: LANSOPRAZOLE SUSPENSION 30 MG/10 ML ORAL SYRINGE (FIRST-LANSOPRAZOLE) PO SCH ×2 (09:05→22:24)
[2019-08-09] MEDS: LACTOBACILLUS ACIDOPHILUS CAP (BACID) PO SCH ×4 (09:05→22:23)
[2019-08-09] MEDS: FLUoxetine 20 MG CAP PO SCH (09:05)
[2019-08-09] MEDS: APIXABAN 5 MG TAB (ELIQUIS) PO SCH ×2 (09:05→22:23)
[2019-08-09] MEDS: SIMVASTATIN 40 MG TAB PO SCH (09:05)
[2019-08-09] MEDS: VITAMIN D 1,000 INTERNATIONAL UNITS TABLET PO SCH (09:05)
[2019-08-09 09:20] LABS: ERYTHROCYTE SEDIMENTATION RATE 92 mm/hr (0-30)
[2019-08-09 14:00] VITALS: BP 153/82
[2019-08-09] MEDS: cefTRIAXone SOD 2 GM in D5W MINI-BAG PLUS 50 ML IV SCH (15:28)
--- NOTE | 2019-08-09 18:39 | IPN ---
DATE: 08/09/2019 INFECTIOUS DISEASE PROGRESS NOTE Mira does not have any complaints today except for some vertigo. She stated that 7 years ago she had a similar episode of vertigo. She gags whenever she brushes her teeth with vomiting or whenever she changes position. She is improving. She speaks very loudly, and she has some difficulty with some words, but she repeats herself three times to make sure we understand her. She has had no rash even though she stated that she had multiple tick bites. LABORATORY DATA: White count 4.1, hemoglobin 12.5, hematocrit 38.7, platelets 177, 52% neutrophils, 33% lymphocytes, 12% monocytes. ESR 92. Sodium 141, potassium 4.2, chloride 105, bicarbonate 28, BUN 16, creatinine 1.35, glucose 119, calcium 8.9, CRP 5.06. IMAGING STUDIES: Brain MRI done on 07/30/2019 shows multiple foci of T2 in the subcortical and centrum semiovale consistent matter with mild age-related small vessel disease and some diffuse global hemispheric parenchymal atrophy, otherwise unremarkable. Cervical spine MRI: Narrowing at the spinal canal at C3-C4. On physical exam, temperature is 97.4 with a maximum temperature (T max) of 100.2 yesterday, pulse 107, respirations 18, blood pressure 153/82, oxygen saturation (O2 sat) 96% on room air. Heart: Normal, S1, S2. No murmurs, rubs or gallops. Lungs are clear. No wheezes, rales or rhonchi. Abdomen: Soft, nontender. No hepatosplenomegaly. Extremities: No edema. Moves both lower extremities. HEENT: Face is flushed but no neck stiffness. Keeps her eyes closed but whenever asked to open them, she can open them. She has no nystagmus. Cranial nerves are intact. Tongue midline. She has very loud speech. She is repetitive and has difficulty with finding some words. Every sentence is repeated three times. She has ataxia with gait and [id number] dysmetria. IMPRESSION: 1. 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 The patient has been started on IV Rocephin on 08/06/2019, currently day #4, and I do see some improvement. 2. New onset atrial fibrillation. The patient is on Eliquis 5 mg by mouth twice a day. 3. Vertigo. Possibly related to Lyme disease. PLAN: Continue IV Rocephin for a total of 4 weeks. The patient may benefit from a midline next week if she runs out of IV sites. Will continue to follow. Will repeat CBC, CMP, ESR, CRP weekly.
[2019-08-09 20:00] VITALS: BP 138/84
[2019-08-09] MEDS: SENNA 8.6 MG TAB (SENOKOT) PO SCH (21:00)
[2019-08-09] MEDS: ARIPiprazole 2 MG TAB PO SCH (22:23)
[2019-08-10] MEDS: SLF 3 ML SYR IV SCH ×3 (05:35→21:58)
[2019-08-10 06:00] VITALS: BP 151/70
[2019-08-10] MEDS: IPRATROPIUM 0.5MG/ALBUTEROL 2.5MG INH SOL UD 3ML (DUONEB) NEB SCH ×3 (08:00→19:09)
[2019-08-10] MEDS: DOCUSATE SODIUM 100 MG CAP PO SCH ×2 (09:00→21:00)
[2019-08-10] MEDS: LACTOBACILLUS ACIDOPHILUS CAP (BACID) PO SCH ×4 (09:26→21:56)
[2019-08-10] MEDS: VITAMIN D 1,000 INTERNATIONAL UNITS TABLET PO SCH (09:26)
[2019-08-10] MEDS: SIMVASTATIN 40 MG TAB PO SCH (09:27)
[2019-08-10] MEDS: APIXABAN 5 MG TAB (ELIQUIS) PO SCH ×2 (09:27→21:56)
[2019-08-10] MEDS: LANSOPRAZOLE SUSPENSION 30 MG/10 ML ORAL SYRINGE (FIRST-LANSOPRAZOLE) PO SCH ×2 (09:27→21:56)
[2019-08-10] MEDS: REMEDY PHYTOPLEX Z-GUARD PASTE 113GM TUBE (FROM STOREROOM PRODUCT) TOP SCH ×3 (09:27→21:58)
[2019-08-10] MEDS: FLUTICASONE PROP 0.05% NASAL SPRAY 16 GM (FLONASE) NARES SCH ×2 (09:27→21:57)
[2019-08-10] MEDS: FLUoxetine 20 MG CAP PO SCH (09:27)
[2019-08-10] MEDS: MAGIC MOUTHWASH SUSPENSION BTL SSP SCH ×3 (09:28→16:22)
[2019-08-10 14:00] VITALS: BP 122/63
[2019-08-10] MEDS: cefTRIAXone SOD 2 GM in D5W MINI-BAG PLUS 50 ML IV SCH (16:22)
[2019-08-10 20:00] VITALS: BP 132/72
[2019-08-10] MEDS: SENNA 8.6 MG TAB (SENOKOT) PO SCH (21:00)
[2019-08-10] MEDS: ARIPiprazole 2 MG TAB PO SCH (21:56)
[2019-08-11] MEDS: SLF 3 ML SYR IV SCH ×3 (05:28→21:58)
[2019-08-11 06:00] VITALS: BP 144/74
[2019-08-11] MEDS: IPRATROPIUM 0.5MG/ALBUTEROL 2.5MG INH SOL UD 3ML (DUONEB) NEB SCH ×3 (08:00→19:27)
[2019-08-11] MEDS: DOCUSATE SODIUM 100 MG CAP PO SCH ×2 (08:19→21:00)
[2019-08-11] MEDS: FLUoxetine 20 MG CAP PO SCH (08:19)
[2019-08-11] MEDS: SIMVASTATIN 40 MG TAB PO SCH (08:19)
[2019-08-11] MEDS: LANSOPRAZOLE SUSPENSION 30 MG/10 ML ORAL SYRINGE (FIRST-LANSOPRAZOLE) PO SCH ×2 (08:19→21:55)
[2019-08-11] MEDS: VITAMIN D 1,000 INTERNATIONAL UNITS TABLET PO SCH (08:19)
[2019-08-11] MEDS: LACTOBACILLUS ACIDOPHILUS CAP (BACID) PO SCH ×4 (08:19→21:55)
[2019-08-11] MEDS: APIXABAN 5 MG TAB (ELIQUIS) PO SCH ×2 (08:20→21:55)
[2019-08-11] MEDS: REMEDY PHYTOPLEX Z-GUARD PASTE 113GM TUBE (FROM STOREROOM PRODUCT) TOP SCH ×3 (08:20→21:56)
[2019-08-11] MEDS: FLUTICASONE PROP 0.05% NASAL SPRAY 16 GM (FLONASE) NARES SCH ×2 (08:20→21:57)
[2019-08-11] MEDS: MAGIC MOUTHWASH SUSPENSION BTL SSP SCH ×3 (08:20→17:19)
[2019-08-11 14:00] VITALS: BP 150/70
[2019-08-11] MEDS: cefTRIAXone SOD 2 GM in D5W MINI-BAG PLUS 50 ML IV SCH (15:43)
[2019-08-11 20:00] VITALS: BP 136/70
[2019-08-11] MEDS: SENNA 8.6 MG TAB (SENOKOT) PO SCH (21:00)
[2019-08-11] MEDS: ARIPiprazole 2 MG TAB PO SCH (21:55)
[2019-08-12 05:09] VITALS: BP 123/61
[2019-08-12] MEDS: SLF 3 ML SYR IV SCH ×3 (06:20→21:24)
[2019-08-12] MEDS: IPRATROPIUM 0.5MG/ALBUTEROL 2.5MG INH SOL UD 3ML (DUONEB) NEB SCH ×3 (07:05→19:59)
[2019-08-12] MEDS: LACTOBACILLUS ACIDOPHILUS CAP (BACID) PO SCH ×4 (08:26→21:23)
[2019-08-12] MEDS: APIXABAN 5 MG TAB (ELIQUIS) PO SCH ×2 (08:26→21:23)
[2019-08-12] MEDS: VITAMIN D 1,000 INTERNATIONAL UNITS TABLET PO SCH (08:26)
[2019-08-12] MEDS: FLUTICASONE PROP 0.05% NASAL SPRAY 16 GM (FLONASE) NARES SCH ×2 (08:26→21:00)
[2019-08-12] MEDS: SIMVASTATIN 40 MG TAB PO SCH (08:26)
[2019-08-12] MEDS: MAGIC MOUTHWASH SUSPENSION BTL SSP SCH ×3 (08:26→18:22)
[2019-08-12] MEDS: FLUoxetine 20 MG CAP PO SCH (08:26)
[2019-08-12] MEDS: REMEDY PHYTOPLEX Z-GUARD PASTE 113GM TUBE (FROM STOREROOM PRODUCT) TOP SCH ×3 (08:26→21:23)
[2019-08-12] MEDS: DOCUSATE SODIUM 100 MG CAP PO SCH ×2 (09:00→21:23)
[2019-08-12 11:13] LABS: BASO % 0.4 % (0.0-1.0); EOS # 0.1 10^3/uL (0.0-0.5); EOS % 2.6 % (0.0-3.0); HEMOGLOBIN 11.7 g/dl (12.0-15.5); LYMPH # 1.1 10^3/uL (1.5-5.0); LYMPH % 22.4 % (24.0-44.0); MEAN CORPUSCULAR HEMOGLOBIN 29.8 pg (27.0-33.0); MEAN CORPUSCULAR HGB CONC 32.5 g/dl (32.0-36.5); MEAN CORPUSCULAR VOLUME 91.6 fl (80.0-96.0); MONO # 0.5 10^3/uL (0.0-0.8); MONO % 10.6 % (0.0-5.0); NEUTROPHILS # 3.2 10^3/uL (1.5-8.5); NEUTROPHILS % 63.8 % (36.0-66.0); PLATELET COUNT, AUTOMATED 191 10^3/uL (150-450); RED BLOOD COUNT 3.93 10^6/uL (4.00-5.40)
[2019-08-12 11:47] LABS: CALCIUM LEVEL 8.6 MG/DL (8.8-10.2); CREATININE FOR GFR 1.07 MG/DL (0.55-1.30); GLOMERULAR FILTRATION RATE 53.1 (>39); POTASSIUM SERUM 3.7 MEQ/L (3.5-5.1)
[2019-08-12] MEDS: LANSOPRAZOLE SUSPENSION 30 MG/10 ML ORAL SYRINGE (FIRST-LANSOPRAZOLE) PO SCH ×2 (12:12→21:23)
[2019-08-12 14:00] VITALS: BP 156/75
--- NOTE | 2019-08-12 14:26 | IPNPDOC ---
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 REVIEW OF SYSTEMS: The following is a completed review of systems and has been reviewed. Review of systems otherwise unremarkable. PAIN: Patient self reports no pain EYES: No recent vision changes EARS, NOSE, & THROAT: +dysphagia, +dysarthria (improving) CARDIOVASCULAR: Denies chest pain or palpitations PULMONARY: Denies shortness of breath GASTROINTESTINAL: Denies constipation/diarrhea GENITOURINARY: denies dysuria MUSCULOSKELETAL: generalized weakness NEUROLOGICAL:+ generalized weakness (improving) HEMATOLOGICAL: denies easy bruising SKIN: no rash PSYCHIATRIC: Unremarkable All other review of systems found to be negative. PHYSICAL EXAMINATION: VITAL SIGNS: Please see below. GENERAL: Pleasant and cooperative. No acute distress. HEENT: PERRL. Extraocular movements intact. Clear conjunctiva CARDIOVASCULAR: Regular rate and rhythm. No murmurs, rubs, or gallops LUNGS: Clear to auscultation bilaterally. No wheezes. No rhonchi ABDOMEN: Soft, nontender, nondistended. Positive bowel sounds. Normal active bowel sounds NEUROLOGICAL: Alert and oriented times three. Cranial nerves II through XII grossly intact. Sensation grossly intact +ataxia (-) babinksi bilat (+) dysarthria EXTREMITIES: 5\5 strength bilateral upper extremities. 4-\5 strength right lower extremity. 4-/5 strength in left lower extremity. 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 Resp- s/p treatment for PNA, Duonebs, encourage incentive spirometry 5. Endo- FS well controlled, not clear she has DM, d/c'd ISS 6. GI ppx- lanzaprazole 7. DVT ppx- on eliquis, teds 8. Pain- tylenol prn 9. Psych- c/u prozac to help with possible motor recovery with her new neuro deficits 10. Dispo- tbd Allergies Coded Allergies: No Known Allergies (Unverified , 07/22/19) Vital Signs Vital Signs Date Time Temp Pulse Resp B/P (MAP) Pulse Ox O2 Delivery O2 Flow Rate FiO2 08/12/19 14:00 97.5 88 18 156/75 (102) 96 Room Air Laboratory Data CBC/BMP Laboratory Tests 08/12/19 10:52 08/12/19 10:53 Labs 24H Laboratory Tests 2 08/12/19 10:52: Anion Gap 6L, Glomerular Filtration Rate 53.1, Calcium Level 8.6L 08/12/19 10:53: Immature Granulocyte % (Auto) 0.2, Neutrophils (%) (Auto) 63.8, Lymphocytes (%) (Auto) 22.4L, Monocytes (%) (Auto) 10.6H, Eosinophils (%) (Auto) 2.6, Basophils (%) (Auto) 0.4, Neutrophils # (Auto) 3.2, Lymphocytes # (Auto) 1.1L, Monocytes # (Auto) 0.5, Eosinophils # (Auto) 0.1, Basophils # (Auto) 0.0, Nucleated Red Blood Cells % (auto) 0.0 Current Medications Current Medications Current Medications Medications (Trade) Dose Ordered Sig/Jovanna Route PRN Reason Start Time Stop Time Status Last Admin Dose Admin Acetaminophen (Tylenol Tab) 650 mg Q4HP PRN PO fever/MILD PAIN (PS 1-4) 08/05/19 16:30 08/06/19 22:19 Albuterol/ Ipratropium (Duoneb (Ipr 0.5mg/Alb 2.5mg)) 3 ml RTID NEB 08/05/19 20:00 08/12/19 14:09 Apixaban (Eliquis) 5 mg BID PO 08/05/19 21:00 08/12/19 08:26 Aripiprazole (AbiLIFY) 2 mg QHS PO 08/05/19 21:00 08/11/19 21:55 Ceftriaxone Sodium 2 gm/ Dextrose 50 ml @ 100 mls/hr Q24H IV 08/06/19 16:00 08/11/19 15:43 Dextrose (Dextrose 50%) 25 ml ASDIRECTED PRN IV SEE LABEL COMMENTS 08/05/19 16:30 08/07/19 10:25 DC Docusate Sodium (Colace) 100 mg BID PO 08/05/19 21:00 08/11/19 08:19 Fluoxetine HCl (PROzac) 20 mg DAILY PO 08/07/19 09:00 08/12/19 08:26 Fluticasone Propionate (Flonase 0.05% Nasal [place]) 1 spray BID NARES 08/05/19 21:00 08/12/19 08:26 Glucagon (Glucagon) 1 mg ASDIRECTED PRN SC SEE LABEL COMMENTS 08/05/19 16:30 08/07/19 10:25 DC Glucose (Glucose) 16 GM ASDIRECTED PRN PO SEE LABEL COMMENTS 08/05/19 16:30 08/07/19 10:25 DC Insulin Human Lispro (HumaLOG INSULIN) SEE PROTOCOL TABLE AC SC 08/05/19 17:30 08/07/19 10:25 DC Insulin Human Lispro (HumaLOG INSULIN) SEE PROTOCOL TABLE QHS SC 08/05/19 21:00 08/07/19 10:25 DC Lactobacillus Acidophilus (Bacid) 1 ea WMHS PO 08/05/19 18:00 08/12/19 12:12 Lansoprazole (First-Lansoprazole Oral Suspension) 30 mg BID PO 08/05/19 21:00 08/12/19 12:12 Lidocaine/ Diphenhydr/Alum/ Mg/Simeth (Magic Mouthwash) 5ML, ok to give ice chips O... AC SSP 08/05/19 17:30 08/12/19 12:12 Meclizine HCl (Antivert) 25 mg Q8HP PRN PO DIZZINESS 08/05/19 16:30 08/12/19 12:12 Miscellaneous (Unresolved Clarification Entry) SEE LABEL COMMENTS DAILY XX 08/10/19 09:00 08/11/19 11:02 DC Senna (Senokot) 1 tab QHS PO 08/05/19 21:00 08/07/19 21:23 Simvastatin (Zocor) 40 mg DAILY PO 08/06/19 09:00 08/12/19 08:26 Sodium Chloride (Saline Lock Flush) 2 ml ASDIRECTED PRN IV SEE LABEL COMMENTS 08/07/19 00:45 Sodium Chloride (Saline Lock Flush) 2 ml SLF IV 08/07/19 06:00 08/12/19 12:16 Vitamin D (Vitamin D) 1,000 units DAILY PO 08/06/19 09:00 08/12/19 08:26 JEOVANNY STOREY MD Aug 12, 2019 14:26
--- NOTE | 2019-08-12 17:36 | IPNPDOC ---
Date Seen The patient was seen on 08/12/19. Progress Note SUBJECTIVE: Patient was seen with daughter at bedside this evening. Daughter states that her speech does seem to be better today. Patient reported having a dizzy spell while standing earlier today but had resolved by now. Otherwise denies any other complaints. OBJECTIVE PHYSICAL EXAMINATION: VITAL SIGNS: Please see below. General: No acute distress, Alert Eyes: Normal sclera, EOMI HENT: Atraumatic Cardiovascular: Normal rate Pulmonary: Clear to auscultation b/l, no wheezing GI: Soft, nontender, nondistended Skin: Warm and dry Neuro: Slurred speech/stutters. Ataxic with b/l LE weakness. LABORATORY DATA, IMAGING STUDIES, MICROBIOLOGY: Please see below. DVT prophylaxis ordered?: Eliquis ASSESSMENT AND PLAN: 78 year old female with PMH COPD, GERD, HLD presented to [facility] with AMS and subsequently found to be septic with PNA as well ESBL e. coli UTI. Course of admission complicated by development of Afib with RVR. Slurred speech was also noted during admission but repeated head imagings do not reveal any acute infarcts. 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 1. 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 supposedly improveving. - On IV Rocephin started 08/05, ID following. Planning for 4 weeks treatment. - continue with IV antibiotics and PT/OT for ataxia/gait training. - Pending MG- Ab. 2. Vertigo - meclizine PRN. May be 2/2 Lyme disease. 3. new onset Afib - c/w Eliquis, not on a rate controlling medication at this time but HR has been stable. - Consider adding BB or CCB if needed. VS, I&O, 24H, Fishbone Vital Signs/I&O Vital Signs Date Time Temp Pulse Resp B/P (MAP) Pulse Ox O2 Delivery O2 Flow Rate FiO2 08/12/19 14:00 97.5 88 18 156/75 (102) 96 Room Air I&O- Last 24 Hours up to 6 AM 08/12/19 06:00 Intake Total 680 ml Balance 680 ml Laboratory Data 24H LABS Laboratory Tests 2 08/12/19 10:52: Anion Gap 6L, Glomerular Filtration Rate 53.1, Calcium Level 8.6L 08/12/19 10:53: Immature Granulocyte % (Auto) 0.2, Neutrophils (%) (Auto) 63.8, Lymphocytes (%) (Auto) 22.4L, Monocytes (%) (Auto) 10.6H, Eosinophils (%) (Auto) 2.6, Basophils (%) (Auto) 0.4, Neutrophils # (Auto) 3.2, Lymphocytes # (Auto) 1.1L, Monocytes # (Auto) 0.5, Eosinophils # (Auto) 0.1, Basophils # (Auto) 0.0, Nucleated Red Blood Cells % (auto) 0.0 CBC/BMP Laboratory Tests 08/12/19 10:52 08/12/19 10:53 RON PRICE MD Aug 12, 2019 17:35
[2019-08-12] MEDS: cefTRIAXone SOD 2 GM in D5W MINI-BAG PLUS 50 ML IV SCH (18:21)
[2019-08-12 20:07] VITALS: BP 141/66
[2019-08-12] MEDS: ARIPiprazole 2 MG TAB PO SCH (21:23)
[2019-08-12] MEDS: SENNA 8.6 MG TAB (SENOKOT) PO SCH (21:23)
[2019-08-13] MEDS: SLF 3 ML SYR IV SCH ×3 (05:54→22:41)
[2019-08-13 06:00] VITALS: BP 129/77
[2019-08-13] MEDS: IPRATROPIUM 0.5MG/ALBUTEROL 2.5MG INH SOL UD 3ML (DUONEB) NEB SCH ×3 (07:55→19:45)
[2019-08-13] MEDS: LACTOBACILLUS ACIDOPHILUS CAP (BACID) PO SCH ×4 (08:00→22:39)
[2019-08-13] MEDS: APIXABAN 5 MG TAB (ELIQUIS) PO SCH ×2 (08:20→22:39)
[2019-08-13] MEDS: FLUoxetine 20 MG CAP PO SCH (08:20)
[2019-08-13] MEDS: REMEDY PHYTOPLEX Z-GUARD PASTE 113GM TUBE (FROM STOREROOM PRODUCT) TOP SCH ×4 (08:23→22:40)
[2019-08-13] MEDS: DOCUSATE SODIUM 100 MG CAP PO SCH (08:43)
[2019-08-13] MEDS: MAGIC MOUTHWASH SUSPENSION BTL SSP SCH ×3 (08:43→17:32)
[2019-08-13] MEDS: LANSOPRAZOLE SUSPENSION 30 MG/10 ML ORAL SYRINGE (FIRST-LANSOPRAZOLE) PO SCH ×2 (08:44→22:40)
[2019-08-13] MEDS: FLUTICASONE PROP 0.05% NASAL SPRAY 16 GM (FLONASE) NARES SCH ×2 (08:44→22:40)
[2019-08-13] MEDS: SIMVASTATIN 40 MG TAB PO SCH (08:44)
[2019-08-13] MEDS: VITAMIN D 1,000 INTERNATIONAL UNITS TABLET PO SCH (08:44)
[2019-08-13 14:00] VITALS: BP 174/70
[2019-08-13] MEDS: cefTRIAXone SOD 2 GM in D5W MINI-BAG PLUS 50 ML IV SCH (16:08)
[2019-08-13 20:00] VITALS: BP 136/63
[2019-08-13] MEDS: NYSTATIN 100,000 UNITS/GM TOPICAL PWD 15 GM TOP SCH (22:39)
[2019-08-13] MEDS: SENNA 8.6 MG TAB (SENOKOT) PO SCH (22:39)
[2019-08-13] MEDS: ARIPiprazole 2 MG TAB PO SCH (22:39)
[2019-08-14 04:54] VITALS: BP 149/75
[2019-08-14] MEDS: SLF 3 ML SYR IV SCH ×3 (05:28→21:49)
[2019-08-14 06:48] LABS: BASO % 0.5 % (0.0-1.0); EOS # 0.2 10^3/uL (0.0-0.5); EOS % 2.6 % (0.0-3.0); HEMATOCRIT 34.7 % (36.0-47.0); HEMOGLOBIN 11.5 g/dl (12.0-15.5); LYMPH # 1.6 10^3/uL (1.5-5.0); LYMPH % 28.6 % (24.0-44.0); MEAN CORPUSCULAR HEMOGLOBIN 30.2 pg (27.0-33.0); MEAN CORPUSCULAR HGB CONC 33.1 g/dl (32.0-36.5); MEAN CORPUSCULAR VOLUME 91.1 fl (80.0-96.0); MONO # 0.8 10^3/uL (0.0-0.8); MONO % 13.4 % (0.0-5.0); NEUTROPHILS # 3.1 10^3/uL (1.5-8.5); NEUTROPHILS % 54.4 % (36.0-66.0); PLATELET COUNT, AUTOMATED 226 10^3/uL (150-450); RED BLOOD COUNT 3.81 10^6/uL (4.00-5.40); WHITE BLOOD COUNT 5.7 10^3/uL (4.0-10.0)
[2019-08-14 07:08] LABS: ALBUMIN 2.6 GM/DL (3.2-5.2); BILIRUBIN,TOTAL 0.7 MG/DL (0.2-1.0); C REACTIVE PROTEIN QUANTITATIV 1.63 MG/DL (0.00-0.30); CALCIUM LEVEL 8.6 MG/DL (8.8-10.2); CREATININE FOR GFR 1.14 MG/DL (0.55-1.30); GLOMERULAR FILTRATION RATE 49.3 (>39); POTASSIUM SERUM 3.5 MEQ/L (3.5-5.1); TOTAL PROTEIN 7.4 GM/DL (6.4-8.2)
[2019-08-14 07:20] LABS: ERYTHROCYTE SEDIMENTATION RATE 64 mm/hr (0-30)
[2019-08-14] MEDS: IPRATROPIUM 0.5MG/ALBUTEROL 2.5MG INH SOL UD 3ML (DUONEB) NEB SCH ×3 (07:27→19:48)
--- NOTE | 2019-08-14 07:42 | IPN ---
DATE: 08/13/2019 Mrs. Briscoe seems to be doing better. Her speech has improved as well as her ataxia. She had a dizzy spell yesterday, but it has resolved. She has had no nausea, vomiting or diarrhea. She is refusing her Colace. She is also on Senokot. She has two to three bowel movements a day. MEDICATIONS: Ceftriaxone 2 grams every 24 hours, started on 08/06/2019 with anticipated end of therapy being 09/03/2019, 28 days. PHYSICAL EXAMINATION: Temperature is 97.7, pulse 88, respirations 18, blood pressure was 174/70, O2 sat 94% on room air. She has been afebrile for over 3 days. Heart: Normal S1, S2. No murmurs. Lungs are clear. No wheezes, rales or rhonchi. Abdomen: Obese, soft, nontender. Extremities: No rashes. No edema. Neurologic Exam: She is still has some dysarthria. Upper extremity strength is 5/5. Lower extremity strength is 4- bilaterally. Negative Babinski. IMPRESSION: 1. 78-year-old female with what seems to be neurologic manifestation of Lyme disease on IV Rocephin for the past week with improvement. The patient is anticipated to finish course of Rocephin on 09/03/2019. Ataxia and dysarthria improving. 2. New onset atrial fibrillation. On Eliquis. PLAN: If the patient will be discharged home before end of therapy, she can have a midline placed to finish IV Rocephin, a total of 4 weeks. CBC, CRP, ESR, basic profile, CMP ordered for tomorrow to monitor for side effect of Rocephin and to monitor inflammatory markers.
[2019-08-14] MEDS: APIXABAN 5 MG TAB (ELIQUIS) PO SCH ×2 (09:00→21:48)
[2019-08-14] MEDS: SIMVASTATIN 40 MG TAB PO SCH (09:00)
[2019-08-14] MEDS: FLUoxetine 20 MG CAP PO SCH (09:59)
[2019-08-14] MEDS: LACTOBACILLUS ACIDOPHILUS CAP (BACID) PO SCH ×4 (10:00→21:47)
[2019-08-14] MEDS: VITAMIN D 1,000 INTERNATIONAL UNITS TABLET PO SCH (10:00)
[2019-08-14] MEDS: LANSOPRAZOLE SUSPENSION 30 MG/10 ML ORAL SYRINGE (FIRST-LANSOPRAZOLE) PO SCH ×2 (10:02→21:48)
[2019-08-14] MEDS: MAGIC MOUTHWASH SUSPENSION BTL SSP SCH ×3 (10:05→16:58)
[2019-08-14] MEDS: NYSTATIN 100,000 UNITS/GM TOPICAL PWD 15 GM TOP SCH ×2 (10:05→21:48)
[2019-08-14] MEDS: FLUTICASONE PROP 0.05% NASAL SPRAY 16 GM (FLONASE) NARES SCH ×2 (10:06→21:48)
[2019-08-14] MEDS: REMEDY PHYTOPLEX Z-GUARD PASTE 113GM TUBE (FROM STOREROOM PRODUCT) TOP SCH ×3 (10:06→21:49)
--- NOTE | 2019-08-14 10:57 | IPNPDOC ---
PM&R Progress Note DATE OF SERVICE: Aug 13, 2019 [employer] Sorter Progress Note Subjective: Patient seen in her room stating she feels she is getting stronger, but that she wants to be able to drink water. REVIEW OF SYSTEMS: The following is a completed review of systems and has been reviewed. Review of systems otherwise unremarkable. PAIN: Patient self reports no pain EYES: No recent vision changes EARS, NOSE, & THROAT: +dysphagia, +dysarthria (improving) CARDIOVASCULAR: Denies chest pain or palpitations PULMONARY: Denies shortness of breath GASTROINTESTINAL: Denies constipation/diarrhea GENITOURINARY: denies dysuria MUSCULOSKELETAL: generalized weakness NEUROLOGICAL:+ generalized weakness (improving) HEMATOLOGICAL: denies easy bruising SKIN: no rash PSYCHIATRIC: Unremarkable All other review of systems found to be negative. PHYSICAL EXAMINATION: VITAL SIGNS: Please see below. GENERAL: Pleasant and cooperative. No acute distress. HEENT: PERRL. Extraocular movements intact. Clear conjunctiva CARDIOVASCULAR: Regular rate and rhythm. No murmurs, rubs, or gallops LUNGS: Clear to auscultation bilaterally. No wheezes. No rhonchi ABDOMEN: Soft, nontender, nondistended. Positive bowel sounds. Normal active bowel sounds NEUROLOGICAL: Alert and oriented times three. Cranial nerves II through XII grossly intact. Sensation grossly intact +ataxia (-) babinksi bilat (+) dysarthria EXTREMITIES: 5\5 strength bilateral upper extremities. 4-\5 strength right lower extremity. 4-/5 strength in left lower extremity. 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 Resp- s/p treatment for PNA, Duonebs, encourage incentive spirometry 5. Endo- FS well controlled, not clear she has DM, d/c'd ISS 6. GI ppx- lanzaprazole 7. DVT ppx- on eliquis, teds 8. Pain- tylenol prn 9. Psych- c/u prozac to help with possible motor recovery with her new neuro deficits 10. Dispo- 08/26/19, goal to home, progressing Allergies Coded Allergies: No Known Allergies (Unverified , 07/22/19) Vital Signs Vital Signs Date Time Temp Pulse Resp B/P (MAP) Pulse Ox O2 Delivery O2 Flow Rate FiO2 08/14/19 04:54 98.4 85 18 149/75 (99) 93 Room Air Laboratory Data CBC/BMP Laboratory Tests 08/14/19 06:33 Labs 24H Laboratory Tests 2 08/14/19 06:33: Immature Granulocyte % (Auto) 0.5, Neutrophils (%) (Auto) 54.4, Lymphocytes (%) (Auto) 28.6, Monocytes (%) (Auto) 13.4H, Eosinophils (%) (Auto) 2.6, Basophils (%) (Auto) 0.5, Neutrophils # (Auto) 3.1, Lymphocytes # (Auto) 1.6, Monocytes # (Auto) 0.8, Eosinophils # (Auto) 0.2, Basophils # (Auto) 0.0, Nucleated Red Blood Cells % (auto) 0.0, Erythrocyte Sedimentation Rate 64H, Anion Gap 5L, Glomerular Filtration Rate 49.3, Calcium Level 8.6L, Total Bilirubin 0.7, Aspartate Amino Transf (AST/SGOT) 21, Alanine Aminotransferase (ALT/SGPT) 15, Alkaline Phosphatase 109, C-Reactive Protein, Quantitative 1.63H, Total Protein 7.4, Albumin 2.6L, Albumin/Globulin Ratio 0.5L Current Medications Current Medications Current Medications Medications (Trade) Dose Ordered Sig/Jovanna Route PRN Reason Start Time Stop Time Status Last Admin Dose Admin Acetaminophen (Tylenol Tab) 650 mg Q4HP PRN PO fever/MILD PAIN (PS 1-4) 08/05/19 16:30 08/06/19 22:19 Albuterol/ Ipratropium (Duoneb (Ipr 0.5mg/Alb 2.5mg)) 3 ml RTID NEB 08/05/19 20:00 08/14/19 07:27 Apixaban (Eliquis) 5 mg BID PO 08/05/19 21:00 08/14/19 09:00 Aripiprazole (AbiLIFY) 2 mg QHS PO 08/05/19 21:00 08/13/19 22:39 Ceftriaxone Sodium 2 gm/ Dextrose 50 ml @ 100 mls/hr Q24H IV 08/06/19 16:00 08/13/19 16:08 Dextrose (Dextrose 50%) 25 ml ASDIRECTED PRN IV SEE LABEL COMMENTS 08/05/19 16:30 08/07/19 10:25 DC Docusate Sodium (Colace) 100 mg BID PO 08/05/19 21:00 08/13/19 17:32 DC 08/12/19 21:23 Fluoxetine HCl (PROzac) 20 mg DAILY PO 08/07/19 09:00 08/14/19 09:59 Fluticasone Propionate (Flonase 0.05% Nasal [place]) 1 spray BID NARES 08/05/19 21:00 08/14/19 10:06 Glucagon (Glucagon) 1 mg ASDIRECTED PRN SC SEE LABEL COMMENTS 08/05/19 16:30 08/07/19 10:25 DC Glucose (Glucose) 16 GM ASDIRECTED PRN PO SEE LABEL COMMENTS 08/05/19 16:30 08/07/19 10:25 DC Insulin Human Lispro (HumaLOG INSULIN) SEE PROTOCOL TABLE AC SC 08/05/19 17:30 08/07/19 10:25 DC Insulin Human Lispro (HumaLOG INSULIN) SEE PROTOCOL TABLE QHS SC 08/05/19 21:00 08/07/19 10:25 DC Lactobacillus Acidophilus (Bacid) 1 ea WMHS PO 08/05/19 18:00 08/14/19 10:00 Lansoprazole (First-Lansoprazole Oral Suspension) 30 mg BID PO 08/05/19 21:00 08/14/19 10:02 Lidocaine/ Diphenhydr/Alum/ Mg/Simeth (Magic Mouthwash) 5ML, ok to give ice chips O... AC SSP 08/05/19 17:30 08/14/19 10:05 Meclizine HCl (Antivert) 25 mg Q8HP PRN PO DIZZINESS 08/05/19 16:30 08/12/19 12:12 Miscellaneous (Unresolved Clarification Entry) SEE LABEL COMMENTS DAILY XX 08/10/19 09:00 08/11/19 11:02 DC Nystatin (Mycostatin Powder, Nystop) Please apply to groin BID TOP 08/13/19 21:00 08/14/19 10:05 Senna (Senokot) 1 tab QHS PO 08/05/19 21:00 08/13/19 22:39 Simvastatin (Zocor) 40 mg DAILY PO 08/06/19 09:00 08/14/19 09:00 Sodium Chloride (Saline Lock Flush) 2 ml ASDIRECTED PRN IV SEE LABEL COMMENTS 08/07/19 00:45 Sodium Chloride (Saline Lock Flush) 2 ml SLF IV 08/07/19 06:00 08/14/19 05:28 Vitamin D (Vitamin D) 1,000 units DAILY PO 08/06/19 09:00 08/14/19 10:00 JEOVANNY STOREY MD Aug 14, 2019 10:57
[2019-08-14 14:00] VITALS: BP 127/60
[2019-08-14] MEDS: cefTRIAXone SOD 2 GM in D5W MINI-BAG PLUS 50 ML IV SCH (16:53)
[2019-08-14 20:00] VITALS: BP 142/72
[2019-08-14] MEDS: SENNA 8.6 MG TAB (SENOKOT) PO SCH (21:48)
[2019-08-14] MEDS: ARIPiprazole 2 MG TAB PO SCH (21:50)
[2019-08-15] MEDS: SLF 3 ML SYR IV SCH ×3 (05:43→20:53)
[2019-08-15 06:17] VITALS: BP 138/68
[2019-08-15] MEDS: IPRATROPIUM 0.5MG/ALBUTEROL 2.5MG INH SOL UD 3ML (DUONEB) NEB SCH ×3 (07:40→19:22)
[2019-08-15] MEDS: VITAMIN D 1,000 INTERNATIONAL UNITS TABLET PO SCH (08:37)
[2019-08-15] MEDS: LANSOPRAZOLE SUSPENSION 30 MG/10 ML ORAL SYRINGE (FIRST-LANSOPRAZOLE) PO SCH ×2 (08:37→20:53)
[2019-08-15] MEDS: APIXABAN 5 MG TAB (ELIQUIS) PO SCH ×2 (08:37→20:53)
[2019-08-15] MEDS: LACTOBACILLUS ACIDOPHILUS CAP (BACID) PO SCH ×4 (08:37→20:53)
[2019-08-15] MEDS: FLUoxetine 20 MG CAP PO SCH (08:37)
[2019-08-15] MEDS: SIMVASTATIN 40 MG TAB PO SCH (08:37)
[2019-08-15] MEDS: REMEDY PHYTOPLEX Z-GUARD PASTE 113GM TUBE (FROM STOREROOM PRODUCT) TOP SCH ×3 (08:38→20:54)
[2019-08-15] MEDS: MAGIC MOUTHWASH SUSPENSION BTL SSP SCH ×3 (08:38→17:23)
[2019-08-15] MEDS: FLUTICASONE PROP 0.05% NASAL SPRAY 16 GM (FLONASE) NARES SCH ×2 (08:38→20:54)
[2019-08-15] MEDS: NYSTATIN 100,000 UNITS/GM TOPICAL PWD 15 GM TOP SCH ×2 (08:38→20:54)
--- NOTE | 2019-08-15 13:18 | IPNPDOC ---
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 REVIEW OF SYSTEMS: The following is a completed review of systems and has been reviewed. Review of systems otherwise unremarkable. PAIN: Patient self reports no pain EYES: No recent vision changes EARS, NOSE, & THROAT: +dysphagia, +dysarthria (improving) CARDIOVASCULAR: Denies chest pain or palpitations PULMONARY: Denies shortness of breath GASTROINTESTINAL: Denies constipation/diarrhea GENITOURINARY: denies dysuria MUSCULOSKELETAL: generalized weakness NEUROLOGICAL:+ generalized weakness (improving) HEMATOLOGICAL: denies easy bruising SKIN: no rash PSYCHIATRIC: Unremarkable All other review of systems found to be negative. PHYSICAL EXAMINATION: VITAL SIGNS: Please see below. GENERAL: Pleasant and cooperative. No acute distress. HEENT: PERRL. Extraocular movements intact. Clear conjunctiva CARDIOVASCULAR: Regular rate and rhythm. No murmurs, rubs, or gallops LUNGS: Clear to auscultation bilaterally. No wheezes. No rhonchi ABDOMEN: Soft, nontender, nondistended. Positive bowel sounds. Normal active bowel sounds NEUROLOGICAL: Alert and oriented times three. Cranial nerves II through XII grossly intact. Sensation grossly intact +ataxia (-) babinksi bilat (+) dysarthria EXTREMITIES: 5\5 strength bilateral upper extremities. 4-\5 strength right lower extremity. 4-/5 strength in left lower extremity. 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 Rehab- PT/OT- advance gait and ADLs, stretch/strengthen/maintain ROM all 4 limbs- ambulating with RW in therapy -RN HEART- swallow eval, c/u puree and honey, repeat MBS, upgraded to puree and now cleared for thins per RN HEART- recs appreciated 2. Neuro- patient with acute onset generalized with dysphagia due to lyme en cephalomyelitis with underlying chronic cervical stenosis and lumbar stenosis seen on recent MRI images, -given +lyme titers, ID consulted to assist in management, recs appreciated c/u IV Rocephin x 4 weeks-patient reported to be less ataxic in therapy -Myasthenia gravis antibodies pending -discussed case with neuro will alert if patient gets weaker, so far making slow, but consistent functional gains -vertigo- meclizine ordered prn 3. 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 Resp- s/p treatment for PNA, Duonebs, encourage incentive spirometry 5. Endo- FS well controlled, not clear she has DM, d/c'd ISS 6. GI ppx- lanzaprazole 7. DVT ppx- on eliquis, teds 8. Pain- tylenol prn 9. Psych- c/u prozac to help with possible motor recovery with her new neuro deficits 10. Dispo- 08/26/19, goal to home, progressing Allergies Coded Allergies: No Known Allergies (Unverified , 07/22/19) Vital Signs Vital Signs Date Time Temp Pulse Resp B/P (MAP) Pulse Ox O2 Delivery O2 Flow Rate FiO2 08/15/19 06:17 97.6 76 18 138/68 (91) 97 Room Air Current Medications Current Medications Current Medications Medications (Trade) Dose Ordered Sig/Jovanna Route PRN Reason Start Time Stop Time Status Last Admin Dose Admin Acetaminophen (Tylenol Tab) 650 mg Q4HP PRN PO fever/MILD PAIN (PS 1-4) 08/05/19 16:30 08/06/19 22:19 Albuterol/ Ipratropium (Duoneb (Ipr 0.5mg/Alb 2.5mg)) 3 ml RTID NEB 08/05/19 20:00 08/15/19 12:58 Apixaban (Eliquis) 5 mg BID PO 08/05/19 21:00 08/15/19 08:37 Aripiprazole (AbiLIFY) 2 mg QHS PO 08/05/19 21:00 08/14/19 21:50 Ceftriaxone Sodium 2 gm/ Dextrose 50 ml @ 100 mls/hr Q24H IV 08/06/19 16:00 08/14/19 16:53 Dextrose (Dextrose 50%) 25 ml ASDIRECTED PRN IV SEE LABEL COMMENTS 08/05/19 16:30 08/07/19 10:25 DC Docusate Sodium (Colace) 100 mg BID PO 08/05/19 21:00 08/13/19 17:32 DC 08/12/19 21:23 Fluoxetine HCl (PROzac) 20 mg DAILY PO 08/07/19 09:00 08/15/19 08:37 Fluticasone Propionate (Flonase 0.05% Nasal [place]) 1 spray BID NARES 08/05/19 21:00 08/15/19 08:38 Glucagon (Glucagon) 1 mg ASDIRECTED PRN SC SEE LABEL COMMENTS 08/05/19 16:30 08/07/19 10:25 DC Glucose (Glucose) 16 GM ASDIRECTED PRN PO SEE LABEL COMMENTS 08/05/19 16:30 08/07/19 10:25 DC Insulin Human Lispro (HumaLOG INSULIN) SEE PROTOCOL TABLE AC SC 08/05/19 17:30 08/07/19 10:25 DC Insulin Human Lispro (HumaLOG INSULIN) SEE PROTOCOL TABLE QHS SC 08/05/19 21:00 08/07/19 10:25 DC Lactobacillus Acidophilus (Bacid) 1 ea WMHS PO 08/05/19 18:00 08/15/19 11:52 Lansoprazole (First-Lansoprazole Oral Suspension) 30 mg BID PO 08/05/19 21:00 08/15/19 08:37 Lidocaine/ Diphenhydr/Alum/ Mg/Simeth (Magic Mouthwash) 5ML, ok to give ice chips O... AC SSP 08/05/19 17:30 08/15/19 11:52 Meclizine HCl (Antivert) 25 mg Q8HP PRN PO DIZZINESS 08/05/19 16:30 08/12/19 12:12 Miscellaneous (Unresolved Clarification Entry) SEE LABEL COMMENTS DAILY XX 08/10/19 09:00 08/11/19 11:02 DC Nystatin (Mycostatin Powder, Nystop) Please apply to groin BID TOP 08/13/19 21:00 08/15/19 08:38 Senna (Senokot) 1 tab QHS PO 08/05/19 21:00 08/14/19 21:48 Simvastatin (Zocor) 40 mg DAILY PO 08/06/19 09:00 08/15/19 08:37 Sodium Chloride (Saline Lock Flush) 2 ml ASDIRECTED PRN IV SEE LABEL COMMENTS 08/07/19 00:45 Sodium Chloride (Saline Lock Flush) 2 ml SLF IV 08/07/19 06:00 08/15/19 11:52 Vitamin D (Vitamin D) 1,000 units DAILY PO 08/06/19 09:00 08/15/19 08:37 JEOVANNY STOREY MD Aug 15, 2019 13:18
[2019-08-15 14:00] VITALS: BP 134/71
[2019-08-15] MEDS: cefTRIAXone SOD 2 GM in D5W MINI-BAG PLUS 50 ML IV SCH (17:22)
--- NOTE | 2019-08-15 17:26 | IPNPDOC ---
Date Seen The patient was seen on 08/15/19. Progress Note SUBJECTIVE: Patient was sitting in chair. States that there are no changes. Speech still slurred. Reportedly still has ataxia but vertigo/dizziness had resolved. No acute events reported. OBJECTIVE PHYSICAL EXAMINATION: VITAL SIGNS: Please see below. General: No acute distress, Alert Eyes: Normal sclera, EOMI HENT: Atraumatic Cardiovascular: Normal rate Pulmonary: Clear to auscultation b/l, no wheezing GI: Soft, nontender, nondistended Skin: Warm and dry Neuro: Slurred speech/stutters. Ataxic with b/l LE weakness. LABORATORY DATA, IMAGING STUDIES, MICROBIOLOGY: Please see below. DVT prophylaxis ordered?: Eliquis ASSESSMENT AND PLAN: 78 year old female with PMH COPD, GERD, HLD presented to [facility] with AMS and subsequently found to be septic with PNA as well ESBL e. coli UTI. Course of admission complicated by development of Afib with RVR. Slurred speech was also noted during admission but repeated head imagings do not reveal any acute infarcts. 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 1. 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 supposedly improving. - On IV Rocephin started 08/05, ID following. Planning for 4 weeks treatment. - continue with IV antibiotics and PT/OT for ataxia/gait training. - Pending MG- Ab. 2. Vertigo - Improved. - meclizine PRN. May be 2/2 Lyme disease. 3. new onset Afib - c/w Eliquis, not on a rate controlling medication at this time but HR has been stable. - Consider adding BB or CCB if needed. VS, I&O, 24H, Fishbone Vital Signs/I&O Vital Signs Date Time Temp Pulse Resp B/P (MAP) Pulse Ox O2 Delivery O2 Flow Rate FiO2 08/15/19 14:00 98.1 90 16 134/71 (92) 98 Room Air I&O- Last 24 Hours up to 6 AM 08/15/19 05:59 Intake Total 240 ml Balance 240 ml RON PRICE MD Aug 15, 2019 17:26
--- NOTE | 2019-08-15 19:13 | IPN ---
DATE: 08/15/2019 Mira is doing well. She still has ataxia and speech is slurred, but she is improving. She states dizziness and vertigo have resolved. She has no headache. No neck stiffness. LABORATORY DATA: White count is 5.7, hemoglobin 11.5, hematocrit 34.7, platelets 226, 54% neutrophils, 28% lymphocytes, 13% monocytes. ESR is down to 64 from 92. Sodium 136, potassium 3.5, chloride 102, bicarbonate 29, BUN 10, creatinine 1.14, glucose 101, calcium 8.6, CRP 1.63, down from 5. AST 21, ALT 15, alkaline phosphatase 109, albumin 2.6. PHYSICAL EXAMINATION: Temperature is 98.1, pulse 90, respirations 16, blood pressure 134/71, oxygen saturation 98% on room air. HEART: Normal S1, S2. No murmurs. LUNGS: Clear. No wheezes, rales, or rhonchi. ABDOMEN: Obese, soft, nontender. Neck is supple. No stiffness. Cranial nerves intact. The patient has dysarthria. Abnormal [id number] bilaterally. EXTREMITIES: Bilateral strength 5-, upper extremity strength 5/5. IMPRESSION: 1. Lyme disease, encephalomyelitis, on intravenous (IV) Rocephin. Doing better with mostly cerebellar involvement. C-reactive protein (CRP) and sedimentation rate have improved. The patient clinically is better on IV Rocephin, currently day #10 out of 28. 2. New-onset atrial fibrillation, on Eliquis. PLAN: The patient to continue IV Rocephin 2 grams every 24 h until September 02. Please monitor complete blood count (CBC), , CRP, erythrocyte sedimentation rate (ESR), comprehensive metabolic panel (CMP) weekly to monitor for Rocephin side effects and to follow on inflammatory markers. If the patient runs out of IV , a midline could be placed. I will be at [facility] until August 25. If the patient is discharged prior to that, I could see her in the office in 2 weeks.
[2019-08-15] MEDS: ARIPiprazole 2 MG TAB PO SCH (20:53)
[2019-08-15] MEDS: SENNA 8.6 MG TAB (SENOKOT) PO SCH (20:53)
[2019-08-15] MEDS: ACETAMINOPHEN TAB 650MG DOSE (2X325MG) PO PRN (20:53)
[2019-08-15 21:00] VITALS: BP 135/67
[2019-08-16 06:00] VITALS: BP 133/73
[2019-08-16] MEDS: SLF 3 ML SYR IV SCH ×3 (06:56→20:14)
[2019-08-16] MEDS: IPRATROPIUM 0.5MG/ALBUTEROL 2.5MG INH SOL UD 3ML (DUONEB) NEB SCH ×3 (07:13→19:57)
[2019-08-16] MEDS: SIMVASTATIN 40 MG TAB PO SCH (09:06)
[2019-08-16] MEDS: APIXABAN 5 MG TAB (ELIQUIS) PO SCH ×2 (09:06→20:13)
[2019-08-16] MEDS: FLUoxetine 20 MG CAP PO SCH (09:06)
[2019-08-16] MEDS: LANSOPRAZOLE SUSPENSION 30 MG/10 ML ORAL SYRINGE (FIRST-LANSOPRAZOLE) PO SCH ×2 (09:06→20:13)
[2019-08-16] MEDS: LACTOBACILLUS ACIDOPHILUS CAP (BACID) PO SCH ×4 (09:06→20:13)
[2019-08-16] MEDS: VITAMIN D 1,000 INTERNATIONAL UNITS TABLET PO SCH (09:06)
[2019-08-16] MEDS: REMEDY PHYTOPLEX Z-GUARD PASTE 113GM TUBE (FROM STOREROOM PRODUCT) TOP SCH ×3 (09:07→20:14)
[2019-08-16] MEDS: NYSTATIN 100,000 UNITS/GM TOPICAL PWD 15 GM TOP SCH ×2 (09:07→20:14)
[2019-08-16] MEDS: MAGIC MOUTHWASH SUSPENSION BTL SSP SCH ×3 (09:07→17:26)
[2019-08-16] MEDS: FLUTICASONE PROP 0.05% NASAL SPRAY 16 GM (FLONASE) NARES SCH ×2 (09:07→20:13)
[2019-08-16 14:00] VITALS: BP 153/70
[2019-08-16] MEDS: cefTRIAXone SOD 2 GM in D5W MINI-BAG PLUS 50 ML IV SCH (17:25)
[2019-08-16] MEDS: SENNA 8.6 MG TAB (SENOKOT) PO SCH (20:12)
[2019-08-16] MEDS: ARIPiprazole 2 MG TAB PO SCH (20:13)
[2019-08-16] MEDS: ACETAMINOPHEN TAB 650MG DOSE (2X325MG) PO PRN (20:13)
[2019-08-16 20:30] VITALS: BP 150/72
[2019-08-17] MEDS: SLF 3 ML SYR IV SCH ×3 (05:54→20:43)
[2019-08-17 05:57] VITALS: BP 149/70
[2019-08-17] MEDS: IPRATROPIUM 0.5MG/ALBUTEROL 2.5MG INH SOL UD 3ML (DUONEB) NEB SCH ×3 (07:14→19:43)
[2019-08-17] MEDS: MAGIC MOUTHWASH SUSPENSION BTL SSP SCH ×3 (08:31→17:07)
[2019-08-17] MEDS: APIXABAN 5 MG TAB (ELIQUIS) PO SCH ×2 (08:32→20:41)
[2019-08-17] MEDS: SIMVASTATIN 40 MG TAB PO SCH (08:32)
[2019-08-17] MEDS: FLUoxetine 20 MG CAP PO SCH (08:32)
[2019-08-17] MEDS: LANSOPRAZOLE SUSPENSION 30 MG/10 ML ORAL SYRINGE (FIRST-LANSOPRAZOLE) PO SCH ×2 (08:32→20:41)
[2019-08-17] MEDS: NYSTATIN 100,000 UNITS/GM TOPICAL PWD 15 GM TOP SCH ×2 (08:32→20:42)
[2019-08-17] MEDS: LACTOBACILLUS ACIDOPHILUS CAP (BACID) PO SCH ×4 (08:32→20:41)
[2019-08-17] MEDS: VITAMIN D 1,000 INTERNATIONAL UNITS TABLET PO SCH (08:32)
[2019-08-17] MEDS: FLUTICASONE PROP 0.05% NASAL SPRAY 16 GM (FLONASE) NARES SCH ×2 (08:32→20:41)
[2019-08-17] MEDS: REMEDY PHYTOPLEX Z-GUARD PASTE 113GM TUBE (FROM STOREROOM PRODUCT) TOP SCH ×3 (08:33→20:43)
--- NOTE | 2019-08-17 11:26 | IPNPDOC ---
Date Seen The patient was seen on 08/17/19. Progress Note SUBJECTIVE: Patient was sitting in chair states that she feels well, speech does not seem to have any significant changes. Reports that her walking seem better than before. No acute events reported. OBJECTIVE PHYSICAL EXAMINATION: VITAL SIGNS: Please see below. General: No acute distress, Alert Eyes: Normal sclera, EOMI HENT: Atraumatic Cardiovascular: Normal rate Pulmonary: Clear to auscultation b/l, no wheezing GI: Soft, nontender, nondistended Skin: Warm and dry Neuro: Slurred speech/stutters. Ataxic with b/l LE weakness. LABORATORY DATA, IMAGING STUDIES, MICROBIOLOGY: Please see below. DVT prophylaxis ordered?: Eliquis ASSESSMENT AND PLAN: 78 year old female with PMH COPD, GERD, HLD presented to [facility] with AMS and subsequently found to be septic with PNA as well ESBL e. coli UTI. Course of admission complicated by development of Afib with RVR. Slurred speech was also noted during admission but repeated head imagings do not reveal any acute infarcts. 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 1. 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 supposedly improving. - On IV Rocephin started 08/05, ID following. Planning for 4 weeks treatment. - continue with IV antibiotics and PT/OT for ataxia/gait training. 2. Vertigo - Resolved. - meclizine PRN. May be 2/2 Lyme disease. 3. new onset Afib - c/w Eliquis, not on a rate controlling medication at this time but HR has been stable. - Consider adding BB or CCB if needed. I will be off service after today. Please contact hospitalist on [employer] list as needed starting tomorrow. VS, I&O, 24H, Fishbone Vital Signs/I&O Vital Signs Date Time Temp Pulse Resp B/P (MAP) Pulse Ox O2 Delivery O2 Flow Rate FiO2 08/17/19 05:57 97.1 69 18 149/70 (96) 95 Room Air I&O- Last 24 Hours up to 6 AM 08/17/19 05:59 Intake Total 290 ml Balance 290 ml RON PRICE MD Aug 17, 2019 11:26
[2019-08-17 14:00] VITALS: BP 147/67
[2019-08-17] MEDS: cefTRIAXone SOD 2 GM in D5W MINI-BAG PLUS 50 ML IV SCH (15:26)
[2019-08-17] MEDS: ARIPiprazole 2 MG TAB PO SCH (20:41)
[2019-08-17] MEDS: SENNA 8.6 MG TAB (SENOKOT) PO SCH (20:41)
[2019-08-17 20:57] VITALS: BP 129/61
[2019-08-18] MEDS: SLF 3 ML SYR IV SCH ×3 (05:40→20:27)
[2019-08-18 05:47] VITALS: BP 127/84
[2019-08-18] MEDS: IPRATROPIUM 0.5MG/ALBUTEROL 2.5MG INH SOL UD 3ML (DUONEB) NEB SCH ×3 (07:21→19:50)
[2019-08-18] MEDS: LACTOBACILLUS ACIDOPHILUS CAP (BACID) PO SCH ×4 (07:43→20:25)
[2019-08-18] MEDS: SIMVASTATIN 40 MG TAB PO SCH (07:43)
[2019-08-18] MEDS: APIXABAN 5 MG TAB (ELIQUIS) PO SCH ×2 (07:43→20:25)
[2019-08-18] MEDS: MAGIC MOUTHWASH SUSPENSION BTL SSP SCH ×3 (07:43→18:11)
[2019-08-18] MEDS: VITAMIN D 1,000 INTERNATIONAL UNITS TABLET PO SCH (07:43)
[2019-08-18] MEDS: FLUoxetine 20 MG CAP PO SCH (07:43)
[2019-08-18] MEDS: REMEDY PHYTOPLEX Z-GUARD PASTE 113GM TUBE (FROM STOREROOM PRODUCT) TOP SCH ×3 (07:44→20:26)
[2019-08-18] MEDS: LANSOPRAZOLE SUSPENSION 30 MG/10 ML ORAL SYRINGE (FIRST-LANSOPRAZOLE) PO SCH ×2 (07:44→20:25)
[2019-08-18] MEDS: FLUTICASONE PROP 0.05% NASAL SPRAY 16 GM (FLONASE) NARES SCH ×2 (07:44→20:26)
[2019-08-18] MEDS: NYSTATIN 100,000 UNITS/GM TOPICAL PWD 15 GM TOP SCH ×2 (07:44→20:26)
[2019-08-18 14:00] VITALS: BP 131/64
[2019-08-18] MEDS: cefTRIAXone SOD 2 GM in D5W MINI-BAG PLUS 50 ML IV SCH (15:57)
[2019-08-18 20:16] VITALS: BP 133/65
[2019-08-18] MEDS: ARIPiprazole 2 MG TAB PO SCH (20:25)
[2019-08-18] MEDS: SENNA 8.6 MG TAB (SENOKOT) PO SCH (20:25)
[2019-08-18] MEDS: ACETAMINOPHEN TAB 650MG DOSE (2X325MG) PO PRN (20:26)
[2019-08-19] MEDS: SLF 3 ML SYR IV SCH ×3 (05:41→21:14)
[2019-08-19 06:00] VITALS: BP 139/72
[2019-08-19] MEDS: IPRATROPIUM 0.5MG/ALBUTEROL 2.5MG INH SOL UD 3ML (DUONEB) NEB SCH ×3 (07:19→19:43)
[2019-08-19] MEDS: LACTOBACILLUS ACIDOPHILUS CAP (BACID) PO SCH ×4 (09:45→20:05)
[2019-08-19] MEDS: VITAMIN D 1,000 INTERNATIONAL UNITS TABLET PO SCH (09:45)
[2019-08-19] MEDS: SIMVASTATIN 40 MG TAB PO SCH (09:46)
[2019-08-19] MEDS: FLUTICASONE PROP 0.05% NASAL SPRAY 16 GM (FLONASE) NARES SCH ×2 (09:46→20:06)
[2019-08-19] MEDS: LANSOPRAZOLE SUSPENSION 30 MG/10 ML ORAL SYRINGE (FIRST-LANSOPRAZOLE) PO SCH ×2 (09:46→20:05)
[2019-08-19] MEDS: FLUoxetine 20 MG CAP PO SCH (09:46)
[2019-08-19] MEDS: NYSTATIN 100,000 UNITS/GM TOPICAL PWD 15 GM TOP SCH ×2 (09:46→20:06)
[2019-08-19] MEDS: APIXABAN 5 MG TAB (ELIQUIS) PO SCH ×2 (09:46→20:05)
[2019-08-19] MEDS: MAGIC MOUTHWASH SUSPENSION BTL SSP SCH ×3 (09:47→17:22)
[2019-08-19] MEDS: REMEDY PHYTOPLEX Z-GUARD PASTE 113GM TUBE (FROM STOREROOM PRODUCT) TOP SCH ×3 (09:47→20:06)
--- NOTE | 2019-08-19 10:33 | IPN ---
DATE: 08/18/2019 She is a 78-year-old female admitted to the acute rehabilitation unit for history of slurred speech and ataxia. She had an infectious disease (ID) consult with Dr. Ellsworth and is also being treated for Lyme encephalopathy. She is on IV antibiotics. She also had atrial fibrillation with rapid ventricular response. Her heart rate remained stable 70s to 80s. She continues to have ataxia. Speech is slurred, but is improving. She has had no further vertigo. She has no specific complaints today. OBJECTIVE: Blood pressure 133/65. Pulse 73. Respirations 18. Temperature 97.1. Oxygen saturation 99% on room air. The patient is alert. Pupils equal and react to light. Extraocular movements intact. Cornea and sclerae is clear. Conjunctivae is normal. No facial asymmetry. Pharynx, tongue and gums pink and moist. Tongue is midline. Neck is supple without lymphadenopathy. No thyromegaly. No goiter. Chest is clear to auscultation. Without wheeze or retraction. Heart is regular. Abdomen is benign. Bowel sounds are positive. /Rectal: Not done. Skin: Warm and dry. Neurologic: Slurred speech with stuttering. Ataxic with bilateral lower extremity weakness. IMPRESSION AND PLAN: 1. Lyme encephalopathy. Continues with IV Rocephin. Continue physical therapy (PT) and occupational therapy (OT) for ataxia and gait strengthening. 2. Vertigo, resolved. 3. New onset atrial fibrillation. Continue with Eliquis. 4. No acute medical issues.
[2019-08-19 11:02] LABS: BASO % 0.6 % (0.0-1.0); EOS # 0.2 10^3/uL (0.0-0.5); EOS % 2.4 % (0.0-3.0); HEMATOCRIT 38.2 % (36.0-47.0); HEMOGLOBIN 12.2 g/dl (12.0-15.5); LYMPH # 1.1 10^3/uL (1.5-5.0); LYMPH % 16.8 % (24.0-44.0); MEAN CORPUSCULAR HEMOGLOBIN 30.1 pg (27.0-33.0); MEAN CORPUSCULAR HGB CONC 31.9 g/dl (32.0-36.5); MEAN CORPUSCULAR VOLUME 94.3 fl (80.0-96.0); MONO # 0.7 10^3/uL (0.0-0.8); MONO % 9.6 % (0.0-5.0); NEUTROPHILS # 4.8 10^3/uL (1.5-8.5); NEUTROPHILS % 70.3 % (36.0-66.0); PLATELET COUNT, AUTOMATED 346 10^3/uL (150-450); RED BLOOD COUNT 4.05 10^6/uL (4.00-5.40); WHITE BLOOD COUNT 6.8 10^3/uL (4.0-10.0)
[2019-08-19 11:32] LABS: CALCIUM LEVEL 9.3 MG/DL (8.8-10.2); CREATININE FOR GFR 1.18 MG/DL (0.55-1.30); GLOMERULAR FILTRATION RATE 47.4 (>39); POTASSIUM SERUM 3.4 MEQ/L (3.5-5.1)
[2019-08-19 14:00] VITALS: BP 136/74
--- NOTE | 2019-08-19 15:41 | IPNPDOC ---
PM&R Progress Note DATE OF SERVICE: Aug 19, 2019 Machine Tracer Progress Note Subjective: Patient stating she feels ok today and that she is advancing in therapy. REVIEW OF SYSTEMS: The following is a completed review of systems and has been reviewed. Review of systems otherwise unremarkable. PAIN: Patient self reports no pain EYES: No recent vision changes EARS, NOSE, & THROAT: +dysphagia, +dysarthria (improving) CARDIOVASCULAR: Denies chest pain or palpitations PULMONARY: Denies shortness of breath GASTROINTESTINAL: Denies constipation/diarrhea GENITOURINARY: denies dysuria MUSCULOSKELETAL: generalized weakness NEUROLOGICAL:+ generalized weakness (improving) HEMATOLOGICAL: denies easy bruising SKIN: no rash PSYCHIATRIC: Unremarkable All other review of systems found to be negative. PHYSICAL EXAMINATION: VITAL SIGNS: Please see below. GENERAL: Pleasant and cooperative. No acute distress. HEENT: PERRL. Extraocular movements intact. Clear conjunctiva CARDIOVASCULAR: Regular rate and rhythm. No murmurs, rubs, or gallops LUNGS: Clear to auscultation bilaterally. No wheezes. No rhonchi ABDOMEN: Soft, nontender, nondistended. Positive bowel sounds. Normal active bowel sounds NEUROLOGICAL: Alert and oriented times three. Cranial nerves II through XII grossly intact. Sensation grossly intact +ataxia (-) babinksi bilat (+) dysarthria EXTREMITIES: 5\5 strength bilateral upper extremities. 4-\5 strength right lower extremity. 4-/5 strength in left lower extremity. 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 Rehab- PT/OT- advance gait and ADLs, stretch/strengthen/maintain ROM all 4 limbs- ambulating with RW in therapy -ROD GREASER- swallow eval, c/u puree and honey, repeat MBS, upgraded to puree and now cleared for thins per ROD GREASER- recs appreciated 2. Neuro- patient with acute onset generalized weakness with dysphagia due to lyme encephalomyelitis with underlying chronic cervical stenosis and lumbar stenosis seen on recent MRI images, -given +lyme titers, ID consulted to assist in management, recs appreciated c/u IV Rocephin x 4 weeks-patient reported to be less ataxic in therapy -Myasthenia gravis antibodies pending -discussed case with neuro will alert if patient gets weaker, so far making slow, but consistent functional gains -vertigo- meclizine ordered prn 3. 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 Resp- s/p treatment for PNA, Duonebs, encourage incentive spirometry 5. Endo- FS well controlled, not clear she has DM, d/c'd ISS 6. GI ppx- lanzaprazole 7. DVT ppx- on eliquis, teds 8. Pain- tylenol prn 9. Psych- c/u prozac to help with possible motor recovery with her new neuro deficits 10. Hypokalemia- will give one time dose potassium and recheck BMP tomorrow 11. Dispo- 08/26/19, goal to home, progressing Allergies Coded Allergies: No Known Allergies (Unverified , 07/22/19) Vital Signs Vital Signs Date Time Temp Pulse Resp B/P (MAP) Pulse Ox O2 Delivery O2 Flow Rate FiO2 08/19/19 14:00 99.1 77 18 136/74 (94) 95 Room Air Laboratory Data CBC/BMP Laboratory Tests 08/19/19 10:34 Labs 24H Laboratory Tests 2 08/19/19 10:34: Immature Granulocyte % (Auto) 0.3, Neutrophils (%) (Auto) 70.3H, Lymphocytes (%) (Auto) 16.8L, Monocytes (%) (Auto) 9.6H, Eosinophils (%) (Auto) 2.4, Basophils (%) (Auto) 0.6, Neutrophils # (Auto) 4.8, Lymphocytes # (Auto) 1.1L, Monocytes # (Auto) 0.7, Eosinophils # (Auto) 0.2, Basophils # (Auto) 0.0, Nucleated Red Blood Cells % (auto) 0.0, Anion Gap 8, Glomerular Filtration Rate 47.4, Calcium Level 9.3 Current Medications Current Medications Current Medications Medications (Trade) Dose Ordered Sig/Jovanna Route PRN Reason Start Time Stop Time Status Last Admin Dose Admin Acetaminophen (Tylenol Tab) 650 mg Q4HP PRN PO fever/MILD PAIN (PS 1-4) 08/05/19 16:30 08/18/19 20:26 Albuterol/ Ipratropium (Duoneb (Ipr 0.5mg/Alb 2.5mg)) 3 ml RTID NEB 08/05/19 20:00 08/19/19 07:19 Apixaban (Eliquis) 5 mg BID PO 08/05/19 21:00 08/19/19 09:46 Aripiprazole (AbiLIFY) 2 mg QHS PO 08/05/19 21:00 08/18/19 20:25 Ceftriaxone Sodium 2 gm/ Dextrose 50 ml @ 100 mls/hr Q24H IV 08/06/19 16:00 08/18/19 15:57 Dextrose (Dextrose 50%) 25 ml ASDIRECTED PRN IV SEE LABEL COMMENTS 08/05/19 16:30 08/07/19 10:25 DC Docusate Sodium (Colace) 100 mg BID PO 08/05/19 21:00 08/13/19 17:32 DC 08/12/19 21:23 Fluoxetine HCl (PROzac) 20 mg DAILY PO 08/07/19 09:00 08/19/19 09:46 Fluticasone Propionate (Flonase 0.05% Nasal [place]) 1 spray BID NARES 08/05/19 21:00 08/19/19 09:46 Glucagon (Glucagon) 1 mg ASDIRECTED PRN SC SEE LABEL COMMENTS 08/05/19 16:30 08/07/19 10:25 DC Glucose (Glucose) 16 GM ASDIRECTED PRN PO SEE LABEL COMMENTS 08/05/19 16:30 08/07/19 10:25 DC Insulin Human Lispro (HumaLOG INSULIN) SEE PROTOCOL TABLE AC SC 08/05/19 17:30 08/07/19 10:25 DC Insulin Human Lispro (HumaLOG INSULIN) SEE PROTOCOL TABLE QHS SC 08/05/19 21:00 08/07/19 10:25 DC Lactobacillus Acidophilus (Bacid) 1 ea WMHS PO 08/05/19 18:00 08/19/19 09:45 Lansoprazole (First-Lansoprazole Oral Suspension) 30 mg BID PO 08/05/19 21:00 08/19/19 09:46 Lidocaine/ Diphenhydr/Alum/ Mg/Simeth (Magic Mouthwash) 5ML, ok to give ice chips O... AC SSP 08/05/19 17:30 08/19/19 09:47 Meclizine HCl (Antivert) 25 mg Q8HP PRN PO DIZZINESS 08/05/19 16:30 08/12/19 12:12 Miscellaneous (Unresolved Clarification Entry) SEE LABEL COMMENTS DAILY XX 08/10/19 09:00 08/11/19 11:02 DC Nystatin (Mycostatin Powder, Nystop) Please apply to groin BID TOP 08/13/19 21:00 08/19/19 09:46 Senna (Senokot) 1 tab QHS PO 08/05/19 21:00 08/18/19 20:25 Simvastatin (Zocor) 40 mg DAILY PO 08/06/19 09:00 08/19/19 09:46 Sodium Chloride (Saline Lock Flush) 2 ml ASDIRECTED PRN IV SEE LABEL COMMENTS 08/07/19 00:45 Sodium Chloride (Saline Lock Flush) 2 ml SLF IV 08/07/19 06:00 08/19/19 05:41 Vitamin D (Vitamin D) 1,000 units DAILY PO 08/06/19 09:00 08/19/19 09:45 JEOVANNY STOREY MD Aug 19, 2019 15:41
[2019-08-19] MEDS ORDERED: POTASSIUM CHLORIDE 10 MEQ SR TABLET PO ONE (15:45)
[2019-08-19] MEDS: cefTRIAXone SOD 2 GM in D5W MINI-BAG PLUS 50 ML IV SCH (17:20)
[2019-08-19 20:00] VITALS: BP 120/72
[2019-08-19] MEDS: ARIPiprazole 2 MG TAB PO SCH (20:05)
[2019-08-19] MEDS: SENNA 8.6 MG TAB (SENOKOT) PO SCH (20:05)
[2019-08-20] MEDS: SLF 3 ML SYR IV SCH ×3 (05:09→20:56)
[2019-08-20 06:00] VITALS: BP 140/90
[2019-08-20] MEDS: IPRATROPIUM 0.5MG/ALBUTEROL 2.5MG INH SOL UD 3ML (DUONEB) NEB SCH ×3 (07:18→19:24)
[2019-08-20 08:11] LABS: CALCIUM LEVEL 9.2 MG/DL (8.8-10.2); CREATININE FOR GFR 1.01 MG/DL (0.55-1.30); GLOMERULAR FILTRATION RATE 56.7 (>39); POTASSIUM SERUM 4.1 MEQ/L (3.5-5.1)
[2019-08-20] MEDS: LACTOBACILLUS ACIDOPHILUS CAP (BACID) PO SCH ×4 (08:58→20:56)
[2019-08-20] MEDS: SIMVASTATIN 40 MG TAB PO SCH (08:58)
[2019-08-20] MEDS: REMEDY PHYTOPLEX Z-GUARD PASTE 113GM TUBE (FROM STOREROOM PRODUCT) TOP SCH ×3 (08:58→20:57)
[2019-08-20] MEDS: LANSOPRAZOLE SUSPENSION 30 MG/10 ML ORAL SYRINGE (FIRST-LANSOPRAZOLE) PO SCH ×2 (08:58→20:56)
[2019-08-20] MEDS: APIXABAN 5 MG TAB (ELIQUIS) PO SCH ×2 (08:58→20:56)
[2019-08-20] MEDS: FLUoxetine 20 MG CAP PO SCH (08:58)
[2019-08-20] MEDS: VITAMIN D 1,000 INTERNATIONAL UNITS TABLET PO SCH (08:58)
[2019-08-20] MEDS: FLUTICASONE PROP 0.05% NASAL SPRAY 16 GM (FLONASE) NARES SCH ×2 (08:59→20:56)
[2019-08-20] MEDS: NYSTATIN 100,000 UNITS/GM TOPICAL PWD 15 GM TOP SCH ×2 (08:59→20:57)
[2019-08-20] MEDS: MAGIC MOUTHWASH SUSPENSION BTL SSP SCH ×3 (08:59→18:05)
[2019-08-20 14:00] VITALS: BP 122/81
[2019-08-20] MEDS: cefTRIAXone SOD 2 GM in D5W MINI-BAG PLUS 50 ML IV SCH (16:40)
[2019-08-20 20:00] VITALS: BP 144/73
[2019-08-20] MEDS: SENNA 8.6 MG TAB (SENOKOT) PO SCH (20:56)
[2019-08-20] MEDS: ARIPiprazole 2 MG TAB PO SCH (20:56)
[2019-08-20] MEDS: ACETAMINOPHEN TAB 650MG DOSE (2X325MG) PO PRN (20:56)
[2019-08-21] MEDS: SLF 3 ML SYR IV SCH ×3 (05:27→21:10)
[2019-08-21 06:00] VITALS: BP 145/73
[2019-08-21 06:30] LABS: BASO % 0.7 % (0.0-1.0); EOS # 0.2 10^3/uL (0.0-0.5); EOS % 3.5 % (0.0-3.0); HEMATOCRIT 36.2 % (36.0-47.0); HEMOGLOBIN 11.6 g/dl (12.0-15.5); LYMPH # 1.6 10^3/uL (1.5-5.0); LYMPH % 29.1 % (24.0-44.0); MEAN CORPUSCULAR HEMOGLOBIN 30.5 pg (27.0-33.0); MEAN CORPUSCULAR VOLUME 95.3 fl (80.0-96.0); MONO # 0.7 10^3/uL (0.0-0.8); MONO % 13.5 % (0.0-5.0); NEUTROPHILS # 2.9 10^3/uL (1.5-8.5); NEUTROPHILS % 52.7 % (36.0-66.0); PLATELET COUNT, AUTOMATED 333 10^3/uL (150-450); WHITE BLOOD COUNT 5.5 10^3/uL (4.0-10.0)
[2019-08-21 06:51] LABS: CALCIUM LEVEL 8.8 MG/DL (8.8-10.2); CREATININE FOR GFR 0.99 MG/DL (0.55-1.30); GLOMERULAR FILTRATION RATE 58.1 (>39); POTASSIUM SERUM 3.6 MEQ/L (3.5-5.1)
[2019-08-21] MEDS: IPRATROPIUM 0.5MG/ALBUTEROL 2.5MG INH SOL UD 3ML (DUONEB) NEB SCH ×3 (07:01→19:19)
[2019-08-21] MEDS: LANSOPRAZOLE SUSPENSION 30 MG/10 ML ORAL SYRINGE (FIRST-LANSOPRAZOLE) PO SCH ×2 (09:03→21:08)
[2019-08-21] MEDS: LACTOBACILLUS ACIDOPHILUS CAP (BACID) PO SCH ×4 (09:03→21:08)
[2019-08-21] MEDS: FLUoxetine 20 MG CAP PO SCH (09:03)
[2019-08-21] MEDS: SIMVASTATIN 40 MG TAB PO SCH (09:03)
[2019-08-21] MEDS: FLUTICASONE PROP 0.05% NASAL SPRAY 16 GM (FLONASE) NARES SCH ×2 (09:03→21:08)
[2019-08-21] MEDS: VITAMIN D 1,000 INTERNATIONAL UNITS TABLET PO SCH (09:03)
[2019-08-21] MEDS: MAGIC MOUTHWASH SUSPENSION BTL SSP SCH ×3 (09:03→16:54)
[2019-08-21] MEDS: APIXABAN 5 MG TAB (ELIQUIS) PO SCH ×2 (09:03→21:08)
[2019-08-21] MEDS: NYSTATIN 100,000 UNITS/GM TOPICAL PWD 15 GM TOP SCH ×2 (09:04→21:09)
[2019-08-21] MEDS: REMEDY PHYTOPLEX Z-GUARD PASTE 113GM TUBE (FROM STOREROOM PRODUCT) TOP SCH ×3 (09:05→21:10)
[2019-08-21] MEDS: SUCRALFATE SUSP 1GM/10ML UD PO SCH (12:25)
[2019-08-21] MEDS: cefTRIAXone SOD 2 GM in D5W MINI-BAG PLUS 50 ML IV SCH (16:54)
[2019-08-21 20:00] VITALS: BP 116/55
[2019-08-21] MEDS: SENNA 8.6 MG TAB (SENOKOT) PO SCH (21:08)
[2019-08-21] MEDS: ARIPiprazole 2 MG TAB PO SCH (21:08)
[2019-08-22 05:47] VITALS: BP 125/70
[2019-08-22] MEDS: SLF 3 ML SYR IV SCH ×3 (05:57→22:10)
[2019-08-22] MEDS: IPRATROPIUM 0.5MG/ALBUTEROL 2.5MG INH SOL UD 3ML (DUONEB) NEB SCH ×3 (07:05→19:55)
[2019-08-22] MEDS: FLUoxetine 20 MG CAP PO SCH (07:38)
[2019-08-22] MEDS: VITAMIN D 1,000 INTERNATIONAL UNITS TABLET PO SCH (07:38)
[2019-08-22] MEDS: LACTOBACILLUS ACIDOPHILUS CAP (BACID) PO SCH ×4 (07:38→22:09)
[2019-08-22] MEDS: REMEDY PHYTOPLEX Z-GUARD PASTE 113GM TUBE (FROM STOREROOM PRODUCT) TOP SCH ×3 (07:39→22:10)
[2019-08-22] MEDS: LANSOPRAZOLE SUSPENSION 30 MG/10 ML ORAL SYRINGE (FIRST-LANSOPRAZOLE) PO SCH ×2 (07:39→22:09)
[2019-08-22] MEDS: MAGIC MOUTHWASH SUSPENSION BTL SSP SCH ×3 (07:39→17:28)
[2019-08-22] MEDS: APIXABAN 5 MG TAB (ELIQUIS) PO SCH ×2 (07:39→22:09)
[2019-08-22] MEDS: SIMVASTATIN 40 MG TAB PO SCH (07:39)
[2019-08-22] MEDS: NYSTATIN 100,000 UNITS/GM TOPICAL PWD 15 GM TOP SCH ×2 (07:39→22:12)
[2019-08-22] MEDS: FLUTICASONE PROP 0.05% NASAL SPRAY 16 GM (FLONASE) NARES SCH ×2 (07:39→22:10)
--- NOTE | 2019-08-22 11:32 | IPNPDOC ---
PM&R Progress Note DATE OF SERVICE: Aug 20, 2019 Hand Outside Cutter Progress Note Subjective: Patient seen in her room with her asking about prognosis, was noted to cough while taking a sip from her provail cup. REVIEW OF SYSTEMS: The following is a completed review of systems and has been reviewed. Review of systems otherwise unremarkable. PAIN: Patient self reports no pain EYES: No recent vision changes EARS, NOSE, & THROAT: +dysphagia, +dysarthria (improving) CARDIOVASCULAR: Denies chest pain or palpitations PULMONARY: Denies shortness of breath GASTROINTESTINAL: Denies constipation/diarrhea GENITOURINARY: denies dysuria MUSCULOSKELETAL: generalized weakness NEUROLOGICAL:+ generalized weakness (improving) HEMATOLOGICAL: denies easy bruising SKIN: no rash PSYCHIATRIC: Unremarkable All other review of systems found to be negative. PHYSICAL EXAMINATION: VITAL SIGNS: Please see below. GENERAL: Pleasant and cooperative. No acute distress. HEENT: PERRL. Extraocular movements intact. Clear conjunctiva CARDIOVASCULAR: Regular rate and rhythm. No murmurs, rubs, or gallops LUNGS: Clear to auscultation bilaterally. No wheezes. No rhonchi ABDOMEN: Soft, nontender, nondistended. Positive bowel sounds. Normal active bowel sounds NEUROLOGICAL: Alert and oriented times three. Cranial nerves II through XII grossly intact. Sensation grossly intact +ataxia (-) babinksi bilat (+) dysarthria EXTREMITIES: 5\5 strength bilateral upper extremities. 4-\5 strength right lower extremity. 4-/5 strength in left lower extremity. 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 Rehab- PT/OT- advance gait and ADLs, stretch/strengthen/maintain ROM all 4 limbs- ambulating with RW in therapy -TRAVEL REGISTERED NURSE ONCOLOGY- swallow eval, repeat MBS, upgraded to puree and now cleared for thins per TRAVEL REGISTERED NURSE ONCOLOGY- recs appreciated 2. Neuro- patient with acute onset generalized weakness with dysphagia due to lyme encephalomyelitis with underlying chronic cervical stenosis and lumbar stenosis seen on recent MRI images, -given +lyme titers, ID consulted to assist in management, recs appreciated c/u IV Rocephin x 4 weeks-patient reported to be less ataxic in therapy -Myasthenia gravis antibodies pending -discussed case with neuro will alert if patient gets weaker, so far making slow, but consistent functional gains -vertigo- meclizine ordered prn- resolved 3. 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 Resp- s/p treatment for PNA, Duonebs, encourage incentive spirometry-monitor for infection while on thins 5. Endo- FS well controlled, not clear she has DM, d/c'd ISS 6. GI ppx- lanzaprazole 7. DVT ppx- on eliquis, teds 8. Pain- tylenol prn 9. Psych- c/u prozac to help with possible motor recovery with her new neuro deficits 10. Hypokalemia- resolved 11. Dispo- 08/26/19, goal to home, progressing, family to start training this week and will request more time from insurance Allergies Coded Allergies: No Known Allergies (Unverified , 07/22/19) Vital Signs Vital Signs Date Time Temp Pulse Resp B/P (MAP) Pulse Ox O2 Delivery O2 Flow Rate FiO2 08/22/19 05:47 97.3 76 18 125/70 (88) 95 Room Air Current Medications Current Medications Current Medications Medications (Trade) Dose Ordered Sig/Jovanna Route PRN Reason Start Time Stop Time Status Last Admin Dose Admin Acetaminophen (Tylenol Tab) 650 mg Q4HP PRN PO fever/MILD PAIN (PS 1-4) 08/05/19 16:30 08/20/19 20:56 Albuterol/ Ipratropium (Duoneb (Ipr 0.5mg/Alb 2.5mg)) 3 ml RTID NEB 08/05/19 20:00 08/22/19 07:05 Apixaban (Eliquis) 5 mg BID PO 08/05/19 21:00 08/22/19 07:39 Aripiprazole (AbiLIFY) 2 mg QHS PO 08/05/19 21:00 08/21/19 21:08 Ceftriaxone Sodium 2 gm/ Dextrose 50 ml @ 100 mls/hr Q24H IV 08/06/19 16:00 08/21/19 16:54 Dextrose (Dextrose 50%) 25 ml ASDIRECTED PRN IV SEE LABEL COMMENTS 08/05/19 16:30 08/07/19 10:25 DC Docusate Sodium (Colace) 100 mg BID PO 08/05/19 21:00 08/13/19 17:32 DC 08/12/19 21:23 Fluoxetine HCl (PROzac) 20 mg DAILY PO 08/07/19 09:00 08/22/19 07:38 Fluticasone Propionate (Flonase 0.05% Nasal [place]) 1 spray BID NARES 08/05/19 21:00 08/22/19 07:39 Glucagon (Glucagon) 1 mg ASDIRECTED PRN SC SEE LABEL COMMENTS 08/05/19 16:30 08/07/19 10:25 DC Glucose (Glucose) 16 GM ASDIRECTED PRN PO SEE LABEL COMMENTS 08/05/19 16:30 08/07/19 10:25 DC Insulin Human Lispro (HumaLOG INSULIN) SEE PROTOCOL TABLE AC SC 08/05/19 17:30 08/07/19 10:25 DC Insulin Human Lispro (HumaLOG INSULIN) SEE PROTOCOL TABLE QHS SC 08/05/19 21:00 08/07/19 10:25 DC Lactobacillus Acidophilus (Bacid) 1 ea WMHS PO 08/05/19 18:00 08/22/19 07:38 Lansoprazole (First-Lansoprazole Oral Suspension) 30 mg BID PO 08/05/19 21:00 08/22/19 07:39 Lidocaine/ Diphenhydr/Alum/ Mg/Simeth (Magic Mouthwash) 5ML, ok to give ice chips O... AC SSP 08/05/19 17:30 08/22/19 07:39 Meclizine HCl (Antivert) 25 mg Q8HP PRN PO DIZZINESS 08/05/19 16:30 08/12/19 12:12 Miscellaneous (Unresolved Clarification Entry) SEE LABEL COMMENTS DAILY XX 08/10/19 09:00 08/11/19 11:02 DC Nystatin (Mycostatin Powder, Nystop) Please apply to groin BID TOP 08/13/19 21:00 08/22/19 07:39 Senna (Senokot) 1 tab QHS PO 08/05/19 21:00 08/21/19 21:08 Simvastatin (Zocor) 40 mg DAILY PO 08/06/19 09:00 08/22/19 07:39 Sodium Chloride (Saline Lock Flush) 2 ml ASDIRECTED PRN IV SEE LABEL COMMENTS 08/07/19 00:45 Sodium Chloride (Saline Lock Flush) 2 ml SLF IV 08/07/19 06:00 08/22/19 05:57 Sucralfate (Carafate Suspension) 1 gm DAILY@1200 PO 08/21/19 12:00 08/21/19 12:25 Vitamin D (Vitamin D) 1,000 units DAILY PO 08/06/19 09:00 08/22/19 07:38 JEOVANNY STOREY MD Aug 22, 2019 11:32
--- NOTE | 2019-08-22 11:34 | IPNPDOC ---
PM&R Progress Note DATE OF SERVICE: Aug 21, 2019 Staking Technician Progress Note Subjective: Patient seen in her room with family for family training and understands she is to drink liquid now from a cup with a lid and cocktail straw. REVIEW OF SYSTEMS: The following is a completed review of systems and has been reviewed. Review of systems otherwise unremarkable. PAIN: Patient self reports no pain EYES: No recent vision changes EARS, NOSE, & THROAT: +dysphagia, +dysarthria (improving) CARDIOVASCULAR: Denies chest pain or palpitations PULMONARY: Denies shortness of breath GASTROINTESTINAL: Denies constipation/diarrhea GENITOURINARY: denies dysuria MUSCULOSKELETAL: generalized weakness NEUROLOGICAL:+ generalized weakness (improving) HEMATOLOGICAL: denies easy bruising SKIN: no rash PSYCHIATRIC: Unremarkable All other review of systems found to be negative. PHYSICAL EXAMINATION: VITAL SIGNS: Please see below. GENERAL: Pleasant and cooperative. No acute distress. HEENT: PERRL. Extraocular movements intact. Clear conjunctiva CARDIOVASCULAR: Regular rate and rhythm. No murmurs, rubs, or gallops LUNGS: Clear to auscultation bilaterally. No wheezes. No rhonchi ABDOMEN: Soft, nontender, nondistended. Positive bowel sounds. Normal active bowel sounds NEUROLOGICAL: Alert and oriented times three. Cranial nerves II through XII grossly intact. Sensation grossly intact +ataxia (-) babinksi bilat (+) dysarthria EXTREMITIES: 5\5 strength bilateral upper extremities. 4-\5 strength right lower extremity. 4-/5 strength in left lower extremity. SKIN: intact ASSESSMENT:78-year-old F with past medical history of COPD who presents status post acute onset weakness and encephalopathy likely due to lyme encephalomyeliti s PLAN: 1. Rehab- PT/OT- advance gait and ADLs, stretch/strengthen/maintain ROM all 4 limbs- ambulating with RW in therapy -DISTRIBUTION ESTIMATOR- swallow eval, repeat MBS, upgraded to puree and now cleared for thins per DISTRIBUTION ESTIMATOR, will switch to cocktail straw in lieu of provail cup as patient has better control- recs appreciated 2. Neuro- patient with acute onset generalized weakness with dysphagia due to lyme encephalomyelitis with underlying chronic cervical stenosis and lumbar stenosis seen on recent MRI images, -given +lyme titers, ID consulted to assist in management, recs appreciated c/u IV Rocephin x 4 weeks-patient reported to be less ataxic in therapy -Myasthenia gravis antibodies pending -discussed case with neuro will alert if patient gets weaker, so far making sl ow, but consistent functional gains -vertigo- meclizine ordered prn- resolved 3. 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 Resp- s/p treatment for PNA, Duonebs, encourage incentive spirometry-monitor for infection while on thins 5. Endo- FS well controlled, not clear she has DM, d/c'd ISS 6. GI ppx- lanzaprazole 7. DVT ppx- on eliquis, teds 8. Pain- tylenol prn 9. Psych- c/u prozac to help with possible motor recovery with her new neuro de ficits 10. Hypokalemia- resolved 11. Dispo- 08/26/19, goal to home, progressing, family to start training this week and will request more time from insurance Allergies Coded Allergies: No Known Allergies (Unverified , 07/22/19) Vital Signs Vital Signs Date Time Temp Pulse Resp B/P (MAP) Pulse Ox O2 Delivery O2 Flow Rate FiO2 08/22/19 05:47 97.3 76 18 125/70 (88) 95 Room Air Current Medications Current Medications Current Medications Medications (Trade) Dose Ordered Sig/Jovanna Route PRN Reason Start Time Stop Time Status Last Admin Dose Admin Acetaminophen (Tylenol Tab) 650 mg Q4HP PRN PO fever/MILD PAIN (PS 1-4) 08/05/19 16:30 08/20/19 20:56 Albuterol/ Ipratropium (Duoneb (Ipr 0.5mg/Alb 2.5mg)) 3 ml RTID NEB 08/05/19 20:00 08/22/19 07:05 Apixaban (Eliquis) 5 mg BID PO 08/05/19 21:00 08/22/19 07:39 Aripiprazole (AbiLIFY) 2 mg QHS PO 08/05/19 21:00 08/21/19 21:08 Ceftriaxone Sodium 2 gm/ Dextrose 50 ml @ 100 mls/hr Q24H IV 08/06/19 16:00 08/21/19 16:54 Dextrose (Dextrose 50%) 25 ml ASDIRECTED PRN IV SEE LABEL COMMENTS 08/05/19 16:30 08/07/19 10:25 DC Docusate Sodium (Colace) 100 mg BID PO 08/05/19 21:00 08/13/19 17:32 DC 08/12/19 21:23 Fluoxetine HCl (PROzac) 20 mg DAILY PO 08/07/19 09:00 08/22/19 07:38 Fluticasone Propionate (Flonase 0.05% Nasal [place]) 1 spray BID NARES 08/05/19 21:00 08/22/19 07:39 Glucagon (Glucagon) 1 mg ASDIRECTED PRN SC SEE LABEL COMMENTS 08/05/19 16:30 08/07/19 10:25 DC Glucose (Glucose) 16 GM ASDIRECTED PRN PO SEE LABEL COMMENTS 08/05/19 16:30 08/07/19 10:25 DC Insulin Human Lispro (HumaLOG INSULIN) SEE PROTOCOL TABLE AC SC 08/05/19 17:30 08/07/19 10:25 DC Insulin Human Lispro (HumaLOG INSULIN) SEE PROTOCOL TABLE QHS SC 08/05/19 21:00 08/07/19 10:25 DC Lactobacillus Acidophilus (Bacid) 1 ea WMHS PO 08/05/19 18:00 08/22/19 07:38 Lansoprazole (First-Lansoprazole Oral Suspension) 30 mg BID PO 08/05/19 21:00 08/22/19 07:39 Lidocaine/ Diphenhydr/Alum/ Mg/Simeth (Magic Mouthwash) 5ML, ok to give ice chips O... AC SSP 08/05/19 17:30 08/22/19 07:39 Meclizine HCl (Antivert) 25 mg Q8HP PRN PO DIZZINESS 08/05/19 16:30 08/12/19 12:12 Miscellaneous (Unresolved Clarification Entry) SEE LABEL COMMENTS DAILY XX 08/10/19 09:00 08/11/19 11:02 DC Nystatin (Mycostatin Powder, Nystop) Please apply to groin BID TOP 08/13/19 21:00 08/22/19 07:39 Senna (Senokot) 1 tab QHS PO 08/05/19 21:00 08/21/19 21:08 Simvastatin (Zocor) 40 mg DAILY PO 08/06/19 09:00 7/2/20 07:39 Sodium Chloride (Saline Lock Flush) 2 ml ASDIRECTED PRN IV SEE LABEL COMMENTS 08/07/19 00:45 Sodium Chloride (Saline Lock Flush) 2 ml SLF IV 08/07/19 06:00 08/22/19 05:57 Sucralfate (Carafate Suspension) 1 gm DAILY@1200 PO 08/21/19 12:00 08/21/19 12:25 Vitamin D (Vitamin D) 1,000 units DAILY PO 08/06/19 09:00 08/22/19 07:38 JEOVANNY STOREY MD Aug 22, 2019 11:34
--- NOTE | 2019-08-22 11:35 | IPNPDOC ---
PM&R Progress Note DATE OF SERVICE: Aug 22, 2019 Resource Manager Progress Note Subjective: Patient seen in her room reporting family training yesterday went ok and that her was coming back in today to work with her more. REVIEW OF SYSTEMS: The following is a completed review of systems and has been reviewed. Review of systems otherwise unremarkable. PAIN: Patient self reports no pain EYES: No recent vision changes EARS, NOSE, & THROAT: +dysphagia, +dysarthria (improving) CARDIOVASCULAR: Denies chest pain or palpitations PULMONARY: Denies shortness of breath GASTROINTESTINAL: Denies constipation/diarrhea GENITOURINARY: denies dysuria MUSCULOSKELETAL: generalized weakness NEUROLOGICAL:+ generalized weakness (improving) HEMATOLOGICAL: denies easy bruising SKIN: no rash PSYCHIATRIC: Unremarkable All other review of systems found to be negative. PHYSICAL EXAMINATION: VITAL SIGNS: Please see below. GENERAL: Pleasant and cooperative. No acute distress. HEENT: PERRL. Extraocular movements intact. Clear conjunctiva CARDIOVASCULAR: Regular rate and rhythm. No murmurs, rubs, or gallops LUNGS: Clear to auscultation bilaterally. No wheezes. No rhonchi ABDOMEN: Soft, nontender, nondistended. Positive bowel sounds. Normal active bowel sounds NEUROLOGICAL: Alert and oriented times three. Cranial nerves II through XII grossly intact. Sensation grossly intact +ataxia (-) babinksi bilat (+) dysarthria EXTREMITIES: 5\5 strength bilateral upper extremities. 4-\5 strength right lower extremity. 4-/5 strength in left lower extremity. 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 Rehab- PT/OT- advance gait and ADLs, stretch/strengthen/maintain ROM all 4 limbs- ambulating with RW in therapy -EMERGENCY RESPONSE COORDINATOR- swallow eval, repeat MBS, upgraded to puree and now cleared for thins per EMERGENCY RESPONSE COORDINATOR, will switch to cocktail straw in lieu of provail cup as patient has better control- recs appreciated 2. Neuro- patient with acute onset generalized weakness with dysphagia due to lyme encephalomyelitis with underlying chronic cervical stenosis and lumbar stenosis seen on recent MRI images, -given +lyme titers, ID consulted to assist in management, recs appreciated c/u IV Rocephin x 4 weeks-patient reported to be less ataxic in therapy -Myasthenia gravis antibodies pending -discussed case with neuro will alert if patient gets weaker, so far making slow, but consistent functional gains -vertigo- meclizine ordered prn- resolved 3. 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 Resp- s/p treatment for PNA, Duonebs, encourage incentive spirometry-monitor for infection while on thins-no fever or leukocytosis 5. Endo- FS well controlled, not clear she has DM, d/c'd ISS 6. GI ppx- lanzaprazole 7. DVT ppx- on eliquis, teds 8. Pain- tylenol prn 9. Psych- c/u prozac to help with possible motor recovery with her new neuro deficits 10. Hypokalemia- resolved 11. Dispo- 08/26/19, goal to home, progressing, family to start training this week and will request more time from insurance Allergies Coded Allergies: No Known Allergies (Unverified , 07/22/19) Vital Signs Vital Signs Date Time Temp Pulse Resp B/P (MAP) Pulse Ox O2 Delivery O2 Flow Rate FiO2 08/22/19 05:47 97.3 76 18 125/70 (88) 95 Room Air Current Medications Current Medications Current Medications Medications (Trade) Dose Ordered Sig/Jovanna Route PRN Reason Start Time Stop Time Status Last Admin Dose Admin Acetaminophen (Tylenol Tab) 650 mg Q4HP PRN PO fever/MILD PAIN (PS 1-4) 08/05/19 16:30 08/20/19 20:56 Albuterol/ Ipratropium (Duoneb (Ipr 0.5mg/Alb 2.5mg)) 3 ml RTID NEB 08/05/19 20:00 08/22/19 07:05 Apixaban (Eliquis) 5 mg BID PO 08/05/19 21:00 08/22/19 07:39 Aripiprazole (AbiLIFY) 2 mg QHS PO 08/05/19 21:00 08/21/19 21:08 Ceftriaxone Sodium 2 gm/ Dextrose 50 ml @ 100 mls/hr Q24H IV 08/06/19 16:00 08/21/19 16:54 Dextrose (Dextrose 50%) 25 ml ASDIRECTED PRN IV SEE LABEL COMMENTS 08/05/19 16:30 08/07/19 10:25 DC Docusate Sodium (Colace) 100 mg BID PO 08/05/19 21:00 08/13/19 17:32 DC 08/12/19 21:23 Fluoxetine HCl (PROzac) 20 mg DAILY PO 08/07/19 09:00 08/22/19 07:38 Fluticasone Propionate (Flonase 0.05% Nasal [place]) 1 spray BID NARES 08/05/19 21:00 08/22/19 07:39 Glucagon (Glucagon) 1 mg ASDIRECTED PRN SC SEE LABEL COMMENTS 08/05/19 16:30 08/07/19 10:25 DC Glucose (Glucose) 16 GM ASDIRECTED PRN PO SEE LABEL COMMENTS 08/05/19 16:30 08/07/19 10:25 DC Insulin Human Lispro (HumaLOG INSULIN) SEE PROTOCOL TABLE AC SC 08/05/19 17:30 08/07/19 10:25 DC Insulin Human Lispro (HumaLOG INSULIN) SEE PROTOCOL TABLE QHS SC 08/05/19 21:00 08/07/19 10:25 DC Lactobacillus Acidophilus (Bacid) 1 ea WMHS PO 08/05/19 18:00 08/22/19 07:38 Lansoprazole (First-Lansoprazole Oral Suspension) 30 mg BID PO 08/05/19 21:00 08/22/19 07:39 Lidocaine/ Diphenhydr/Alum/ Mg/Simeth (Magic Mouthwash) 5ML, ok to give ice chips O... AC SSP 08/05/19 17:30 08/22/19 07:39 Meclizine HCl (Antivert) 25 mg Q8HP PRN PO DIZZINESS 08/05/19 16:30 08/12/19 12:12 Miscellaneous (Unresolved Clarification Entry) SEE LABEL COMMENTS DAILY XX 08/10/19 09:00 08/11/19 11:02 DC Nystatin (Mycostatin Powder, Nystop) Please apply to groin BID TOP 08/13/19 21:00 08/22/19 07:39 Senna (Senokot) 1 tab QHS PO 08/05/19 21:00 08/21/19 21:08 Simvastatin (Zocor) 40 mg DAILY PO 08/06/19 09:00 7/2/20 07:39 Sodium Chloride (Saline Lock Flush) 2 ml ASDIRECTED PRN IV SEE LABEL COMMENTS 08/07/19 00:45 Sodium Chloride (Saline Lock Flush) 2 ml SLF IV 08/07/19 06:00 08/22/19 05:57 Sucralfate (Carafate Suspension) 1 gm DAILY@1200 PO 08/21/19 12:00 08/21/19 12:25 Vitamin D (Vitamin D) 1,000 units DAILY PO 08/06/19 09:00 08/22/19 07:38 JEOVANNY STOREY MD Aug 22, 2019 11:35
[2019-08-22] MEDS: SUCRALFATE SUSP 1GM/10ML UD PO SCH (11:41)
--- NOTE | 2019-08-22 12:30 | IPNPDOC ---
Text Note Date of Service The patient was seen on 08/22/19. NOTE Patient was sitting in chair states that she feels well, No acute events reported. OBJECTIVE PHYSICAL EXAMINATION: VITAL SIGNS: Please see below. General: No acute distress, Alert Eyes: Normal sclera, EOMI HENT: Atraumatic Cardiovascular: Normal rate Pulmonary: Clear to auscultation b/l, no wheezing GI: Soft, nontender, nondistended Skin: Warm and dry Neuro: Slurred speech/stutters. Ataxic with b/l LE weakness. ASSESSMENT AND PLAN: 78 year old female with PMH COPD, GERD, HLD presented to [facility] with AMS and subsequently found to be septic with PNA as well ESBL e. coli UTI completed abx course. Course of admission complicated by development of Afib with RVR wihich was selflimiting and pt has been on AC . Slurred speech was also noted during admission but repeated head imagings do not reveal any acute infarcts. 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 She is currently admitted for ARU 1. 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 supposedly improving. - On IV Rocephin started 08/05, ID following. Planning for 4 weeks treatment. - continue with IV antibiotics and PT/OT for ataxia/gait training. 2. Vertigo - Resolved. - meclizine PRN. May be 2/2 Lyme disease. 3. new onset Afib - c/w Eliquis, not on a rate controlling medication at this time but HR has been stable. - Will consider adding BB or CCB if needed. Disposition as per primary VS,Hubert, I+O VS, Hubert, I+O Vital Signs Date Time Temp Pulse Resp B/P (MAP) Pulse Ox O2 Delivery O2 Flow Rate FiO2 08/22/19 05:47 97.3 76 18 125/70 (88) 95 Room Air I&O- Last 24 Hours up to 6 AM 08/22/19 06:00 Intake Total 290 ml Output Total 0 ml Balance 290 ml SEAN VALDEZ MD Aug 22, 2019 12:30
[2019-08-22 14:00] VITALS: BP 138/68
[2019-08-22] MEDS: cefTRIAXone SOD 2 GM in D5W MINI-BAG PLUS 50 ML IV SCH (15:47)
[2019-08-22 20:00] VITALS: BP 130/68
[2019-08-22] MEDS: SENNA 8.6 MG TAB (SENOKOT) PO SCH (22:09)
[2019-08-22] MEDS: ARIPiprazole 2 MG TAB PO SCH (22:09)
[2019-08-23] MEDS: SLF 3 ML SYR IV SCH ×3 (05:20→20:51)
[2019-08-23 05:48] VITALS: BP 158/70
[2019-08-23] MEDS: IPRATROPIUM 0.5MG/ALBUTEROL 2.5MG INH SOL UD 3ML (DUONEB) NEB SCH ×2 (07:29→19:43)
[2019-08-23] MEDS: REMEDY PHYTOPLEX Z-GUARD PASTE 113GM TUBE (FROM STOREROOM PRODUCT) TOP SCH ×3 (08:12→20:51)
[2019-08-23] MEDS: NYSTATIN 100,000 UNITS/GM TOPICAL PWD 15 GM TOP SCH ×2 (08:12→20:51)
[2019-08-23] MEDS: FLUTICASONE PROP 0.05% NASAL SPRAY 16 GM (FLONASE) NARES SCH ×2 (08:12→20:51)
[2019-08-23] MEDS: LANSOPRAZOLE SUSPENSION 30 MG/10 ML ORAL SYRINGE (FIRST-LANSOPRAZOLE) PO SCH ×2 (08:13→20:51)
[2019-08-23] MEDS: FLUoxetine 20 MG CAP PO SCH (08:13)
[2019-08-23] MEDS: APIXABAN 5 MG TAB (ELIQUIS) PO SCH ×2 (08:13→20:50)
[2019-08-23] MEDS: VITAMIN D 1,000 INTERNATIONAL UNITS TABLET PO SCH (08:13)
[2019-08-23] MEDS: SIMVASTATIN 40 MG TAB PO SCH (08:13)
[2019-08-23] MEDS: LACTOBACILLUS ACIDOPHILUS CAP (BACID) PO SCH ×4 (08:13→20:50)
[2019-08-23] MEDS: MAGIC MOUTHWASH SUSPENSION BTL SSP SCH ×3 (08:14→16:22)
[2019-08-23 08:52] LABS: BASO % 0.4 % (0.0-1.0); EOS # 0.2 10^3/uL (0.0-0.5); EOS % 2.2 % (0.0-3.0); HEMATOCRIT 39.8 % (36.0-47.0); HEMOGLOBIN 12.6 g/dl (12.0-15.5); LYMPH # 1.6 10^3/uL (1.5-5.0); LYMPH % 22.5 % (24.0-44.0); MEAN CORPUSCULAR HEMOGLOBIN 30.1 pg (27.0-33.0); MEAN CORPUSCULAR HGB CONC 31.7 g/dl (32.0-36.5); MEAN CORPUSCULAR VOLUME 95.2 fl (80.0-96.0); MONO # 0.8 10^3/uL (0.0-0.8); MONO % 11.5 % (0.0-5.0); NEUTROPHILS # 4.4 10^3/uL (1.5-8.5); NEUTROPHILS % 63.1 % (36.0-66.0); PLATELET COUNT, AUTOMATED 383 10^3/uL (150-450); RED BLOOD COUNT 4.18 10^6/uL (4.00-5.40)
[2019-08-23 09:19] LABS: CALCIUM LEVEL 9.1 MG/DL (8.8-10.2); CREATININE FOR GFR 1.02 MG/DL (0.55-1.30); GLOMERULAR FILTRATION RATE 56.1 (>39); POTASSIUM SERUM 3.7 MEQ/L (3.5-5.1)
[2019-08-23] MEDS: SUCRALFATE SUSP 1GM/10ML UD PO SCH (13:10)
--- NOTE | 2019-08-23 13:57 | IPNPDOC ---
PM&R Progress Note DATE OF SERVICE: Aug 23, 2019 Information Management Specialist Progress Note Subjective: Patient seen in her room stating she does not like to eat the pureed food and is looking forward to advancing her diet on Monday. REVIEW OF SYSTEMS: The following is a completed review of systems and has been reviewed. Review of systems otherwise unremarkable. PAIN: Patient self reports no pain EYES: No recent vision changes EARS, NOSE, & THROAT: +dysphagia, +dysarthria (improving) CARDIOVASCULAR: Denies chest pain or palpitations PULMONARY: Denies shortness of breath GASTROINTESTINAL: Denies constipation/diarrhea GENITOURINARY: denies dysuria MUSCULOSKELETAL: generalized weakness NEUROLOGICAL:+ generalized weakness (improving) HEMATOLOGICAL: denies easy bruising SKIN: no rash PSYCHIATRIC: Unremarkable All other review of systems found to be negative. PHYSICAL EXAMINATION: VITAL SIGNS: Please see below. GENERAL: Pleasant and cooperative. No acute distress. HEENT: PERRL. Extraocular movements intact. Clear conjunctiva CARDIOVASCULAR: Regular rate and rhythm. No murmurs, rubs, or gallops LUNGS: Clear to auscultation bilaterally. No wheezes. No rhonchi ABDOMEN: Soft, nontender, nondistended. Positive bowel sounds. Normal active bowel sounds NEUROLOGICAL: Alert and oriented times three. Cranial nerves II through XII grossly intact. Sensation grossly intact +ataxia (-) babinksi bilat (+) dysarthria EXTREMITIES: 5\5 strength bilateral upper extremities. 4-\5 strength right lower extremity. 4-/5 strength in left lower extremity. 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 Rehab- PT/OT- advance gait and ADLs, stretch/strengthen/maintain ROM all 4 limbs- ambulating with RW in therapy -NEON SIGN SERVICER- swallow eval, repeat MBS, upgraded to puree and now cleared for thins per NEON SIGN SERVICER, will switch to cocktail straw in lieu of provail cup as patient has better control- recs appreciated 2. 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 Resp- s/p treatment for PNA, Duonebs, encourage incentive spirometry-monitor for infection while on thins-no fever or leukocytosis 5. Endo- FS well controlled, not clear she has DM, d/c'd ISS 6. GI ppx- lanzaprazole, added sucralfate for dyspepsia 7. DVT ppx- on eliquis, teds 8. Pain- tylenol prn 9. Psych- c/u prozac to help with possible motor recovery with her new neuro deficits 10. Hypokalemia- resolved 11. Dispo- 08/26/19, goal to home, progressing, family training in process and will request more time from insurance Allergies Coded Allergies: No Known Allergies (Unverified , 07/22/19) Vital Signs Vital Signs Date Time Temp Pulse Resp B/P (MAP) Pulse Ox O2 Delivery O2 Flow Rate FiO2 08/23/19 05:48 96.0 73 18 158/70 (99) 97 Room Air Laboratory Data CBC/BMP Laboratory Tests 08/23/19 08:28 Labs 24H Laboratory Tests 2 08/23/19 08:28: Immature Granulocyte % (Auto) 0.3, Neutrophils (%) (Auto) 63.1, Lymphocytes (%) (Auto) 22.5L, Monocytes (%) (Auto) 11.5H, Eosinophils (%) (Auto) 2.2, Basophils (%) (Auto) 0.4, Neutrophils # (Auto) 4.4, Lymphocytes # (Auto) 1.6, Monocytes # (Auto) 0.8, Eosinophils # (Auto) 0.2, Basophils # (Auto) 0.0, Nucleated Red Blood Cells % (auto) 0.0, Anion Gap 7L, Glomerular Filtration Rate 56.1, Calcium Level 9.1 Current Medications Current Medications Current Medications Medications (Trade) Dose Ordered Sig/Jovanna Route PRN Reason Start Time Stop Time Status Last Admin Dose Admin Acetaminophen (Tylenol Tab) 650 mg Q4HP PRN PO fever/MILD PAIN (PS 1-4) 08/05/19 16:30 08/20/19 20:56 Albuterol/ Ipratropium (Duoneb (Ipr 0.5mg/Alb 2.5mg)) 3 ml RTID NEB 08/05/19 20:00 08/23/19 07:29 Apixaban (Eliquis) 5 mg BID PO 08/05/19 21:00 08/23/19 08:13 Aripiprazole (AbiLIFY) 2 mg QHS PO 08/05/19 21:00 08/22/19 22:09 Ceftriaxone Sodium 2 gm/ Dextrose 50 ml @ 100 mls/hr Q24H IV 08/06/19 16:00 08/22/19 15:47 Dextrose (Dextrose 50%) 25 ml ASDIRECTED PRN IV SEE LABEL COMMENTS 08/05/19 16:30 08/07/19 10:25 DC Docusate Sodium (Colace) 100 mg BID PO 08/05/19 21:00 08/13/19 17:32 DC 08/12/19 21:23 Fluoxetine HCl (PROzac) 20 mg DAILY PO 08/07/19 09:00 08/23/19 08:13 Fluticasone Propionate (Flonase 0.05% Nasal [place]) 1 spray BID NARES 08/05/19 21:00 08/23/19 08:12 Glucagon (Glucagon) 1 mg ASDIRECTED PRN SC SEE LABEL COMMENTS 08/05/19 16:30 08/07/19 10:25 DC Glucose (Glucose) 16 GM ASDIRECTED PRN PO SEE LABEL COMMENTS 08/05/19 16:30 08/07/19 10:25 DC Insulin Human Lispro (HumaLOG INSULIN) SEE PROTOCOL TABLE AC SC 08/05/19 17:30 08/07/19 10:25 DC Insulin Human Lispro (HumaLOG INSULIN) SEE PROTOCOL TABLE QHS SC 08/05/19 21:00 08/07/19 10:25 DC Lactobacillus Acidophilus (Bacid) 1 ea WMHS PO 08/05/19 18:00 08/23/19 13:10 Lansoprazole (First-Lansoprazole Oral Suspension) 30 mg BID PO 08/05/19 21:00 08/23/19 08:13 Lidocaine/ Diphenhydr/Alum/ Mg/Simeth (Magic Mouthwash) 5ML, ok to give ice chips O... AC SSP 08/05/19 17:30 08/23/19 13:15 Meclizine HCl (Antivert) 25 mg Q8HP PRN PO DIZZINESS 08/05/19 16:30 08/12/19 12:12 Miscellaneous (Unresolved Clarification Entry) SEE LABEL COMMENTS DAILY XX 08/10/19 09:00 08/11/19 11:02 DC Nystatin (Mycostatin Powder, Nystop) Please apply to groin BID TOP 08/13/19 21:00 08/23/19 08:12 Senna (Senokot) 1 tab QHS PO 08/05/19 21:00 08/22/19 22:09 Simvastatin (Zocor) 40 mg DAILY PO 08/06/19 09:00 08/23/19 08:13 Sodium Chloride (Saline Lock Flush) 2 ml ASDIRECTED PRN IV SEE LABEL COMMENTS 08/07/19 00:45 Sodium Chloride (Saline Lock Flush) 2 ml SLF IV 08/07/19 06:00 08/23/19 05:20 Sucralfate (Carafate Suspension) 1 gm DAILY@1200 PO 08/21/19 12:00 08/23/19 13:10 Vitamin D (Vitamin D) 1,000 units DAILY PO 08/06/19 09:00 08/23/19 08:13 JEOVANNY STOREY MD Aug 23, 2019 13:57
[2019-08-23 14:00] VITALS: BP 138/67
[2019-08-23] MEDS: cefTRIAXone SOD 2 GM in D5W MINI-BAG PLUS 50 ML IV SCH (16:21)
[2019-08-23 20:00] VITALS: BP 143/74
[2019-08-23] MEDS: SENNA 8.6 MG TAB (SENOKOT) PO SCH (20:50)
[2019-08-23] MEDS: ARIPiprazole 2 MG TAB PO SCH (20:51)
[2019-08-24] MEDS: SLF 3 ML SYR IV SCH ×3 (05:43→20:51)
[2019-08-24 06:00] VITALS: BP 154/78
[2019-08-24] MEDS: IPRATROPIUM 0.5MG/ALBUTEROL 2.5MG INH SOL UD 3ML (DUONEB) NEB SCH ×3 (08:20→19:29)
[2019-08-24] MEDS: FLUoxetine 20 MG CAP PO SCH (10:20)
[2019-08-24] MEDS: SIMVASTATIN 40 MG TAB PO SCH (10:20)
[2019-08-24] MEDS: VITAMIN D 1,000 INTERNATIONAL UNITS TABLET PO SCH (10:20)
[2019-08-24] MEDS: APIXABAN 5 MG TAB (ELIQUIS) PO SCH ×2 (10:20→20:52)
[2019-08-24] MEDS: LANSOPRAZOLE SUSPENSION 30 MG/10 ML ORAL SYRINGE (FIRST-LANSOPRAZOLE) PO SCH ×2 (10:20→20:52)
[2019-08-24] MEDS: MAGIC MOUTHWASH SUSPENSION BTL SSP SCH ×3 (10:21→16:35)
[2019-08-24] MEDS: REMEDY PHYTOPLEX Z-GUARD PASTE 113GM TUBE (FROM STOREROOM PRODUCT) TOP SCH ×3 (10:21→20:52)
[2019-08-24] MEDS: NYSTATIN 100,000 UNITS/GM TOPICAL PWD 15 GM TOP SCH ×2 (10:21→20:53)
[2019-08-24] MEDS: FLUTICASONE PROP 0.05% NASAL SPRAY 16 GM (FLONASE) NARES SCH ×2 (10:22→20:53)
[2019-08-24] MEDS: LACTOBACILLUS ACIDOPHILUS CAP (BACID) PO SCH ×4 (10:24→20:52)
[2019-08-24] MEDS: SUCRALFATE SUSP 1GM/10ML UD PO SCH (12:45)
[2019-08-24 14:00] VITALS: BP 133/68
[2019-08-24] MEDS: cefTRIAXone SOD 2 GM in D5W MINI-BAG PLUS 50 ML IV SCH (16:35)
[2019-08-24 20:00] VITALS: BP 132/70
[2019-08-24] MEDS: ARIPiprazole 2 MG TAB PO SCH (20:52)
[2019-08-24] MEDS: ACETAMINOPHEN TAB 650MG DOSE (2X325MG) PO PRN (20:52)
[2019-08-24] MEDS: SENNA 8.6 MG TAB (SENOKOT) PO SCH (20:52)
[2019-08-25 06:00] VITALS: BP 140/82
[2019-08-25] MEDS: SLF 3 ML SYR IV SCH ×3 (06:20→21:35)
[2019-08-25] MEDS: IPRATROPIUM 0.5MG/ALBUTEROL 2.5MG INH SOL UD 3ML (DUONEB) NEB SCH ×3 (07:16→19:24)
[2019-08-25] MEDS: REMEDY PHYTOPLEX Z-GUARD PASTE 113GM TUBE (FROM STOREROOM PRODUCT) TOP SCH ×3 (09:00→20:51)
[2019-08-25] MEDS: APIXABAN 5 MG TAB (ELIQUIS) PO SCH ×2 (09:10→20:47)
[2019-08-25] MEDS: LACTOBACILLUS ACIDOPHILUS CAP (BACID) PO SCH ×4 (09:10→20:47)
[2019-08-25] MEDS: FLUTICASONE PROP 0.05% NASAL SPRAY 16 GM (FLONASE) NARES SCH ×2 (09:11→20:50)
[2019-08-25] MEDS: FLUoxetine 20 MG CAP PO SCH (09:11)
[2019-08-25] MEDS: LANSOPRAZOLE SUSPENSION 30 MG/10 ML ORAL SYRINGE (FIRST-LANSOPRAZOLE) PO SCH ×2 (09:11→20:47)
[2019-08-25] MEDS: VITAMIN D 1,000 INTERNATIONAL UNITS TABLET PO SCH (09:11)
[2019-08-25] MEDS: SIMVASTATIN 40 MG TAB PO SCH (09:11)
[2019-08-25] MEDS: MAGIC MOUTHWASH SUSPENSION BTL SSP SCH ×3 (09:11→16:49)
[2019-08-25] MEDS: NYSTATIN 100,000 UNITS/GM TOPICAL PWD 15 GM TOP SCH ×2 (09:12→20:51)
[2019-08-25] MEDS: SUCRALFATE SUSP 1GM/10ML UD PO SCH (12:13)
[2019-08-25 14:00] VITALS: BP 165/74
[2019-08-25] MEDS: cefTRIAXone SOD 2 GM in D5W MINI-BAG PLUS 50 ML IV SCH (16:49)
[2019-08-25 20:00] VITALS: BP 125/67
[2019-08-25] MEDS: ACETAMINOPHEN TAB 650MG DOSE (2X325MG) PO PRN (20:47)
[2019-08-25] MEDS: SENNA 8.6 MG TAB (SENOKOT) PO SCH (20:47)
[2019-08-25] MEDS: ARIPiprazole 2 MG TAB PO SCH (20:47)
[2019-08-26] MEDS: SLF 3 ML SYR IV SCH ×3 (05:12→20:24)
[2019-08-26 05:33] VITALS: BP 137/70
[2019-08-26 07:16] LABS: BASO % 0.6 % (0.0-1.0); EOS # 0.1 10^3/uL (0.0-0.5); EOS % 2.6 % (0.0-3.0); HEMATOCRIT 37.8 % (36.0-47.0); HEMOGLOBIN 12.1 g/dl (12.0-15.5); LYMPH # 1.4 10^3/uL (1.5-5.0); LYMPH % 29.3 % (24.0-44.0); MEAN CORPUSCULAR HEMOGLOBIN 30.4 pg (27.0-33.0); MONO # 0.6 10^3/uL (0.0-0.8); MONO % 12.3 % (0.0-5.0); NEUTROPHILS # 2.6 10^3/uL (1.5-8.5); PLATELET COUNT, AUTOMATED 319 10^3/uL (150-450); RED BLOOD COUNT 3.98 10^6/uL (4.00-5.40); WHITE BLOOD COUNT 4.6 10^3/uL (4.0-10.0)
[2019-08-26] MEDS: IPRATROPIUM 0.5MG/ALBUTEROL 2.5MG INH SOL UD 3ML (DUONEB) NEB SCH ×2 (07:27→14:00)
[2019-08-26] MEDS: MAGIC MOUTHWASH SUSPENSION BTL SSP SCH ×3 (07:30→17:16)
[2019-08-26 07:46] LABS: BLOOD UREA NITROGEN 6 MG/DL (7-18); CALCIUM LEVEL 8.7 MG/DL (8.8-10.2); CARBON DIOXIDE LEVEL 30 MEQ/L (21-32); CHLORIDE LEVEL 105 MEQ/L (98-107); CREATININE FOR GFR 0.95 MG/DL (0.55-1.30); GLOMERULAR FILTRATION RATE > 60.0 (>39); GLUCOSE, FASTING 91 MG/DL (70-100); POTASSIUM SERUM 3.4 MEQ/L (3.5-5.1); SODIUM LEVEL 143 MEQ/L (136-145)
[2019-08-26] MEDS: NYSTATIN 100,000 UNITS/GM TOPICAL PWD 15 GM TOP SCH ×2 (09:00→20:13)
[2019-08-26] MEDS: REMEDY PHYTOPLEX Z-GUARD PASTE 113GM TUBE (FROM STOREROOM PRODUCT) TOP SCH ×3 (09:00→20:14)
[2019-08-26] MEDS: FLUoxetine 20 MG CAP PO SCH (09:03)
[2019-08-26] MEDS: LACTOBACILLUS ACIDOPHILUS CAP (BACID) PO SCH ×4 (09:03→20:11)
[2019-08-26] MEDS: VITAMIN D 1,000 INTERNATIONAL UNITS TABLET PO SCH (09:03)
[2019-08-26] MEDS: LANSOPRAZOLE SUSPENSION 30 MG/10 ML ORAL SYRINGE (FIRST-LANSOPRAZOLE) PO SCH ×2 (09:03→20:10)
[2019-08-26] MEDS: SIMVASTATIN 40 MG TAB PO SCH (09:03)
[2019-08-26] MEDS: APIXABAN 5 MG TAB (ELIQUIS) PO SCH ×2 (09:03→20:11)
[2019-08-26] MEDS: FLUTICASONE PROP 0.05% NASAL SPRAY 16 GM (FLONASE) NARES SCH ×2 (09:04→20:13)
[2019-08-26] MEDS ORDERED: POTASSIUM CHLORIDE 10 MEQ SR TABLET PO ONE (10:45)
[2019-08-26] MEDS: SUCRALFATE SUSP 1GM/10ML UD PO SCH (11:52)
[2019-08-26] MEDS ORDERED: POTASSIUM CHLORIDE 10% LIQ 20 MEQ/15 ML UDC PO ONE (12:00)
[2019-08-26 14:00] VITALS: BP 154/68
--- NOTE | 2019-08-26 14:42 | IPNPDOC ---
PM&R Progress Note DATE OF SERVICE: Aug 26, 2019 Stratigraphy Teacher Progress Note Subjective: Patient seen in her room stating she still coughs a little after drinking, but denies fever or chills. She like the orange sherbert and does not feel hungry after eating a few bites of food. REVIEW OF SYSTEMS: The following is a completed review of systems and has been reviewed. Review of systems otherwise unremarkable. PAIN: Patient self reports no pain EYES: No recent vision changes EARS, NOSE, & THROAT: +dysphagia, +dysarthria (improving) CARDIOVASCULAR: Denies chest pain or palpitations PULMONARY: Denies shortness of breath GASTROINTESTINAL: Denies constipation/diarrhea GENITOURINARY: denies dysuria MUSCULOSKELETAL: generalized weakness NEUROLOGICAL:+ generalized weakness (improving) HEMATOLOGICAL: denies easy bruising SKIN: no rash PSYCHIATRIC: Unremarkable All other review of systems found to be negative. PHYSICAL EXAMINATION: VITAL SIGNS: Please see below. GENERAL: Pleasant and cooperative. No acute distress. HEENT: PERRL. Extraocular movements intact. Clear conjunctiva CARDIOVASCULAR: Regular rate and rhythm. No murmurs, rubs, or gallops LUNGS: Clear to auscultation bilaterally. No wheezes. No rhonchi ABDOMEN: Soft, nontender, nondistended. Positive bowel sounds. Normal active bowel sounds NEUROLOGICAL: Alert and oriented times three. Cranial nerves II through XII grossly intact. Sensation grossly intact +ataxia (-) babinksi bilat (+) dysarthria EXTREMITIES: 5\5 strength bilateral upper extremities. 4-\5 strength right lower extremity. 4-/5 strength in left lower extremity. 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 Rehab- PT/OT- advance gait and ADLs, stretch/strengthen/maintain ROM all 4 limbs- ambulating with RW in therapy -MERCHANDISING MANAGER- swallow eval, repeat MBS, upgraded to level 2 and now cleared for thins per MERCHANDISING MANAGER, will switch to cocktail straw in lieu of provail cup as patient has better control- recs appreciated 2. 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 Resp- s/p treatment for PNA, Duonebs, encourage incentive spirometry-monitor for infection while on thins-no fever or leukocytosis 5. Endo- FS well controlled, not clear she has DM, d/c'd ISS 6. GI ppx- lanzaprazole, added sucralfate for dyspepsia, however patient reporting early satiety, will hold sucralafate for now and following-up with pharmacy to see if any other medications may be causing this 7. DVT ppx- on eliquis, teds 8. Pain- tylenol prn 9. Psych- c/u prozac to help with possible motor recovery with her new neuro deficits 10. Hypokalemia- 3.4 today will give 1x dose K and follow 11. Dispo- 09/02/19, goal to home,progressing towards goals Allergies Coded Allergies: No Known Allergies (Unverified , 07/22/19) Vital Signs Vital Signs Date Time Temp Pulse Resp B/P (MAP) Pulse Ox O2 Delivery O2 Flow Rate FiO2 08/26/19 05:33 98.2 72 16 137/70 (92) 97 Room Air Laboratory Data CBC/BMP Laboratory Tests 08/26/19 07:03 Labs 24H Laboratory Tests 2 08/26/19 07:03: Immature Granulocyte % (Auto) 0.2, Neutrophils (%) (Auto) 55.0, Lymphocytes (%) (Auto) 29.3, Monocytes (%) (Auto) 12.3H, Eosinophils (%) (Auto) 2.6, Basophils (%) (Auto) 0.6, Neutrophils # (Auto) 2.6, Lymphocytes # (Auto) 1.4L, Monocytes # (Auto) 0.6, Eosinophils # (Auto) 0.1, Basophils # (Auto) 0.0, Nucleated Red Blood Cells % (auto) 0.0, Anion Gap 8, Glomerular Filtration Rate > 60.0, Calcium Level 8.7L Current Medications Current Medications Current Medications Medications (Trade) Dose Ordered Sig/Jovanna Route PRN Reason Start Time Stop Time Status Last Admin Dose Admin Acetaminophen (Tylenol Tab) 650 mg Q4HP PRN PO fever/MILD PAIN (PS 1-4) 08/05/19 16:30 08/25/19 20:47 Albuterol/ Ipratropium (Duoneb (Ipr 0.5mg/Alb 2.5mg)) 3 ml RTID NEB 08/05/19 20:00 08/26/19 07:27 Apixaban (Eliquis) 5 mg BID PO 08/05/19 21:00 08/26/19 09:03 Aripiprazole (AbiLIFY) 2 mg QHS PO 08/05/19 21:00 08/25/19 20:47 Ceftriaxone Sodium 2 gm/ Dextrose 50 ml @ 100 mls/hr Q24H IV 08/06/19 16:00 08/25/19 16:49 Dextrose (Dextrose 50%) 25 ml ASDIRECTED PRN IV SEE LABEL COMMENTS 08/05/19 16:30 08/07/19 10:25 DC Docusate Sodium (Colace) 100 mg BID PO 08/05/19 21:00 08/13/19 17:32 DC 08/12/19 21:23 Fluoxetine HCl (PROzac) 20 mg DAILY PO 08/07/19 09:00 08/26/19 09:03 Fluticasone Propionate (Flonase 0.05% Nasal [place]) 1 spray BID NARES 08/05/19 21:00 08/26/19 09:04 Glucagon (Glucagon) 1 mg ASDIRECTED PRN SC SEE LABEL COMMENTS 08/05/19 16:30 08/07/19 10:25 DC Glucose (Glucose) 16 GM ASDIRECTED PRN PO SEE LABEL COMMENTS 08/05/19 16:30 08/07/19 10:25 DC Insulin Human Lispro (HumaLOG INSULIN) SEE PROTOCOL TABLE AC SC 08/05/19 17:30 08/07/19 10:25 DC Insulin Human Lispro (HumaLOG INSULIN) SEE PROTOCOL TABLE QHS SC 08/05/19 21:00 08/07/19 10:25 DC Lactobacillus Acidophilus (Bacid) 1 ea WMHS PO 08/05/19 18:00 08/26/19 11:52 Lansoprazole (First-Lansoprazole Oral Suspension) 30 mg BID PO 08/05/19 21:00 08/26/19 09:03 Lidocaine/ Diphenhydr/Alum/ Mg/Simeth (Magic Mouthwash) 5ML, ok to give ice chips O... AC SSP 08/05/19 17:30 08/26/19 11:52 Meclizine HCl (Antivert) 25 mg Q8HP PRN PO DIZZINESS 08/05/19 16:30 08/12/19 12:12 Miscellaneous (Unresolved Clarification Entry) SEE LABEL COMMENTS DAILY XX 08/10/19 09:00 08/11/19 11:02 DC Nystatin (Mycostatin Powder, Nystop) Please apply to groin BID TOP 08/13/19 21:00 08/25/19 09:12 Potassium Chloride (Micro-K Extencaps) 10 meq DAILY PO 08/27/19 09:00 Cancel Potassium Chloride (Potassium Chloride Liquid) 10 meq DAILY PO 08/27/19 09:00 Senna (Senokot) 1 tab QHS PO 08/05/19 21:00 08/25/19 20:47 Simvastatin (Zocor) 40 mg DAILY PO 08/06/19 09:00 08/26/19 09:03 Sodium Chloride (Saline Lock Flush) 2 ml ASDIRECTED PRN IV SEE LABEL COMMENTS 08/07/19 00:45 Sodium Chloride (Saline Lock Flush) 2 ml SLF IV 08/07/19 06:00 08/26/19 05:12 Sucralfate (Carafate Suspension) 1 gm DAILY@1200 PO 08/21/19 12:00 08/26/19 11:52 Vitamin D (Vitamin D) 1,000 units DAILY PO 08/06/19 09:00 08/26/19 09:03 JEOVANNY STOREY MD Aug 26, 2019 14:42
[2019-08-26] MEDS ORDERED: PILL CUTTER 1 EACH XX PRN (15:15)
[2019-08-26] MEDS: cefTRIAXone SOD 2 GM in D5W MINI-BAG PLUS 50 ML IV SCH (15:31)
[2019-08-26 16:17] LABS: C REACTIVE PROTEIN QUANTITATIV 0.56 MG/DL (0.00-0.30)
[2019-08-26] MEDS: SENNA 8.6 MG TAB (SENOKOT) PO SCH (20:11)
[2019-08-26] MEDS: ARIPiprazole 2 MG TAB PO SCH (20:11)
[2019-08-26 20:30] VITALS: BP 148/70
[2019-08-27] MEDS: SLF 3 ML SYR IV SCH ×3 (04:57→22:22)
[2019-08-27 05:34] VITALS: BP 144/79
[2019-08-27] MEDS: MAGIC MOUTHWASH SUSPENSION BTL SSP SCH ×3 (07:30→16:45)
[2019-08-27] MEDS: FLUoxetine 20 MG CAP PO SCH (07:47)
[2019-08-27] MEDS: FLUTICASONE PROP 0.05% NASAL SPRAY 16 GM (FLONASE) NARES SCH ×2 (07:48→20:31)
[2019-08-27] MEDS: POTASSIUM CHLORIDE 10% LIQ 20 MEQ/15 ML UDC PO SCH (07:48)
[2019-08-27] MEDS: APIXABAN 5 MG TAB (ELIQUIS) PO SCH ×2 (07:48→20:30)
[2019-08-27] MEDS: VITAMIN D 1,000 INTERNATIONAL UNITS TABLET PO SCH (07:48)
[2019-08-27] MEDS: SIMVASTATIN 40 MG TAB PO SCH (07:48)
[2019-08-27] MEDS: LANSOPRAZOLE SUSPENSION 30 MG/10 ML ORAL SYRINGE (FIRST-LANSOPRAZOLE) PO SCH ×2 (07:48→20:31)
[2019-08-27] MEDS: LACTOBACILLUS ACIDOPHILUS CAP (BACID) PO SCH ×4 (07:48→21:00)
[2019-08-27] MEDS: REMEDY PHYTOPLEX Z-GUARD PASTE 113GM TUBE (FROM STOREROOM PRODUCT) TOP SCH ×3 (07:49→20:32)
[2019-08-27] MEDS: NYSTATIN 100,000 UNITS/GM TOPICAL PWD 15 GM TOP SCH ×2 (07:49→20:32)
[2019-08-27] MEDS ORDERED: POTASSIUM CHLORIDE 10 MEQ SR TABLET PO SCH (09:00)
[2019-08-27 14:00] VITALS: BP 135/74
[2019-08-27 15:59] LABS: BLOOD UREA NITROGEN 7 MG/DL (7-18); CALCIUM LEVEL 8.9 MG/DL (8.8-10.2); CARBON DIOXIDE LEVEL 30 MEQ/L (21-32); CHLORIDE LEVEL 105 MEQ/L (98-107); CREATININE FOR GFR 0.96 MG/DL (0.55-1.30); GLOMERULAR FILTRATION RATE > 60.0 (>39); GLUCOSE, FASTING 105 MG/DL (70-100); POTASSIUM SERUM 3.7 MEQ/L (3.5-5.1); SODIUM LEVEL 140 MEQ/L (136-145)
[2019-08-27] MEDS: cefTRIAXone SOD 2 GM in D5W MINI-BAG PLUS 50 ML IV SCH (16:45)
[2019-08-27 20:18] VITALS: BP 157/77
[2019-08-27] MEDS: ARIPiprazole 2 MG TAB PO SCH (20:30)
[2019-08-27] MEDS: SENNA 8.6 MG TAB (SENOKOT) PO SCH (20:31)
[2019-08-28] MEDS: SLF 3 ML SYR IV SCH ×3 (05:33→21:51)
[2019-08-28] MEDS: MAGIC MOUTHWASH SUSPENSION BTL SSP SCH ×3 (05:45→17:26)
[2019-08-28 06:03] VITALS: BP 140/82
--- NOTE | 2019-08-28 07:27 | IPN ---
DATE: 08/27/2019 Mira seems to be doing very well. She is sitting in her chair and eating. She seems to be less loud and does not repeat herself. She is concerned about her discharge at home because she still needs assistance with a walker to walk and cannot get up on her own. She denies any headache. No nausea, vomiting or diarrhea. She coughs after she drinks. Vital signs: Temperature is 98, pulse 92, respirations 18, blood pressure 135/74, oxygen saturation (O2 sat) 97% on room air. Heart: Normal S1, S2. No murmurs, rubs or gallops. Lungs are clear. No wheezes, rales or rhonchi. Abdomen: Soft, nontender. No hepatosplenomegaly. Back: No costovertebral angle (CVA) or lumbosacral tenderness. Extremities: No edema. Neurologic Exam: Alert, oriented times three. Cranial nerves are intact. She still has ataxia and some dysarthria but is markedly improved. Lower extremity strength 4- bilaterally. IMPRESSION: A 78-year-old female admitted with weakness and encephalopathy, likely due to Lyme encephalomyelitis. The patient continues with ataxia and dysphagia, dysarthria has markedly improved. She is on IV ceftriaxone, end of treatment would be September 03, 2019, for a total of 28 days. LABORATORY DATA: White count 4.6, hemoglobin 12.1, hematocrit 37.8, platelets 319, 55% neutrophils, 29% lymphocytes, 12% monocytes. Sodium 140, potassium 3.7, chloride 105, bicarbonate 30, BUN 7, creatinine 0.96, glucose 105, calcium 8.9, CRP 0.56 down from 5.06. Plan to continue IV ceftriaxone 2 grams every 24 hours, started on 08/06/2019 until 09/03/2019.
[2019-08-28 08:34] LABS: BASO % 0.5 % (0.0-1.0); EOS # 0.1 10^3/uL (0.0-0.5); EOS % 1.7 % (0.0-3.0); HEMATOCRIT 37.5 % (36.0-47.0); LYMPH # 1.4 10^3/uL (1.5-5.0); LYMPH % 24.3 % (24.0-44.0); MEAN CORPUSCULAR HEMOGLOBIN 30.4 pg (27.0-33.0); MEAN CORPUSCULAR VOLUME 94.9 fl (80.0-96.0); MONO # 0.7 10^3/uL (0.0-0.8); NEUTROPHILS # 3.5 10^3/uL (1.5-8.5); NEUTROPHILS % 61.3 % (36.0-66.0); PLATELET COUNT, AUTOMATED 299 10^3/uL (150-450); RED BLOOD COUNT 3.95 10^6/uL (4.00-5.40); WHITE BLOOD COUNT 5.8 10^3/uL (4.0-10.0)
[2019-08-28 08:57] LABS: BLOOD UREA NITROGEN 7 MG/DL (7-18); CALCIUM LEVEL 8.9 MG/DL (8.8-10.2); CARBON DIOXIDE LEVEL 27 MEQ/L (21-32); CHLORIDE LEVEL 107 MEQ/L (98-107); CREATININE FOR GFR 0.92 MG/DL (0.55-1.30); GLOMERULAR FILTRATION RATE > 60.0 (>39); GLUCOSE, FASTING 113 MG/DL (70-100); POTASSIUM SERUM 3.4 MEQ/L (3.5-5.1); SODIUM LEVEL 141 MEQ/L (136-145)
[2019-08-28] MEDS: POTASSIUM CHLORIDE 10% LIQ 20 MEQ/15 ML UDC PO SCH ×2 (09:00→09:05)
[2019-08-28] MEDS: FLUTICASONE PROP 0.05% NASAL SPRAY 16 GM (FLONASE) NARES SCH ×2 (09:00→21:50)
[2019-08-28] MEDS: SIMVASTATIN 40 MG TAB PO SCH (09:05)
[2019-08-28] MEDS: LACTOBACILLUS ACIDOPHILUS CAP (BACID) PO SCH ×4 (09:05→21:49)
[2019-08-28] MEDS: FLUoxetine 20 MG CAP PO SCH (09:05)
[2019-08-28] MEDS: VITAMIN D 1,000 INTERNATIONAL UNITS TABLET PO SCH (09:05)
[2019-08-28] MEDS: LANSOPRAZOLE SUSPENSION 30 MG/10 ML ORAL SYRINGE (FIRST-LANSOPRAZOLE) PO SCH ×2 (09:05→21:49)
[2019-08-28] MEDS: APIXABAN 5 MG TAB (ELIQUIS) PO SCH ×2 (09:05→21:49)
[2019-08-28] MEDS: NYSTATIN 100,000 UNITS/GM TOPICAL PWD 15 GM TOP SCH ×2 (09:06→21:00)
[2019-08-28] MEDS: REMEDY PHYTOPLEX Z-GUARD PASTE 113GM TUBE (FROM STOREROOM PRODUCT) TOP SCH ×3 (09:07→21:51)
--- NOTE | 2019-08-28 12:13 | IPNPDOC ---
PM&R Progress Note DATE OF SERVICE: Aug 27, 2019 Architecture Internship Progress Note Subjective: Patient reporting her appetite is a little better today and that she would like to stay through until Monday as this makes both her and her feel better prepared. Patient seen in her room stating REVIEW OF SYSTEMS: The following is a completed review of systems and has been reviewed. Review of systems otherwise unremarkable. PAIN: Patient self reports no pain EYES: No recent vision changes EARS, NOSE, & THROAT: +dysphagia, +dysarthria (improving) CARDIOVASCULAR: Denies chest pain or palpitations PULMONARY: Denies shortness of breath GASTROINTESTINAL: Denies constipation/diarrhea GENITOURINARY: denies dysuria MUSCULOSKELETAL: generalized weakness NEUROLOGICAL:+ generalized weakness (improving) HEMATOLOGICAL: denies easy bruising SKIN: no rash PSYCHIATRIC: Unremarkable All other review of systems found to be negative. PHYSICAL EXAMINATION: VITAL SIGNS: Please see below. GENERAL: Pleasant and cooperative. No acute distress. HEENT: PERRL. Extraocular movements intact. Clear conjunctiva CARDIOVASCULAR: Regular rate and rhythm. No murmurs, rubs, or gallops LUNGS: Clear to auscultation bilaterally. No wheezes. No rhonchi ABDOMEN: Soft, nontender, nondistended. Positive bowel sounds. Normal active bowel sounds NEUROLOGICAL: Alert and oriented times three. Cranial nerves II through XII grossly intact. Sensation grossly intact +ataxia (-) babinksi bilat (+) dysarthria EXTREMITIES: 5\5 strength bilateral upper extremities. 4-\5 strength right lower extremity. 4-/5 strength in left lower extremity. 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 Rehab- PT/OT- advance gait and ADLs, stretch/strengthen/maintain ROM all 4 limbs- ambulating with RW in therapy -TACTICAL AIR DEFENSE CONTROLLER- swallow eval, repeat MBS, upgraded to level 2 and now cleared for thins per TACTICAL AIR DEFENSE CONTROLLER, will switch to cocktail straw in lieu of provail cup as patient has better control- recs appreciated 2. 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 Resp- s/p treatment for PNA, encourage incentive spirometry-monitor for infection while on thins-no fever or leukocytosis 5. Endo- FS well controlled, not clear she has DM, d/c'd ISS 6. GI ppx- lanzaprazole, -dyspepsia with early satiety- patient reports her appetite is better today s carlton lowering her Abilify dosing and stopping sucralfate and Duonebs all having potential to decrease appetite 7. DVT ppx- on eliquis, teds 8. Pain- tylenol prn 9. Psych- c/u prozac to help with possible motor recovery with her new neuro deficits -lowered dose of Abilify to 1mg qHS to see if helps lessen patient's early satiety 10. Hypokalemia- 3.4 7-6-20 s/p one time dose 40meq, resolved 11. Dispo- 09/02/19, goal to home,progressing towards goals Allergies Coded Allergies: No Known Allergies (Unverified , 07/22/19) Vital Signs Vital Signs Date Time Temp Pulse Resp B/P (MAP) Pulse Ox O2 Delivery O2 Flow Rate FiO2 08/28/19 06:03 97.4 89 18 140/82 (101) 96 Room Air Laboratory Data CBC/BMP Laboratory Tests 08/27/19 12:37 08/28/19 07:48 Labs 24H Laboratory Tests 2 08/27/19 12:37: Anion Gap 5L, Glomerular Filtration Rate > 60.0, Calcium Level 8.9 08/28/19 07:48: Anion Gap 7L, Glomerular Filtration Rate > 60.0, Calcium Level 8.9, Immature Granulocyte % (Auto) 0.2, Neutrophils (%) (Auto) 61.3, Lymphocytes (%) (Auto) 24.3, Monocytes (%) (Auto) 12.0H, Eosinophils (%) (Auto) 1.7, Basophils (%) (Auto) 0.5, Neutrophils # (Auto) 3.5, Lymphocytes # (Auto) 1.4L, Monocytes # (Auto) 0.7, Eosinophils # (Auto) 0.1, Basophils # (Auto) 0.0, Nucleated Red Blood Cells % (auto) 0.0 Current Medications Current Medications Current Medications Medications (Trade) Dose Ordered Sig/Jovanna Route PRN Reason Start Time Stop Time Status Last Admin Dose Admin Acetaminophen (Tylenol Tab) 650 mg Q4HP PRN PO fever/MILD PAIN (PS 1-4) 08/05/19 16:30 08/25/19 20:47 Albuterol/ Ipratropium (Duoneb (Ipr 0.5mg/Alb 2.5mg)) 3 ml RTID NEB 08/05/19 20:00 08/26/19 14:49 DC 08/26/19 07:27 Apixaban (Eliquis) 5 mg BID PO 08/05/19 21:00 08/28/19 09:05 Aripiprazole (AbiLIFY) 1 mg QHS PO 08/26/19 21:00 08/27/19 20:30 Aripiprazole (AbiLIFY) 2 mg QHS PO 08/05/19 21:00 08/26/19 14:48 DC 08/25/19 20:47 Ceftriaxone Sodium 2 gm/ Dextrose 50 ml @ 100 mls/hr Q24H IV 08/06/19 16:00 08/27/19 16:45 Dextrose (Dextrose 50%) 25 ml ASDIRECTED PRN IV SEE LABEL COMMENTS 08/05/19 16:30 08/07/19 10:25 DC Docusate Sodium (Colace) 100 mg BID PO 08/05/19 21:00 08/13/19 17:32 DC 08/12/19 21:23 Fluoxetine HCl (PROzac) 20 mg DAILY PO 08/07/19 09:00 08/28/19 09:05 Fluticasone Propionate (Flonase 0.05% Nasal [place]) 1 spray BID NARES 08/05/19 21:00 08/26/19 20:13 Glucagon (Glucagon) 1 mg ASDIRECTED PRN SC SEE LABEL COMMENTS 08/05/19 16:30 08/07/19 10:25 DC Glucose (Glucose) 16 GM ASDIRECTED PRN PO SEE LABEL COMMENTS 08/05/19 16:30 08/07/19 10:25 DC Insulin Human Lispro (HumaLOG INSULIN) SEE PROTOCOL TABLE AC SC 08/05/19 17:30 08/07/19 10:25 DC Insulin Human Lispro (HumaLOG INSULIN) SEE PROTOCOL TABLE QHS SC 08/05/19 21:00 08/07/19 10:25 DC Lactobacillus Acidophilus (Bacid) 1 ea WMHS PO 08/05/19 18:00 08/28/19 09:05 Lansoprazole (First-Lansoprazole Oral Suspension) 30 mg BID PO 08/05/19 21:00 08/28/19 09:05 Lidocaine/ Diphenhydr/Alum/ Mg/Simeth (Magic Mouthwash) 5ML, ok to give ice chips O... AC SSP 08/05/19 17:30 08/28/19 05:45 Meclizine HCl (Antivert) 25 mg Q8HP PRN PO DIZZINESS 08/05/19 16:30 08/12/19 12:12 Miscellaneous (Unresolved Clarification Entry) SEE LABEL COMMENTS DAILY XX 08/10/19 09:00 08/11/19 11:02 DC Nystatin (Mycostatin Powder, Nystop) Please apply to groin BID TOP 08/13/19 21:00 08/28/19 09:06 Potassium Chloride (Micro-K Extencaps) 10 meq DAILY PO 08/27/19 09:00 Cancel Potassium Chloride (Potassium Chloride Liquid) 10 meq DAILY PO 08/27/19 09:00 Senna (Senokot) 1 tab QHS PO 08/05/19 21:00 08/26/19 20:11 Simvastatin (Zocor) 40 mg DAILY PO 08/06/19 09:00 08/28/19 09:05 Sodium Chloride (Saline Lock Flush) 2 ml ASDIRECTED PRN IV SEE LABEL COMMENTS 08/07/19 00:45 Sodium Chloride (Saline Lock Flush) 2 ml SLF IV 08/07/19 06:00 08/28/19 05:33 Sucralfate (Carafate Suspension) 1 gm DAILY@1200 PO 08/21/19 12:00 08/26/19 14:43 DC 08/26/19 11:52 Vitamin D (Vitamin D) 1,000 units DAILY PO 08/06/19 09:00 7/8/20 09:05 JEOVANNY STOREY MD Aug 28, 2019 12:13
--- NOTE | 2019-08-28 12:15 | IPNPDOC ---
PM&R Progress Note DATE OF SERVICE: Aug 28, 2019 [employer] Progress Note Subjective: Patient reporting she feels well today and is apprehensive about swallowing a whole pill as she says this made her nauseous in the past. Patient seen in her room stating REVIEW OF SYSTEMS: The following is a completed review of systems and has been reviewed. Review of systems otherwise unremarkable. PAIN: Patient self reports no pain EYES: No recent vision changes EARS, NOSE, & THROAT: +dysphagia, +dysarthria (improving) CARDIOVASCULAR: Denies chest pain or palpitations PULMONARY: Denies shortness of breath GASTROINTESTINAL: Denies constipation/diarrhea GENITOURINARY: denies dysuria MUSCULOSKELETAL: generalized weakness NEUROLOGICAL:+ generalized weakness (improving) HEMATOLOGICAL: denies easy bruising SKIN: no rash PSYCHIATRIC: Unremarkable All other review of systems found to be negative. PHYSICAL EXAMINATION: VITAL SIGNS: Please see below. GENERAL: Pleasant and cooperative. No acute distress. HEENT: PERRL. Extraocular movements intact. Clear conjunctiva CARDIOVASCULAR: Regular rate and rhythm. No murmurs, rubs, or gallops LUNGS: Clear to auscultation bilaterally. No wheezes. No rhonchi ABDOMEN: Soft, nontender, nondistended. Positive bowel sounds. Normal active bowel sounds NEUROLOGICAL: Alert and oriented times three. Cranial nerves II through XII grossly intact. Sensation grossly intact +ataxia (-) babinksi bilat (+) dysarthria EXTREMITIES: 5\5 strength bilateral upper extremities. 4-\5 strength right lower extremity. 4-/5 strength in left lower extremity. 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 Rehab- PT/OT- advance gait and ADLs, stretch/strengthen/maintain ROM all 4 limbs- ambulating with RW in therapy -KILN TENDER- swallow eval, repeat MBS, upgraded to level 2 and now cleared for thins per [employer]N TENDER, will switch to cocktail straw in lieu of provail cup as patient has better control- recs appreciated 2. 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 Resp- s/p treatment for PNA, encourage incentive spirometry-monitor for infection while on thins-no fever or leukocytosis 5. Endo- FS well controlled, not clear she has DM, d/c'd ISS 6. GI ppx- lanzaprazole, -dyspepsia with early satiety- patient reports her appetite is better today since lowering her Abilify dosing and stopping sucralfate and Duonebs all having potential to decrease appetite 7. DVT ppx- on eliquis, teds 8. Pain- tylenol prn 9. Psych- c/u prozac to help with possible motor recovery with her new neuro deficits -lowered dose of Abilify to 1mg qHS to see if helps lessen patient's early satiety 10. Hypokalemia- 3.4 again today, checking Mg levels, patient to trial potassium pill swallow with [employer]ILN TENDER today as she refuses liquid potassium/powder 11. Dispo- 09/02/19, goal to home,progressing towards goals Allergies Coded Allergies: No Known Allergies (Unverified , 07/22/19) Vital Signs Vital Signs Date Time Temp Pulse Resp B/P (MAP) Pulse Ox O2 Delivery O2 Flow Rate FiO2 08/28/19 06:03 97.4 89 18 140/82 (101) 96 Room Air Laboratory Data CBC/BMP Laboratory Tests 08/27/19 12:37 08/28/19 07:48 Labs 24H Laboratory Tests 2 08/27/19 12:37: Anion Gap 5L, Glomerular Filtration Rate > 60.0, Calcium Level 8.9 08/28/19 07:48: Anion Gap 7L, Glomerular Filtration Rate > 60.0, Calcium Level 8.9, Immature Granulocyte % (Auto) 0.2, Neutrophils (%) (Auto) 61.3, Lymphocytes (%) (Auto) 24.3, Monocytes (%) (Auto) 12.0H, Eosinophils (%) (Auto) 1.7, Basophils (%) (Auto) 0.5, Neutrophils # (Auto) 3.5, Lymphocytes # (Auto) 1.4L, Monocytes # (Auto) 0.7, Eosinophils # (Auto) 0.1, Basophils # (Auto) 0.0, Nucleated Red Blood Cells % (auto) 0.0 Current Medications Current Medications Current Medications Medications (Trade) Dose Ordered Sig/Jovanna Route PRN Reason Start Time Stop Time Status Last Admin Dose Admin Acetaminophen (Tylenol Tab) 650 mg Q4HP PRN PO fever/MILD PAIN (PS 1-4) 08/05/19 16:30 08/25/19 20:47 Albuterol/ Ipratropium (Duoneb (Ipr 0.5mg/Alb 2.5mg)) 3 ml RTID NEB 08/05/19 20:00 08/26/19 14:49 DC 08/26/19 07:27 Apixaban (Eliquis) 5 mg BID PO 08/05/19 21:00 08/28/19 09:05 Aripiprazole (AbiLIFY) 1 mg QHS PO 08/26/19 21:00 08/27/19 20:30 Aripiprazole (AbiLIFY) 2 mg QHS PO 08/05/19 21:00 08/26/19 14:48 DC 08/25/19 20:47 Ceftriaxone Sodium 2 gm/ Dextrose 50 ml @ 100 mls/hr Q24H IV 08/06/19 16:00 08/27/19 16:45 Dextrose (Dextrose 50%) 25 ml ASDIRECTED PRN IV SEE LABEL COMMENTS 08/05/19 16:30 08/07/19 10:25 DC Docusate Sodium (Colace) 100 mg BID PO 08/05/19 21:00 08/13/19 17:32 DC 08/12/19 21:23 Fluoxetine HCl (PROzac) 20 mg DAILY PO 08/07/19 09:00 08/28/19 09:05 Fluticasone Propionate (Flonase 0.05% Nasal [place]) 1 spray BID NARES 08/05/19 21:00 08/26/19 20:13 Glucagon (Glucagon) 1 mg ASDIRECTED PRN SC SEE LABEL COMMENTS 08/05/19 16:30 08/07/19 10:25 DC Glucose (Glucose) 16 GM ASDIRECTED PRN PO SEE LABEL COMMENTS 08/05/19 16:30 08/07/19 10:25 DC Insulin Human Lispro (HumaLOG INSULIN) SEE PROTOCOL TABLE AC SC 08/05/19 17:30 08/07/19 10:25 DC Insulin Human Lispro (HumaLOG INSULIN) SEE PROTOCOL TABLE QHS SC 08/05/19 21:00 08/07/19 10:25 DC Lactobacillus Acidophilus (Bacid) 1 ea WMHS PO 08/05/19 18:00 08/28/19 09:05 Lansoprazole (First-Lansoprazole Oral Suspension) 30 mg BID PO 08/05/19 21:00 08/28/19 09:05 Lidocaine/ Diphenhydr/Alum/ Mg/Simeth (Magic Mouthwash) 5ML, ok to give ice chips O... AC SSP 08/05/19 17:30 08/28/19 05:45 Meclizine HCl (Antivert) 25 mg Q8HP PRN PO DIZZINESS 08/05/19 16:30 08/12/19 12:12 Miscellaneous (Unresolved Clarification Entry) SEE LABEL COMMENTS DAILY XX 08/10/19 09:00 08/11/19 11:02 DC Nystatin (Mycostatin Powder, Nystop) Please apply to groin BID TOP 08/13/19 21:00 08/28/19 09:06 Potassium Chloride (Micro-K Extencaps) 10 meq DAILY PO 08/27/19 09:00 Cancel Potassium Chloride (Potassium Chloride Liquid) 10 meq DAILY PO 08/27/19 09:00 Senna (Senokot) 1 tab QHS PO 08/05/19 21:00 08/26/19 20:11 Simvastatin (Zocor) 40 mg DAILY PO 08/06/19 09:00 08/28/19 09:05 Sodium Chloride (Saline Lock Flush) 2 ml ASDIRECTED PRN IV SEE LABEL COMMENTS 08/07/19 00:45 Sodium Chloride (Saline Lock Flush) 2 ml SLF IV 08/07/19 06:00 08/28/19 05:33 Sucralfate (Carafate Suspension) 1 gm DAILY@1200 PO 08/21/19 12:00 08/26/19 14:43 DC 08/26/19 11:52 Vitamin D (Vitamin D) 1,000 units DAILY PO 08/06/19 09:00 08/28/19 09:05 JEOVANNY STOREY MD Aug 28, 2019 12:15
[2019-08-28 12:50] LABS: MAGNESIUM LEVEL 1.7 MG/DL (1.8-2.4)
[2019-08-28 14:00] VITALS: BP 138/74
[2019-08-28] MEDS ORDERED: POTASSIUM CHLORIDE 10 MEQ SR TABLET PO ONE (14:00)
[2019-08-28] MEDS: cefTRIAXone SOD 2 GM in D5W MINI-BAG PLUS 50 ML IV SCH (15:11)
[2019-08-28 21:00] VITALS: BP 130/72
[2019-08-28] MEDS: SENNA 8.6 MG TAB (SENOKOT) PO SCH (21:00)
[2019-08-28] MEDS: ARIPiprazole 2 MG TAB PO SCH (21:49)
[2019-08-29] MEDS: SLF 3 ML SYR IV SCH ×3 (05:22→23:32)
[2019-08-29 06:00] VITALS: BP 147/70
[2019-08-29 07:39] LABS: BLOOD UREA NITROGEN 7 MG/DL (7-18); CARBON DIOXIDE LEVEL 28 MEQ/L (21-32); CHLORIDE LEVEL 106 MEQ/L (98-107); CREATININE FOR GFR 0.91 MG/DL (0.55-1.30); GLOMERULAR FILTRATION RATE > 60.0 (>39); GLUCOSE, FASTING 90 MG/DL (70-100); MAGNESIUM LEVEL 1.7 MG/DL (1.8-2.4); POTASSIUM SERUM 3.6 MEQ/L (3.5-5.1); SODIUM LEVEL 142 MEQ/L (136-145)
[2019-08-29] MEDS: POTASSIUM CHLORIDE 10% LIQ 20 MEQ/15 ML UDC PO SCH (07:47)
[2019-08-29] MEDS: LANSOPRAZOLE SUSPENSION 30 MG/10 ML ORAL SYRINGE (FIRST-LANSOPRAZOLE) PO SCH ×2 (07:47→23:33)
[2019-08-29] MEDS: FLUTICASONE PROP 0.05% NASAL SPRAY 16 GM (FLONASE) NARES SCH ×2 (07:47→23:31)
[2019-08-29] MEDS: VITAMIN D 1,000 INTERNATIONAL UNITS TABLET PO SCH (07:47)
[2019-08-29] MEDS: REMEDY PHYTOPLEX Z-GUARD PASTE 113GM TUBE (FROM STOREROOM PRODUCT) TOP SCH ×3 (07:47→23:32)
[2019-08-29] MEDS: SIMVASTATIN 40 MG TAB PO SCH (07:47)
[2019-08-29] MEDS: FLUoxetine 20 MG CAP PO SCH (07:47)
[2019-08-29] MEDS: APIXABAN 5 MG TAB (ELIQUIS) PO SCH ×2 (07:47→23:31)
[2019-08-29] MEDS: MAGIC MOUTHWASH SUSPENSION BTL SSP SCH ×3 (07:47→17:17)
[2019-08-29] MEDS: NYSTATIN 100,000 UNITS/GM TOPICAL PWD 15 GM TOP SCH ×2 (07:47→23:32)
[2019-08-29] MEDS: LACTOBACILLUS ACIDOPHILUS CAP (BACID) PO SCH ×4 (07:47→23:30)
[2019-08-29 14:00] VITALS: BP 145/67
[2019-08-29] MEDS: cefTRIAXone SOD 2 GM in D5W MINI-BAG PLUS 50 ML IV SCH (15:38)
[2019-08-29 23:26] VITALS: BP 134/60
[2019-08-29] MEDS: ARIPiprazole 2 MG TAB PO SCH (23:31)
[2019-08-29] MEDS: SENNA 8.6 MG TAB (SENOKOT) PO SCH (23:31)
[2019-08-30 06:19] VITALS: BP 140/76
[2019-08-30] MEDS: SLF 3 ML SYR IV SCH ×3 (06:56→22:10)
[2019-08-30] MEDS: MAGIC MOUTHWASH SUSPENSION BTL SSP SCH ×3 (07:30→16:51)
[2019-08-30] MEDS: NYSTATIN 100,000 UNITS/GM TOPICAL PWD 15 GM TOP SCH ×2 (09:06→22:09)
[2019-08-30] MEDS: FLUTICASONE PROP 0.05% NASAL SPRAY 16 GM (FLONASE) NARES SCH ×2 (09:07→21:00)
[2019-08-30] MEDS: FLUoxetine 20 MG CAP PO SCH (09:07)
[2019-08-30] MEDS: LANSOPRAZOLE SUSPENSION 30 MG/10 ML ORAL SYRINGE (FIRST-LANSOPRAZOLE) PO SCH ×2 (09:07→22:07)
[2019-08-30] MEDS: APIXABAN 5 MG TAB (ELIQUIS) PO SCH ×2 (09:08→22:08)
[2019-08-30] MEDS: VITAMIN D 1,000 INTERNATIONAL UNITS TABLET PO SCH (09:08)
[2019-08-30] MEDS: LACTOBACILLUS ACIDOPHILUS CAP (BACID) PO SCH ×4 (09:08→22:08)
[2019-08-30] MEDS: REMEDY PHYTOPLEX Z-GUARD PASTE 113GM TUBE (FROM STOREROOM PRODUCT) TOP SCH ×3 (09:09→22:09)
[2019-08-30] MEDS: SIMVASTATIN 40 MG TAB PO SCH (09:09)
[2019-08-30] MEDS: POTASSIUM CHLORIDE 10% LIQ 20 MEQ/15 ML UDC PO SCH (09:09)
[2019-08-30 09:41] LABS: BASO % 0.6 % (0.0-1.0); EOS # 0.1 10^3/uL (0.0-0.5); EOS % 1.5 % (0.0-3.0); HEMATOCRIT 38.7 % (36.0-47.0); HEMOGLOBIN 12.4 g/dl (12.0-15.5); LYMPH # 1.6 10^3/uL (1.5-5.0); LYMPH % 24.4 % (24.0-44.0); MEAN CORPUSCULAR HEMOGLOBIN 30.2 pg (27.0-33.0); MEAN CORPUSCULAR VOLUME 94.2 fl (80.0-96.0); MONO # 0.8 10^3/uL (0.0-0.8); MONO % 11.2 % (0.0-5.0); NEUTROPHILS # 4.1 10^3/uL (1.5-8.5); NEUTROPHILS % 62.2 % (36.0-66.0); PLATELET COUNT, AUTOMATED 299 10^3/uL (150-450); RED BLOOD COUNT 4.11 10^6/uL (4.00-5.40); WHITE BLOOD COUNT 6.7 10^3/uL (4.0-10.0)
[2019-08-30 10:26] LABS: BLOOD UREA NITROGEN 6 MG/DL (7-18); CALCIUM LEVEL 9.1 MG/DL (8.8-10.2); CARBON DIOXIDE LEVEL 25 MEQ/L (21-32); CHLORIDE LEVEL 107 MEQ/L (98-107); CREATININE FOR GFR 0.82 MG/DL (0.55-1.30); GLOMERULAR FILTRATION RATE > 60.0 (>39); GLUCOSE, FASTING 94 MG/DL (70-100); POTASSIUM SERUM 3.7 MEQ/L (3.5-5.1); SODIUM LEVEL 140 MEQ/L (136-145)
[2019-08-30 14:00] VITALS: BP 142/68
[2019-08-30] MEDS: cefTRIAXone SOD 2 GM in D5W MINI-BAG PLUS 50 ML IV SCH (16:50)
[2019-08-30 20:30] VITALS: BP 118/60
[2019-08-30] MEDS: SENNA 8.6 MG TAB (SENOKOT) PO SCH (22:07)
[2019-08-30] MEDS: ARIPiprazole 2 MG TAB PO SCH (22:08)
[2019-08-31] MEDS: SLF 3 ML SYR IV SCH ×3 (05:48→21:44)
[2019-08-31 05:58] VITALS: BP 156/80
[2019-08-31] MEDS: MAGIC MOUTHWASH SUSPENSION BTL SSP SCH ×3 (06:51→17:10)
[2019-08-31] MEDS: POTASSIUM CHLORIDE 10% LIQ 20 MEQ/15 ML UDC PO SCH ×2 (09:00→09:49)
[2019-08-31] MEDS: SIMVASTATIN 40 MG TAB PO SCH (09:49)
[2019-08-31] MEDS: APIXABAN 5 MG TAB (ELIQUIS) PO SCH ×2 (09:49→21:41)
[2019-08-31] MEDS: LACTOBACILLUS ACIDOPHILUS CAP (BACID) PO SCH ×4 (09:49→21:41)
[2019-08-31] MEDS: FLUoxetine 20 MG CAP PO SCH (09:49)
[2019-08-31] MEDS: LANSOPRAZOLE SUSPENSION 30 MG/10 ML ORAL SYRINGE (FIRST-LANSOPRAZOLE) PO SCH ×2 (09:49→21:41)
[2019-08-31] MEDS: VITAMIN D 1,000 INTERNATIONAL UNITS TABLET PO SCH (09:49)
[2019-08-31] MEDS: NYSTATIN 100,000 UNITS/GM TOPICAL PWD 15 GM TOP SCH ×2 (09:54→21:42)
[2019-08-31] MEDS: REMEDY PHYTOPLEX Z-GUARD PASTE 113GM TUBE (FROM STOREROOM PRODUCT) TOP SCH ×3 (09:55→21:43)
[2019-08-31] MEDS: FLUTICASONE PROP 0.05% NASAL SPRAY 16 GM (FLONASE) NARES SCH ×2 (10:01→21:00)
[2019-08-31 14:00] VITALS: BP 146/75
[2019-08-31] MEDS: cefTRIAXone SOD 2 GM in D5W MINI-BAG PLUS 50 ML IV SCH (15:50)
[2019-08-31 20:00] VITALS: BP 150/73
[2019-08-31] MEDS: ARIPiprazole 2 MG TAB PO SCH (21:41)
[2019-08-31] MEDS: SENNA 8.6 MG TAB (SENOKOT) PO SCH (21:41)
[2019-09-01] MEDS: SLF 3 ML SYR IV SCH ×3 (05:31→21:37)
[2019-09-01 05:55] VITALS: BP 160/80
[2019-09-01] MEDS: MAGIC MOUTHWASH SUSPENSION BTL SSP SCH ×3 (06:30→16:45)
--- NOTE | 2019-09-01 06:49 | IPNPDOC ---
Text Note Date of Service The patient was seen on 08/31/19. NOTE Subjective: Patient seen on 08/31/2019. Patient reports feeling well and reports not able to get up by herself from chair or bed and needed assistance. She denies having any pain. She is hoping she will be discharged home on 09/03/2019. REVIEW OF SYSTEMS: Constitutional: Denies fever, chills, night sweats, weight loss, headaches. Eyes: Denies any changes in vision . ENT: She is able to eat well. +dysarthria (improving). Cardiovascular: Denies any chest pain, palpitations. Respiratory: Denies shortness of breath, Gastrointestinal (GI): Denies any nausea, vomiting, diarrhea, constipation. Genitourinary: Denies dysuria. Musculoskeletal: Generalized weakness Skin: Denies rashes or ulcers. Hematology/Oncology: Denies any easy bleeding or bruising. All other review of systems is negative. General: Patient is sitting in chair, comfortable and in no acute distress. HEENT: PERRLA. extraocular movement intact. Conjunctivae clear Cardiovascular: S1, S2, normal rhythm, no murmur, rub, or gallop. Pulses: Carotid, radial, posterior tibialis and pedal 3+ symmetric, no edema. Respiratory: Chest is clear to auscultation bilaterallyNo rhonchi, wheezes or rubs. Abdomen: Soft, bowel sounds positive, no bruits. No tenderness on palpation. Extremities: No clubbing or cyanosis. No edema, no tenderness.. Central nervous system (IMPORTER OR EXPORTER): Awake, alert and fully oriented. Dysarthria, strength in upper 5 / 5, decreased strength in lower extremities. Skin: No rashes. 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 Plan: Rehabilitation PT/OT Advance gait and ADLs. 1.Lymes encephalomyelitis: - generalized weakness with dysphagia and dysarthria. Her dysphagia improved and dysarthria, improving. - serology positive, 7 out of 10 IgG bands and 2 out of 3 IgM bands. - she was started on IV Rocephin for 4 weeks [Started On 07/23/2019 at end antibiotics on 09/03/2019] - Continue prozac to help with possible motor recovery with her new neuro deficits. - Her CRP was 0.56. [On 08/26/2019] 2. New-onset atrial fibrillation:- - rate controlled -Continue eliquis, consider beta blockers if needed. 3. HDL: Continue statin. 4. S/P pneumonia: - encourage incentive spirometry. Monitor for infection. 5. GI: ppx lansoprazole. Her dyspepsia has improved and she is able to eat normal. 6. DVT prophylaxis: On eliquis. 7. Pain: Tylenol as needed. VS,Fishbone, I+O VS, Fishbone, I+O Vital Signs Date Time Temp Pulse Resp B/P (MAP) Pulse Ox O2 Delivery O2 Flow Rate FiO2 09/01/19 05:55 98.6 77 18 160/80 (106) 93 Room Air I&O- Last 24 Hours up to 6 AM 09/01/19 06:00 Intake Total 470 ml Balance 470 ml CHARLEY PADGETT MD Sep 01, 2019 06:49
[2019-09-01] MEDS: APIXABAN 5 MG TAB (ELIQUIS) PO SCH ×2 (07:26→21:36)
[2019-09-01] MEDS: SIMVASTATIN 40 MG TAB PO SCH (07:26)
[2019-09-01] MEDS: FLUoxetine 20 MG CAP PO SCH (07:26)
[2019-09-01] MEDS: POTASSIUM CHLORIDE 10% LIQ 20 MEQ/15 ML UDC PO SCH (07:26)
[2019-09-01] MEDS: LACTOBACILLUS ACIDOPHILUS CAP (BACID) PO SCH ×4 (07:26→21:36)
[2019-09-01] MEDS: LANSOPRAZOLE SUSPENSION 30 MG/10 ML ORAL SYRINGE (FIRST-LANSOPRAZOLE) PO SCH ×2 (07:26→21:36)
[2019-09-01] MEDS: VITAMIN D 1,000 INTERNATIONAL UNITS TABLET PO SCH (07:26)
[2019-09-01] MEDS: NYSTATIN 100,000 UNITS/GM TOPICAL PWD 15 GM TOP SCH ×2 (07:27→21:00)
[2019-09-01] MEDS: FLUTICASONE PROP 0.05% NASAL SPRAY 16 GM (FLONASE) NARES SCH ×2 (07:27→21:36)
[2019-09-01] MEDS: REMEDY PHYTOPLEX Z-GUARD PASTE 113GM TUBE (FROM STOREROOM PRODUCT) TOP SCH ×3 (07:28→21:00)
[2019-09-01 14:00] VITALS: BP 131/62
[2019-09-01] MEDS: cefTRIAXone SOD 2 GM in D5W MINI-BAG PLUS 50 ML IV SCH (15:34)
[2019-09-01 20:00] VITALS: BP 124/56
[2019-09-01] MEDS: SENNA 8.6 MG TAB (SENOKOT) PO SCH (21:36)
[2019-09-01] MEDS: ARIPiprazole 2 MG TAB PO SCH (21:36)
[2019-09-01] MEDS: ACETAMINOPHEN TAB 650MG DOSE (2X325MG) PO PRN (21:38)
[2019-09-02 06:00] VITALS: BP 140/80
[2019-09-02] MEDS: SLF 3 ML SYR IV SCH ×2 (06:21→13:01)
[2019-09-02] MEDS: FLUoxetine 20 MG CAP PO SCH (08:43)
[2019-09-02] MEDS: LANSOPRAZOLE SUSPENSION 30 MG/10 ML ORAL SYRINGE (FIRST-LANSOPRAZOLE) PO SCH (08:43)
[2019-09-02] MEDS: VITAMIN D 1,000 INTERNATIONAL UNITS TABLET PO SCH (08:44)
[2019-09-02] MEDS: LACTOBACILLUS ACIDOPHILUS CAP (BACID) PO SCH ×2 (08:44→12:43)
[2019-09-02] MEDS: APIXABAN 5 MG TAB (ELIQUIS) PO SCH (08:44)
[2019-09-02] MEDS: SIMVASTATIN 40 MG TAB PO SCH (08:44)
[2019-09-02] MEDS: NYSTATIN 100,000 UNITS/GM TOPICAL PWD 15 GM TOP SCH (08:44)
[2019-09-02] MEDS: POTASSIUM CHLORIDE 10% LIQ 20 MEQ/15 ML UDC PO SCH (08:44)
[2019-09-02] MEDS: REMEDY PHYTOPLEX Z-GUARD PASTE 113GM TUBE (FROM STOREROOM PRODUCT) TOP SCH (08:44)
[2019-09-02] MEDS: FLUTICASONE PROP 0.05% NASAL SPRAY 16 GM (FLONASE) NARES SCH (08:44)
[2019-09-02] MEDS: MAGIC MOUTHWASH SUSPENSION BTL SSP SCH ×2 (08:45→12:45)
[2019-09-02] MEDS ORDERED: SIMV40TA20 PO (10:02)
[2019-09-02] MEDS ORDERED: D31000TA2 PO (10:02)
[2019-09-02] MEDS ORDERED: FLUO20CA22 PO (10:02)
[2019-09-02] MEDS ORDERED: RISATAB3 PO (10:02)
[2019-09-02] MEDS ORDERED: ELIQ5TAB PO (10:02)
[2019-09-02] MEDS ORDERED: DOXY-350 PO (10:02)
[2019-09-02] MEDS ORDERED: FLUTISP NARES (10:02)
[2019-09-02] MEDS ORDERED: ABIL1TAB13 PO (10:02)
[2019-09-02 14:00] VITALS: BP 137/72
== END 2019-09-02 15:35 | disposition home health service (06) | DRG 98 ==
LOC: M PM&R 16:35
PROVIDERS: ADMIT Physical Medicine & Rehabilitation; ATTEND Physical Medicine & Rehabilitation
DX: G04.01 Postinfectious acute disseminated encephalitis and encephalomyelitis (postinfectious ADEM) (principal); G61.0 Guillain-Barre syndrome; J44.9 Chronic obstructive pulmonary disease, unspecified; E78.5 Hyperlipidemia, unspecified; K21.9 Gastro-esophageal reflux disease without esophagitis; I48.91 Unspecified atrial fibrillation; D69.6 Thrombocytopenia, unspecified; R53.1 Weakness; R27.0 Ataxia, unspecified; R13.10 Dysphagia, unspecified; R47.1 Dysarthria and anarthria; G70.00 Myasthenia gravis without (acute) exacerbation; M48.02 Spinal stenosis, cervical region; M48.061 Spinal stenosis, lumbar region without neurogenic claudication; Z79.01 Long term (current) use of anticoagulants; Z79.899 Other long term (current) drug therapy

== ENCOUNTER → 2019-09-24 | Outpatient (REF) | payer MEDICARE, OTHER ==
[~2019-09-24] MED LIST changes: +ABIL1TAB13 PO; +DOXY-350 PO; +FLUO20CA22 PO; +FLUTISP NARES
[2019-10-21 15:04] LABS: BASO % 0.4 % (0.0-1.0); EOS # 0.1 10^3/uL (0.0-0.5); EOS % 1.3 % (0.0-3.0); HEMATOCRIT 40.9 % (36.0-47.0); HEMOGLOBIN 12.9 g/dl (12.0-15.5); LYMPH # 2.2 10^3/uL (1.5-5.0); LYMPH % 28.3 % (24.0-44.0); MEAN CORPUSCULAR HEMOGLOBIN 30.8 pg (27.0-33.0); MEAN CORPUSCULAR HGB CONC 31.5 g/dl (32.0-36.5); MEAN CORPUSCULAR VOLUME 97.6 fl (80.0-96.0); MONO # 0.8 10^3/uL (0.0-0.8); MONO % 9.7 % (0.0-5.0); NEUTROPHILS # 4.6 10^3/uL (1.5-8.5); NEUTROPHILS % 59.9 % (36.0-66.0); PLATELET COUNT, AUTOMATED 317 10^3/uL (150-450); RED BLOOD COUNT 4.19 10^6/uL (4.00-5.40); WHITE BLOOD COUNT 7.7 10^3/uL (4.0-10.0)
[2019-12-10 10:52] LABS: GLUCOSE, FASTING SEE SEPARATE REPORT
== END ==
LOC: M SHH 15:37
PROVIDERS: ATTEND Nurse Practitioner Family
DX: S37.009D Unspecified injury of unspecified kidney, subsequent encounter (principal); E87.0 Hyperosmolality and hypernatremia; E87.6 Hypokalemia; X58.XXXD Exposure to other specified factors, subsequent encounter; Y92.9 Unspecified place or not applicable

== ENCOUNTER → 2019-10-03 | Outpatient (REF) | payer MEDICARE, OTHER ==
[2019-11-07 07:02] LABS: BASO % 0.4 % (0.0-1.0); EOS # 0.1 10^3/uL (0.0-0.5); HEMATOCRIT 43.3 % (36.0-47.0); HEMOGLOBIN 14.2 g/dl (12.0-15.5); LYMPH # 1.8 10^3/uL (1.5-5.0); LYMPH % 24.3 % (24.0-44.0); MEAN CORPUSCULAR HEMOGLOBIN 31.8 pg (27.0-33.0); MEAN CORPUSCULAR HGB CONC 32.8 g/dl (32.0-36.5); MEAN CORPUSCULAR VOLUME 96.9 fl (80.0-96.0); MONO # 0.9 10^3/uL (0.0-0.8); MONO % 11.8 % (0.0-5.0); NEUTROPHILS # 4.5 10^3/uL (1.5-8.5); NEUTROPHILS % 62.2 % (36.0-66.0); PLATELET COUNT, AUTOMATED 400 10^3/uL (150-450); RED BLOOD COUNT 4.47 10^6/uL (4.00-5.40); WHITE BLOOD COUNT 7.3 10^3/uL (4.0-10.0)
[2019-11-07 07:03] LABS: ERYTHROCYTE SEDIMENTATION RATE 63 mm/hr (0-30)
[2019-11-20 20:20] LABS: ALBUMIN 3.5 GM/DL (3.2-5.2); BILIRUBIN,TOTAL 0.5 MG/DL (0.2-1.0); C REACTIVE PROTEIN QUANTITATIV 2.68 MG/DL (0.00-0.30); CREATININE FOR GFR 1.15 MG/DL (0.55-1.30); GLOMERULAR FILTRATION RATE 48.7 (>39); POTASSIUM SERUM 4.5 MEQ/L (3.5-5.1); TOTAL PROTEIN 8.1 GM/DL (6.4-8.2)
== END ==
LOC: M SFHCPLAZ 11:53
PROVIDERS: ATTEND Internal Medicine Infectious Disease
DX: A69.21 Meningitis due to Lyme disease (principal); I48.91 Unspecified atrial fibrillation; R27.0 Ataxia, unspecified; R47.1 Dysarthria and anarthria
CPT/HCPCS: 36415; 80053; 85025; 85652; 86140; G0463

== ENCOUNTER → 2019-11-04 | Outpatient (CLI) | payer MEDICARE, OTHER ==
[2019-11-04 13:32] LABS: HEMATOCRIT 42.5 % (36.0-47.0); HEMOGLOBIN 14.1 g/dl (12.0-15.5); MEAN CORPUSCULAR HEMOGLOBIN 32.9 pg (27.0-33.0); MEAN CORPUSCULAR HGB CONC 33.2 g/dl (32.0-36.5); MEAN CORPUSCULAR VOLUME 99.3 fl (80.0-96.0); PLATELET COUNT, AUTOMATED 274 10^3/uL (150-450); RED BLOOD COUNT 4.28 10^6/uL (4.00-5.40); WHITE BLOOD COUNT 6.5 10^3/uL (4.0-10.0)
[2019-11-04 13:39] LABS: C REACTIVE PROTEIN QUANTITATIV < 0.30 MG/DL (0.00-0.30)
[2019-11-04 14:09] LABS: ERYTHROCYTE SEDIMENTATION RATE 27 mm/hr (0-30)
== END ==
LOC: M PLALAB 10:50
PROVIDERS: ATTEND Internal Medicine Infectious Disease
DX: Z11.9 Encounter for screening for infectious and parasitic diseases, unspecified (principal); W57.XXXA Bitten or stung by nonvenomous insect and other nonvenomous arthropods, initial encounter
CPT/HCPCS: 36415; 85027; 85652; 86140; 86780; G0463

== ENCOUNTER → 2020-08-20 | Outpatient (REF) | payer MEDICARE, OTHER ==
[2020-08-20 16:40] LABS: BASO % 0.6 % (0.0-1.0); EOS # 0.1 10^3/uL (0.0-0.5); EOS % 2.8 % (0.0-3.0); HEMATOCRIT 46.8 % (36.0-47.0); LYMPH # 1.8 10^3/uL (1.5-5.0); LYMPH % 36.6 % (24.0-44.0); MEAN CORPUSCULAR HGB CONC 32.1 g/dl (32.0-36.5); MEAN CORPUSCULAR VOLUME 93.6 fl (80.0-96.0); MONO # 0.5 10^3/uL (0.0-0.8); MONO % 10.5 % (2.0-8.0); NEUTROPHILS # 2.4 10^3/uL (1.5-8.5); NEUTROPHILS % 49.3 % (36.0-66.0); PLATELET COUNT, AUTOMATED 299 10^3/uL (150-450); WHITE BLOOD COUNT 4.9 10^3/uL (4.0-10.0)
[2020-08-20 17:06] LABS: ALBUMIN 3.4 GM/DL (3.2-5.2); ALT/SGPT 21 U/L (12-78); BILIRUBIN,TOTAL 0.7 MG/DL (0.2-1.0); BLOOD UREA NITROGEN 21 MG/DL (7-18); CALCIUM LEVEL 8.9 MG/DL (8.8-10.2); CARBON DIOXIDE LEVEL 31 MEQ/L (21-32); CHLORIDE LEVEL 107 MEQ/L (98-107); CHOLESTEROL LEVEL 212 MG/DL (<200); CHOLESTEROL RISK RATIO 3.419 (<5); CREATININE FOR GFR 1.05 MG/DL (0.55-1.30); GLOMERULAR FILTRATION RATE 54.1 (>39); GLUCOSE, FASTING 72 MG/DL (70-100); HDL CHOLESTEROL 62 MG/DL (>40); LDL CHOLESTEROL 120 MG/DL (<100); NON-HDL-C 150 MG/DL; POTASSIUM SERUM 4.9 MEQ/L (3.5-5.1); SODIUM LEVEL 141 MEQ/L (136-145); TOTAL 25(OH) VITAMIN D 31.1 NG/ML (30.0-100.0); TOTAL PROTEIN 7.3 GM/DL (6.4-8.2); TRIGLYCERIDES LEVEL 150 MG/DL (<150); VITAMIN B12 LEVEL > 2000 PG/ML (247-911)
== END ==
LOC: M SHH 15:48
PROVIDERS: ATTEND Nurse Practitioner Family
DX: I48.0 Paroxysmal atrial fibrillation (principal); E78.5 Hyperlipidemia, unspecified; A69.22 Other neurologic disorders in Lyme disease; E55.9 Vitamin D deficiency, unspecified; E53.8 Deficiency of other specified B group vitamins; Z79.899 Other long term (current) drug therapy

== ENCOUNTER → 2020-11-10 | Outpatient (CLI) | payer MEDICARE, OTHER ==
[~2020-11-10] MED LIST changes: +CYAN500T14 PO
[2020-11-10 15:05] LABS: APPEARANCE, CSF CLEAR (CLEAR); COLOR, CSF COLORLESS (COLORLESS); CSF TUBE# CELL CNT TUBE 1
[2020-11-10 15:15] LABS: CSF TUBE# GLU TUBE 1; CSF TUBE# TP TUBE 1; GLUCOSE CSF 53 MG/DL (40-75); TOTAL PROTEIN,CSF 38 MG/DL (15-45)
[2020-11-10 15:41] LABS: BASO % 0.3 % (0.0-1.0); EOS # 0.1 10^3/uL (0.0-0.5); HEMATOCRIT 47.1 % (36.0-47.0); HEMOGLOBIN 15.2 g/dl (12.0-15.5); LYMPH # 2.3 10^3/uL (1.5-5.0); LYMPH % 35.1 % (24.0-44.0); MEAN CORPUSCULAR HEMOGLOBIN 30.2 pg (27.0-33.0); MEAN CORPUSCULAR HGB CONC 32.3 g/dl (32.0-36.5); MEAN CORPUSCULAR VOLUME 93.6 fl (80.0-96.0); MONO # 0.7 10^3/uL (0.0-0.8); MONO % 10.7 % (2.0-8.0); NEUTROPHILS # 3.4 10^3/uL (1.5-8.5); NEUTROPHILS % 51.6 % (36.0-66.0); PLATELET COUNT, AUTOMATED 273 10^3/uL (150-450); RED BLOOD COUNT 5.03 10^6/uL (4.00-5.40); WHITE BLOOD COUNT 6.7 10^3/uL (4.0-10.0)
[2020-11-10 15:53] LABS: INR 0.94
[2020-11-10 15:54] LABS: PARTIAL THROMBOPLASTIN TIME 32.2 SECONDS (25.9-37.0)
[2020-11-10 16:39] VITALS: BP 155/73
--- NOTE | 2020-11-10 17:01 | REP ---
PROCEDURE NAME: FLUORO GUID FOR NEEDLE PLACEMT SEDATION: None CLINICAL INFORMATION: LYME, ENCEPHELOMYELITIS. PHYSICIAN: Mare Gilman PROCEDURE DESCRIPTION: The procedure was performed by STEPHANI Tim, under the direct supervision of Dr. Olmedo. The risks and benefits of the procedure were explained to the patient and an informed consent was obtained both verbally and written. Directly prior to the start of the procedure a formal time-out was completed in the procedure room. The L4-5 interspace was localized using fluoroscopic guidance. The skin was prepped and draped in a sterile fashion. Five 1 % lidocaine 10 milligrams/milliliter was used as a local anesthetic. Using fluoroscopic guidance a 22 gauge spinal needle was inserted and advanced without significant difficulty in to the cerebral spinal space at the L4-5 interspinous level. Clear freely flowing cerebral spinal fluid was retrieved. A total of 12 mL of cerebral spinal fluid was withdrawn and submitted to the lab for stat analysis 0.1 minutes of fluoroscopy time was utilized for this procedure. Some fluoroscopic images are performed with last image hold technology. These images require no additional radiation. The patient tolerated the procedure well and there were no immediate complications. After the appropriate amount of monitored convalescence the patient was discharged back to the unit. ESTIMATED BLOOD LOSS: Less than 1 mL COMPLICATIONS: None CONCLUSION: Successful lumbar puncture and CSF retrieval. <Electronically signed by Mare Gilman > 11/10/20 1650 <Electronically signed by Foster Olmedo > 11/10/20 [id number]
== END ==
LOC: M IRPRO 13:11
PROVIDERS: ATTEND Psychiatry & Neurology Neurology
DX: G04.90 Encephalitis and encephalomyelitis, unspecified (principal)

== ENCOUNTER → 2021-09-15 | Outpatient (CLI) | payer MEDICARE, OTHER ==
[~2021-09-15] MED LIST changes: -D31000TA2 PO; +E-Z-GAS II EFFERVESCENT PACKET (SODIUM BICARB./CITRIC ACID/SIMETHICONE) As Ordered ONE; +E-Z-HD 98% w/w 340GM SUSP BTL As Ordered ONE; +E-Z-PAQUE 96% w/w SUSP 176GM BTL As Ordered ONE; +VITA100093 PO
== END ==
LOC: M RAD 08:07
PROVIDERS: ATTEND Nurse Practitioner Family
DX: K44.9 Diaphragmatic hernia without obstruction or gangrene (principal); A69.22 Other neurologic disorders in Lyme disease

== ENCOUNTER → 2021-10-11 | Outpatient (CLI) | payer MEDICARE, OTHER ==
[~2021-10-11] MED LIST changes: +BARIUM SULFATE 700 MG TABLET (E-Z-DISK) As Ordered ONE; -E-Z-GAS II EFFERVESCENT PACKET (SODIUM BICARB./CITRIC ACID/SIMETHICONE) As Ordered ONE; -E-Z-HD 98% w/w 340GM SUSP BTL As Ordered ONE; +FISH10005 PO; -FISH7.5C PO; +VARIBAR NECTAR 40% w/v 240ML SUSP BTL As Ordered ONE; +VARIBAR PUDDING 40% w/v 230ML TUBE As Ordered ONE
== END ==
LOC: M RAD 11:19
PROVIDERS: ATTEND Nurse Practitioner Family
DX: R93.3 Abnormal findings on diagnostic imaging of other parts of digestive tract (principal); A69.22 Other neurologic disorders in Lyme disease

== ENCOUNTER 2021-12-15 14:06 | Inpatient (IN) | payer MEDICARE, OTHER ==
[~2021-12-15] VITALS: Ht 162.6 cm; Wt 69.0 kg
[~2021-12-15 14:06] MED LIST changes: -BARIUM SULFATE 700 MG TABLET (E-Z-DISK) As Ordered ONE; -DOXY-350 PO; +DOXY-444 PO; -E-Z-PAQUE 96% w/w SUSP 176GM BTL As Ordered ONE; -FLUTISP; -VARIBAR NECTAR 40% w/v 240ML SUSP BTL As Ordered ONE; -VARIBAR PUDDING 40% w/v 230ML TUBE As Ordered ONE
[2021-12-15 15:18] LABS: BASO # 0.1 10^3/uL (0.0-0.2); BASO % 0.6 % (0.0-1.0); EOS % 0.5 % (0.0-3.0); HEMATOCRIT 50.4 % (36.0-47.0); HEMOGLOBIN 16.1 g/dl (12.0-15.5); LYMPH # 1.9 10^3/uL (1.5-5.0); LYMPH % 22.1 % (24.0-44.0); MEAN CORPUSCULAR HEMOGLOBIN 29.6 pg (27.0-33.0); MEAN CORPUSCULAR HGB CONC 31.9 g/dl (32.0-36.5); MEAN CORPUSCULAR VOLUME 92.6 fl (80.0-96.0); MONO # 0.8 10^3/uL (0.0-0.8); MONO % 9.3 % (2.0-8.0); NEUTROPHILS # 5.7 10^3/uL (1.5-8.5); NEUTROPHILS % 67.1 % (36.0-66.0); PLATELET COUNT, AUTOMATED 311 10^3/uL (150-450); RED BLOOD COUNT 5.44 10^6/uL (4.00-5.40); WHITE BLOOD COUNT 8.4 10^3/uL (4.0-10.0)
[2021-12-15 15:47] LABS: CK-MB VALUE MASS < 1.0 NG/ML (<3.6); CPK CREATINE PHOSPHOKINASE 31 U/L (26-192); MB/CK RELATIVE INDEX 3.23 (< OR =4)
[2021-12-15 16:11] LABS: ALBUMIN 3.7 GM/DL (3.2-5.2); ALT/SGPT 15 U/L (12-78); BILIRUBIN,DIRECT 0.2 MG/DL (0.0-0.2); BLOOD UREA NITROGEN 13 MG/DL (7-18); CARBON DIOXIDE LEVEL 28 MEQ/L (21-32); CHLORIDE LEVEL 107 MEQ/L (98-107); CREATININE FOR GFR 0.88 MG/DL (0.55-1.30); GLOMERULAR FILTRATION RATE > 60.0 (>39); GLUCOSE, FASTING 130 MG/DL (70-100); POTASSIUM SERUM 4.3 MEQ/L (3.5-5.1); SODIUM LEVEL 140 MEQ/L (136-145); TOTAL PROTEIN 7.7 GM/DL (6.4-8.2)
[2021-12-15] MEDS ORDERED: CIPROFLOXACIN 400 MG in IV 1 EA IV ONE (17:00)
[2021-12-15] MEDS ORDERED: IBUP80TA PO (17:46)
[2021-12-15] MEDS ORDERED: ALBU8.5H INH (17:46)
[2021-12-15] MEDS ORDERED: BACL10TA2 PO (17:46)
[2021-12-15] MEDS ORDERED: HOME MED LIST COMPLETE! XX SCH (17:50)
[2021-12-15 17:56] LABS: ABG BASE EXCESS 1.3 (-2.0-2.0); ABG HCO3 25.4 MEQ/L (22.0-26.0); ABG O2 SATURATION 95.1 % (95.0-99.0); ABG PARTIAL PRESSURE CO2 38.9 mmHg (35.0-45.0); ABG PARTIAL PRESSURE O2 72.8 mmHg (75.0-100.0); ABG STANDARD HCO3 25.5 MEQ/L (22.0-26.0); ABG TOTAL CO2 26.6 MEQ/L (23.0-31.0); ABG pH (ARTERIAL) 7.433 UNITS (7.350-7.450)
[2021-12-15] MEDS: LABETALOL 100MG/20ML VIAL IV SCH ×2 (18:00→23:49)
[2021-12-15] MEDS ORDERED: DEXTROSE 50% 50 ML SYRINGE IV PRN (19:25)
[2021-12-15] MEDS ORDERED: GLUCOSE 4GM CHEW TABLET PO PRN (19:25)
[2021-12-15] MEDS ORDERED: GLUCAGON INJ 1MG VIAL SC PRN (19:25)
[2021-12-15] MEDS: D5W/0.45% SODIUM CHLORIDE 1,000 ML IV SCH (19:42)
[2021-12-15] MEDS: hydrALAZINE 20MG/ML 1ML VIAL (J0360 PER 20MG) IV SCH ×2 (20:00→23:49)
[2021-12-15] MEDS: INSULIN LISPRO (NovoLOG) PER UNIT SC SCH (20:25)
[2021-12-16] VITALS (10 sets, daily range): BP systolic 110–172; BP diastolic 55–86
[2021-12-16 00:01] LABS: CK-MB VALUE MASS 1.1 NG/ML (<3.6); MB/CK RELATIVE INDEX 3.79 (< OR =4)
[2021-12-16] MEDS: hydrALAZINE 20MG/ML 1ML VIAL (J0360 PER 20MG) IV SCH ×4 (04:00→20:27)
[2021-12-16] MEDS: D5W/0.45% SODIUM CHLORIDE 1,000 ML IV SCH ×2 (04:15→14:09)
[2021-12-16 06:23] LABS: BASO % 0.3 % (0.0-1.0); EOS % 0.4 % (0.0-3.0); HEMATOCRIT 45.9 % (36.0-47.0); LYMPH # 2.2 10^3/uL (1.5-5.0); LYMPH % 23.3 % (24.0-44.0); MEAN CORPUSCULAR HEMOGLOBIN 30.1 pg (27.0-33.0); MEAN CORPUSCULAR HGB CONC 32.7 g/dl (32.0-36.5); MONO # 1.1 10^3/uL (0.0-0.8); MONO % 11.8 % (2.0-8.0); NEUTROPHILS # 6.2 10^3/uL (1.5-8.5); PLATELET COUNT, AUTOMATED 243 10^3/uL (150-450); RED BLOOD COUNT 4.99 10^6/uL (4.00-5.40); WHITE BLOOD COUNT 9.6 10^3/uL (4.0-10.0)
[2021-12-16] MEDS: LABETALOL 100MG/20ML VIAL IV SCH ×3 (06:34→18:42)
[2021-12-16] MEDS ORDERED: ALBUTEROL 90 MCG/ACT 8GM HFA INHALER INH PRN (06:40)
[2021-12-16] MEDS ORDERED: FLUTICASONE PROP 0.05% NASAL SPRAY 16 GM (FLONASE) NARES PRN (06:40)
[2021-12-16] MEDS ORDERED: IBUPROFEN 800 MG TAB PO PRN (06:40)
[2021-12-16 06:51] LABS: MB/CK RELATIVE INDEX 2.27 (< OR =4)
[2021-12-16 06:56] LABS: BLOOD UREA NITROGEN 11 MG/DL (7-18); CALCIUM LEVEL 9.1 MG/DL (8.8-10.2); CARBON DIOXIDE LEVEL 26 MEQ/L (21-32); CHLORIDE LEVEL 108 MEQ/L (98-107); CHOLESTEROL LEVEL 244 MG/DL (<200); CHOLESTEROL RISK RATIO 3.641 (<5); CREATININE FOR GFR 0.79 MG/DL (0.55-1.30); GLOMERULAR FILTRATION RATE > 60.0 (>39); GLUCOSE, FASTING 122 MG/DL (70-100); HDL CHOLESTEROL 67 MG/DL (>40); HEMOGLOBIN A1c 5.5 %; LDL CHOLESTEROL 161 MG/DL (<100); NON-HDL-C 177 MG/DL; POTASSIUM SERUM 3.9 MEQ/L (3.5-5.1); SODIUM LEVEL 140 MEQ/L (136-145); TRIGLYCERIDES LEVEL 79 MG/DL (<150)
[2021-12-16] MEDS: INSULIN LISPRO (NovoLOG) PER UNIT SC SCH ×4 (07:30→20:26)
[2021-12-16] MEDS: LevoFLOXacin IV 500 MG in IV 1 EA IV SCH (08:25)
[2021-12-16] MEDS: NITROGLYCERIN 2% OINT 1 GM *U/D* PKT TOP SCH ×2 (08:25→20:27)
[2021-12-16] MEDS: BACLOFEN 10 MG TAB PO SCH ×3 (08:25→20:26)
[2021-12-16] MEDS ORDERED: MORPHINE 4 MG/ML 1ML VIAL/SYRINGE IV PRN (08:30)
[2021-12-16] MEDS ORDERED: KETOROLAC 30 MG/ML 1ML VIAL IV PRN (08:30)
[2021-12-16] MEDS ORDERED: LABETALOL 100MG/20ML VIAL IV SCH (09:00)
[2021-12-16] MEDS ORDERED: ENOXAPARIN 30MG/0.3ML SYRINGE (J1650 PER 10MG) SC SCH (09:00)
[2021-12-16] MEDS ORDERED: hydrALAZINE 20MG/ML 1ML VIAL (J0360 PER 20MG) IV SCH (12:00)
[2021-12-16] MEDS ORDERED: POLYVINYL ALCOHOL OPHTH SOLN 15 ML(LIQUITEARS) OU ONE (14:00)
[2021-12-16] MEDS ORDERED: ONDANSETRON 4MG 2ML VIAL IV ONE (14:40)
[2021-12-16] MEDS: POLYVINYL ALCOHOL OPHTH SOLN 15 ML(LIQUITEARS) OU SCH ×2 (17:37→20:05)
[2021-12-16] MEDS ORDERED: ONDANSETRON 4MG 2ML VIAL IV PRN (19:00)
[2021-12-17] VITALS (8 sets, daily range): BP systolic 123–162; BP diastolic 58–96
[2021-12-17] MEDS: D5W/0.45% SODIUM CHLORIDE 1,000 ML IV SCH ×3 (00:25→17:35)
[2021-12-17] MEDS: hydrALAZINE 20MG/ML 1ML VIAL (J0360 PER 20MG) IV SCH ×2 (01:00→04:30)
[2021-12-17] MEDS: LABETALOL 100MG/20ML VIAL IV SCH ×2 (01:00→06:08)
[2021-12-17 04:42] LABS: BASO % 0.1 % (0.0-1.0); HEMATOCRIT 42.7 % (36.0-47.0); HEMOGLOBIN 14.2 g/dl (12.0-15.5); LYMPH # 1.6 10^3/uL (1.5-5.0); LYMPH % 14.8 % (24.0-44.0); MEAN CORPUSCULAR HEMOGLOBIN 30.4 pg (27.0-33.0); MEAN CORPUSCULAR HGB CONC 33.3 g/dl (32.0-36.5); MEAN CORPUSCULAR VOLUME 91.4 fl (80.0-96.0); MONO # 1.3 10^3/uL (0.0-0.8); MONO % 11.5 % (2.0-8.0); NEUTROPHILS # 8.1 10^3/uL (1.5-8.5); NEUTROPHILS % 73.3 % (36.0-66.0); PLATELET COUNT, AUTOMATED 277 10^3/uL (150-450); RED BLOOD COUNT 4.67 10^6/uL (4.00-5.40); WHITE BLOOD COUNT 11.1 10^3/uL (4.0-10.0)
[2021-12-17 05:11] LABS: BLOOD UREA NITROGEN 9 MG/DL (7-18); CARBON DIOXIDE LEVEL 25 MEQ/L (21-32); CHLORIDE LEVEL 106 MEQ/L (98-107); CREATININE FOR GFR 0.89 MG/DL (0.55-1.30); GLOMERULAR FILTRATION RATE > 60.0 (>39); GLUCOSE, FASTING 132 MG/DL (70-100); POTASSIUM SERUM 3.5 MEQ/L (3.5-5.1); SODIUM LEVEL 136 MEQ/L (136-145)
[2021-12-17] MEDS: INSULIN LISPRO (NovoLOG) PER UNIT SC SCH ×3 (07:09→17:34)
[2021-12-17] MEDS ORDERED: SIMV40TA20 PO (07:36)
[2021-12-17] MEDS: BACLOFEN 10 MG TAB PO SCH ×3 (07:38→20:41)
[2021-12-17] MEDS: POLYVINYL ALCOHOL OPHTH SOLN 15 ML(LIQUITEARS) OU SCH ×4 (07:39→20:38)
[2021-12-17] MEDS: LevoFLOXacin IV 500 MG in IV 1 EA IV SCH (07:46)
[2021-12-17] MEDS: NITROGLYCERIN 2% OINT 1 GM *U/D* PKT TOP SCH ×2 (07:47→20:40)
[2021-12-17] MEDS: AMINO AC/ELECTROLYTE/DEX/CALC 1,000 ML IV SCH (17:23)
[2021-12-17] MEDS ORDERED: INSULIN LISPRO (NovoLOG) PER UNIT SC SCH (18:00)
[2021-12-17] MEDS ORDERED: FAT EMULSION IV 250 ML IV ONE (18:00)
[2021-12-17] MEDS ORDERED: LOSARTAN 50MG TABLET PO ONE (18:50)
[2021-12-17] MEDS ORDERED: cloNIDine 0.1MG TABLET PO ONE (18:50)
[2021-12-17] MEDS ORDERED: METOCLOPRAMIDE INJ 10MG/2ML VIAL (J2765 PER 1) IV ONE (19:00)
[2021-12-18] MEDS: INSULIN LISPRO (NovoLOG) PER UNIT SC SCH ×4 (06:00→16:56)
[2021-12-18] MEDS: cloNIDine 0.1MG TABLET PO SCH ×2 (06:00)
[2021-12-18 06:07] VITALS: BP 87/48
[2021-12-18 06:09] LABS: BASO % 0.4 % (0.0-1.0); EOS # 0.2 10^3/uL (0.0-0.5); EOS % 1.9 % (0.0-3.0); HEMATOCRIT 39.8 % (36.0-47.0); HEMOGLOBIN 12.9 g/dl (12.0-15.5); LYMPH # 1.6 10^3/uL (1.5-5.0); LYMPH % 19.6 % (24.0-44.0); MEAN CORPUSCULAR HEMOGLOBIN 30.3 pg (27.0-33.0); MEAN CORPUSCULAR HGB CONC 32.4 g/dl (32.0-36.5); MEAN CORPUSCULAR VOLUME 93.4 fl (80.0-96.0); MONO # 1.2 10^3/uL (0.0-0.8); MONO % 14.9 % (2.0-8.0); NEUTROPHILS # 5.2 10^3/uL (1.5-8.5); PLATELET COUNT, AUTOMATED 224 10^3/uL (150-450); RED BLOOD COUNT 4.26 10^6/uL (4.00-5.40); WHITE BLOOD COUNT 8.3 10^3/uL (4.0-10.0)
[2021-12-18 06:46] LABS: CALCIUM LEVEL 8.9 MG/DL (8.8-10.2); CREATININE FOR GFR 1.4 MG/DL (0.55-1.30); GLOMERULAR FILTRATION RATE 38.6 (>39); POTASSIUM SERUM 3.9 MEQ/L (3.5-5.1)
[2021-12-18] MEDS: METOCLOPRAMIDE INJ 10MG/2ML VIAL (J2765 PER 1) IV SCH ×4 (06:57→20:41)
[2021-12-18] MEDS: AMINO AC/ELECTROLYTE/DEX/CALC 1,000 ML IV SCH ×2 (06:58→20:41)
[2021-12-18] MEDS ORDERED: NS 500 ML IV ONE (08:00)
[2021-12-18] MEDS: BACLOFEN 10 MG TAB PO SCH ×3 (09:00→20:41)
[2021-12-18] MEDS ORDERED: LOSARTAN 50MG TABLET PO SCH (09:00)
[2021-12-18] MEDS: POLYVINYL ALCOHOL OPHTH SOLN 15 ML(LIQUITEARS) OU SCH ×4 (09:43→20:41)
[2021-12-18 10:07] VITALS: BP 113/65
[2021-12-18] MEDS ORDERED: NS 1,000 ML IV SCH (11:10)
[2021-12-18 14:00] VITALS: BP 128/58
[2021-12-18] MEDS ORDERED: FAT EMULSION IV 250 ML IV ONE (18:00)
[2021-12-18 20:10] LABS: CALCIUM LEVEL 8.6 MG/DL (8.8-10.2); CREATININE FOR GFR 1.3 MG/DL (0.55-1.30); GLOMERULAR FILTRATION RATE 42.1 (>39); POTASSIUM SERUM 4.1 MEQ/L (3.5-5.1)
[2021-12-18 21:43] VITALS: BP 129/58
[2021-12-19 04:41] VITALS: BP 177/85
[2021-12-19] MEDS: INSULIN LISPRO (NovoLOG) PER UNIT SC SCH ×5 (05:16→23:55)
[2021-12-19 06:21] LABS: BASO # 0.1 10^3/uL (0.0-0.2); BASO % 0.5 % (0.0-1.0); EOS # 0.3 10^3/uL (0.0-0.5); EOS % 2.9 % (0.0-3.0); HEMATOCRIT 39.7 % (36.0-47.0); HEMOGLOBIN 13.2 g/dl (12.0-15.5); LYMPH # 1.4 10^3/uL (1.5-5.0); LYMPH % 14.9 % (24.0-44.0); MEAN CORPUSCULAR HEMOGLOBIN 30.3 pg (27.0-33.0); MEAN CORPUSCULAR HGB CONC 33.2 g/dl (32.0-36.5); MEAN CORPUSCULAR VOLUME 91.1 fl (80.0-96.0); MONO # 1.3 10^3/uL (0.0-0.8); MONO % 13.7 % (2.0-8.0); NEUTROPHILS # 6.4 10^3/uL (1.5-8.5); NEUTROPHILS % 67.8 % (36.0-66.0); PLATELET COUNT, AUTOMATED 235 10^3/uL (150-450); RED BLOOD COUNT 4.36 10^6/uL (4.00-5.40); WHITE BLOOD COUNT 9.4 10^3/uL (4.0-10.0)
[2021-12-19 06:52] LABS: CALCIUM LEVEL 8.9 MG/DL (8.8-10.2); CREATININE FOR GFR 1.42 MG/DL (0.55-1.30)
[2021-12-19 07:32] VITALS: BP 106/72
[2021-12-19] MEDS ORDERED: NS 1,000 ML IV SCH (07:50)
[2021-12-19] MEDS: METOCLOPRAMIDE INJ 10MG/2ML VIAL (J2765 PER 1) IV SCH ×4 (08:01→21:54)
[2021-12-19] MEDS: POLYVINYL ALCOHOL OPHTH SOLN 15 ML(LIQUITEARS) OU SCH ×4 (08:02→21:00)
[2021-12-19] MEDS: BACLOFEN 10 MG TAB PO SCH ×3 (08:09→21:00)
[2021-12-19] MEDS ORDERED: LevoFLOXacin IV 750 MG in IV 1 EA IV SCH (09:00)
[2021-12-19] MEDS: AMINO AC/ELECTROLYTE/DEX/CALC 1,000 ML IV SCH ×2 (11:01→23:55)
[2021-12-19] MEDS: MIDODRINE 5 MG TAB PO SCH ×3 (11:02→17:49)
[2021-12-19 14:00] VITALS: BP 129/70
[2021-12-19] MEDS ORDERED: FAT EMULSION IV 250 ML IV ONE (18:00)
[2021-12-19 19:30] VITALS: BP 118/63
[2021-12-19 20:17] LABS: CALCIUM LEVEL 8.8 MG/DL (8.8-10.2); CREATININE FOR GFR 1.04 MG/DL (0.55-1.30); GLOMERULAR FILTRATION RATE 54.4 (>39); POTASSIUM SERUM 4.1 MEQ/L (3.5-5.1)
[2021-12-19] MEDS ORDERED: TAMSULOSIN 0.4 MG CAP PO ONE (23:35)
[2021-12-20] VITALS (9 sets, daily range): BP systolic 102–137; BP diastolic 46–74
[2021-12-20] MEDS: INSULIN LISPRO (NovoLOG) PER UNIT SC SCH ×4 (05:06→23:22)
[2021-12-20 06:26] LABS: BASO % 0.5 % (0.0-1.0); EOS # 0.3 10^3/uL (0.0-0.5); EOS % 3.2 % (0.0-3.0); HEMATOCRIT 36.8 % (36.0-47.0); HEMOGLOBIN 12.1 g/dl (12.0-15.5); LYMPH # 1.6 10^3/uL (1.5-5.0); MEAN CORPUSCULAR HEMOGLOBIN 30.2 pg (27.0-33.0); MEAN CORPUSCULAR HGB CONC 32.9 g/dl (32.0-36.5); MEAN CORPUSCULAR VOLUME 91.8 fl (80.0-96.0); MONO # 1.2 10^3/uL (0.0-0.8); MONO % 13.4 % (2.0-8.0); NEUTROPHILS # 5.6 10^3/uL (1.5-8.5); NEUTROPHILS % 64.7 % (36.0-66.0); PLATELET COUNT, AUTOMATED 223 10^3/uL (150-450); RED BLOOD COUNT 4.01 10^6/uL (4.00-5.40); WHITE BLOOD COUNT 8.7 10^3/uL (4.0-10.0)
[2021-12-20 06:52] LABS: BLOOD UREA NITROGEN 20 MG/DL (7-18); CALCIUM LEVEL 8.7 MG/DL (8.8-10.2); CARBON DIOXIDE LEVEL 25 MEQ/L (21-32); CHLORIDE LEVEL 108 MEQ/L (98-107); CREATININE FOR GFR 0.81 MG/DL (0.55-1.30); GLOMERULAR FILTRATION RATE > 60.0 (>39); GLUCOSE, FASTING 121 MG/DL (70-100); SODIUM LEVEL 138 MEQ/L (136-145)
[2021-12-20] MEDS: METOCLOPRAMIDE INJ 10MG/2ML VIAL (J2765 PER 1) IV SCH ×4 (09:14→23:03)
[2021-12-20] MEDS: BACLOFEN 10 MG TAB PO SCH ×3 (09:15→23:03)
[2021-12-20] MEDS: POLYVINYL ALCOHOL OPHTH SOLN 15 ML(LIQUITEARS) OU SCH ×4 (09:15→23:03)
[2021-12-20] MEDS: MIDODRINE 5 MG TAB PO SCH ×3 (09:15→16:00)
[2021-12-20] MEDS ORDERED: propofoL 200 MG/20 ML VIAL As Ordered ONE (12:54)
[2021-12-20] MEDS ORDERED: LIDOCAINE 2% 100MG/5ML SDV (FOR ANES.) As Ordered ONE (12:54)
[2021-12-20] MEDS ORDERED: fentaNYL 100 MCG/2 ML INJECTION As Ordered ONE ×2 (12:55→15:07)
[2021-12-20] MEDS ORDERED: ROCURONIUM BROMIDE 50 MG/5 ML VIAL As Ordered ONE (12:55)
[2021-12-20] MEDS ORDERED: ONDANSETRON 4MG 2ML VIAL As Ordered ONE (12:56)
[2021-12-20] MEDS ORDERED: dexameTHASONE 4 MG/ML 1ML VIAL (J1100 PER 1MG) As Ordered ONE (12:56)
[2021-12-20] MEDS: AMINO AC/ELECTROLYTE/DEX/CALC 1,000 ML IV SCH (13:45)
[2021-12-20] MEDS ORDERED: BUPIVACAINE/EPIN 0.25% 30 ML VIAL As Ordered ONE (13:51)
[2021-12-20] MEDS ORDERED: FAT EMULSION IV 250 ML IV ONE (18:00)
[2021-12-21 02:00] VITALS: BP 105/50
[2021-12-21] MEDS: AMINO AC/ELECTROLYTE/DEX/CALC 1,000 ML IV SCH ×2 (03:42→17:45)
[2021-12-21 05:40] VITALS: BP 121/61
[2021-12-21] MEDS: INSULIN LISPRO (NovoLOG) PER UNIT SC SCH ×4 (05:52→23:20)
[2021-12-21 07:05] LABS: BASO % 0.1 % (0.0-1.0); LYMPH # 0.9 10^3/uL (1.5-5.0); LYMPH % 8.1 % (24.0-44.0); MEAN CORPUSCULAR HGB CONC 32.5 g/dl (32.0-36.5); MEAN CORPUSCULAR VOLUME 92.2 fl (80.0-96.0); MONO # 0.9 10^3/uL (0.0-0.8); MONO % 8.2 % (2.0-8.0); NEUTROPHILS % 83.2 % (36.0-66.0); PLATELET COUNT, AUTOMATED 215 10^3/uL (150-450); RED BLOOD COUNT 4.34 10^6/uL (4.00-5.40); WHITE BLOOD COUNT 10.8 10^3/uL (4.0-10.0)
[2021-12-21 07:29] LABS: BLOOD UREA NITROGEN 18 MG/DL (7-18); CALCIUM LEVEL 9.1 MG/DL (8.8-10.2); CARBON DIOXIDE LEVEL 24 MEQ/L (21-32); CHLORIDE LEVEL 106 MEQ/L (98-107); CREATININE FOR GFR 0.74 MG/DL (0.55-1.30); GLOMERULAR FILTRATION RATE > 60.0 (>39); GLUCOSE, FASTING 136 MG/DL (70-100); POTASSIUM SERUM 4.3 MEQ/L (3.5-5.1); SODIUM LEVEL 137 MEQ/L (136-145)
[2021-12-21] MEDS: BACLOFEN 10 MG TAB PO SCH ×3 (08:19→23:19)
[2021-12-21] MEDS: MIDODRINE 5 MG TAB PO SCH ×3 (08:19→17:45)
[2021-12-21] MEDS: METOCLOPRAMIDE INJ 10MG/2ML VIAL (J2765 PER 1) IV SCH ×4 (08:19→23:19)
[2021-12-21] MEDS: POLYVINYL ALCOHOL OPHTH SOLN 15 ML(LIQUITEARS) OU SCH ×4 (08:20→23:20)
[2021-12-21 10:00] VITALS: BP 124/60
[2021-12-21 14:00] VITALS: BP 148/72
[2021-12-21 18:00] VITALS: BP 110/58
[2021-12-21] MEDS ORDERED: FAT EMULSION IV 250 ML IV ONE (18:00)
[2021-12-21 21:57] VITALS: BP 115/56
[2021-12-22 05:08] VITALS: BP 123/64
[2021-12-22] MEDS: INSULIN LISPRO (NovoLOG) PER UNIT SC SCH ×3 (05:43→17:41)
[2021-12-22 06:17] LABS: HEMATOCRIT 40.2 % (36.0-47.0); HEMOGLOBIN 13.1 g/dl (12.0-15.5); MEAN CORPUSCULAR HEMOGLOBIN 30.5 pg (27.0-33.0); MEAN CORPUSCULAR HGB CONC 32.6 g/dl (32.0-36.5); MEAN CORPUSCULAR VOLUME 93.7 fl (80.0-96.0); PLATELET COUNT, AUTOMATED 213 10^3/uL (150-450); RED BLOOD COUNT 4.29 10^6/uL (4.00-5.40)
[2021-12-22 07:17] LABS: ALBUMIN 2.4 GM/DL (3.2-5.2); ALT/SGPT 16 U/L (12-78); BILIRUBIN,TOTAL 0.8 MG/DL (0.2-1.0); BLOOD UREA NITROGEN 19 MG/DL (7-18); CARBON DIOXIDE LEVEL 26 MEQ/L (21-32); CHLORIDE LEVEL 103 MEQ/L (98-107); GLOMERULAR FILTRATION RATE > 60.0 (>39); GLUCOSE, FASTING 107 MG/DL (70-100); POTASSIUM SERUM 4.8 MEQ/L (3.5-5.1); SODIUM LEVEL 136 MEQ/L (136-145); TOTAL PROTEIN 5.9 GM/DL (6.4-8.2)
[2021-12-22] MEDS: AMINO AC/ELECTROLYTE/DEX/CALC 1,000 ML IV SCH (08:14)
[2021-12-22] MEDS: METOCLOPRAMIDE INJ 10MG/2ML VIAL (J2765 PER 1) IV SCH ×3 (08:41→16:41)
[2021-12-22] MEDS: POLYVINYL ALCOHOL OPHTH SOLN 15 ML(LIQUITEARS) OU SCH ×4 (08:41→21:51)
[2021-12-22] MEDS: BACLOFEN 10 MG TAB PO SCH ×3 (08:41→21:51)
[2021-12-22 09:00] VITALS: BP 129/66
[2021-12-22 14:00] VITALS: BP 118/64
[2021-12-22] MEDS ORDERED: DOCUSATE SOD LIQ 100MG/10ML UDC PO SCH (21:00)
[2021-12-22 21:05] VITALS: BP 118/63
[2021-12-22] MEDS ORDERED: BISACODYL 10 MG SUPP PR PRN (21:35)
[2021-12-22] MEDS: METOCLOPRAMIDE 10MG TAB PO SCH (21:51)
[2021-12-22] MEDS: traMADol 50 MG TAB PO PRN (21:52)
[2021-12-23 06:00] VITALS: BP 131/69
[2021-12-23] MEDS ORDERED: INSULIN LISPRO (NovoLOG) PER UNIT SC SCH ×2 (07:30→21:00)
[2021-12-23 07:37] LABS: HEMATOCRIT 40.7 % (36.0-47.0); HEMOGLOBIN 13.2 g/dl (12.0-15.5); MEAN CORPUSCULAR HEMOGLOBIN 30.1 pg (27.0-33.0); MEAN CORPUSCULAR HGB CONC 32.4 g/dl (32.0-36.5); MEAN CORPUSCULAR VOLUME 92.7 fl (80.0-96.0); PLATELET COUNT, AUTOMATED 226 10^3/uL (150-450); RED BLOOD COUNT 4.39 10^6/uL (4.00-5.40); WHITE BLOOD COUNT 7.9 10^3/uL (4.0-10.0)
[2021-12-23 08:00] VITALS: BP 148/88
[2021-12-23 08:21] LABS: ALBUMIN 2.5 GM/DL (3.2-5.2); ALT/SGPT 17 U/L (12-78); BILIRUBIN,TOTAL 1.2 MG/DL (0.2-1.0); BLOOD UREA NITROGEN 25 MG/DL (7-18); CARBON DIOXIDE LEVEL 27 MEQ/L (21-32); CHLORIDE LEVEL 102 MEQ/L (98-107); CREATININE FOR GFR 0.78 MG/DL (0.55-1.30); GLOMERULAR FILTRATION RATE > 60.0 (>39); GLUCOSE, FASTING 107 MG/DL (70-100); POTASSIUM SERUM 4.3 MEQ/L (3.5-5.1); SODIUM LEVEL 134 MEQ/L (136-145); TOTAL PROTEIN 6.2 GM/DL (6.4-8.2)
[2021-12-23] MEDS: SENOKOT S TAB PO SCH ×2 (08:41→20:40)
[2021-12-23] MEDS: METOCLOPRAMIDE 10MG TAB PO SCH ×4 (08:41→20:40)
[2021-12-23] MEDS: BACLOFEN 10 MG TAB PO SCH ×3 (08:42→20:40)
[2021-12-23] MEDS: ENOXAPARIN 40MG/0.4ML SYRINGE (J1650 PER 10MG) SC SCH (08:42)
[2021-12-23] MEDS: POLYVINYL ALCOHOL OPHTH SOLN 15 ML(LIQUITEARS) OU SCH ×4 (08:43→20:41)
[2021-12-23] MEDS: traMADol 50 MG TAB PO PRN (20:42)
[2021-12-24 05:50] VITALS: BP 128/66
[2021-12-24 07:12] LABS: MEAN CORPUSCULAR HGB CONC 32.5 g/dl (32.0-36.5); MEAN CORPUSCULAR VOLUME 92.4 fl (80.0-96.0); PLATELET COUNT, AUTOMATED 260 10^3/uL (150-450); RED BLOOD COUNT 4.33 10^6/uL (4.00-5.40); WHITE BLOOD COUNT 8.1 10^3/uL (4.0-10.0)
[2021-12-24 07:55] LABS: ALBUMIN 2.5 GM/DL (3.2-5.2); ALT/SGPT 29 U/L (12-78); BILIRUBIN,TOTAL 1.1 MG/DL (0.2-1.0); BLOOD UREA NITROGEN 25 MG/DL (7-18); CARBON DIOXIDE LEVEL 27 MEQ/L (21-32); CHLORIDE LEVEL 102 MEQ/L (98-107); GLOMERULAR FILTRATION RATE > 60.0 (>39); GLUCOSE, FASTING 116 MG/DL (70-100); POTASSIUM SERUM 4.3 MEQ/L (3.5-5.1); SODIUM LEVEL 138 MEQ/L (136-145); TOTAL PROTEIN 6.1 GM/DL (6.4-8.2)
[2021-12-24] MEDS: ENOXAPARIN 40MG/0.4ML SYRINGE (J1650 PER 10MG) SC SCH (09:12)
[2021-12-24] MEDS: POLYVINYL ALCOHOL OPHTH SOLN 15 ML(LIQUITEARS) OU SCH ×4 (09:13→20:28)
[2021-12-24] MEDS: BACLOFEN 10 MG TAB PO SCH ×3 (09:13→20:27)
[2021-12-24] MEDS: METOCLOPRAMIDE 10MG TAB PO SCH ×4 (09:13→20:27)
[2021-12-24] MEDS: SENOKOT S TAB PO SCH ×2 (09:13→20:27)
[2021-12-24] MEDS: traMADol 50 MG TAB PO PRN (20:29)
[2021-12-25 05:50] VITALS: BP 124/67
[2021-12-25 06:13] LABS: HEMATOCRIT 40.4 % (36.0-47.0); MEAN CORPUSCULAR HGB CONC 32.2 g/dl (32.0-36.5); MEAN CORPUSCULAR VOLUME 93.3 fl (80.0-96.0); PLATELET COUNT, AUTOMATED 270 10^3/uL (150-450); RED BLOOD COUNT 4.33 10^6/uL (4.00-5.40); WHITE BLOOD COUNT 8.6 10^3/uL (4.0-10.0)
[2021-12-25 06:59] LABS: ALBUMIN 2.4 GM/DL (3.2-5.2); ALT/SGPT 30 U/L (12-78); BILIRUBIN,TOTAL 0.6 MG/DL (0.2-1.0); BLOOD UREA NITROGEN 25 MG/DL (7-18); CALCIUM LEVEL 8.9 MG/DL (8.8-10.2); CARBON DIOXIDE LEVEL 27 MEQ/L (21-32); CHLORIDE LEVEL 102 MEQ/L (98-107); CREATININE FOR GFR 0.75 MG/DL (0.55-1.30); GLOMERULAR FILTRATION RATE > 60.0 (>39); GLUCOSE, FASTING 138 MG/DL (70-100); SODIUM LEVEL 134 MEQ/L (136-145); TOTAL PROTEIN 6.2 GM/DL (6.4-8.2)
[2021-12-25] MEDS: ENOXAPARIN 40MG/0.4ML SYRINGE (J1650 PER 10MG) SC SCH (08:00)
[2021-12-25] MEDS: METOCLOPRAMIDE 10MG TAB PO SCH ×4 (08:00→20:41)
[2021-12-25] MEDS: BACLOFEN 10 MG TAB PO SCH ×3 (08:00→20:41)
[2021-12-25] MEDS: SENOKOT S TAB PO SCH ×2 (08:00→20:42)
[2021-12-25] MEDS: POLYVINYL ALCOHOL OPHTH SOLN 15 ML(LIQUITEARS) OU SCH ×4 (08:01→20:42)
[2021-12-25] MEDS: traMADol 50 MG TAB PO PRN (20:43)
[2021-12-26 05:40] VITALS: BP 121/64
[2021-12-26 07:01] LABS: HEMATOCRIT 40.4 % (36.0-47.0); MEAN CORPUSCULAR HEMOGLOBIN 29.7 pg (27.0-33.0); MEAN CORPUSCULAR HGB CONC 32.2 g/dl (32.0-36.5); MEAN CORPUSCULAR VOLUME 92.2 fl (80.0-96.0); PLATELET COUNT, AUTOMATED 293 10^3/uL (150-450); RED BLOOD COUNT 4.38 10^6/uL (4.00-5.40); WHITE BLOOD COUNT 11.2 10^3/uL (4.0-10.0)
[2021-12-26 07:40] LABS: ALBUMIN 2.2 GM/DL (3.2-5.2); ALT/SGPT 28 U/L (12-78); BILIRUBIN,TOTAL 0.5 MG/DL (0.2-1.0); BLOOD UREA NITROGEN 26 MG/DL (7-18); CALCIUM LEVEL 8.9 MG/DL (8.8-10.2); CARBON DIOXIDE LEVEL 25 MEQ/L (21-32); CHLORIDE LEVEL 101 MEQ/L (98-107); CREATININE FOR GFR 0.81 MG/DL (0.55-1.30); GLOMERULAR FILTRATION RATE > 60.0 (>39); GLUCOSE, FASTING 138 MG/DL (70-100); SODIUM LEVEL 133 MEQ/L (136-145)
[2021-12-26] MEDS: BACLOFEN 10 MG TAB PO SCH ×3 (08:05→20:40)
[2021-12-26] MEDS: ENOXAPARIN 40MG/0.4ML SYRINGE (J1650 PER 10MG) SC SCH (08:05)
[2021-12-26] MEDS: METOCLOPRAMIDE 10MG TAB PO SCH ×4 (08:05→20:40)
[2021-12-26] MEDS: SENOKOT S TAB PO SCH ×2 (08:05→20:37)
[2021-12-26] MEDS: POLYVINYL ALCOHOL OPHTH SOLN 15 ML(LIQUITEARS) OU SCH ×4 (08:06→20:40)
[2021-12-26] MEDS: traMADol 50 MG TAB PO PRN ×2 (08:10→20:40)
[2021-12-27 03:34] VITALS: BP 140/75
[2021-12-27] MEDS ORDERED: ACETAMINOPHEN 325 MG/10.15 ML UDC GT PRN (03:50)
[2021-12-27] MEDS ORDERED: ONDANSETRON 4MG ORAL DISINTEGRATING TAB PO PRN (03:50)
[2021-12-27] MEDS: traMADol 50 MG TAB PO PRN ×2 (04:31→12:11)
[2021-12-27 04:48] LABS: HEMATOCRIT 40.3 % (36.0-47.0); HEMOGLOBIN 13.3 g/dl (12.0-15.5); MEAN CORPUSCULAR HEMOGLOBIN 30.2 pg (27.0-33.0); MEAN CORPUSCULAR VOLUME 91.6 fl (80.0-96.0); PLATELET COUNT, AUTOMATED 331 10^3/uL (150-450); WHITE BLOOD COUNT 13.4 10^3/uL (4.0-10.0)
[2021-12-27] MEDS ORDERED: NS 1,000 ML IV ONE (05:00)
[2021-12-27] MEDS ORDERED: MORPHINE 2 MG/ML 1ML VIAL IV PRN (05:00)
[2021-12-27 05:20] LABS: ALBUMIN 2.5 GM/DL (3.2-5.2); ALT/SGPT 24 U/L (12-78); BILIRUBIN,TOTAL 0.6 MG/DL (0.2-1.0); BLOOD UREA NITROGEN 26 MG/DL (7-18); CALCIUM LEVEL 8.8 MG/DL (8.8-10.2); CARBON DIOXIDE LEVEL 28 MEQ/L (21-32); CHLORIDE LEVEL 100 MEQ/L (98-107); CREATININE FOR GFR 0.76 MG/DL (0.55-1.30); GLOMERULAR FILTRATION RATE > 60.0 (>39); GLUCOSE, FASTING 131 MG/DL (70-100); POTASSIUM SERUM 4.3 MEQ/L (3.5-5.1); SODIUM LEVEL 135 MEQ/L (136-145); TOTAL PROTEIN 7.3 GM/DL (6.4-8.2)
[2021-12-27 05:40] LABS: AMYLASE 66 U/L (25-115); LIPASE 638 U/L (73-393)
[2021-12-27 05:43] LABS: VENOUS BASE EXCESS 1.4 (-2.0-2.0); VENOUS HCO3 26.6 MEQ/L (23.0-27.0); VENOUS O2 SATURATION 75.6 % (60.0-80.0); VENOUS PARTIAL PRESSURE CO2 44.2 mmHg (38.0-50.0); VENOUS PARTIAL PRESSURE O2 43.7 mmHg (30.0-50.0); VENOUS PH 7.397 UNITS (7.330-7.430); VENOUS STANDARD HCO3 25.1 MEQ/L; VENOUS TOTAL CO2 27.9 MEQ/L (24.0-28.0)
[2021-12-27 06:00] VITALS: BP 139/75
[2021-12-27] MEDS ORDERED: ONDANSETRON 4MG 2ML VIAL IV PRN (06:00)
[2021-12-27 06:01] LABS: RSV AMPLIFICATION NEGATIVE (NEGATIVE)
[2021-12-27 08:57] LABS: NT-PRO BNP 119 PG/ML (<450)
[2021-12-27] MEDS: METOCLOPRAMIDE 10MG TAB PO SCH ×4 (09:22→21:08)
[2021-12-27] MEDS: BACLOFEN 10 MG TAB PO SCH ×3 (09:22→21:08)
[2021-12-27] MEDS: SENOKOT S TAB PO SCH ×2 (09:22→21:08)
[2021-12-27] MEDS: ENOXAPARIN 40MG/0.4ML SYRINGE (J1650 PER 10MG) SC SCH (09:22)
[2021-12-27] MEDS: POLYVINYL ALCOHOL OPHTH SOLN 15 ML(LIQUITEARS) OU SCH ×4 (09:24→21:08)
[2021-12-27] MEDS: PIPERACILLIN/TAZOBACTAM SOD 3.375 GM in D5W MINI-BAG PLUS 50 ML IV SCH (18:03)
[2021-12-28] MEDS: PIPERACILLIN/TAZOBACTAM SOD 3.375 GM in D5W MINI-BAG PLUS 50 ML IV SCH ×5 (00:22→23:48)
[2021-12-28 05:30] VITALS: BP 115/64
[2021-12-28 07:15] LABS: HEMATOCRIT 39.6 % (36.0-47.0); HEMOGLOBIN 12.2 g/dl (12.0-15.5); MEAN CORPUSCULAR HEMOGLOBIN 29.5 pg (27.0-33.0); MEAN CORPUSCULAR HGB CONC 30.8 g/dl (32.0-36.5); MEAN CORPUSCULAR VOLUME 95.9 fl (80.0-96.0); PLATELET COUNT, AUTOMATED 276 10^3/uL (150-450); RED BLOOD COUNT 4.13 10^6/uL (4.00-5.40); WHITE BLOOD COUNT 11.7 10^3/uL (4.0-10.0)
[2021-12-28 08:16] LABS: ALBUMIN 2.2 GM/DL (3.2-5.2); ALT/SGPT 23 U/L (12-78); BILIRUBIN,TOTAL 0.7 MG/DL (0.2-1.0); BLOOD UREA NITROGEN 21 MG/DL (7-18); CALCIUM LEVEL 8.5 MG/DL (8.8-10.2); CARBON DIOXIDE LEVEL 25 MEQ/L (21-32); CHLORIDE LEVEL 101 MEQ/L (98-107); CREATININE FOR GFR 0.68 MG/DL (0.55-1.30); GLOMERULAR FILTRATION RATE > 60.0 (>39); GLUCOSE, FASTING 156 MG/DL (70-100); POTASSIUM SERUM 4.6 MEQ/L (3.5-5.1); SODIUM LEVEL 136 MEQ/L (136-145); TOTAL PROTEIN 6.2 GM/DL (6.4-8.2)
[2021-12-28] MEDS: ENOXAPARIN 40MG/0.4ML SYRINGE (J1650 PER 10MG) SC SCH (08:29)
[2021-12-28] MEDS: METOCLOPRAMIDE 10MG TAB PO SCH ×4 (08:30→21:32)
[2021-12-28] MEDS: traMADol 50 MG TAB PO PRN (08:32)
[2021-12-28] MEDS: SENOKOT S TAB PO SCH ×2 (08:32→21:32)
[2021-12-28] MEDS: BACLOFEN 10 MG TAB PO SCH ×3 (08:32→21:32)
[2021-12-28] MEDS: POLYVINYL ALCOHOL OPHTH SOLN 15 ML(LIQUITEARS) OU SCH ×4 (08:33→21:33)
[2021-12-28] MEDS ORDERED: MORPHINE 2 MG/ML 1ML VIAL IV ONE (08:45)
[2021-12-28] MEDS ORDERED: MORPHINE 30 MG TAB **MSIR JT PRN (08:45)
[2021-12-29] MEDS: PIPERACILLIN/TAZOBACTAM SOD 3.375 GM in D5W MINI-BAG PLUS 50 ML IV SCH (05:38)
[2021-12-29 06:00] VITALS: BP 112/57
[2021-12-29] MEDS: POLYVINYL ALCOHOL OPHTH SOLN 15 ML(LIQUITEARS) OU SCH ×4 (09:04→20:45)
[2021-12-29] MEDS: METOCLOPRAMIDE 10MG TAB PO SCH ×4 (09:05→20:45)
[2021-12-29] MEDS: ENOXAPARIN 40MG/0.4ML SYRINGE (J1650 PER 10MG) SC SCH (09:05)
[2021-12-29] MEDS: BACLOFEN 10 MG TAB PO SCH ×3 (09:05→20:45)
[2021-12-29] MEDS: SENOKOT S TAB PO SCH ×2 (09:05→20:45)
[2021-12-29 10:00] LABS: BASO % 0.3 % (0.0-1.0); EOS # 0.3 10^3/uL (0.0-0.5); EOS % 2.8 % (0.0-3.0); HEMATOCRIT 37.9 % (36.0-47.0); LYMPH # 1.3 10^3/uL (1.5-5.0); MEAN CORPUSCULAR HEMOGLOBIN 29.9 pg (27.0-33.0); MEAN CORPUSCULAR HGB CONC 31.7 g/dl (32.0-36.5); MEAN CORPUSCULAR VOLUME 94.3 fl (80.0-96.0); MONO % 9.7 % (2.0-8.0); NEUTROPHILS # 7.2 10^3/uL (1.5-8.5); NEUTROPHILS % 73.8 % (36.0-66.0); PLATELET COUNT, AUTOMATED 357 10^3/uL (150-450); RED BLOOD COUNT 4.02 10^6/uL (4.00-5.40); WHITE BLOOD COUNT 9.8 10^3/uL (4.0-10.0)
[2021-12-29 10:36] LABS: ALBUMIN 2.1 GM/DL (3.2-5.2); ALT/SGPT 24 U/L (12-78); BILIRUBIN,TOTAL 0.5 MG/DL (0.2-1.0); BLOOD UREA NITROGEN 20 MG/DL (7-18); CALCIUM LEVEL 8.7 MG/DL (8.8-10.2); CARBON DIOXIDE LEVEL 28 MEQ/L (21-32); CHLORIDE LEVEL 100 MEQ/L (98-107); CREATININE FOR GFR 0.71 MG/DL (0.55-1.30); GLOMERULAR FILTRATION RATE > 60.0 (>39); GLUCOSE, FASTING 131 MG/DL (70-100); MAGNESIUM LEVEL 2.1 MG/DL (1.8-2.4); POTASSIUM SERUM 4.5 MEQ/L (3.5-5.1); SODIUM LEVEL 138 MEQ/L (136-145); TOTAL PROTEIN 6.3 GM/DL (6.4-8.2)
[2021-12-29 11:14] LABS: ERYTHROCYTE SEDIMENTATION RATE 88 mm/hr (0-30)
[2021-12-29] MEDS: AUGMENTIN 875 MG TAB PO SCH ×2 (11:43→20:44)
[2021-12-30] MEDS ORDERED: FLUCONAZOLE 40MG/ML ORAL SUSP 35ML **DRAW UP EXACT DOSE PO ONE (05:30)
[2021-12-30 06:06] VITALS: BP 127/62
[2021-12-30] MEDS: METOCLOPRAMIDE 10MG TAB PO SCH ×4 (07:30→21:38)
[2021-12-30 08:55] VITALS: BP 128/65
[2021-12-30] MEDS: POLYVINYL ALCOHOL OPHTH SOLN 15 ML(LIQUITEARS) OU SCH ×4 (10:19→21:39)
[2021-12-30] MEDS: AUGMENTIN 875 MG TAB PO SCH ×2 (10:20→21:38)
[2021-12-30] MEDS: SENOKOT S TAB PO SCH ×2 (10:20→21:38)
[2021-12-30] MEDS: ENOXAPARIN 40MG/0.4ML SYRINGE (J1650 PER 10MG) SC SCH (10:20)
[2021-12-30] MEDS: BACLOFEN 10 MG TAB PO SCH ×3 (10:20→21:38)
[2021-12-30 13:46] LABS: BASO % 0.4 % (0.0-1.0); EOS # 0.3 10^3/uL (0.0-0.5); EOS % 3.2 % (0.0-3.0); HEMATOCRIT 39.1 % (36.0-47.0); HEMOGLOBIN 12.6 g/dl (12.0-15.5); LYMPH # 1.6 10^3/uL (1.5-5.0); LYMPH % 20.7 % (24.0-44.0); MEAN CORPUSCULAR HEMOGLOBIN 29.9 pg (27.0-33.0); MEAN CORPUSCULAR HGB CONC 32.2 g/dl (32.0-36.5); MEAN CORPUSCULAR VOLUME 92.7 fl (80.0-96.0); MONO # 0.8 10^3/uL (0.0-0.8); MONO % 10.1 % (2.0-8.0); NEUTROPHILS # 5.2 10^3/uL (1.5-8.5); NEUTROPHILS % 65.2 % (36.0-66.0); PLATELET COUNT, AUTOMATED 437 10^3/uL (150-450); RED BLOOD COUNT 4.22 10^6/uL (4.00-5.40); WHITE BLOOD COUNT 7.9 10^3/uL (4.0-10.0)
[2021-12-30 14:22] LABS: ALBUMIN 2.2 GM/DL (3.2-5.2); ALT/SGPT 28 U/L (12-78); AMYLASE 37 U/L (25-115); BILIRUBIN,TOTAL 0.4 MG/DL (0.2-1.0); BLOOD UREA NITROGEN 21 MG/DL (7-18); CALCIUM LEVEL 9.2 MG/DL (8.8-10.2); CARBON DIOXIDE LEVEL 27 MEQ/L (21-32); CHLORIDE LEVEL 103 MEQ/L (98-107); CREATININE FOR GFR 0.59 MG/DL (0.55-1.30); GLOMERULAR FILTRATION RATE > 60.0 (>39); GLUCOSE, FASTING 109 MG/DL (70-100); LIPASE 112 U/L (73-393); POTASSIUM SERUM 4.4 MEQ/L (3.5-5.1); SODIUM LEVEL 137 MEQ/L (136-145); TOTAL PROTEIN 6.5 GM/DL (6.4-8.2)
[2021-12-30 15:36] LABS: ERYTHROCYTE SEDIMENTATION RATE 106 mm/hr (0-30)
[2021-12-30] MEDS ORDERED: BISACODYL 10 MG SUPP PR ONE (17:00)
[2021-12-30] MEDS ORDERED: FLEET ENEMA PR PRN (19:40)
[2021-12-30] MEDS ORDERED: SENN-52 PO (21:01)
[2021-12-30] MEDS ORDERED: TRAM50TA2 PO (21:01)
[2021-12-30] MEDS ORDERED: MSIR30TA JT (21:01)
[2021-12-30] MEDS ORDERED: AMOX875T2 PO (21:01)
[2021-12-31 05:00] VITALS: BP 107/63
[2021-12-31 08:00] VITALS: BP 110/67
[2021-12-31] MEDS ORDERED: MIRALAX *UNIT DOSE* 17GM PACKET JT ONE (09:00)
[2021-12-31] MEDS ORDERED: MOM 30ML SUSPENSION UDC JT ONE (09:00)
[2021-12-31] MEDS: METOCLOPRAMIDE 10MG TAB PO SCH ×2 (09:22→12:45)
[2021-12-31] MEDS: SENOKOT S TAB PO SCH (10:16)
[2021-12-31] MEDS: AUGMENTIN 875 MG TAB PO SCH (10:16)
[2021-12-31] MEDS: BACLOFEN 10 MG TAB PO SCH (10:17)
[2021-12-31] MEDS: POLYVINYL ALCOHOL OPHTH SOLN 15 ML(LIQUITEARS) OU SCH ×2 (10:19→12:46)
[2021-12-31] MEDS: ENOXAPARIN 40MG/0.4ML SYRINGE (J1650 PER 10MG) SC SCH (10:38)
[2021-12-31] MEDS: POLYETHYLENE GLYCOL (MIRALAX) 238GM BOTTLE JT ONE ×2 (12:45→13:02)
[2021-12-31] MEDS: MOM 30ML SUSPENSION UDC JT ONE ×2 (12:45→13:02)
[2021-12-31 13:30] VITALS: BP 112/61
== END 2021-12-31 15:52 | disposition home health service (06) | DRG 689 ==
LOC: M ED 14:06 → M ED INP 17:32 → ENRESERV 12-16 06:48 → M ICU 12-16 07:21 → M MSPAV 12-17 18:31
PROVIDERS: ADMIT General Practice; ATTEND General Practice
PROC: 0DHA4UZ Insertion of Feeding Device into Jejunum, Percutaneous Endoscopic Approach (ICD-10-PCS; principal; 2021-12-20 13:30)
DX: N39.0 Urinary tract infection, site not specified (principal); J69.0 Pneumonitis due to inhalation of food and vomit; A69.20 Lyme disease, unspecified; G12.21 Amyotrophic lateral sclerosis; N17.9 Acute kidney failure, unspecified; B96.20 Unspecified Escherichia coli [E. coli] as the cause of diseases classified elsewhere; Z66 Do not resuscitate; E87.5 Hyperkalemia; D63.1 Anemia in chronic kidney disease; M85.88 Other specified disorders of bone density and structure, other site; R13.10 Dysphagia, unspecified; R47.1 Dysarthria and anarthria; J44.9 Chronic obstructive pulmonary disease, unspecified; E78.5 Hyperlipidemia, unspecified; K21.9 Gastro-esophageal reflux disease without esophagitis; E11.22 Type 2 diabetes mellitus with diabetic chronic kidney disease; N18.9 Chronic kidney disease, unspecified; E55.9 Vitamin D deficiency, unspecified; I12.9 Hypertensive chronic kidney disease with stage 1 through stage 4 chronic kidney disease, or unspecified chronic kidney disease; Z96.653 Presence of artificial knee joint, bilateral; M54.9 Dorsalgia, unspecified; G89.29 Other chronic pain; I16.0 Hypertensive urgency; Z79.899 Other long term (current) drug therapy; K44.9 Diaphragmatic hernia without obstruction or gangrene; Z74.01 Bed confinement status

== ENCOUNTER → 2022-01-19 | Outpatient (REF) | payer MEDICARE, OTHER ==
[~2022-01-19] MED LIST changes: +ALBU8.5H INH; +AMOX875T2 PO; +BACL10TA2 PO; +IBUP80TA PO; +MSIR30TA JT; +SENN-52 PO; +TRAM50TA2 PO
[2022-01-19 17:32] LABS: APPEARANCE, URINE MANUAL CLOUDY (CLEAR); COLOR, URINE MANUAL YELLOW (YELLOW)
[2022-01-19 17:33] LABS: BILIRUBIN, URINE MANUAL NEGATIVE (NEGATIVE); GLUCOSE, URINE (UA) MANUAL NEGATIVE (NEGATIVE); KETONE, URINE MANUAL NEGATIVE (NEGATIVE); LEUKOCYTE ESTERASE, URINE MAN POSITIVE (NEGATIVE); NITRITE, URINE MANUAL POSITIVE (NEGATIVE); PROTEIN, URINE MANUAL TRACE mg/dL (NEGATIVE); UROBILINOGEN, URINE MANUAL NORMAL (NORMAL)
[2022-01-19 17:34] LABS: BLOOD URINE MANUAL TRACE (NEGATIVE)
[2022-01-19 18:18] LABS: AMORPHOUS SEDIMENT, URINE SMALL AMOUNT (NEGATIVE); BACTERIA, URINE LARGE AMOUNT; HYALINE CAST, URINE NONE SEEN /lpf (0-1); SQUAMOUS EPITHELIAL CELL URINE SMALL AMOUNT /hpf (SMALL AMT)
== END ==
LOC: M LAB REF 15:56 → M SHH 15:56
PROVIDERS: ATTEND Nurse Practitioner Family
DX: N39.0 Urinary tract infection, site not specified (principal)

== ENCOUNTER → 2022-02-01 | Outpatient (REF) ==
[2022-02-01 15:01] LABS: APPEARANCE, URINE MANUAL CLOUDY (CLEAR); COLOR, URINE MANUAL LT YELLOW (YELLOW)
[2022-02-01 15:02] LABS: BILIRUBIN, URINE MANUAL NEGATIVE (NEGATIVE); BLOOD URINE MANUAL TRACE (NEGATIVE); GLUCOSE, URINE (UA) MANUAL NEGATIVE (NEGATIVE); KETONE, URINE MANUAL NEGATIVE (NEGATIVE); LEUKOCYTE ESTERASE, URINE MAN POSITIVE (NEGATIVE); NITRITE, URINE MANUAL NEGATIVE (NEGATIVE); PROTEIN, URINE MANUAL NEGATIVE (NEGATIVE); SPECIFIC GRAVITY,URINE MANUAL 1.005 (1.002-1.035); UROBILINOGEN, URINE MANUAL NORMAL (NORMAL)
[2022-02-01 15:24] LABS: BACTERIA, URINE SMALL AMOUNT; HYALINE CAST, URINE NONE SEEN /lpf (0-1); SQUAMOUS EPITHELIAL CELL URINE SMALL AMOUNT /hpf (SMALL AMT); TRIPLE PHOSPHATE CRYSTAL,URINE LARGE AMOUNT /hpf
[2022-02-01 15:25] LABS: AMORPHOUS SEDIMENT, URINE LARGE AMOUNT (NEGATIVE)
== END ==
LOC: M LAB REF 12:44
PROVIDERS: ATTEND Family Medicine
DX: N39.0 Urinary tract infection, site not specified (principal)

== ENCOUNTER → 2022-02-09 | Outpatient (REF) | LOC: M LAB REF 16:44 | DX: N39.0 Urinary tract infection, site not specified (principal) ==